=== PATIENT | female | born 1975 | race African-American/Black ===

== ENCOUNTER 2017-12-22 15:47 | Inpatient (IN) | payer OTHER, MEDICAID, MEDICARE ==
[2017-12-22] VITALS (20 sets, daily range): BP systolic 92–146; BP diastolic 54–74; PULSE 66–107; RESP 13–20; TEMP 97.6–97.9; O2SAT 89–100
[~2017-12-22] VITALS: Ht 170.2 cm; Wt 116.6 kg
--- NOTE | 2017-12-22 16:42 | RADRPT ---
EXAM DATE/TIME: 12/22/2017 16:22 [facility] COMPARISON: No previous studies available for comparison. INDICATIONS : Short of breath. MEDICAL HISTORY : None. SURGICAL HISTORY : None. ENCOUNTER: Initial ACUITY: 1 day PAIN SCORE: Non-responsive. LOCATION: Bilateral chest FINDINGS: Portable AP view of the chest demonstrates enlargement of the cardiac silhouette. Patient is rotated. Left chest wall Jhicjn-h-Azha distal tip is in the SVC. Lungs are underinflated there is mild bibasi lar airspace opacity. No pneumothorax or definite pleural effusion is seen. Bones and soft tissues de monstrate no acute finding. CONCLUSION: 1. Examination quality less than optimal secondary to patient's body habitus and rotation and underin flation. There is mild bibasilar airspace opacity which could represent atelectasis or airspace conso lidation. 2. There is mild enlargement of the cardiac silhouette. Jacinto Nieves MD on December 22, 2017 at 16:38 Board Certified Radiologist. This report was verified electronically.
[2017-12-22 17:02] LABS: AUTOMATED NEUTROPHIL # 8.5 TH/MM3 (1.8-7.7); BASOPHIL # 0.1 TH/MM3 (0-0.2); BASOPHIL % 0.8 % (0.0-2.0); EOSINOPHIL # 0.2 TH/MM3 (0-0.4); EOSINOPHIL % 1.5 % (0.0-4.0); LYMPHOCYTE # 1.6 TH/MM3 (1.0-4.8); MEAN CELL VOLUME 94.1 FL (80.0-100.0); MEAN CORPUSCULAR HEMOGLOBIN 32.2 PG (27.0-34.0); MEAN CORPUSCULAR HGB CONC 34.2 % (32.0-36.0); MEAN PLATELET VOLUME 9.1 FL (7.0-11.0); MONO % 10.7 % (0.0-8.0); MONOCYTE # 1.3 TH/MM3 (0-0.9); PLATELET COUNT 263 TH/MM3 (150-450); RED BLOOD COUNT 1.72 MIL/MM3 (4.00-5.30); RED CELL DISTRIBUTION WIDTH 24.4 % (11.6-17.2); WHITE BLOOD COUNT 11.7 TH/MM3 (4.0-11.0)
[2017-12-22 17:06] LABS: RETIC # 328.8 MIL/L (20.0-150.0); RETIC % 18.8 % (0.4-3.0)
[2017-12-22 17:14] LABS: INTERNATIONAL NORMALIZED RATIO 1.9 RATIO; PROTHROMBIN TIME - PATIENT 18.9 SEC (9.8-11.6)
[2017-12-22 17:19] LABS: HEMATOCRIT 16.2 % (35.0-46.0); HEMOGLOBIN 5.6 GM/DL (11.6-15.3)
[2017-12-22 17:24] LABS: ALT (GPT) 14 U/L (10-53)
[2017-12-22 17:26] LABS: ALKALINE PHOSPHATASE 143 U/L (45-117); TOTAL BILIRUBIN ADULT 4.1 MG/DL (0.2-1.0); TOTAL PROTEIN 9.6 GM/DL (6.4-8.2)
[2017-12-22 17:27] LABS: ALBUMIN 3.8 GM/DL (3.4-5.0); AST (GOT) 43 U/L (15-37); BICARBONATE 28.2 MEQ/L (21.0-32.0); BLOOD UREA NITROGEN 54 MG/DL (7-18); CALCIUM 8.5 MG/DL (8.5-10.1); CHLORIDE 99 MEQ/L (98-107); CREATININE 2.19 MG/DL (0.50-1.00); GLOMERULAR FILTRATION RATE 19 ML/MIN (>89); GLUCOSE,RANDOM 120 MG/DL (74-106); SODIUM (NA) 132 MEQ/L (136-145)
--- NOTE | 2017-12-22 17:27 | PD ---
HPI Chief Complaint: Edema Time Seen by Provider: 16:22 Travel History International Travel<30 days: No Contact w/Intl Traveler<30days: No Traveled to known affect area: No History of Present Illness HPI 42 YO F presents to the ED via EMS for evaluation of shortness of breath. Patient is a poor historian, unable to provide much meaningful history. Per EMS the patient had O2 sats of 81 on their arrival, required 15 L on nonrebreather to bring saturations into the 90s. Patient is alert, intermittently follows commands. She is very hard of hearing and unable to communicate well. Patient was able to provide her name. I reviewed her record. She has a history of sickle cell anemia, CHF, recent history of right DVT. [facility] Social History Tobacco Use: No Allergies-Medications (Allergen,Severity, Reaction): Coded Allergies: No Known Allergies (Unverified , 12/22/17) Review of Systems Except as stated in HPI: all other systems reviewed are Neg Physical Exam Narrative GENERAL: Well-nourished, well-developed obese -[place]ish female, in moderate distress. SKIN: Focused skin assessment warm/dry. Facial edema noted. HEAD: Normocephalic. EYES: Positive scleral icterus. No injection or drainage. NECK: Supple, trachea midline. No JVD or lymphadenopathy. CARDIOVASCULAR: Regular rate and rhythm without murmurs, gallops, or rubs. RESPIRATORY: Breath sounds equal bilaterally. Positive accessory muscle use. GASTROINTESTINAL: Abdomen edematous, firm to the touch. I am unable to elicit response to deep palpation. Hypoactive bowel sounds. MUSCULOSKELETAL: No cyanosis, 2+ pitting edema right much greater than left. BACK: Nontender without obvious deformity. No CVA tenderness. Data Data Last Documented VS Vital Signs Date Time Temp Pulse Resp B/P (MAP) Pulse Ox O2 Delivery O2 Flow Rate FiO2 12/22/17 18:30 94 14 110/54 (72) 100 Ventilator 60 12/22/17 18:00 15.00 12/22/17 16:16 97.8 Orders Orders Complete Blood Count With Diff (12/22/17 16:19) Comprehensive Metabolic Panel (12/22/17 16:19) B-Type Natriuretic Peptide (12/22/17 16:19) Act Partial Throm Time (Ptt) (12/22/17 16:19) Prothrombin Time / Inr (Pt) (12/22/17 16:19) Urinalysis - C+S If Indicated (12/22/17 16:19) Iv Access Insert/Monitor (12/22/17 16:19) Electrocardiogram (12/22/17 16:19) Ecg Monitoring (12/22/17 16:19) Oximetry (12/22/17 16:19) Oxygen Administration (12/22/17 16:19) Chest, Single Ap (12/22/17 16:19) Retic Count (12/22/17 16:21) Type And Screen (12/22/17 16:29) Red Blood Cells (Rbc) (12/22/17 17:19) Blood Product Administration (12/22/17 17:19) Sodium Chlor 0.9% 250 Ml Inj (Ns 250 Ml (12/22/17 17:30) Ed Poc Ultrasound (12/22/17 ) Arterial Blood Gas (Abg) (12/22/17 ) Etomidate Inj (Amidate Inj) (12/22/17 18:00) Succinylcholine Inj (Quelicin Inj) (12/22/17 18:00) Propofol 200 Mg/20 Ml Inj (Diprivan 200 (12/22/17 18:00) Furosemide Inj (Lasix Inj) (12/22/17 18:00) Etomidate Inj (Amidate Inj) (12/22/17 17:52) Succinylcholine Inj (Quelicin Inj) (12/22/17 17:52) Succinylcholine Inj (Quelicin Inj) (12/22/17 17:54) Propofol 1000 Mg/100 Ml Inj (Diprivan 10 (12/22/17 18:15) Midazolam Inj (Versed Inj) (12/22/17 18:15) Chest, Single Ap (12/22/17 ) Midazolam Inj (Versed Inj) (12/22/17 18:19) Ventilation & Perfusion Scan (12/22/17 ) Ct Thorax/ Chest Wo Iv Contras (12/22/17 ) Admit To Inpatient (12/22/17 ) Code Status (12/22/17 18:39) Vital Signs (Adult) CORTES.Q1H (12/22/17 18:39) Activity Bed Rest (12/22/17 18:39) Elevate Head Of Bed (12/22/17 18:39) Neuro Checks . ORDERED (12/22/17 18:39) Intake + Output Q1H (12/22/17 18:39) Diet Tube Feed Only (12/22/17 Dinner) Sodium Chlor 0.9% 1000 Ml Inj (Ns 1000 M (12/22/17 18:39) Sodium Chloride 0.9% Flush (Ns Flush) (12/22/17 18:45) Sodium Chloride 0.9% Flush (Ns Flush) (12/22/17 21:00) Acetaminophen (Tylenol) (12/22/17 18:45) Morphine Inj (Morphine Inj) (12/22/17 18:45) Famotidine Inj (Pepcid Inj) (12/22/17 21:00) Midazolam Inj (Versed Inj) (12/22/17 18:45) Ondansetron Inj (Zofran Inj) (12/22/17 18:45) Albuterol-Ipratropium Neb (Duoneb Neb) (12/22/17 20:00) Albuterol-Ipratropium Neb (Duoneb Neb) (12/22/17 18:45) Complete Blood Count With Diff (12/23/17 04:00) Comprehensive Metabolic Panel (12/23/17 04:00) Troponin I (12/22/17 18:39) Troponin I (12/23/17 00:39) Act Partial Throm Time (Ptt) (12/23/17 04:00) Prothrombin Time / Inr (Pt) (12/23/17 04:00) Magnesium (Mg) (12/23/17 04:00) Phosphorus (Po4) (12/23/17 04:00) Lactic Acid (12/23/17 04:00) Chest, Single Ap (12/23/17 ) Electrocardiogram (12/22/17 18:39) Electrocardiogram (12/23/17 00:39) Echo 2d Comp With Doppler (12/22/17 18:39) Pt Request For Service (12/22/17 18:39) Transformer Tester / Telemetry CORTES.Q8H (12/22/17 18:39) Scd Bilateral/Knee High CORTES.BID (12/22/17 18:39) Doc Bilateral/Knee High CORTES.QSHIFT (12/22/17 18:39) ^ Initiate Protocol (12/22/17 18:39) Instruction (12/22/17 18:39) Misc Nursing Information (12/22/17 18:45) Chlorhexidine 2% Cloth (Chlorhexidine 2% (12/23/17 04:00) Chlorhexidine 2% Cloth (Chlorhexidine 2% (12/22/17 18:45) Mrsa Pcr Surveillance (12/22/17 18:39) Docusate Sodium-Senna (Amber-Colace) (12/22/17 21:00) Magnesium Hydroxide Liq (Milk Of Magnesi (12/22/17 18:45) Sennosides (Senokot) (12/22/17 18:45) Bisacodyl Supp (Dulcolax Supp) (12/22/17 18:45) Lactulose Liq (Lactulose Liq) (12/22/17 18:45) Elevate Head Of Bed (12/22/17 18:39) Chlorhexidine 0.12% Liq (Peridex 0.12% L (12/22/17 20:00) Oral Hygiene Kit (12/22/17 18:45) Restraints Non-Violent CORTES.Q3H (12/22/17 18:39) Ventilator Weaning Readiness CORTES.DAILY@0800 (12/22/17 18:39) Propofol 1000 Mg/100 Ml Inj (Diprivan 10 (12/22/17 18:45) Inpatient Certification (12/22/17 ) Tube Feeding 08,20 (12/22/17 18:39) Labs Laboratory Tests Test 12/22/17 09:10 12/22/17 16:40 12/22/17 16:50 12/22/17 17:45 Blood Gas Puncture Site RT RADIAL LT RADIAL Blood Gas Patient Temperature 98.6 98.6 Blood Gas HCO3 25 mmol/L 26 mmol/L Blood Gas Base Excess -2.2 mmol/L -2.1 mmol/L Blood Gas Oxygen Saturation 91 % 93 % Arterial Blood pH 7.17 7.14 Arterial Blood Partial Pressure CO2 72 mmHg 79 mmHg Arterial Blood Partial Pressure O2 99 mmHG 170 mmHG Arterial Blood Oxygen Content 7.7 Vol % 7.6 Vol % Arterial Blood Carboxyhemoglobin 3.7 % 3.7 % Arterial Blood Methemoglobin 2.6 % 2.8 % Blood Gas Hemoglobin 5.9 G/DL 5.5 G/DL Oxygen Delivery Device VENTILATOR NRB Blood Gas Ventilator Setting PRVC/AC Blood Gas Inspired Oxygen 60 % 100 % White Blood Count 11.7 TH/MM3 Red Blood Count 1.72 MIL/MM3 Hemoglobin 5.6 GM/DL Hematocrit 16.2 % Mean Corpuscular Volume 94.1 FL Mean Corpuscular Hemoglobin 32.2 PG Mean Corpuscular Hemoglobin Concent 34.2 % Red Cell Distribution Width 24.4 % Platelet Count 263 TH/MM3 Mean Platelet Volume 9.1 FL Neutrophils (%) (Auto) 73.0 % Lymphocytes (%) (Auto) 14.0 % Monocytes (%) (Auto) 10.7 % Eosinophils (%) (Auto) 1.5 % Basophils (%) (Auto) 0.8 % Neutrophils # (Auto) 8.5 TH/MM3 Lymphocytes # (Auto) 1.6 TH/MM3 Monocytes # (Auto) 1.3 TH/MM3 Eosinophils # (Auto) 0.2 TH/MM3 Basophils # (Auto) 0.1 TH/MM3 CBC Comment AUTO DIFF Differential Total Cells Counted 100 Neutrophils % (Manual) 65 % Lymphocytes % 16 % Monocytes % 14 % Eosinophils % 2 % Basophils % 3 % Neutrophils # (Manual) 7.6 TH/MM3 Nucleated Red Blood Cells 11 /100 WBC Differential Comment FINAL DIFF MANUAL Platelet Estimate NORMAL Platelet Morphology Comment ENLARGED Basophilic Stippling FAINT Sickle Cells 1+ Target Cells 1+ Tear Drop Cells 1+ Ovalocytes 1+ Keratocytes 1+ Prothrombin Time 18.9 SEC Prothromb Time International Ratio 1.9 RATIO Activated Partial Thromboplast Time 47.0 SEC Blood Urea Nitrogen 54 MG/DL Creatinine 2.19 MG/DL Random Glucose 120 MG/DL Total Protein 9.6 GM/DL Albumin 3.8 GM/DL Calcium Level 8.5 MG/DL Alkaline Phosphatase 143 U/L Aspartate Amino Transf (AST/SGOT) 43 U/L Alanine Aminotransferase (ALT/SGPT) 14 U/L Total Bilirubin 4.1 MG/DL Sodium Level 132 MEQ/L Potassium Level 4.4 MEQ/L Chloride Level 99 MEQ/L Carbon Dioxide Level 28.2 MEQ/L Anion Gap 5 MEQ/L Estimat Glomerular Filtration Rate 19 ML/MIN B-Type Natriuretic Peptide 644 PG/ML Reticulocyte Count 18.8 % Absolute Reticulocyte Count 328.8 MIL/L Test 12/22/17 18:16 Urine Color DARK-BROWN Urine Turbidity CLOUDY Urine pH 5.5 Urine Specific [place] 1.019 Urine Protein 30 mg/dL Urine Glucose (UA) NEG mg/dL Urine Ketones NEG mg/dL Urine Occult Blood MOD Urine Nitrite NEG Urine Bilirubin NEG Urine Urobilinogen 2.0 MG/DL Urine Leukocyte Esterase LARGE Urine RBC 37 /hpf Urine WBC /hpf Urine Squamous Epithelial Cells 2 /hpf Urine Amorphous Sediment RARE Urine Bacteria MANY /hpf Urine Hyaline Casts 15 /lpf Urine Mucus FEW /lpf Microscopic Urinalysis Comment CULTURE INDICATED MDM Medical Decision Making Medical Screen Exam Complete: Yes Emergency Medical Condition: Yes Differential Diagnosis CHF exacerbation versus SCC versus DVT versus metabolic derangement versus Narrative Course 42 YO F presents to the ED via EMS for evaluation of shortness of breath. Patient is a poor historian, unable to provide much meaningful history. Per EMS the patient had O2 sats of 81 on their arrival, required 15 L on nonrebreather to bring saturations into the 90s. Patient is alert, intermittently follows commands. She is very hard of hearing and unable to communicate well. Patient was able to provide her name. I reviewed her record. She has a history of sickle cell anemia, CHF, recent history of right DVT. Per record review the patient's on Eliquis, has an IVC filter. Patient is afebrile, O2 sats 99% with a respiratory rate of 16 on 15 L by nonrebreather on presentation. On exam the patient is somewhat lethargic, but alert. She has significant edema of the face, abdomen and right lower extremity, much greater than the left. Breath sounds are clear but there is significant extra work of breathing. Nasal cannula was applied and patient was able to be weaned to 4 L. EKG rate 94, sinus rhythm. ID interval 176, QRS 94, QTc 443 ms. Low voltage throughout, normal axis. No acute ST changes. Reviewed by Dr. Paul. CXR: Limited due to the patient's body habitus. No acute findings. Hemoglobin 5.6, hematocrit 16.2. 2 units type and screen to be administered pending type and screen. BNP 644 . Will follow transfusion with 40 of Lasix IV. Bedside ultrasound reveals no evidence of cardiac tamponade. Significant dilation of the heart. See Dr. Paul's note for details. On recheck patient is minimally responsive, even to noxious stimuli. She is barely protecting her airway. O2 sats remain in the 90s as weaned off of the nonrebreather, now on 4 L by nasal cannula. ABG reveals pH 7.141 with a CO2 of 79.4. Patient was intubated utilizing CMAC. See Dr. Paul's note for details. Dr. Paul spoke with Dr. Vazquez who agrees to accept the patient to the intensive care unit. Please see his notes for disposition. Maria Fernanda Huff Dec 22, 2017 17:27
[2017-12-22] MEDS ORDERED: SODIUM CHLOR 0.9% 250 ML INJ 250 ML IV ONE (17:30)
[2017-12-22 17:42] LABS: BASOPHILS 3 % (0-2); CORRECTED NUCLEATED RBC 11 /100 WBC (0-0); LYMPHOCYTES 16 % (9-44); MONOCYTES 14 % (0-8); NEUTROPHIL # MANUAL DIFF 7.6 TH/MM3 (1.8-7.7); NUCLEATED RED BLOOD CELL 11 (0-0); POLYS (SEG NEUTROPHILS) 65 % (16-70)
[2017-12-22 17:44] LABS: KERATOCYTES 1+ (NORMAL); OVALOCYTES 1+ (NORMAL); SICKLE CELLS 1+ (NORMAL); TARGET CELLS 1+ (NORMAL)
[2017-12-22 17:45] LABS: TEARDROP RBCS 1+ (NORMAL)
[2017-12-22] MEDS ORDERED: ETOMIDATE 40 MG/20 ML VIAL ONE (17:52)
[2017-12-22] MEDS ORDERED: SUCCINYLCHOLINE CHLORIDE 200 MG/10 ML VIAL ONE ×2 (17:52→17:54)
[2017-12-22] MEDS ORDERED: SUCCINYLCHOLINE CHLORIDE 100 MG/5 ML SYRINGE IV PUSH ONE (18:00)
[2017-12-22] MEDS ORDERED: PROPOFOL 200 MG/20 ML AMP IV ONE (18:00)
[2017-12-22] MEDS ORDERED: ETOMIDATE 20 MG/10 ML VIAL IV PUSH ONE (18:00)
[2017-12-22] MEDS ORDERED: FUROSEMIDE 40 MG/4 ML VIAL IV PUSH ONE (18:00)
[2017-12-22] MEDS ORDERED: MIDAZOLAM HCL 5 MG/5 ML VIAL IV PUSH ONE (18:15)
[2017-12-22] MEDS ORDERED: MIDAZOLAM HCL 5 MG/ML VIAL (1 ML) ONE (18:19)
--- NOTE | 2017-12-22 18:31 | PD ---
Physical Exam Date Seen by Provider: Dec 22, 2017 Time Seen by Provider: 18:20 Narrative The patient is a 42-year-old female who presents to the emergency department via EMS for shortness of breath. The patient was initially evaluated by the mid-level provider. Please refer to the initial history, physical, diagnostic evaluation, treatment modality plan. Data Data Last Documented VS Vital Signs Date Time Temp Pulse Resp B/P (MAP) Pulse Ox O2 Delivery O2 Flow Rate FiO2 12/22/17 18:00 60 12/22/17 18:00 107 20 120/57 (78) 100 Blow-by 15.00 12/22/17 16:16 97.8 Orders Orders Complete Blood Count With Diff (12/22/17 16:19) Comprehensive Metabolic Panel (12/22/17 16:19) B-Type Natriuretic Peptide (12/22/17 16:19) Act Partial Throm Time (Ptt) (12/22/17 16:19) Prothrombin Time / Inr (Pt) (12/22/17 16:19) Urinalysis - C+S If Indicated (12/22/17 16:19) Iv Access Insert/Monitor (12/22/17 16:19) Electrocardiogram (12/22/17 16:19) Ecg Monitoring (12/22/17 16:19) Oximetry (12/22/17 16:19) Oxygen Administration (12/22/17 16:19) Chest, Single Ap (12/22/17 16:19) Retic Count (12/22/17 16:21) Type And Screen (12/22/17 16:29) Red Blood Cells (Rbc) (12/22/17 17:19) Blood Product Administration (12/22/17 17:19) Sodium Chlor 0.9% 250 Ml Inj (Ns 250 Ml (12/22/17 17:30) Ed Poc Ultrasound (12/22/17 ) Arterial Blood Gas (Abg) (12/22/17 ) Etomidate Inj (Amidate Inj) (12/22/17 18:00) Succinylcholine Inj (Quelicin Inj) (12/22/17 18:00) Propofol 200 Mg/20 Ml Inj (Diprivan 200 (12/22/17 18:00) Furosemide Inj (Lasix Inj) (12/22/17 18:00) Etomidate Inj (Amidate Inj) (12/22/17 17:52) Succinylcholine Inj (Quelicin Inj) (12/22/17 17:52) Succinylcholine Inj (Quelicin Inj) (12/22/17 17:54) Propofol 1000 Mg/100 Ml Inj (Diprivan 10 (12/22/17 18:15) Midazolam Inj (Versed Inj) (12/22/17 18:15) Chest, Single Ap (12/22/17 ) Labs Laboratory Tests Test 12/22/17 16:40 12/22/17 16:50 12/22/17 17:45 White Blood Count 11.7 TH/MM3 Red Blood Count 1.72 MIL/MM3 Hemoglobin 5.6 GM/DL Hematocrit 16.2 % Mean Corpuscular Volume 94.1 FL Mean Corpuscular Hemoglobin 32.2 PG Mean Corpuscular Hemoglobin Concent 34.2 % Red Cell Distribution Width 24.4 % Platelet Count 263 TH/MM3 Mean Platelet Volume 9.1 FL Neutrophils (%) (Auto) 73.0 % Lymphocytes (%) (Auto) 14.0 % Monocytes (%) (Auto) 10.7 % Eosinophils (%) (Auto) 1.5 % Basophils (%) (Auto) 0.8 % Neutrophils # (Auto) 8.5 TH/MM3 Lymphocytes # (Auto) 1.6 TH/MM3 Monocytes # (Auto) 1.3 TH/MM3 Eosinophils # (Auto) 0.2 TH/MM3 Basophils # (Auto) 0.1 TH/MM3 CBC Comment AUTO DIFF Differential Total Cells Counted 100 Neutrophils % (Manual) 65 % Lymphocytes % 16 % Monocytes % 14 % Eosinophils % 2 % Basophils % 3 % Neutrophils # (Manual) 7.6 TH/MM3 Nucleated Red Blood Cells 11 /100 WBC Differential Comment FINAL DIFF MANUAL Platelet Estimate NORMAL Platelet Morphology Comment ENLARGED Basophilic Stippling FAINT Sickle Cells 1+ Target Cells 1+ Tear Drop Cells 1+ Ovalocytes 1+ Keratocytes 1+ Prothrombin Time 18.9 SEC Prothromb Time International Ratio 1.9 RATIO Activated Partial Thromboplast Time 47.0 SEC Blood Urea Nitrogen 54 MG/DL Creatinine 2.19 MG/DL Random Glucose 120 MG/DL Total Protein 9.6 GM/DL Albumin 3.8 GM/DL Calcium Level 8.5 MG/DL Alkaline Phosphatase 143 U/L Aspartate Amino Transf (AST/SGOT) 43 U/L Alanine Aminotransferase (ALT/SGPT) 14 U/L Total Bilirubin 4.1 MG/DL Sodium Level 132 MEQ/L Potassium Level 4.4 MEQ/L Chloride Level 99 MEQ/L Carbon Dioxide Level 28.2 MEQ/L Anion Gap 5 MEQ/L Estimat Glomerular Filtration Rate 19 ML/MIN B-Type Natriuretic Peptide 644 PG/ML Reticulocyte Count 18.8 % Absolute Reticulocyte Count 328.8 MIL/L Blood Gas Puncture Site LT RADIAL Blood Gas Patient Temperature 98.6 Blood Gas HCO3 26 mmol/L Blood Gas Base Excess -2.1 mmol/L Blood Gas Oxygen Saturation 93 % Arterial Blood pH 7.14 Arterial Blood Partial Pressure CO2 79 mmHg Arterial Blood Partial Pressure O2 170 mmHG Arterial Blood Oxygen Content 7.6 Vol % Arterial Blood Carboxyhemoglobin 3.7 % Arterial Blood Methemoglobin 2.8 % Blood Gas Hemoglobin 5.5 G/DL Oxygen Delivery Device NRB Blood Gas Inspired Oxygen 100 % MDM Medical Record Reviewed: Yes Supervised Visit with MARITZA: Yes Interpretation(s) Last Impressions Chest X-Ray 12/22/17 1619 Signed Impressions: Service Date/Time: December 16:22 - CONCLUSION: 1. Examination quality less than optimal secondary to patient's body habitus and rotation and underinflation. There is mild bibasilar airspace opacity which could represent atelectasis or airspace consolidation. 2. There is mild enlargement of the cardiac silhouette. Jacinto Nieves MD Laboratory Tests Test 12/22/17 16:40 12/22/17 16:50 12/22/17 17:45 White Blood Count 11.7 TH/MM3 Red Blood Count 1.72 MIL/MM3 Hemoglobin 5.6 GM/DL Hematocrit 16.2 % Mean Corpuscular Volume 94.1 FL Mean Corpuscular Hemoglobin 32.2 PG Mean Corpuscular Hemoglobin Concent 34.2 % Red Cell Distribution Width 24.4 % Platelet Count 263 TH/MM3 Mean Platelet Volume 9.1 FL Neutrophils (%) (Auto) 73.0 % Lymphocytes (%) (Auto) 14.0 % Monocytes (%) (Auto) 10.7 % Eosinophils (%) (Auto) 1.5 % Basophils (%) (Auto) 0.8 % Neutrophils # (Auto) 8.5 TH/MM3 Lymphocytes # (Auto) 1.6 TH/MM3 Monocytes # (Auto) 1.3 TH/MM3 Eosinophils # (Auto) 0.2 TH/MM3 Basophils # (Auto) 0.1 TH/MM3 CBC Comment AUTO DIFF Differential Total Cells Counted 100 Neutrophils % (Manual) 65 % Lymphocytes % 16 % Monocytes % 14 % Eosinophils % 2 % Basophils % 3 % Neutrophils # (Manual) 7.6 TH/MM3 Nucleated Red Blood Cells 11 /100 WBC Differential Comment FINAL DIFF MANUAL Platelet Estimate NORMAL Platelet Morphology Comment ENLARGED Basophilic Stippling FAINT Sickle Cells 1+ Target Cells 1+ Tear Drop Cells 1+ Ovalocytes 1+ Keratocytes 1+ Prothrombin Time 18.9 SEC Prothromb Time International Ratio 1.9 RATIO Activated Partial Thromboplast Time 47.0 SEC Blood Urea Nitrogen 54 MG/DL Creatinine 2.19 MG/DL Random Glucose 120 MG/DL Total Protein 9.6 GM/DL Albumin 3.8 GM/DL Calcium Level 8.5 MG/DL Alkaline Phosphatase 143 U/L Aspartate Amino Transf (AST/SGOT) 43 U/L Alanine Aminotransferase (ALT/SGPT) 14 U/L Total Bilirubin 4.1 MG/DL Sodium Level 132 MEQ/L Potassium Level 4.4 MEQ/L Chloride Level 99 MEQ/L Carbon Dioxide Level 28.2 MEQ/L Anion Gap 5 MEQ/L Estimat Glomerular Filtration Rate 19 ML/MIN B-Type Natriuretic Peptide 644 PG/ML Reticulocyte Count 18.8 % Absolute Reticulocyte Count 328.8 MIL/L Blood Gas Puncture Site LT RADIAL Blood Gas Patient Temperature 98.6 Blood Gas HCO3 26 mmol/L Blood Gas Base Excess -2.1 mmol/L Blood Gas Oxygen Saturation 93 % Arterial Blood pH 7.14 Arterial Blood Partial Pressure CO2 79 mmHg Arterial Blood Partial Pressure O2 170 mmHG Arterial Blood Oxygen Content 7.6 Vol % Arterial Blood Carboxyhemoglobin 3.7 % Arterial Blood Methemoglobin 2.8 % Blood Gas Hemoglobin 5.5 G/DL Oxygen Delivery Device NRB Blood Gas Inspired Oxygen 100 % Differential Diagnosis Differential diagnosis includes pericardial effusion, congestive heart failure, cardiomyopathy, pulmonary embolism, superior vena cava syndrome, pleural effusion, pneumonia, bronchitis, high output congestive heart failure, symptomatic anemia, acute chest syndrome. Narrative Course The patient was initially evaluated by the mid-level provider. Please refer to the initial history, physical, diagnostic evaluation, treatment modality plan. When I evaluated the patient she was somewhat lethargic, she was hypoxic, she was placed on oxygen at 4 L via nasal cannula. The patient was noted to be accurate, she did have jorge-orbital and facial swelling as well as swelling of the abdomen and right lower extremity significantly greater than the left lower extremity. The patient appeared to have anasarca. The patient's neurologic status was somewhat lethargic, she would respond to pain initially, however, over the course of 1 hour she stopped responding to pain significantly. The patient had a bedside ultrasound performed by myself to evaluate for pericardial effusion, there is trace pericardial effusion, however, the heart was significantly enlarged. The patient was then noted to be more lethargic, therefore, ABG was obtained. ABG does reveal acidosis with elevated PCO2. The patient's mental status would not allow for BiPAP, therefore, the patient was intubated using rapid sequence intubation with etomidate and succinylcholine anesthesia MAC. Postintubation chest x-ray was obtained. I discussed the patient with the statistical financial analyst, Dr. Vazquez, who agrees with admission. Critical Care Narrative Aggregate critical care time was 40 minutes. Time to perform other separately billable procedures was not included in the critical care time. My time did not include minutes spent treating any other patients simultaneously or on activities that did not directly contribute to the patient's treatment. The services I provided to this patient were to treat and/or prevent clinically significant deterioration that could result in: Anoxia, hypoxia, aspiration, hypercapnia, . I provided critical care services requiring my management, as noted below: Chart data review, documentation time, medication orders and management, vital sign assessments/reviewing monitor data, ordering and reviewing lab tests, ordering and interpreting/reviewing x-rays and diagnostic studies, care of the patient and discussion of the patient with the admitting physicians. Procedures Procedure Narrative The patient was put in optimal position for the procedure. Rapid sequence intubation was initiated by me using 20 milligrams of etomidate IV and 100 milligrams of succinylcholine IV. The patient was intubated with a 8-0 cuffed endotracheal tube. Tube placement was confirmed by visualization of the tube and balloon passing through the cords, capnometry and subsequent chest x-ray. Breath sounds were equal and well aerated bilaterally postintubation. No breath sounds over stomach. Patient tolerated procedure well. A bedside ultrasound was performed using a cardiac probe. The heart was enlarged, there is a trace pericardial effusion, but I cannot visualize any significant effusion or cardiac tamponade. The patient tolerated the procedure without difficulty. There was no obvious complications. Physician Communication Physician Communication I discussed the patient with Dr. Vazquez who agrees with admission. Diagnosis Primary Impression: Dyspnea Qualified Codes: R06.00 - Dyspnea, unspecified Additional Impressions: Hypercapnia Symptomatic anemia Admitting Information Admitting Physician Requests: Admit Condition: Critical Jason Paul MD Dec 22, 2017 18:31
--- NOTE | 2017-12-22 18:31 | RADRPT ---
EXAM DATE/TIME: 12/22/2017 18:15 [facility] COMPARISON: CHEST SINGLE AP, December 22, 2017, 16:22. INDICATIONS : Shortness of breath status post intubation. MEDICAL HISTORY : Unobtainable. SURGICAL HISTORY : Unobtainable. ENCOUNTER: Subsequent ACUITY: 1 day PAIN SCORE: Non-responsive. LOCATION: Bilateral chest FINDINGS: A single AP supine portable view of the chest was obtained and demonstrates interval intubation with endotracheal tube tip approximately 2 cm above the corinna. A nasogastric tube has been placed and is seen coursing through the esophagus into the stomach. The left internal jugular central venous line r emains in place. Marked cardiomegaly is again noted with hazy alveolar opacities in both lungs. There is no distinct effusion. The bony thorax is intact. CONCLUSION: 1. Interval intubation and placement of nasogastric tube. 2. Marked cardiomegaly and apparent pulmonary edema. Zay Barakat MD on December 22, 2017 at 18:26 Board Certified Radiologist. This report was verified electronically.
[2017-12-22] MEDS: PROPOFOL 1000 MG/100 ML INJ 100 ML IV PRN ×2 (18:44→23:48)
[2017-12-22] MEDS ORDERED: CHLORHEXIDINE GLUCONATE 2 % 1 PACK (2 CLOTHS) TOP PRN (18:45)
[2017-12-22] MEDS ORDERED: ONDANSETRON HCL 4 MG/2 ML VIAL IV PUSH PRN (18:45)
[2017-12-22] MEDS ORDERED: MIDAZOLAM HCL 2 MG/2 ML VIAL IV PUSH PRN (18:45)
[2017-12-22] MEDS ORDERED: RESP: ALBUTEROL 2.5 MG/IPRATROPIUM 0.5 MG NEB (PRN) INH (18:45)
[2017-12-22] MEDS ORDERED: NURSING INFORMATION XX SCH (18:45)
[2017-12-22] MEDS ORDERED: MAGNESIUM HYDROXIDE SUSP 30 ML CUP PO PRN (18:45)
[2017-12-22] MEDS ORDERED: BISACODYL 10 MG SUPP RECTAL PRN (18:45)
[2017-12-22] MEDS ORDERED: SENNOSIDES 8.6 MG TAB PO PRN (18:45)
[2017-12-22] MEDS ORDERED: LACTULOSE SYRUP 20 GM/30 ML CUP PO PRN (18:45)
[2017-12-22] MEDS ORDERED: ACETAMINOPHEN 325 MG TAB PO PRN (18:45)
[2017-12-22] MEDS ORDERED: HEPARIN - 10,000 UNITS/ML IV ADDITIVE IV PUSH STA (18:47)
[2017-12-22] MEDS ORDERED: fentaNYL DRIP 250 ML IV PRN (19:00)
[2017-12-22 19:03] LABS: AMORPHOUS SEDIMENT, URINE RARE; BACTERIA, URINE MANY /hpf; BILIRUBIN, URINE NEG (NEG); BLOOD, URINE MOD (NEG); GLUCOSE,URINE NEG (NEG); HYALINE CAST, URINE 15 /lpf (RARE); KETONE, URINE NEG (NEG); MUCUS URINE FEW /lpf (OCC); NITRITE,URINE NEG (NEG); PH, URINE 5.5 (5.0-8.5); SQUAMOUS EPITHELIAL CELL URINE 2 /hpf (0-5); URINE COLOR DARK-BROWN (YELLW/STRAW); URINE LEUKOCYTE ESTERASE LARGE (NEG)
[2017-12-22] MEDS: RESP: ALBUTEROL 2.5 MG/IPRATROPIUM 0.5 MG NEB (SCH) INH ×2 (19:21→23:29)
--- NOTE | 2017-12-22 20:17 | RADRPT ---
EXAM DATE/TIME: 12/22/2017 19:57 [facility] COMPARISON: CHEST SINGLE AP, December 22, 2017, 18:15. INDICATIONS : Shortness of breath. RADIATION DOSE: 17.34 CTDIvol (mGy) MEDICAL HISTORY : Non-responsive. SURGICAL HISTORY : Non-responsive. ENCOUNTER: Initial ACUITY: 1 day PAIN SCALE: Non-responsive LOCATION: chest TECHNIQUE: Volumetric scanning of the chest was performed. Using automated exposure control and adjustment of t he mA and/or kV according to patient size, radiation dose was kept as low as reasonably achievable to obtain optimal diagnostic quality images. DICOM format image data is available electronically for r eview and comparison. Follow-up recommendations for detected pulmonary nodules are based at a minimum on nodule size and pa tient risk factors according to Fleischner Society Guidelines. FINDINGS: LUNGS: Airspace disease is noted in both lower lobes left greater than right with air bronchograms. There is more hazy opacity in the right upper lobe and right perihilar region. PLEURAE: There are small pleural effusions. MEDIASTINUM: The heart size is moderately enlarged with moderate amount of pericardial fluid noted. AXILLAE: Within normal limits. No lymphadenopathy. MUSCULOSKELETAL: There is diffuse anasarca throughout the subcutaneous fat. MISCELLANEOUS: There is a small amount of ascitic fluid in the upper abdomen. There is evidence of hepatomegaly. The re is no normal spleen. There is a small high density structure in the expected location of the splee n measuring approximately 2.8 x 1.4 cm. CONCLUSION: 1. Moderate cardiomegaly with moderate pericardial effusion. 2. Consolidation and airspace disease in the lower lobes left greater than right as well as more patc hy airspace disease in the right lung. 3. Small pleural effusions. 4. Diffuse anasarca with ascites in the upper abdomen. 5. Hepatomegaly and abnormal apparent small high density spleen. Zay Barakat MD on December 22, 2017 at 20:10 Board Certified Radiologist. This report was verified electronically.
[2017-12-22] MEDS: DOCUSATE SODIUM 50 MG/SENNA 8.6 MG TAB PO SCH (21:00)
[2017-12-22] MEDS: FAMOTIDINE 20 MG/2 ML VIAL IV PUSH SCH (21:14)
[2017-12-22] MEDS: HEPARIN-D5W 25,000 U/250 ML 250 ML IV PRN (21:15)
[2017-12-22] MEDS: SODIUM CHLORIDE 0.9% FLUSH 10 ML FLUSH IV FLUSH SCH (21:20)
[2017-12-22] MEDS: CHLORHEXIDINE 0.12% (ORAL KIT) 15 ML CUP MT SCH (21:43)
--- NOTE | 2017-12-22 22:07 | HHI.HP ---
HPI Service Critical Care Medicine Primary Care Physician Unknown Admission Diagnosis Diagnosis: Travel History International Travel<30 Days: No Contact w/Intl Traveler <30 Da: No Traveled to Known Affected Are: No History of Present Illness 42-year-old unfortunate -Surinamese female presents for evaluation of shortness of breath. Per EMS report the patient had O2 sats of 81 on their arrival, required 15 L on nonrebreather to bring saturations into the 90s. Patient was initially alert, intermittently following commands. Patient was able to provide her name. Per review of medical record and ER documentation she has a history of sickle cell anemia, CHF, and recent history of right DVT on Xarelto. Review of Systems ROS Unable to obtain patient sedated and intubated Past Family Social History Allergies: Coded Allergies: No Known Allergies (Unverified , 12/22/17) Past Medical History Sickle cell disease DVT in lower extremities Past Surgical History IVC filter placement Reported Medications Unable to obtain Active Ordered Medications Current Medications Medications (Trade) Dose Ordered Sig/Earnest Route PRN Reason Start Time Stop Time Status Last Admin Dose Admin Sodium Chloride 250 ml @ 15 mls/hr ONCE ONCE IV 12/22/17 17:30 12/23/17 10:09 Propofol 100 ml @ 0 mls/hr TITRATE PRN IV SEDATION 12/22/17 18:15 12/22/17 18:44 Sodium Chloride 1,000 ml @ 84 mls/hr [id number] IV 12/22/17 18:39 Sodium Chloride (NS Flush) 2 ml UNSCH PRN IV FLUSH FLUSH AFTER USING IV ACCESS 12/22/17 18:45 Sodium Chloride (NS Flush) 2 ml BID IV FLUSH 12/22/17 21:00 12/22/17 21:20 Acetaminophen (Tylenol) 650 mg Q6H PRN PO PAIN 1-5 AND/OR FEVER >101F 12/22/17 18:45 Morphine Sulfate (Morphine Inj) 2 mg Q2H PRN IV PUSH PAIN SCALE 6 TO 10 12/22/17 18:45 Famotidine (Pepcid Inj) 20 mg Q12HR IV PUSH 12/22/17 21:00 12/22/17 21:14 Midazolam HCl (Versed Inj) 2 mg Q1H PRN IV PUSH SEDATION 12/22/17 18:45 Ondansetron HCl (Zofran Inj) 4 mg Q6H PRN IV PUSH NAUSEA OR VOMITING 12/22/17 18:45 Albuterol/ Ipratropium (Duoneb Neb) 1 ampule Q4HR NEB INH 12/22/17 20:00 12/22/17 23:29 Albuterol/ Ipratropium (Duoneb Neb) 1 ampule Q2HR NEB PRN INH WHEEZING 12/22/17 18:45 Miscellaneous Information 1 [id number] XX 12/22/17 18:45 Chlorhexidine Gluconate (Chlorhexidine 2% Cloth) 3 pack Taper DAILY@04 TOP 12/23/17 04:00 12/19/18 03:59 Chlorhexidine Gluconate (Chlorhexidine 2% Cloth) 3 pack UNSCH PRN TOP HYGIENIC CARE 12/22/17 18:45 Senna/Docusate Sodium (Amber-Colace) 1 tab BID PO 12/22/17 21:00 Magnesium Hydroxide (Milk Of Magnesia Liq) 30 ml Q12H PRN PO Mild constipation 12/22/17 18:45 Sennosides (Senokot) 17.2 mg Q12H PRN PO Moderate constipation 12/22/17 18:45 Bisacodyl (Dulcolax Supp) 10 mg DAILY PRN RECTAL SEVERE CONSITIPATION 12/22/17 18:45 Lactulose (Lactulose Liq) 30 ml DAILY PRN PO SEVERE CONSITIPATION 12/22/17 18:45 Chlorhexidine Gluconate (Peridex 0.12% Liq) 15 ml BID@08,20 MT 12/22/17 20:00 12/22/17 21:43 Propofol 100 ml @ 3.45 mls/hr TITRATE PRN IV SEDATION 12/22/17 18:45 Fentanyl Citrate 250 ml @ 5 mls/hr TITRATE PRN IV SEDATION 12/22/17 19:00 Heparin Sodium (Porcine) (Heparin Inj) 5,000 units UNSCH PRN IV PUSH APTT LESS THAN 25 12/23/17 01:00 Heparin Sodium (Porcine) (Heparin Inj) 2,500 units UNSCH PRN IV PUSH APTT 25 TO 39 12/23/17 01:00 Heparin Sodium/ Dextrose 250 ml @ 18 mls/hr TITRATE PRN IV Coagulation Management 12/22/17 19:00 12/22/17 21:15 Family History Unable to obtain Social History Unable to obtain Physical Exam Vital Signs Vital Signs Date Time Temp Pulse Resp B/P (MAP) Pulse Ox O2 Delivery O2 Flow Rate FiO2 12/22/17 21:49 97.9 71 18 92/57 94 12/22/17 21:37 97.7 74 18 117/74 95 12/22/17 20:50 95 60 12/22/17 19:27 96 60 12/22/17 18:30 94 14 110/54 (72) 100 Ventilator 60 12/22/17 18:05 95 60 12/22/17 18:00 60 12/22/17 18:00 107 20 120/57 (78) 100 Blow-by 15.00 12/22/17 17:30 90 20 146/60 (88) 99 Non-Rebreather 8.00 12/22/17 17:15 99 Nasal Cannula 8.00 12/22/17 17:00 90 20 136/65 (88) 99 Non-Rebreather 11.00 12/22/17 16:45 98 Non-Rebreather 11.00 12/22/17 16:22 13 99 Non-Rebreather 15.00 12/22/17 16:16 97.8 91 16 132/68 (89) 99 12/22/17 16:16 100 Non-Rebreather 15.00 Physical Exam PFSH Social History Tobacco Use: No Allergies-Medications (Allergen,Severity, Reaction): Coded Allergies: No Known Allergies (Unverified , 12/22/17) GENERAL: Morbidly obese -Surinamese female, sedated and intubated SKIN: Focused skin assessment warm/dry. Facial edema noted. HEAD: Normocephalic. EYES: Positive scleral icterus. No injection or drainage. NECK: Supple, trachea midline. No JVD or lymphadenopathy. CARDIOVASCULAR: Regular rate and rhythm without murmurs, gallops, or rubs. RESPIRATORY: Breath sounds equal bilaterally. Positive accessory muscle use. GASTROINTESTINAL: Abdomen edematous, firm to the touch. I am unable to elicit response to deep palpation. Hypoactive bowel sounds. MUSCULOSKELETAL: No cyanosis, 2+ pitting edema right much greater than left. BACK: Nontender without obvious deformity. No CVA tenderness. Neuro: Sedated and intubated, pupils 3 mm reactive bilaterally briskly Laboratory Laboratory Tests Test 4/12/18 09:10 12/22/17 16:40 12/22/17 16:50 12/22/17 17:45 Blood Gas Puncture Site RT RADIAL LT RADIAL Blood Gas Patient Temperature 98.6 98.6 Blood Gas HCO3 25 26 Blood Gas Base Excess -2.2 -2.1 Blood Gas Oxygen Saturation 91 93 Arterial Blood pH 7.17 7.14 Arterial Blood Partial Pressure CO2 72 79 Arterial Blood Partial Pressure O2 99 170 Arterial Blood Oxygen Content 7.7 7.6 Arterial Blood Carboxyhemoglobin 3.7 3.7 Arterial Blood Methemoglobin 2.6 2.8 Blood Gas Hemoglobin 5.9 5.5 Oxygen Delivery Device VENTILATOR NRB Blood Gas Ventilator Setting PRVC/AC Blood Gas Inspired Oxygen 60 100 White Blood Count 11.7 Red Blood Count 1.72 Hemoglobin 5.6 Hematocrit 16.2 Mean Corpuscular Volume 94.1 Mean Corpuscular Hemoglobin 32.2 Mean Corpuscular Hemoglobin Concent 34.2 Red Cell Distribution Width 24.4 Platelet Count 263 Mean Platelet Volume 9.1 Neutrophils (%) (Auto) 73.0 Lymphocytes (%) (Auto) 14.0 Monocytes (%) (Auto) 10.7 Eosinophils (%) (Auto) 1.5 Basophils (%) (Auto) 0.8 Neutrophils # (Auto) 8.5 Lymphocytes # (Auto) 1.6 Monocytes # (Auto) 1.3 Eosinophils # (Auto) 0.2 Basophils # (Auto) 0.1 CBC Comment AUTO DIFF Differential Total Cells Counted 100 Neutrophils % (Manual) 65 Lymphocytes % 16 Monocytes % 14 Eosinophils % 2 Basophils % 3 Neutrophils # (Manual) 7.6 Nucleated Red Blood Cells 11 Differential Comment FINAL DIFF MANUAL Platelet Estimate NORMAL Platelet Morphology Comment ENLARGED Basophilic Stippling FAINT Sickle Cells 1+ Target Cells 1+ Tear Drop Cells 1+ Ovalocytes 1+ Keratocytes 1+ Prothrombin Time 18.9 Prothromb Time International Ratio 1.9 Activated Partial Thromboplast Time 47.0 Blood Urea Nitrogen 54 Creatinine 2.19 Random Glucose 120 Total Protein 9.6 Albumin 3.8 Calcium Level 8.5 Alkaline Phosphatase 143 Aspartate Amino Transf (AST/SGOT) 43 Alanine Aminotransferase (ALT/SGPT) 14 Total Bilirubin 4.1 Sodium Level 132 Potassium Level 4.4 Chloride Level 99 Carbon Dioxide Level 28.2 Anion Gap 5 Estimat Glomerular Filtration Rate 19 Troponin I LESS THAN 0.02 B-Type Natriuretic Peptide 644 Reticulocyte Count 18.8 Absolute Reticulocyte Count 328.8 Test 12/22/17 18:16 12/22/17 21:10 Urine Color DARK-BROWN Urine Turbidity CLOUDY Urine pH 5.5 Urine Specific Marcy 1.019 Urine Protein 30 Urine Glucose (UA) NEG Urine Ketones NEG Urine Occult Blood MOD Urine Nitrite NEG Urine Bilirubin NEG Urine Urobilinogen 2.0 Urine Leukocyte Esterase LARGE Urine RBC 37 Urine WBC Urine Squamous Epithelial Cells 2 Urine Amorphous Sediment RARE Urine Bacteria MANY Urine Hyaline Casts 15 Urine Mucus FEW Microscopic Urinalysis Comment CULTURE INDICATED Date/Time Source Procedure Growth Status 12/22/17 18:16 Urine Random Urine Urine Culture Pending Received Result Diagram: 12/22/17 1640 12/22/17 1640 Imaging Last 24 hours Impressions Chest X-Ray 12/22/17 1619 Signed Impressions: Service Date/Time: December 16:22 - CONCLUSION: 1. Examination quality less than optimal secondary to patient's body habitus and rotation and underinflation. There is mild bibasilar airspace opacity which could represent atelectasis or airspace consolidation. 2. There is mild enlargement of the cardiac silhouette. Jacinto Nieves MD Chest X-Ray 12/22/17 0000 Signed Impressions: Service Date/Time: December 18:15 - CONCLUSION: 1. Interval intubation and placement of nasogastric tube. 2. Marked cardiomegaly and apparent pulmonary edema. Zay Barakat MD Chest CT 12/22/17 0000 Signed Impressions: Service Date/Time: December 19:57 - CONCLUSION: 1. Moderate cardiomegaly with moderate pericardial effusion. 2. Consolidation and airspace disease in the lower lobes left greater than right as well as more patchy airspace disease in the right lung. 3. Small pleural effusions. 4. Diffuse anasarca with ascites in the upper abdomen. 5. Hepatomegaly and abnormal apparent small high density spleen. Zay Barakat MD Septic Shock Reassessment Septic shock perfusion: reassessment completed Caprini VTE Risk Assessment Caprini VTE Risk Assessment: Mod/High Risk (score >= 2) Caprini Risk Assessment Model Point Value = 1 Point Value = 2 Point Value = 3 Point Value = 5 Age 41-60 Minor surgery BMI > 25 kg/m2 Swollen legs Varicose veins or History of unexplained or recurrent spontaneous Oral contraceptives or hormone replacement Sepsis (< 1 month) Serious lung disease, including pneumonia (< 1 month) Abnormal pulmonary function Acute myocardial infarction Congestive heart failure (< 1 month) History of inflammatory bowel disease Medical patient at bed rest Age 61-74 Arthroscopic surgery Major open surgery (> 45 min) Laparoscopic surgery (> 45 min) Malignancy Confined to bed (> 72 hours) Immobilizing plaster cast Central venous access Age >= 75 History of VTE Family history of VTE Factor V Leiden Prothrombin [id number] Lupus anticoagulant Anticardiolipin antibodies Elevated serum homocysteine Heparin-induced thrombocytopenia Other congenital or acquired thrombophilia Stroke (< 1 month) Elective arthroplasty Hip, pelvis, or leg fracture Acute spinal cord injury (< 1 month) Prophylaxis Regimen Total Risk Factor Score Risk Level Prophylaxis Regimen 0-1 Low Early ambulation 2 Moderate Order ONE of the following: *Sequential Compression Device (SCD) *Heparin 5000 units SQ BID 3-4 Higher Order ONE of the following medications: *Heparin 5000 units SQ TID *Enoxaparin/Lovenox 40 mg SQ daily (WT < 150 kg, CrCl > 30 mL/min) *Enoxaparin/Lovenox 30 mg SQ daily (WT < 150 kg, CrCl > 10-29 mL/min) *Enoxaparin/Lovenox 30 mg SQ BID (WT < 150 kg, CrCl > 30 mL/min) AND/OR *Sequential Compression Device (SCD) 5 or more Highest Order ONE of the following medications: *Heparin 5000 units SQ TID (Preferred with Epidurals) *Enoxaparin/Lovenox 40 mg SQ daily (WT < 150 kg, CrCl > 30 mL/min) *Enoxaparin/Lovenox 30 mg SQ daily (WT < 150 kg, CrCl > 10-29 mL/min) *Enoxaparin/Lovenox 30 mg SQ BID (WT < 150 kg, CrCl > 30 mL/min) AND *Sequential Compression Device (SCD) Assessment and Plan Assessment and Plan Respiratory failure -Recent history of DVT -VQ scan -D-dimer -Unable to obtain a CT angiogram due to renal failure -Continue mechanical ventilation -Vent bundle -DuoNeb's scheduled and as needed Acute kidney injury -Unknown baseline -Gentle IV hydration -Strict I's and O's -Monitor creatinine level DVT -Unknown compliance with Xarelto -Also respiratory failure without radiological evidence of infiltrate or CHF -Heparin drip for DVT as well as possible PE Sickle cell disease -Initial hemoglobin 5 -Transfuse 2 units of PRBCs DVT GI prophylaxis -Doc's and SCDs -Heparin drip -Pepcid Critical Care: The total critical care time was 35 minutes. Time to perform other separately billable procedures was not included in the critical care time. John Vazquez MD Dec 22, 2017 10:07 pm
[2017-12-23] VITALS (19 sets, daily range): BP systolic 90–116; BP diastolic 52–74; PULSE 61–78; RESP 0–22; TEMP 97.6–97.8; O2SAT 95–100
[2017-12-23] MEDS ORDERED: HEPARIN SODIUM - IV 10,000 UNITS/10 ML VIAL IV PUSH PRN (01:00)
[2017-12-23] MEDS ORDERED: HEPARIN - 10,000 UNITS/ML IV ADDITIVE IV PUSH PRN (01:00)
[2017-12-23] MEDS: SODIUM CHLOR 0.9% 1000 ML INJ 1,000 ML IV SCH ×3 (02:13→22:10)
[2017-12-23] MEDS: RESP: ALBUTEROL 2.5 MG/IPRATROPIUM 0.5 MG NEB (SCH) INH ×5 (03:18→21:07)
[2017-12-23 03:27] LABS: AUTOMATED NEUTROPHIL # 6.9 TH/MM3 (1.8-7.7); BASOPHIL # 0.1 TH/MM3 (0-0.2); BASOPHIL % 1.1 % (0.0-2.0); EOSINOPHIL # 0.2 TH/MM3 (0-0.4); EOSINOPHIL % 2.4 % (0.0-4.0); HEMOGLOBIN 7.1 GM/DL (11.6-15.3); LYMPH % 13.4 % (9.0-44.0); LYMPHOCYTE # 1.3 TH/MM3 (1.0-4.8); MEAN CELL VOLUME 90.9 FL (80.0-100.0); MEAN CORPUSCULAR HEMOGLOBIN 33.5 PG (27.0-34.0); MEAN PLATELET VOLUME 9.2 FL (7.0-11.0); MONO % 10.5 % (0.0-8.0); NEUT % 72.6 % (16.0-70.0); PLATELET COUNT 236 TH/MM3 (150-450); RED BLOOD COUNT 2.11 MIL/MM3 (4.00-5.30); WHITE BLOOD COUNT 9.5 TH/MM3 (4.0-11.0)
[2017-12-23 03:34] LABS: MEAN CORPUSCULAR HGB CONC 36.8 % (32.0-36.0)
[2017-12-23 03:36] LABS: HEMATOCRIT 19.2 % (35.0-46.0)
[2017-12-23 03:37] LABS: INTERNATIONAL NORMALIZED RATIO 1.8 RATIO; PROTHROMBIN TIME - PATIENT 17.8 SEC (9.8-11.6)
[2017-12-23 03:41] LABS: ALKALINE PHOSPHATASE 109 U/L (45-117); TOTAL BILIRUBIN ADULT 4.3 MG/DL (0.2-1.0); TOTAL PROTEIN 8.8 GM/DL (6.4-8.2)
[2017-12-23 03:42] LABS: D-DIMER 0.82 MG/L FEU (0.00-0.50)
[2017-12-23] MEDS: CHLORHEXIDINE GLUCONATE 2 % 1 PACK (2 CLOTHS) TOP SCH (03:50)
[2017-12-23 04:04] LABS: ALBUMIN 3.5 GM/DL (3.4-5.0); ALT (GPT) 16 U/L (10-53); AST (GOT) 39 U/L (15-37); BLOOD UREA NITROGEN 55 MG/DL (7-18); CALCIUM 8.8 MG/DL (8.5-10.1); CHLORIDE 101 MEQ/L (98-107); CREATININE 1.94 MG/DL (0.50-1.00); GLOMERULAR FILTRATION RATE 34 ML/MIN (>89); GLUCOSE,RANDOM 92 MG/DL (74-106); MAGNESIUM 2.1 MG/DL (1.5-2.5); PHOSPHORUS 4.1 MG/DL (2.5-4.9); SODIUM (NA) 136 MEQ/L (136-145)
[2017-12-23 04:08] LABS: HOWELL-JOLLY BODIES PRESENT (NONE SEEN)
[2017-12-23 04:09] LABS: ACANTHOCYTES OCC (NORMAL)
[2017-12-23 04:10] LABS: TARGET CELLS 1+ (NORMAL)
[2017-12-23] MEDS: PROPOFOL 1000 MG/100 ML INJ 100 ML IV PRN ×5 (04:38→22:09)
--- NOTE | 2017-12-23 06:33 | RADRPT ---
EXAM DATE/TIME: 12/23/2017 05:03 [facility] COMPARISON: CHEST SINGLE AP, December 22, 2017, 18:15. INDICATIONS : Short of breath. MEDICAL HISTORY : Unobtainable. SURGICAL HISTORY : Unobtainable. ENCOUNTER: Initial ACUITY: 1 day PAIN SCORE: Non-responsive. LOCATION: Bilateral chest FINDINGS: Endotracheal tube, nasogastric tube and port catheter are stable. There is persistent prominent cardi omegaly diffuse bilateral parenchymal lung opacity. CONCLUSION: No significant change Jacinto Mixon MD on December 23, 2017 at 6:29 Board Certified Radiologist. This report was verified electronically.
[2017-12-23] MEDS ORDERED: Vancomycin Consult Pharmacy 1 EA OTHER SCH (07:00)
[2017-12-23] MEDS: CHLORHEXIDINE 0.12% (ORAL KIT) 15 ML CUP MT SCH ×2 (08:00→19:56)
[2017-12-23 08:31] LABS: FERRITIN 2893 NG/ML (8-252); IRON (FE) 1189 MCG/DL (50-170); TOTAL IRON BINDING CAPACITY 192 MCG/DL (250-450)
[2017-12-23] MEDS: SODIUM CHLORIDE 0.9% FLUSH 10 ML FLUSH IV FLUSH SCH ×2 (09:00→19:54)
--- NOTE | 2017-12-23 09:04 | ECHRPT ---
Indication: HEART FAILURE CONCLUSIONS Normal left ventricular size. Wall thickness is normal. The left ventricular systolic function is normal with an estimated ejection fraction in the range of 55-60%. Flattened septum throughout the cardiac cycle consistent with right ventricular pressure overload. No other wall motion abnormalities are seen. The right ventricle is moderately dilated. The right ventricular systoilc function is moderately decreased. The right atrial size is severely dilated. Trace mitral valve regurgitation. There is severe tricuspid regurgitation. The inferior vena cava is dilated. Dilated inferior vena cava with poor inspiration collapse consistent with elevated right atrial pres sure. There is possibly a small posterior pericardial effusion present. BP: 93 / 54 HR: 64 Rhythm: Sinus MEASUREMENTS (Male / Female) Normal Values Technical Quality:Fair 2D ECHO LV Diastolic Diameter PLAX 5.1 cm 4.2 - 5.9 / 3.9 - 5.3 cm LV Systolic Diameter PLAX 3.6 cm IVS Diastolic Thickness 0.8 cm 0.6 - 1.0 / 0.6 - 0.9 cm LVPW Diastolic Thickness 0.8 cm 0.6 - 1.0 / 0.6 - 0.9 cm LV Relative Wall Thickness 0.3 RV Internal Dim ED PLAX 5.0 cm LVOT Diameter 2.2 cm Aortic Root Diameter 2.9 cm LA Systolic Diameter LX 4.3 cm 3.0 - 4.0 / 2.7 - 3.8 cm M-MODE AV Cusp Separation MM 1.6 cm DOPPLER AV Peak Velocity 165.0 cm/s AV Peak Gradient 10.9 mmHg AV Mean Gradient 6.0 mmHg AV Velocity Time Integral 34.3 cm LVOT Peak Velocity 135.0 cm/s LVOT Peak Gradient 7.3 mmHg LVOT Velocity Time Integral 32.6 cm AV Area Cont Eq vti 3.6 cm AV Area Cont Eq pk 3.1 cm Mitral E Point Velocity 82.9 cm/s Mitral A Point Velocity 89.8 cm/s Mitral E to A Ratio 0.9 LV E' Lateral Velocity 16.1 cm/s Mitral E to LV E' Lateral Ratio 5.1 LV E' Septal Velocity 9.8 cm/s Mitral E to LV E' Septal Ratio 8.5 TR Peak Velocity 273.0 cm/s TR Peak Gradient 29.8 mmHg Right Atrial Pressure 10.0 mmHg Pulmonary Artery Systolic Pressu 39.8 mmHg Right Ventricular Systolic Press 39.8 mmHg PV Peak Velocity 85.0 cm/s PV Peak Gradient 2.9 mmHg FINDINGS LEFT VENTRICLE Normal left ventricular size. Wall thickness is normal. The left ventricular systolic function is normal with an estimated ejection fraction in the range of 55-60%. Flattened septum throughout the cardiac cycle consistent with right ventricular pressure overload. No other wall motion abnormalities are seen. RIGHT VENTRICLE The right ventricle is moderately dilated. The right ventricular systoilc function is moderately decreased. LEFT ATRIUM The left atrial size is normal. RIGHT ATRIUM The right atrial size is severely dilated. ATRIAL SEPTUM The interatrial septum not well visualized. AORTA The aortic root and proximal ascending aorta are not well visualized. MITRAL VALVE Trace mitral valve regurgitation. AORTIC VALVE Trileaflet aortic valve. No aortic valve stenosis or regurgitation. TRICUSPID VALVE There is severe tricuspid regurgitation. PULMONARY VALVE Mild pulmonary valve regurgitation. VESSELS The inferior vena cava is dilated. Dilated inferior vena cava with poor inspiration collapse consistent with elevated right atrial pres sure. PERICARDIUM There is possibly a small posterior pericardial effusion present. Luke Monroy MD (Electronically Signed) Final Date:23 December 2017 09:03
[2017-12-23] MEDS: FAMOTIDINE 20 MG/2 ML VIAL IV PUSH SCH (09:54)
[2017-12-23] MEDS: HEPARIN-D5W 25,000 U/250 ML 250 ML IV PRN (10:00)
[2017-12-23] MEDS: cefTRIAXone INJ 2,000 MG in SODIUM CHLORIDE 0.9% INJ 100 ML IV SCH (10:01)
[2017-12-23] MEDS: DOCUSATE SODIUM 50 MG/SENNA 8.6 MG TAB PO SCH ×2 (10:01→19:55)
[2017-12-23] MEDS: FOLIC ACID 1 MG TAB PO SCH (10:01)
--- NOTE | 2017-12-23 11:17 | RADRPT ---
EXAM DATE/TIME: 12/23/2017 08:44 [facility] COMPARISON: No previous studies available for comparison. INDICATIONS : Sickle cell crisis. Elevated creatinine. MEDICAL HISTORY : Sickle Cell disease. Deep venous thrombosis. SURGICAL HISTORY : IVC filter placement. ENCOUNTER: Initial ACUITY: 1 day PAIN SCORE: Nonresponsive. LOCATION: Abdomen. MEASUREMENTS: LIVER: 19.1 cm length COMMON DUCT: 7 mm RIGHT KIDNEY: 12.0 x 5.9 x 4.5 cm LEFT KIDNEY: Not Visualized. cm SPLEEN: Not Visualized. cm length AORTA: 2.3cm maximal FINDINGS: LIVER: Normal echotexture without focal lesion or ductal dilatation. Small amount of perihepatic fluid. COMMON DUCT: No intraluminal mass or stone visualized. GALLBLADDER: Echogenic foci characteristic of stone disease with possible associated sludge PANCREAS: Obscured by overlying bowel gas. RIGHT KIDNEY: No hydronephrosis, stone or mass. LEFT KIDNEY: Not well seen SPLEEN: No focal lesion. AORTA: Poorly visualized. Nonaneurysmal. IVC: Poorly visualized. CONCLUSION: 1. Liver appears somewhat prominent but otherwise sonographically intact. There is some free fluid al carlos the hepatic convexity. 2. Cholelithiasis with probable associated gallbladder sludge. 3. Due to the patient's current clinical condition and the fact they were restrained, limited examina tion of the additional abdominal viscera. Pancreas is obscured by overlying bowel gas. Left kidney, a tri and IVC are poorly visualized. Pj Laboy MD on December 23, 2017 at 11:11 Board Certified Radiologist. This report was verified electronically.
[2017-12-23] MEDS ORDERED: VANCOMYCIN INJ 2,000 MG in SODIUM CHLORID 0.9% 500 ML INJ 500 ML IV ONE (12:00)
--- NOTE | 2017-12-23 14:04 | RADRPT ---
EXAM DATE/TIME: 12/23/2017 13:14 [facility] COMPARISON: CHEST SINGLE AP, December 23, 2017, 5:03. INDICATIONS : Respiratory failure. DOSE: 8.5 mCi Tc99m MAA IV 0.5 mCi Tc99m DTPA aerosol MEDICAL HISTORY : Sickle cell, congestive heart failure and DVT. SURGICAL HISTORY : None. ENCOUNTER: Initial ACUITY: 1 day PAIN SCALE: Non-responsive LOCATION: Chest. TECHNIQUE: Following five minutes of tidal breathing of DTPA aerosol, planar images of the lungs were performed in eight projections. The patient was then injected with MAA, and eight-view perfusion scan was perf ormed. FINDINGS: Asymmetric diminished ventilatory activity in the left base posteriorly. Otherwise, some central air trapping The perfusion lung scan demonstrates linear area of diminished attenuation posteriorly in the left ba se which probably represents some fluid in the fissure. Scintigraphic activity is actually better on the perfusion images than the ventilatory sequence. CONCLUSION: 1. A reverse mismatch posteriorly in the left base with increased activity on the perfusion images an d no identifiable activity in the left base on the corresponding ventilatory sequence. Findings are p robably due to a posterior layering effusion. There may be some fluid in the fissure on the left as w ell based on the linear perfusion defect posteriorly in the left base. 2. Central trapping possibly representing some degree of COPD. 3. No scintigraphic findings of pulmonary embolus. Pj Laboy MD on December 23, 2017 at 13:57 Board Certified Radiologist. This report was verified electronically.
--- NOTE | 2017-12-23 15:14 | HHI.CCPN ---
Subjective Remarks/Hospital Course 42-year-old unfortunate -[place] female presents for evaluation of shortness of breath. Per EMS report the patient had O2 sats of 81 on their arrival, required 15 L on nonrebreather to bring saturations into the 90s. Patient was initially alert, intermittently following commands. Patient was able to provide her name. Per review of medical record and ER documentation she has a history of sickle cell anemia, CHF, and recent history of right DVT on Xarelto. Subjective 12/23: Afebrile. Currently not on vasopressors. Sedated on propofol drip. No new issues overnight. Currently 7.1 Objective Vital Signs Date Time Temp Pulse Resp B/P (MAP) Pulse Ox O2 Delivery O2 Flow Rate FiO2 12/23/17 14:06 99 100 12/23/17 12:00 68 12/23/17 08:00 97.8 0 90/52 (65) 12/22/17 18:30 Ventilator 12/22/17 18:00 15.00 Intake and Output 12/23/17 12/23/17 12/24/17 08:00 16:00 00:00 Intake Total 1499.9 ml Output Total 2050 ml Balance -550.1 ml Result Diagram: 12/23/17 0307 12/23/17 0307 Other Results Microbiology Date/Time Source Procedure Growth Status 12/22/17 21:30 Sputum Endotracheal Gram Stain - Final Resulted 12/22/17 21:30 Sputum Endotracheal Sputum Culture Pending Resulted 12/22/17 18:16 Urine Random Urine Urine Culture - Preliminary Gram Negative Derrek Resulted Imaging Last Impressions Lung Scan-VQ Nuclear Medicine 12/23/17 0000 Signed Impressions: Service Date/Time: Saturday, December 23, 2017 13:14 - CONCLUSION: 1. A reverse mismatch posteriorly in the left base with increased activity on the perfusion images and no identifiable activity in the left base on the corresponding ventilatory sequence. Findings are probably due to a posterior layering effusion. There may be some fluid in the fissure on the left as well based on the linear perfusion defect posteriorly in the left base. 2. Central trapping possibly representing some degree of COPD. 3. No scintigraphic findings of pulmonary embolus. Pj Laboy MD Chest X-Ray 12/23/17 0000 Signed Impressions: Service Date/Time: Saturday, December 23, 2017 05:03 - CONCLUSION: No significant change Jacinto Mixon MD Abdomen Ultrasound 12/23/17 0000 Signed Impressions: Service Date/Time: Saturday, December 23, 2017 08:44 - CONCLUSION: 1. Liver appears somewhat prominent but otherwise sonographically intact. There is some free fluid along the hepatic convexity. 2. Cholelithiasis with probable associated gallbladder sludge. 3. Due to the patient's current clinical condition and the fact they were restrained, limited examination of the additional abdominal viscera. Pancreas is obscured by overlying bowel gas. Left kidney, aorta and IVC are poorly visualized. Pj Laboy MD Chest CT 12/22/17 0000 Signed Impressions: Service Date/Time: December 19:57 - CONCLUSION: 1. Moderate cardiomegaly with moderate pericardial effusion. 2. Consolidation and airspace disease in the lower lobes left greater than right as well as more patchy airspace disease in the right lung. 3. Small pleural effusions. 4. Diffuse anasarca with ascites in the upper abdomen. 5. Hepatomegaly and abnormal apparent small high density spleen. Zay Barakat MD Objective Remarks GENERAL: 42-year-old obese -[place] female, sedated and intubated SKIN: Focused skin assessment warm/dry. Facial edema noted. HEAD: Normocephalic. EYES: Positive scleral icterus. No injection or drainage. NECK: Supple, trachea midline. No JVD or lymphadenopathy. CARDIOVASCULAR: Regular rate and rhythm without murmurs, gallops, or rubs. RESPIRATORY: Breath sounds equal bilaterally. Diminished in the bases. GASTROINTESTINAL: Abdomen edematous, firm to the touch. Hypoactive bowel sounds. MUSCULOSKELETAL: No cyanosis, 2+ pitting edema right much greater than left. Neuro: Sedated and intubated, pupils 3 mm reactive bilaterally briskly currently not withdrawing to pain. Urinary Catheter: Yes Assessment to: Continue Teague insert reason: Prolonged Immobilization Vascular Central Line Catheter: No Assessment to: Continue A/P Assessment and Plan Neuro/Psych: Schizophrenia Depression Chronic oxycodone use 10 mg every 12 hours Currently on propofol at 50 mcg/kg/min for sedation while intubated Goal of RASS -2 Daily sedation vacation Currently on propofol/fentanyl drips for sedation/analgesia while intubated Home medication citalopram 20 mg daily currently on hold for depression Home medication paliperidone 3 mg daily currently on hold for schizophrenia On chronic oxycodone 10 mg by mouth twice daily at home Acetaminophen 650 mg by tube every 6 hours as needed fever CV: Chronic diastolic heart failure Small pericardial effusion without e/o tamponade Chronic pericardial effusion 2D echocardiogram normal left ventricular size. Wall thickness is normal. The left ventricular systolic function is normal with an estimated ejection fraction in the range of 55-60%. Flattened septum throughout the cardiac cycle consistent with right ventricular pressure overload. No other wall motion abnormalities are seen. The right ventricle is moderately dilated. The right ventricular systolic function is moderately decreased. The right atrial size is severely dilated. Trace mitral valve regurgitation. There is severe tricuspid regurgitation. The inferior vena cava is dilated. Dilated inferior vena cava with poor inspiration collapse consistent with elevated right atrial pressure. There is possibly a small posterior pericardial effusion present. At home furosemide 20 mg p.o. twice daily at home Gently diurese.. Resp: Acute hypoxic hypercapnic respiratory failure [facility] 15/600/09/16/40 Ventilator bundle Albuterol/ipratropium aerosols every 4 hours with albuterol aerosols every [address] thorax revealed bilateral pleural effusion/infiltrates. See ID for infectious workup Spontaneous breathing trials when clinically indicated GI: Elevated total bilirubin NG tube to low intermittent wall suction Start Perative goal 60 cc an hour per GIs recommendation Pantoprazole for GI prophylaxis Docusate sodium/senna 1 tablet twice daily for bowel regimen Ultrasound limited. : Teague catheter for accurate I's and O's in a critically ill patient Endo: Sliding scale insulin Accu-Cheks to maintain euglycemia/every 6 hours low regimen Renal: Acute kidney injury Monitor urine output Accurate I's and O's Currently normal saline 84 cc an hour Heme: Sickle cell disease -vaso-occlusive crisis plus/minus acute chest syndrome History of iron overload due to multiple transfusions History of right lower extremity DVT -negative ultrasound 11/10/17 History of IVC filter -unknown date in place. Hematology consult for sick cell crisis. Previously on folic acid 0.4 mg daily and hydroxyurea 1000 mg daily Folic acid has been resumed at 1 mg daily. Differin hydroxyurea to hematology Holding deferasirox 1080 milligrams daily Reticulocyte count at 18 elevated. Recheck in a.m. On rivaroxaban 20 mg daily. Currently on heparin drip and will discontinue and transition 2 hours post ID: Gram-negative derrek UTI Ceftriaxone/vancomycin day #1 Blood cultures 2 ordered. 12/23 sputum pending 12/22 12/22 -UA -gram-negative derrek FEN: Replace electrolytes as clinically indicated MSK: PT evaluate and treat for range of motion Right lower extremity chronically greater than left lower extremity due to history of DVT Negative lower extremity ultrasound 11/27 Access -Left [id number] accessed with Alarcon needle Prophylaxis -GI -lansoprazole -DVT -SCD/rivaroxaban will provide DVT prophylaxis Critical Care: The total critical care time was 35 minutes. Time to perform other separately billable procedures was not included in the critical care time. Kenyon Acharya MD Dec 23, 2017 15:14
[2017-12-23] MEDS ORDERED: DEXTROSE 50% IN WATER 50 ML VIAL(D50) IV PUSH PRN (15:45)
[2017-12-23] MEDS ORDERED: ACETAMINOPHEN 650 MG/20.3 ML UDC PO PRN (15:45)
[2017-12-23] MEDS ORDERED: GLUCAGON 1 MG/ML VIAL OTHER PRN (15:45)
[2017-12-23] MEDS: INSULIN ASPART SUPPLEMENTAL SCALE SQ SCH (18:00)
--- NOTE | 2017-12-23 19:34 | EKG ---
Date Performed: 12/22/2017 Time Performed: 17:29:30 PTAGE: 89 years EKG: Sinus rhythm LOW QRS VOLTAGE POSSIBLE ANTERIOR MYOCARDIAL INFARCTION ABNORMAL ECG NO PREVIOUS TRACING DOCTOR: Manuel Shanks Interpretating Date/Time 12/23/2017 19:30:51
--- NOTE | 2017-12-23 19:58 | EKG ---
Date Performed: 12/23/2017 Time Performed: 01:09:30 PTAGE: 42 years EKG: Sinus rhythm . Indeterminate axis Possible anterior infarct - age undetermined Generalized low QRS voltages Since the PREVIOUS TRACING , no significant change noted Abnormal ECG PREVIOUS TRACIN12/22/2017 @[id number] DOCTOR: Manuel Shanks Interpretating Date/Time 12/23/2017 19:57:17
[2017-12-23] MEDS: ARTIFICIAL TEARS OPTH SOLN 15 ML BTL EACH EYE SCH (22:09)
--- NOTE | 2017-12-23 23:07 | MB ---
cc: Abiodun Ricks MD DATE: 12/23/2017 REASON FOR CONSULT: Patient with a history of sickle cell disease, who presents with dyspnea. HISTORY OF PRESENT ILLNESS: This is a 42-year-old female who has a history of sickle cell disease, who was brought to the emergency department with shortness of breath and she was found to be hypoxic. She was placed on 15 liters on nonrebreather with some improvement in her saturation, however, the patient decompensated and is currently intubated and is on mechanical ventilation. No family members are present at this time. Chart was reviewed and it appears that she has a history of CHF and a right lower extremity DVT and has been on Xarelto. It is unclear if she follows up with a corrections caseworker. In the emergency department, she had a chest x-ray which showed significant cardiomegaly and a moderate pericardial effusion. She was found to have hepatosplenomegaly. She had a lung V/Q scan, which had a low probability for pulmonary embolism. On admission, the patient was found to have a hemoglobin of 5.6, white blood cell count is 11.7, and platelet count was 263. The patient was transfused 2 units of packed red blood cells. A repeat CBC shows a white blood cell count of 7.1. Her reticulocyte count is elevated at 18.8. Haptoglobin was low at 10 consistent with hemolysis secondary to sickle cell crisis. She was found to be in acute renal failure with a creatinine of 1.94. On admission, she had an elevated INR of 1.9. PT was 18.9 and PTT was 47. D-dimer was elevated 2.82. REVIEW OF SYSTEMS: Unable to be obtained due to the patient's mental status and she is currently sedated and intubated. FAMILY HISTORY: Could not be obtained. SOCIAL HISTORY: Unknown. PAST MEDICAL HISTORY: Sickle cell disease, DVT of lower extremities. PAST SURGICAL HISTORY: She has an IVC filter in place. HOME MEDICATIONS: Unknown. CURRENT MEDICATIONS: 1. Prevacid 30 mg daily. 2. Xarelto 15 mg daily. 3. Sliding scale insulin. 4. Folic acid. 5. Ceftriaxone. 6. Senna p.r.n. 7. DuoNeb p.r.n. ALLERGIES: NO KNOWN DRUG ALLERGIES. PHYSICAL EXAMINATION: VITAL SIGNS: Blood pressure is 101/62, pulse is in the 60s, temperature is 97.6, O2 saturations are 95% on FiO2 of 40. GENERAL: Acutely ill patient currently intubated and sedated. HEENT: Pupils are equal, round, reactive to light. EOMI. Endotracheal tube in place. NECK: Supple. No JVD. No bruits. CHEST: Bilateral coarse sounds. CARDIAC: S1, S2. Regular rate and rhythm. ABDOMEN: Slightly distended. Bowel sounds are decreased. EXTREMITIES: No edema, erythema or cyanosis. SKIN: Without any petechiae, lesions, or bruises. NEUROLOGIC: The patient is sedated. LABORATORY DATA: WBC 9.5, hemoglobin 7.1, platelet count 236. Sodium is 135, potassium ____, chloride 101, BUN is 55, creatinine is 1.94. Lactic acid is 0.7, AST 39, ALT 16, alkaline phosphatase is 109, LDH is 516. ASSESSMENT AND PLAN: This is a 42-year-old female with a history of sickle cell disease, who presents with hypoxia. 1. Sickle cell crisis with hemolysis. 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 I would recommend transfusing to keep hemoglobin around 7. We would avoid over transfusion. Will repeat chest x-ray in a.m. We may consider exchange transfusion depending on the chest x-ray. We will obtain a hemoglobin electrophoresis. Monitor daily retic count and LDH, as well as total bilirubin. Monitor CBC. 2. Respiratory failure in the setting of sickle cell crisis. She does have cardiomegaly. She will need a 2D echocardiogram. Check BNP. I agree with antibiotics. 3. Acute renal failure in the setting of sickle cell crisis. 4. ? history of lower extremity deep venous thrombosis. I would recommend heparin GTT. Thank you for allowing me to participate in the care of this patient. I will continue to follow this patient along. MD LEIA Preciado/rt , 10:37 PM , 11:06 PM
[2017-12-24] VITALS (23 sets, daily range): BP systolic 92–103; BP diastolic 56–65; PULSE 66–80; RESP 0–17; TEMP 97.1–98.3; O2SAT 97–100
[2017-12-24] MEDS: RESP: ALBUTEROL 2.5 MG/IPRATROPIUM 0.5 MG NEB (SCH) INH ×7 (00:05→23:53)
[2017-12-24] MEDS: PROPOFOL 1000 MG/100 ML INJ 100 ML IV PRN ×5 (01:04→21:31)
[2017-12-24] MEDS: CHLORHEXIDINE GLUCONATE 2 % 1 PACK (2 CLOTHS) TOP SCH (04:00)
[2017-12-24 04:20] LABS: AUTOMATED NEUTROPHIL # 7.7 TH/MM3 (1.8-7.7); EOSINOPHIL # 0.3 TH/MM3 (0-0.4); EOSINOPHIL % 2.6 % (0.0-4.0); HEMATOCRIT 22.3 % (35.0-46.0); HEMOGLOBIN 7.7 GM/DL (11.6-15.3); MEAN CORPUSCULAR HEMOGLOBIN 32.1 PG (27.0-34.0); MEAN CORPUSCULAR HGB CONC 34.5 % (32.0-36.0); MEAN PLATELET VOLUME 9.4 FL (7.0-11.0); MONO % 9.6 % (0.0-8.0); NEUT % 77.8 % (16.0-70.0); PLATELET COUNT 252 TH/MM3 (150-450); WHITE BLOOD COUNT 9.9 TH/MM3 (4.0-11.0)
[2017-12-24 04:53] LABS: ALKALINE PHOSPHATASE 84 U/L (45-117); ALT (GPT) 11 U/L (10-53); AST (GOT) 35 U/L (15-37); BICARBONATE 24.9 MEQ/L (21.0-32.0); CALCIUM 8.4 MG/DL (8.5-10.1); CHLORIDE 103 MEQ/L (98-107); CREATININE 1.41 MG/DL (0.50-1.00); DIRECT BILIRUBIN ADULT 1.8 MG/DL (0.0-0.2); GLOMERULAR FILTRATION RATE 49 ML/MIN (>89); GLUCOSE,RANDOM 89 MG/DL (74-106); INDIRECT BILIRUBIN 1.5 MG/DL (0.0-0.8); PHOSPHORUS 4.7 MG/DL (2.5-4.9); RANDOM VANCOMYCIN 19.2 COMMENT; SODIUM (NA) 137 MEQ/L (136-145); TOTAL BILIRUBIN ADULT 3.3 MG/DL (0.2-1.0)
[2017-12-24 05:00] LABS: BLOOD UREA NITROGEN 51 MG/DL (7-18)
[2017-12-24] MEDS: ARTIFICIAL TEARS OPTH SOLN 15 ML BTL EACH EYE SCH ×3 (05:00→21:35)
[2017-12-24 05:04] LABS: RETIC # 212.5 MIL/L (20.0-150.0)
[2017-12-24] MEDS: INSULIN ASPART SUPPLEMENTAL SCALE SQ SCH ×5 (05:35→23:30)
[2017-12-24] MEDS: HEPARIN-D5W 25,000 U/250 ML 250 ML IV PRN ×2 (06:38→07:01)
[2017-12-24 08:37] LABS: CORRECTED NUCLEATED RBC 33 /100 WBC (0-0); LYMPHOCYTES 12 % (9-44); MONOCYTES 6 % (0-8); NEUTROPHIL # MANUAL DIFF 7.7 TH/MM3 (1.8-7.7); NUCLEATED RED BLOOD CELL 33 (0-0); POLYS (SEG NEUTROPHILS) 78 % (16-70)
[2017-12-24 08:38] LABS: HOWELL-JOLLY BODIES PRESENT (NONE SEEN); SICKLE CELLS 1+ (NORMAL); TARGET CELLS 1+ (NORMAL)
[2017-12-24] MEDS ORDERED: POTASSIUM CHLORIDE 20 MEQ PWD PACKET PO ONE (08:45)
[2017-12-24] MEDS ORDERED: RIVAROXABAN 15 MG TAB PO SCH (09:00)
--- NOTE | 2017-12-24 09:22 | RADRPT ---
EXAM DATE/TIME: 12/24/2017 08:52 [facility] COMPARISON: CHEST SINGLE AP, December 23, 2017, 5:03. INDICATIONS : Short of breath. MEDICAL HISTORY : Unobtainable. SURGICAL HISTORY : Unobtainable. ENCOUNTER: Subsequent ACUITY: 2 days PAIN SCORE: Non-responsive. LOCATION: Bilateral chest FINDINGS: ET tube, nasogastric tube and central line appear in good position. The heart is enlarged with incr easing interstitial edema and compared to the previous study. There does not appear to be significan t pleural effusion. CONCLUSION: Support apparatus in good position. Increasing interstitial edema. Tre King MD FACR on December 24, 2017 at 9:20 Board Certified Radiologist. This report was verified electronically.
--- NOTE | 2017-12-24 09:35 | RADRPT ---
EXAM DATE/TIME: 12/24/2017 08:58 [facility] COMPARISON: No previous studies available for comparison. INDICATIONS : Right leg edema. MEDICAL HISTORY : Deep venous thrombosis. Sickle Cell disease. Anticoagulant therapy, Xarelto. SURGICAL HISTORY : IVC filter placement. ENCOUNTER: Initial ACUITY: 1 day PAIN SCORE: Non-responsive LOCATION: Right leg. TECHNIQUE: Venous ultrasound of the leg was performed from the inguinal ligament to the proximal. Real-time, co nilsa Doppler and spectral tracing, compression and augmentation techniques were used. FINDINGS: Deep venous thrombosis of both occlusive and nonocclusive thrombus is identified This extends from calf veins into the superficial femoral vein above the knee. CONCLUSION: Deep venous thrombosis extending above the knee as described above. Tre King MD FACR on December 24, 2017 at 9:32 Board Certified Radiologist. This report was verified electronically.
[2017-12-24] MEDS: FOLIC ACID 1 MG TAB PO SCH (09:49)
[2017-12-24] MEDS: CHLORHEXIDINE 0.12% (ORAL KIT) 15 ML CUP MT SCH ×2 (09:49→19:23)
[2017-12-24] MEDS: LANSOPRAZOLE SOLUTAB 30 MG TAB NG SCH (09:49)
[2017-12-24] MEDS: cefTRIAXone INJ 2,000 MG in SODIUM CHLORIDE 0.9% INJ 100 ML IV SCH (09:49)
[2017-12-24] MEDS: SODIUM CHLORIDE 0.9% FLUSH 10 ML FLUSH IV FLUSH SCH ×2 (09:49→19:23)
[2017-12-24] MEDS: POLYETHYLENE GLYCOL 17 GM PKG PO SCH ×2 (09:53→19:23)
[2017-12-24] MEDS: DOCUSATE SODIUM 50 MG/SENNA 8.6 MG TAB PO SCH ×2 (09:55→19:22)
--- NOTE | 2017-12-24 09:57 | HHI.CCPN ---
Subjective Remarks/Hospital Course 42-year-old unfortunate -[place] female presents for evaluation of shortness of breath. Per EMS report the patient had O2 sats of 81 on their arrival, required 15 L on nonrebreather to bring saturations into the 90s. Patient was initially alert, intermittently following commands. Patient was able to provide her name. Per review of medical record and ER documentation she has a history of sickle cell anemia, CHF, and recent history of right DVT on Xarelto. 12/23: Afebrile. Currently not on vasopressors. Sedated on propofol drip. No new issues overnight. Currently 7.1 Subjective 12/24: Febrile. Not on vasopressors. Sedated on propofol drip at 50 mcg/kg/ min. Hemoglobin currently 7.7. Tolerating tube feeding. No bowel movement. Abdomen remains grossly anasarca. On bedside ultrasound 4 cm thickness. Small ascites visualized with peristalsis from small large bowel noted Objective Vital Signs Date Time Temp Pulse Resp B/P (MAP) Pulse Ox O2 Delivery O2 Flow Rate FiO2 12/24/17 07:43 100 40 12/24/17 06:00 71 12/24/17 04:00 97.7 17 96/63 (74) 12/22/17 18:30 Ventilator 12/22/17 18:00 15.00 Intake and Output 12/24/17 12/24/17 12/25/17 08:00 16:00 00:00 Intake Total 999 ml Output Total 700 ml Balance 299 ml Result Diagram: 12/24/17 0347 12/24/17 0347 Other Results Microbiology Date/Time Source Procedure Growth Status 12/23/17 18:07 Blood Peripheral Aerobic Blood Culture Pending Received 12/23/17 18:07 Blood Peripheral Anaerobic Blood Culture Pending Received 12/22/17 21:30 Sputum Endotracheal Gram Stain - Final Resulted 12/22/17 21:30 Sputum Endotracheal Sputum Culture Pending Resulted 12/22/17 18:16 Urine Random Urine Urine Culture - Preliminary Gram Negative Derrek Resulted Imaging Last Impressions Lower Extremity Ultrasound 12/24/17 0000 Signed Impressions: Service Date/Time: Sunday, December 24, 2017 08:58 - CONCLUSION: Deep venous thrombosis extending above the knee as described above. Tre King MD FACR Chest X-Ray 12/24/17 0000 Signed Impressions: Service Date/Time: Sunday, December 24, 2017 08:52 - CONCLUSION: Support apparatus in good position. Increasing interstitial edema. Tre King MD FACR Lung Scan-VQ Nuclear Medicine 12/23/17 0000 Signed Impressions: Service Date/Time: Saturday, December 23, 2017 13:14 - CONCLUSION: 1. A reverse mismatch posteriorly in the left base with increased activity on the perfusion images and no identifiable activity in the left base on the corresponding ventilatory sequence. Findings are probably due to a posterior layering effusion. There may be some fluid in the fissure on the left as well based on the linear perfusion defect posteriorly in the left base. 2. Central trapping possibly representing some degree of COPD. 3. No scintigraphic findings of pulmonary embolus. Pj Laboy MD Abdomen Ultrasound 12/23/17 0000 Signed Impressions: Service Date/Time: Saturday, December 23, 2017 08:44 - CONCLUSION: 1. Liver appears somewhat prominent but otherwise sonographically intact. There is some free fluid along the hepatic convexity. 2. Cholelithiasis with probable associated gallbladder sludge. 3. Due to the patient's current clinical condition and the fact they were restrained, limited examination of the additional abdominal viscera. Pancreas is obscured by overlying bowel gas. Left kidney, aorta and IVC are poorly visualized. Pj Laboy MD Chest CT 12/22/17 0000 Signed Impressions: Service Date/Time: December 19:57 - CONCLUSION: 1. Moderate cardiomegaly with moderate pericardial effusion. 2. Consolidation and airspace disease in the lower lobes left greater than right as well as more patchy airspace disease in the right lung. 3. Small pleural effusions. 4. Diffuse anasarca with ascites in the upper abdomen. 5. Hepatomegaly and abnormal apparent small high density spleen. Zay Barakat MD Objective Remarks GENERAL: 42-year-old obese -[place] female, sedated and intubated SKIN: Focused skin assessment warm/dry. Facial edema noted. HEAD: Normocephalic. EYES: Positive scleral icterus. No injection or drainage. NECK: Supple, trachea midline. No JVD or lymphadenopathy. CARDIOVASCULAR: Regular rate and rhythm without murmurs, gallops, or rubs. RESPIRATORY: Breath sounds equal bilaterally. Diminished in the bases. GASTROINTESTINAL: Abdomen edematous, firm to the touch. Gross anasarca. Hypoactive bowel sounds. MUSCULOSKELETAL: No cyanosis, 2+ pitting edema right much greater than left. Neuro: Sedated and intubated, pupils 3 mm reactive bilaterally briskly currently not withdrawing to pain. Urinary Catheter: Yes Assessment to: Continue Teague insert reason: Prolonged Immobilization Vascular Central Line Catheter: No Assessment to: Continue A/P Assessment and Plan Neuro/Psych: Schizophrenia Depression Chronic oxycodone use 10 mg every 12 hours Currently on propofol at 50 mcg/kg/min for sedation while intubated Goal of RASS -2 Daily sedation vacation Currently on propofol/fentanyl drips for sedation/analgesia while intubated Home medication citalopram 20 mg daily currently on hold for depression Home medication paliperidone 3 mg daily currently on hold for schizophrenia On chronic oxycodone 10 mg by mouth twice daily at home Acetaminophen 650 mg by tube every 6 hours as needed fever CV: Chronic diastolic heart failure Small pericardial effusion without e/o tamponade Chronic pericardial effusion 2D echocardiogram normal left ventricular size. Wall thickness is normal. The left ventricular systolic function is normal with an estimated ejection fraction in the range of 55-60%. Flattened septum throughout the cardiac cycle consistent with right ventricular pressure overload. No other wall motion abnormalities are seen. The right ventricle is moderately dilated. The right ventricular systolic function is moderately decreased. The right atrial size is severely dilated. Trace mitral valve regurgitation. There is severe tricuspid regurgitation. The inferior vena cava is dilated. Dilated inferior vena cava with poor inspiration collapse consistent with elevated right atrial pressure. There is possibly a small posterior pericardial effusion present. At home furosemide 20 mg p.o. twice daily at home Gently diurese today with 40 mg furosemide 1. Stop IV fluids Resp: Acute hypoxic hypercapnic respiratory failure [facility] 15/600/09/16/39 Ventilator bundle Albuterol/ipratropium aerosols every 4 hours with albuterol aerosols every [address] thorax revealed bilateral pleural effusion/infiltrates. See ID for infectious workup Spontaneous breathing trials when clinically indicated Chest x-ray worsening edemainfiltrate or process GI: Elevated total bilirubin NG tube to low intermittent wall suction Start Perative goal 60 cc an hour per GIs recommendation Pantoprazole for GI prophylaxis Docusate sodium/senna 1 tablet twice daily for bowel regimen Ultrasound abdomen limited. CAT scan chest revealed hepatomegaly/sludge in gallbladder with stone. Ascites noted : Teague catheter for accurate I's and O's in a critically ill patient Endo: Sliding scale insulin Accu-Cheks to maintain euglycemia/every 6 hours low regimen Renal: Acute kidney injury Monitor urine output Accurate I's and O's Creatinine currently 1.4 Heme: Sickle cell disease -vaso-occlusive crisis plus acute chest syndrome History of iron overload due to multiple transfusions History of right lower extremity DVT -negative ultrasound 11/10/17 History of IVC filter -unknown date in place. Hematology consult for sick cell crisis. Previously on folic acid 0.4 mg daily and hydroxyurea 1000 mg daily Folic acid has been resumed at 1 mg daily. Differin hydroxyurea to hematology Holding deferasirox 1080 milligrams daily Reticulocyte count at 18 elevated. Recheck in a.m. Daily LDH/reticulocyte count, chest x-ray and CBC per hematology Placed dialysis cath day for red cell exchange. ID: Gram-negative derrek UTI Ceftriaxone/vancomycin day #2 Blood cultures 2 ordered. 12/23 sputum pending 12/22 12/22 -UA -gram-negative derrek FEN: Replace electrolytes as clinically indicated MSK: PT evaluate and treat for range of motion Right lower extremity chronically greater than left lower extremity due to history of DVT Negative lower extremity ultrasound 11/27 Access -Left Wrbuvy-q-Riom accessed with Alarcon needle Prophylaxis -GI -lansoprazole -DVT -SCD/rivaroxaban will provide DVT prophylaxis Critical Care: The total critical care time was 35 minutes. Time to perform other separately billable procedures was not included in the critical care time. Kenyon Acharya MD Dec 24, 2017 09:57
[2017-12-24] MEDS ORDERED: FUROSEMIDE 40 MG/4 ML VIAL IV PUSH ONE (10:00)
[2017-12-24] MEDS ORDERED: VANCOMYCIN INJ 2,000 MG in SODIUM CHLORID 0.9% 500 ML INJ 500 ML IV ONE (11:00)
--- NOTE | 2017-12-24 11:17 | PD.ONC.PN ---
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, she was positive for clot in her R leg Objective Data Date Time Temp Pulse Resp B/P (MAP) Pulse Ox O2 Delivery O2 Flow Rate FiO2 12/24/17 10:00 70 12/24/17 08:00 97.1 68 16 92/63 (73) 100 12/24/17 08:00 68 12/24/17 08:00 40 12/24/17 07:43 100 40 12/24/17 06:00 71 12/24/17 04:30 100 40 12/24/17 04:00 40 12/24/17 04:00 66 12/24/17 04:00 97.7 66 17 96/63 (74) 100 12/24/17 02:00 79 12/24/17 01:43 98 40 12/24/17 00:00 40 12/24/17 00:00 80 12/24/17 00:00 98.2 80 15 102/64 (77) 98 12/23/17 22:50 98 40 12/23/17 22:00 78 12/23/17 20:00 97.6 70 15 116/74 (88) 97 12/23/17 20:00 70 12/23/17 20:00 40 12/23/17 19:35 100 40 12/23/17 18:00 68 12/23/17 16:24 100 40 12/23/17 16:00 69 10 97 12/23/17 16:00 40 12/23/17 16:00 66 12/23/17 14:06 99 100 12/23/17 12:00 97.6 66 0 101/62 (75) 95 12/23/17 12:00 68 12/23/17 12:00 40 12/23/17 11:22 100 40 12/24/17 12/24/17 12/24/17 07:00 15:00 23:00 Intake Total 999 ml Output Total 700 ml Balance 299 ml Result Diagram: 12/24/17 0347 12/24/17 0347 Laboratory Results Laboratory Tests Test 12/23/17 17:42 12/24/17 00:27 12/24/17 03:47 Activated Partial Thromboplast Time 65.9 SEC 71.6 SEC B-Type Natriuretic Peptide 257 PG/ML White Blood Count 9.9 TH/MM3 Red Blood Count 2.40 MIL/MM3 Hemoglobin 7.7 GM/DL Hematocrit 22.3 % Mean Corpuscular Volume 93.0 FL Mean Corpuscular Hemoglobin 32.1 PG Mean Corpuscular Hemoglobin Concent 34.5 % Red Cell Distribution Width 19.0 % Platelet Count 252 TH/MM3 Mean Platelet Volume 9.4 FL Neutrophils (%) (Auto) 77.8 % Lymphocytes (%) (Auto) 10.0 % Monocytes (%) (Auto) 9.6 % Eosinophils (%) (Auto) 2.6 % Basophils (%) (Auto) 0.0 % Neutrophils # (Auto) 7.7 TH/MM3 Lymphocytes # (Auto) 1.0 TH/MM3 Monocytes # (Auto) 1.0 TH/MM3 Eosinophils # (Auto) 0.3 TH/MM3 Basophils # (Auto) 0.0 TH/MM3 CBC Comment AUTO DIFF Differential Total Cells Counted 100 Neutrophils % (Manual) 78 % Lymphocytes % 12 % Monocytes % 6 % Eosinophils % 4 % Neutrophils # (Manual) 7.7 TH/MM3 Nucleated Red Blood Cells 33 /100 WBC Differential Comment FINAL DIFF MANUAL Platelet Estimate NORMAL Platelet Morphology Comment NORMAL Sickle Cells 1+ Target Cells 1+ [place] Bodies PRESENT Red Cell Morphology Comment Reticulocyte Count 18.0 % Absolute Reticulocyte Count 212.5 MIL/L Blood Urea Nitrogen 51 MG/DL Creatinine 1.41 MG/DL Random Glucose 89 MG/DL Total Protein 8.0 GM/DL Albumin 3.0 GM/DL Calcium Level 8.4 MG/DL Phosphorus Level 4.7 MG/DL Magnesium Level 2.0 MG/DL Alkaline Phosphatase 84 U/L Aspartate Amino Transf (AST/SGOT) 35 U/L Alanine Aminotransferase (ALT/SGPT) 11 U/L Lactate Dehydrogenase 461 U/L Total Bilirubin 3.3 MG/DL Direct Bilirubin 1.8 MG/DL Sodium Level 137 MEQ/L Potassium Level 3.7 MEQ/L Chloride Level 103 MEQ/L Carbon Dioxide Level 24.9 MEQ/L Anion Gap 9 MEQ/L Estimat Glomerular Filtration Rate 49 ML/MIN Indirect Bilirubin 1.5 MG/DL Random Vancomycin Level 19.2 COMMENT Culture Results Microbiology Date/Time Source Procedure Growth Status 12/23/17 18:07 Blood Peripheral Aerobic Blood Culture Pending Received 12/23/17 18:07 Blood Peripheral Anaerobic Blood Culture Pending Received 12/23/17 17:55 Blood Peripheral Aerobic Blood Culture Pending Received 12/23/17 17:55 Blood Peripheral Anaerobic Blood Culture Pending Received 12/22/17 21:30 Sputum Endotracheal Gram Stain - Final Resulted 12/22/17 21:30 Sputum Endotracheal Sputum Culture Pending Resulted 12/22/17 18:16 Urine Random Urine Urine Culture - Final Escherichia Coli Esbl Positive Multi-Drug Resistant Complete Imaging Studies Last 24 hours Impressions Lower Extremity Ultrasound 12/24/17 0000 Signed Impressions: Service Date/Time: Sunday, December 24, 2017 08:58 - CONCLUSION: Deep venous thrombosis extending above the knee as described above. Tre King MD FACR Chest X-Ray 12/24/17 0000 Signed Impressions: Service Date/Time: Sunday, December 24, 2017 08:52 - CONCLUSION: Support apparatus in good position. Increasing interstitial edema. Tre King MD FACR Administered Medications Medications (Trade) Dose Ordered Sig/Earnest Route PRN Reason Start Time Stop Time Status Last Admin Dose Admin Sodium Chloride (NS Flush) 2 ml BID IV FLUSH 12/22/17 21:00 12/24/17 09:49 Albuterol/ Ipratropium (Duoneb Neb) 1 ampule Q4HR NEB INH 12/22/17 20:00 12/24/17 07:42 Chlorhexidine Gluconate (Chlorhexidine 2% Cloth) 3 pack Taper DAILY@04 TOP 12/23/17 04:00 12/19/18 03:59 12/24/17 04:00 Senna/Docusate Sodium (Amber-Colace) 1 tab BID PO 12/22/17 21:00 12/24/17 09:55 Chlorhexidine Gluconate (Peridex 0.12% Liq) 15 ml BID@08,20 MT 12/22/17 20:00 12/24/17 09:49 Propofol 100 ml @ 3.45 mls/hr TITRATE PRN IV SEDATION 12/22/17 18:45 12/24/17 04:22 Folic Acid (Folate) 1 mg DAILY PO 12/23/17 09:00 12/24/17 09:49 Ceftriaxone Sodium 2000 mg/ Sodium Chloride 100 ml @ 200 mls/hr Q24H IV 12/23/17 08:00 12/24/17 09:49 Artificial Tears (Tears Naturale Opth Soln) 1 drop Q8HR EACH EYE 12/23/17 22:00 12/24/17 05:00 Lansoprazole (Prevacid Odt) 30 mg DAILY NG 12/24/17 09:00 12/24/17 09:49 Polyethylene Glycol (Miralax) 17 gm BID PO 12/24/17 09:00 12/24/17 09:53 Objective Remarks GENERAL: Younger female resting in bed intubated and sedated SKIN: Warm and dry. HEAD: Normocephalic. EYES: No injection or drainage. NECK: Supple, trachea midline. Triple-lumen catheter to left neck CARDIOVASCULAR: Regular rate and rhythm without murmurs. RESPIRATORY: Mechanically ventilated. Diminished lung sounds GASTROINTESTINAL: Abdomen distended, firm EXTREMITIES: Right lower extremity edema. 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 She has been on Xarelto for a right lower extremity DVT as well as history of CHF. She had a lung VQ scan that showed a low probability for pulmonary embolism. 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 Contacted [facility] to initiate red blood cell exchange today; however they no longer have contract here. Will do simple exchange today with plan for traditional exchange tomorrow. 2. Discussed with Dr. Acharya who will place a Vas-Cath 3. Plan for daily red blood cell exchange 3 with goal of hemoglobin of 9 4. Resume heparin after Vas-Cath placed later today Attending Statement The exam, history, and the medical decision-making described in the above note were completed with the assistance of the mid-level provider. I reviewed and agree with the findings presented. I attest that I had a [id number] encounter with the patient on the same day, and personally performed and documented my assessment and findings in the medical record. will do simple exchange transfusion still intubated -- worsening chest x-ray with infiltrates Hb stable daily folic acid supportive care Problem Qualifiers (1) Sickle cell disease: Qualified Codes: D57.01 - Hb-SS disease with acute chest syndrome (2) Dyspnea: Qualified Codes: R06.00 - Dyspnea, unspecified Chen Laguerre Dec 24, 2017 11:17 Abiodun Ricks MD Dec 24, 2017 13:36
[2017-12-24 11:39] LABS: HEMATOCRIT 22.8 % (35.0-46.0); HEMOGLOBIN 7.7 GM/DL (11.6-15.3); INTERNATIONAL NORMALIZED RATIO 1.4 RATIO; MEAN CELL VOLUME 93.2 FL (80.0-100.0); MEAN CORPUSCULAR HEMOGLOBIN 31.5 PG (27.0-34.0); MEAN CORPUSCULAR HGB CONC 33.8 % (32.0-36.0); MEAN PLATELET VOLUME 9.7 FL (7.0-11.0); PLATELET COUNT 263 TH/MM3 (150-450); PROTHROMBIN TIME - PATIENT 14.3 SEC (9.8-11.6); RED BLOOD COUNT 2.44 MIL/MM3 (4.00-5.30); RED CELL DISTRIBUTION WIDTH 21.1 % (11.6-17.2); WHITE BLOOD COUNT 9.5 TH/MM3 (4.0-11.0)
[2017-12-24] MEDS ORDERED: HEPARIN SODIUM - IV 10,000 UNITS/10 ML VIAL ONE (11:53)
[2017-12-24] MEDS: LACTULOSE SYRUP 20 GM/30 ML CUP PO SCH ×3 (11:54→19:23)
[2017-12-24] MEDS ORDERED: GELATIN 12 MM/7 MM FOAM ONE (12:29)
[2017-12-24] MEDS ORDERED: SODIUM CHLOR 0.9% 250 ML INJ 250 ML IV ONE ×2 (12:30)
--- NOTE | 2017-12-24 12:43 | PD.PROCEDR ---
Procedure Note Procedure DATE: 12/24/2017 Hemodialysis catheter placement: Right internal jugular vein INDICATION: Red cell exchange for sickle cell disease CONSENT Informed consent for procedure was obtained from . DESCRIPTION OF THE PROCEDURE The patient was placed in supine position. The skin was cleansed with Chloraprep. Additional barrier precautions included large sterile drape, sterile gloves, sterile gown, face mask, and hat. 1 % lidocaine was used for local anesthesia. Under direct ultrasound guidance and on initial attempt, the vein was accessed with an introducer needle. The guide wire was advanced and the tract was dilated 4. Using Seldinger technique a 14 [place] 20 cm Schlon hemodialysis catheter was advanced to a depth of 17 centimeters. The guide wire was removed. All ports had good return of dark venous blood and flushed easily with saline. The central line was secured with 2.0 silk. A sterile dressing with antibiotic disc was applied. ESTIMATED BLOOD LOSS: 10 cc COMPLICATIONS: No apparent complications. STAT chest x-ray pending at time of dictation Kenyon Acharya MD Dec 24, 2017 12:43
[2017-12-24] MEDS ORDERED: HEPARIN SODIUM - IV 2,000 UNITS/2 ML VIAL IV FLUSH PRN (12:45)
[2017-12-24] MEDS ORDERED: SODIUM CHLORIDE 0.9% FLUSH 10 ML FLUSH IV FLUSH PRN (12:45)
--- NOTE | 2017-12-24 13:30 | RADRPT ---
EXAM DATE/TIME: 12/24/2017 13:06 [facility] COMPARISON: CHEST SINGLE AP, December 24, 2017, 8:52. INDICATIONS : Post central line placement. MEDICAL HISTORY : Deep venous thrombosis. Sickle Cell disease. SURGICAL HISTORY : IVC filter placement. ENCOUNTER: Subsequent ACUITY: 1 day PAIN SCORE: Non-responsive. LOCATION: Bilateral chest FINDINGS: Endotracheal tube and nasogastric tube and right-sided port are stable. There has been interval inser tion of a right neck dialysis catheter with which extends into the SVC. There is no evidence of pneum othorax an outpatient placement. There is persistent hazy bilateral pleuroparenchymal facili and mode rate cardiomegaly. CONCLUSION: Satisfactory central line position. Otherwise stable chest. No pneumothorax. Jacinto Mixon MD on December 24, 2017 at 13:27 Board Certified Radiologist. This report was verified electronically.
[2017-12-25] VITALS (16 sets, daily range): BP systolic 88–111; BP diastolic 53–64; PULSE 70–91; RESP 13–25; TEMP 97–99; O2SAT 96–100
[2017-12-25] MEDS: PROPOFOL 1000 MG/100 ML INJ 100 ML IV PRN ×5 (02:41→23:37)
[2017-12-25] MEDS: RESP: ALBUTEROL 2.5 MG/IPRATROPIUM 0.5 MG NEB (SCH) INH ×5 (03:50→20:19)
[2017-12-25] MEDS: CHLORHEXIDINE GLUCONATE 2 % 1 PACK (2 CLOTHS) TOP SCH (03:58)
[2017-12-25 04:32] LABS: HEMATOCRIT 22.8 % (35.0-46.0); HEMOGLOBIN 7.9 GM/DL (11.6-15.3); MEAN CORPUSCULAR HEMOGLOBIN 32.3 PG (27.0-34.0); MEAN CORPUSCULAR HGB CONC 34.7 % (32.0-36.0); MEAN PLATELET VOLUME 9.8 FL (7.0-11.0); PLATELET COUNT 243 TH/MM3 (150-450); RED BLOOD COUNT 2.45 MIL/MM3 (4.00-5.30); WHITE BLOOD COUNT 9.2 TH/MM3 (4.0-11.0)
[2017-12-25 04:42] LABS: ALBUMIN 2.9 GM/DL (3.4-5.0); ALKALINE PHOSPHATASE 91 U/L (45-117); ALT (GPT) 12 U/L (10-53); AST (GOT) 30 U/L (15-37); BICARBONATE 24.5 MEQ/L (21.0-32.0); BLOOD UREA NITROGEN 43 MG/DL (7-18); CALCIUM 8.3 MG/DL (8.5-10.1); CHLORIDE 106 MEQ/L (98-107); CREATININE 1.11 MG/DL (0.50-1.00); GLOMERULAR FILTRATION RATE 65 ML/MIN (>89); GLUCOSE,RANDOM 101 MG/DL (74-106); INDIRECT BILIRUBIN 2.1 MG/DL (0.0-0.8); PHOSPHORUS 4.5 MG/DL (2.5-4.9); RANDOM VANCOMYCIN 30.5 COMMENT; SODIUM (NA) 140 MEQ/L (136-145); TOTAL BILIRUBIN ADULT 4.1 MG/DL (0.2-1.0)
--- NOTE | 2017-12-25 05:11 | RADRPT ---
EXAM DATE/TIME: 12/25/2017 03:43 [facility] COMPARISON: CHEST SINGLE AP, December 24, 2017, 13:06. INDICATIONS : Shortness of breath, possible pulmonary disease. MEDICAL HISTORY : Deep venous thrombosis. Sickle Cell disease. SURGICAL HISTORY : IVC filter placement. ENCOUNTER: Subsequent ACUITY: 2 days PAIN SCORE: Non-responsive. LOCATION: Bilateral chest FINDINGS: The cardiac silhouette is enlarged in transverse diameter. There are findings of congestive heart jacqueline lure with interstitial and alveolar opacity bilaterally. Support lines and tubes are in satisfactory position. CONCLUSION: 1. Cardiomegaly and findings of congestive heart failure. There has been no significant change when c ompared to the prior exam. Andrew Smith MD on December 25, 2017 at 5:10 Board Certified Radiologist. This report was verified electronically.
[2017-12-25] MEDS: ARTIFICIAL TEARS OPTH SOLN 15 ML BTL EACH EYE SCH ×3 (05:45→22:00)
[2017-12-25] MEDS: INSULIN ASPART SUPPLEMENTAL SCALE SQ SCH ×4 (05:47→23:09)
[2017-12-25 06:42] LABS: RETIC # 509.5 MIL/L (20.0-150.0); RETIC % 20.9 % (0.4-3.0)
[2017-12-25] MEDS: cefTRIAXone INJ 2,000 MG in SODIUM CHLORIDE 0.9% INJ 100 ML IV SCH (07:57)
[2017-12-25] MEDS: POLYETHYLENE GLYCOL 17 GM PKG PO SCH ×2 (07:58→21:00)
[2017-12-25] MEDS: LACTULOSE SYRUP 20 GM/30 ML CUP PO SCH ×4 (07:58→21:00)
[2017-12-25] MEDS: FOLIC ACID 1 MG TAB PO SCH (07:58)
[2017-12-25] MEDS: LANSOPRAZOLE SOLUTAB 30 MG TAB NG SCH (07:58)
[2017-12-25] MEDS: DOCUSATE SODIUM 50 MG/SENNA 8.6 MG TAB PO SCH ×2 (07:58→21:00)
[2017-12-25] MEDS: CHLORHEXIDINE 0.12% (ORAL KIT) 15 ML CUP MT SCH ×2 (07:59→20:00)
[2017-12-25] MEDS: SODIUM CHLORIDE 0.9% FLUSH 10 ML FLUSH IV FLUSH SCH ×2 (08:00→21:00)
[2017-12-25] MEDS: HEPARIN-D5W 25,000 U/250 ML 250 ML IV PRN (09:07)
[2017-12-25 09:22] LABS: CORRECTED NUCLEATED RBC 25 /100 WBC (0-0); LYMPHOCYTES 5 % (9-44); MONOCYTES 6 % (0-8); NEUTROPHIL # MANUAL DIFF 8.2 TH/MM3 (1.8-7.7); NUCLEATED RED BLOOD CELL 25 (0-0); POLYS (SEG NEUTROPHILS) 89 % (16-70)
[2017-12-25 09:23] LABS: ACANTHOCYTES OCC (NORMAL); SICKLE CELLS 1+ (NORMAL); TARGET CELLS 1+ (NORMAL)
[2017-12-25 09:24] LABS: HOWELL-JOLLY BODIES PRESENT (NONE SEEN)
--- NOTE | 2017-12-25 09:30 | PD.ONC.PN ---
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, she is following commands Objective Data Date Time Temp Pulse Resp B/P (MAP) Pulse Ox O2 Delivery O2 Flow Rate FiO2 12/25/17 08:00 97.0 78 20 99/59 (72) 100 12/25/17 08:00 40 12/25/17 08:00 78 12/25/17 06:00 74 12/25/17 04:00 40 12/25/17 04:00 97.9 70 16 88/53 (65) 98 12/25/17 04:00 70 12/25/17 03:50 96 40 12/25/17 02:00 72 12/25/17 00:00 98.0 70 18 94/61 (72) 99 12/25/17 00:00 40 12/25/17 00:00 70 12/24/17 23:53 99 40 12/24/17 22:00 77 12/24/17 21:54 97 40 12/24/17 20:00 98.3 72 16 101/62 (75) 100 12/24/17 20:00 40 12/24/17 20:00 72 12/24/17 18:00 74 12/24/17 16:00 97.9 75 15 96/59 (71) 99 12/24/17 16:00 40 12/24/17 16:00 75 12/24/17 15:45 100 40 12/24/17 15:36 97.9 75 17 100/56 99 12/24/17 15:35 97.9 71 16 100/56 100 12/24/17 14:33 98.2 77 17 94/58 99 12/24/17 14:14 97.8 75 16 94/60 100 12/24/17 14:00 75 12/24/17 12:03 99 40 12/24/17 12:00 77 12/24/17 12:00 97.5 77 17 103/65 (78) 99 12/24/17 12:00 40 12/24/17 10:00 70 12/25/17 12/25/17 12/25/17 07:00 15:00 23:00 Intake Total 885.9 ml 123.6 ml Output Total 1200 ml Balance -314.1 ml 123.6 ml Result Diagram: 12/25/17 0342 12/25/17 0342 Laboratory Results Laboratory Tests Test 12/24/17 09:47 12/24/17 15:41 12/24/17 23:25 12/25/17 03:42 White Blood Count 9.5 TH/MM3 9.2 TH/MM3 Red Blood Count 2.44 MIL/MM3 2.45 MIL/MM3 Hemoglobin 7.7 GM/DL 7.9 GM/DL Hematocrit 22.8 % 22.8 % Mean Corpuscular Volume 93.2 FL 93.0 FL Mean Corpuscular Hemoglobin 31.5 PG 32.3 PG Mean Corpuscular Hemoglobin Concent 33.8 % 34.7 % Red Cell Distribution Width 21.1 % 20.0 % Platelet Count 263 TH/MM3 243 TH/MM3 Mean Platelet Volume 9.7 FL 9.8 FL Prothrombin Time 14.3 SEC Prothromb Time International Ratio 1.4 RATIO Activated Partial Thromboplast Time 62.0 SEC 34.0 SEC 54.1 SEC CBC Comment AUTO DIFF Differential Total Cells Counted 100 Neutrophils % (Manual) 89 % Lymphocytes % 5 % Monocytes % 6 % Neutrophils # (Manual) 8.2 TH/MM3 Nucleated Red Blood Cells 25 /100 WBC Differential Comment FINAL DIFF MANUAL Platelet Estimate NORMAL Platelet Morphology Comment NORMAL Sickle Cells 1+ Target Cells 1+ Albert-[place] Bodies PRESENT Acanthocytes OCC Red Cell Morphology Comment Reticulocyte Count 20.9 % Absolute Reticulocyte Count 509.5 MIL/L Blood Urea Nitrogen 43 MG/DL Creatinine 1.11 MG/DL Random Glucose 101 MG/DL Total Protein 8.0 GM/DL Albumin 2.9 GM/DL Calcium Level 8.3 MG/DL Phosphorus Level 4.5 MG/DL Magnesium Level 2.0 MG/DL Alkaline Phosphatase 91 U/L Aspartate Amino Transf (AST/SGOT) 30 U/L Alanine Aminotransferase (ALT/SGPT) 12 U/L Lactate Dehydrogenase 441 U/L Total Bilirubin 4.1 MG/DL Direct Bilirubin 2.0 MG/DL Sodium Level 140 MEQ/L Potassium Level 3.6 MEQ/L Chloride Level 106 MEQ/L Carbon Dioxide Level 24.5 MEQ/L Anion Gap 10 MEQ/L Estimat Glomerular Filtration Rate 65 ML/MIN Indirect Bilirubin 2.1 MG/DL Random Vancomycin Level 30.5 COMMENT Test 12/25/17 05:40 Activated Partial Thromboplast Time 57.2 SEC Culture Results Microbiology Date/Time Source Procedure Growth Status 12/23/17 18:07 Blood Peripheral Aerobic Blood Culture - Preliminary NO GROWTH IN 1 DAY Resulted 12/23/17 18:07 Blood Peripheral Anaerobic Blood Culture - Preliminary NO GROWTH IN 1 DAY Resulted 12/23/17 17:55 Blood Peripheral Aerobic Blood Culture - Preliminary NO GROWTH IN 1 DAY Resulted 12/23/17 17:55 Blood Peripheral Anaerobic Blood Culture - Preliminary NO GROWTH IN 1 DAY Resulted 12/25/17 01:43 Stool Stool Stool Occult Blood (SANDRA) - Final HEMOCCULT NEGATIVE Complete 12/22/17 21:30 Sputum Endotracheal Gram Stain - Final Resulted 12/22/17 21:30 Sputum Endotracheal Sputum Culture - Preliminary MODERATE GROWTH NORMAL RESPIRATORY FL... Resulted 12/22/17 18:16 Urine Random Urine Urine Culture - Final Escherichia Coli Esbl Positive Multi-Drug Resistant Complete Imaging Studies Last 24 hours Impressions Chest X-Ray 12/25/17 0600 Signed Impressions: Service Date/Time: Monday, December 25, 2017 03:43 - CONCLUSION: 1. Cardiomegaly and findings of congestive heart failure. There has been no significant change when compared to the prior exam. Andrew Smith MD Chest X-Ray 12/24/17 1240 Signed Impressions: Service Date/Time: Sunday, December 24, 2017 13:06 - CONCLUSION: Satisfactory central line position. Otherwise stable chest. No pneumothorax. Jacinto Mixon MD Administered Medications Medications (Trade) Dose Ordered Sig/Earnest Route PRN Reason Start Time Stop Time Status Last Admin Dose Admin Sodium Chloride (NS Flush) 2 ml BID IV FLUSH 12/22/17 21:00 12/25/17 08:00 Albuterol/ Ipratropium (Duoneb Neb) 1 ampule Q4HR NEB INH 12/22/17 20:00 12/25/17 07:48 Chlorhexidine Gluconate (Chlorhexidine 2% Cloth) 3 pack Taper DAILY@04 TOP 12/23/17 04:00 12/19/18 03:59 12/25/17 03:58 Senna/Docusate Sodium (Amber-Colace) 1 tab BID PO 12/22/17 21:00 12/25/17 07:58 Chlorhexidine Gluconate (Peridex 0.12% Liq) 15 ml BID@08,20 MT 12/22/17 20:00 12/25/17 07:59 Propofol 100 ml @ 3.45 mls/hr TITRATE PRN IV SEDATION 12/22/17 18:45 12/25/17 09:03 Folic Acid (Folate) 1 mg DAILY PO 12/23/17 09:00 12/25/17 07:58 Ceftriaxone Sodium 2000 mg/ Sodium Chloride 100 ml @ 200 mls/hr Q24H IV 12/23/17 08:00 12/25/17 07:57 Artificial Tears (Tears Naturale Opth Soln) 1 drop Q8HR EACH EYE 12/23/17 22:00 12/25/17 05:45 Lansoprazole (Prevacid Odt) 30 mg DAILY NG 12/24/17 09:00 12/25/17 07:58 Heparin Sodium/ Dextrose 250 ml @ 18 mls/hr TITRATE PRN IV Coagulation Management 12/24/17 08:45 12/25/17 09:07 Polyethylene Glycol (Miralax) 17 gm BID PO 12/24/17 09:00 12/25/17 07:58 Lactulose (Lactulose Liq) 30 ml QID PO 12/24/17 13:00 12/25/17 07:58 Objective Remarks GENERAL: Younger female resting in bed intubated and sedated SKIN: Warm and dry. HEAD: Normocephalic. EYES: No injection or drainage. NECK: Supple, trachea midline. Triple-lumen catheter to left neck CARDIOVASCULAR: Regular rate and rhythm without murmurs. RESPIRATORY: Mechanically ventilated. Diminished lung sounds on the L GASTROINTESTINAL: Abdomen distended, remains firm but somewhat softer than yesterday EXTREMITIES: Right lower extremity edema. 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 She has been on Xarelto for a right lower extremity DVT as well as history of CHF. She had a lung VQ scan that showed a low probability for pulmonary embolism. Assessment 42-year-old female with hemoglobin SS disease admitted with shortness of breath Plan 1. RBC exchange to start today to decrease amount of circulating Hgb S. Plan for daily x 3 days for a H/H goal of 06/08. 2. APTT therapeutic on heparin gtt 3. Monitor CBC, coags. Attending Statement The exam, history, and the medical decision-making described in the above note were completed with the assistance of the mid-level provider. I reviewed and agree with the findings presented. I attest that I had a [id number] encounter with the patient on the same day, and personally performed and documented my assessment and findings in the medical record. Red cell exchange today red cell exchange services were not available in the hospital yesterday Nursing did not phlebotomize yesterday patient was given 1 unit of pRBC still intubated monitor I&O waking up while on ventilator repeat chest X-ray in AM BNP tomorrow am Has iron overload will need iron chelation therapy once clinically stable --can be given -patient d/w rn o/n events reviewed Problem Qualifiers (1) Sickle cell disease: Qualified Codes: D57.01 - Hb-SS disease with acute chest syndrome Chen Laguerre Dec 25, 2017 09:30 Abiodun Ricks MD Dec 25, 2017 11:27
[2017-12-25] MEDS ORDERED: HEPARIN SODIUM - IV 10,000 UNITS/10 ML VIAL IV PRN (09:45)
[2017-12-25] MEDS ORDERED: diphenhydrAMINE HCL 50 MG/ML VIAL IV PUSH PRN (10:00)
[2017-12-25] MEDS ORDERED: ANTICOAGULANT CITRATE DEXTROSE SOLN-A 1L OTHER ONE (10:00)
[2017-12-25] MEDS ORDERED: HEPARIN SODIUM - 10,000 UNITS/ML 1ML VIAL IV FLUSH PRN (10:00)
[2017-12-25] MEDS ORDERED: SODIUM CHLOR 0.9% 1000 ML IV ONE (10:00)
[2017-12-25] MEDS ORDERED: HEPARIN SODIUM - 1000 UNITS/ML 10 ML VIAL IV FLUSH PRN (10:00)
[2017-12-25] MEDS ORDERED: CALCIUM GLUCONATE INJ 3 GM in SODIUM CHLOR 0.9% 250 ML INJ 150 ML IV ONE ×2 (10:00→10:15)
[2017-12-25] MEDS ORDERED: GENTAMICIN SULFATE 20 MG/2 ML VIAL OTHER ONE (10:15)
--- NOTE | 2017-12-25 14:00 | HHI.CCPN ---
Subjective Remarks/Hospital Course 42-year-old unfortunate -[place] female presents for evaluation of shortness of breath. Per EMS report the patient had O2 sats of 81 on their arrival, required 15 L on nonrebreather to bring saturations into the 90s. Patient was initially alert, intermittently following commands. Patient was able to provide her name. Per review of medical record and ER documentation she has a history of sickle cell anemia, CHF, and recent history of right DVT on Xarelto. 12/23: Afebrile. Currently not on vasopressors. Sedated on propofol drip. No new issues overnight. Currently 7.1 Subjective 12/24: Febrile. Not on vasopressors. Sedated on propofol drip at 50 mcg/kg/ min. Hemoglobin currently 7.7. Tolerating tube feeding. No bowel movement. Abdomen remains grossly anasarca. On bedside ultrasound 4 cm thickness. Small ascites visualized with peristalsis from small large bowel noted 12/25: Late entry note patient seen at 1045am. afebrile. Patient currently on light sedation propofol at 20 mics. Patient currently undergoing plasmapheresis. Patient tolerating tube feeds currently at 40 cc/now with a goal of 60 cc/hour. Objective Vital Signs Date Time Temp Pulse Resp B/P (MAP) Pulse Ox O2 Delivery O2 Flow Rate FiO2 12/25/17 12:44 100 40 12/25/17 10:00 83 12/25/17 08:00 97.0 20 99/59 (72) 12/22/17 18:30 Ventilator 12/22/17 18:00 15.00 Intake and Output 12/25/17 12/25/17 12/25/17 07:59 15:59 23:59 Intake Total 885.9 ml 123.6 ml Output Total 1200 ml Balance -314.1 ml 123.6 ml Result Diagram: 12/25/17 0342 12/25/17 0342 Other Results Microbiology Date/Time Source Procedure Growth Status 12/25/17 01:43 Stool Stool Stool Occult Blood (SANDRA) - Final HEMOCCULT NEGATIVE Complete 12/22/17 21:30 Sputum Endotracheal Gram Stain - Final Complete 12/22/17 21:30 Sputum Culture - Final Beta Strep Not Group A Complete 12/22/17 18:16 Urine Random Urine Urine Culture - Final Escherichia Coli Esbl Positive Multi-Drug Resistant Complete Imaging Last Impressions Chest X-Ray 12/25/17 0600 Signed Impressions: Service Date/Time: Monday, December 25, 2017 03:43 - CONCLUSION: 1. Cardiomegaly and findings of congestive heart failure. There has been no significant change when compared to the prior exam. Andrew Smith MD Lower Extremity Ultrasound 12/24/17 0000 Signed Impressions: Service Date/Time: Sunday, December 24, 2017 08:58 - CONCLUSION: Deep venous thrombosis extending above the knee as described above. Tre King MD FACR Lung Scan-VQ Nuclear Medicine 12/23/17 0000 Signed Impressions: Service Date/Time: Saturday, December 23, 2017 13:14 - CONCLUSION: 1. A reverse mismatch posteriorly in the left base with increased activity on the perfusion images and no identifiable activity in the left base on the corresponding ventilatory sequence. Findings are probably due to a posterior layering effusion. There may be some fluid in the fissure on the left as well based on the linear perfusion defect posteriorly in the left base. 2. Central trapping possibly representing some degree of COPD. 3. No scintigraphic findings of pulmonary embolus. Pj Laboy MD Abdomen Ultrasound 12/23/17 0000 Signed Impressions: Service Date/Time: Saturday, December 23, 2017 08:44 - CONCLUSION: 1. Liver appears somewhat prominent but otherwise sonographically intact. There is some free fluid along the hepatic convexity. 2. Cholelithiasis with probable associated gallbladder sludge. 3. Due to the patient's current clinical condition and the fact they were restrained, limited examination of the additional abdominal viscera. Pancreas is obscured by overlying bowel gas. Left kidney, aorta and IVC are poorly visualized. Pj Laboy MD Chest CT 12/22/17 0000 Signed Impressions: Service Date/Time: December 19:57 - CONCLUSION: 1. Moderate cardiomegaly with moderate pericardial effusion. 2. Consolidation and airspace disease in the lower lobes left greater than right as well as more patchy airspace disease in the right lung. 3. Small pleural effusions. 4. Diffuse anasarca with ascites in the upper abdomen. 5. Hepatomegaly and abnormal apparent small high density spleen. Zay Barakat MD Last Impressions Lower Extremity Ultrasound 12/24/17 0000 Signed Impressions: Service Date/Time: Sunday, December 24, 2017 08:58 - CONCLUSION: Deep venous thrombosis extending above the knee as described above. Tre King MD FACR Chest X-Ray 12/24/17 0000 Signed Impressions: Service Date/Time: Sunday, December 24, 2017 08:52 - CONCLUSION: Support apparatus in good position. Increasing interstitial edema. Tre King MD FACR Lung Scan-VQ Nuclear Medicine 12/23/17 0000 Signed Impressions: Service Date/Time: Saturday, December 23, 2017 13:14 - CONCLUSION: 1. A reverse mismatch posteriorly in the left base with increased activity on the perfusion images and no identifiable activity in the left base on the corresponding ventilatory sequence. Findings are probably due to a posterior layering effusion. There may be some fluid in the fissure on the left as well based on the linear perfusion defect posteriorly in the left base. 2. Central trapping possibly representing some degree of COPD. 3. No scintigraphic findings of pulmonary embolus. Pj Laboy MD Abdomen Ultrasound 12/23/17 0000 Signed Impressions: Service Date/Time: Saturday, December 23, 2017 08:44 - CONCLUSION: 1. Liver appears somewhat prominent but otherwise sonographically intact. There is some free fluid along the hepatic convexity. 2. Cholelithiasis with probable associated gallbladder sludge. 3. Due to the patient's current clinical condition and the fact they were restrained, limited examination of the additional abdominal viscera. Pancreas is obscured by overlying bowel gas. Left kidney, aorta and IVC are poorly visualized. Pj Laboy MD Chest CT 12/22/17 0000 Signed Impressions: Service Date/Time: December 19:57 - CONCLUSION: 1. Moderate cardiomegaly with moderate pericardial effusion. 2. Consolidation and airspace disease in the lower lobes left greater than right as well as more patchy airspace disease in the right lung. 3. Small pleural effusions. 4. Diffuse anasarca with ascites in the upper abdomen. 5. Hepatomegaly and abnormal apparent small high density spleen. Zay Barakat MD Objective Remarks GENERAL: 42-year-old obese -[place] female, sedated and intubated SKIN: Focused skin assessment warm/dry. Facial edema noted. HEAD: Normocephalic. EYES: Positive scleral icterus. No injection or drainage. NECK: Supple, trachea midline. No JVD or lymphadenopathy. CARDIOVASCULAR: Regular rate and rhythm without murmurs, gallops, or rubs. RESPIRATORY: Breath sounds equal bilaterally. Diminished in the bases. GASTROINTESTINAL: Abdomen edematous, firm to the touch. Gross anasarca. Hypoactive bowel sounds. MUSCULOSKELETAL: No cyanosis, 2+ pitting edema right much greater than left. Neuro: GCS 11 T .sedated and intubated, pupils 3 mm reactive bilaterally briskly. Nodding head, follows commands A/P Assessment and Plan Neuro/Psych: Schizophrenia Depression Chronic oxycodone use 10 mg every 12 hours Currently on propofol at 50 mcg/kg/min for sedation while intubated Goal of RASS -2 Daily sedation vacation Currently on propofol/fentanyl infusion for sedation/analgesia while intubated Home medication citalopram 20 mg daily currently on hold for depression Home medication paliperidone 3 mg daily currently on hold for schizophrenia On chronic oxycodone 10 mg by mouth twice daily at home Acetaminophen 650 mg by tube every 6 hours as needed fever CV: Chronic diastolic heart failure Small pericardial effusion without e/o tamponade Chronic pericardial effusion 2D echocardiogram normal left ventricular size. Wall thickness is normal. The left ventricular systolic function is normal with an estimated ejection fraction in the range of 55-60%. Flattened septum throughout the cardiac cycle consistent with right ventricular pressure overload. No other wall motion abnormalities are seen. The right ventricle is moderately dilated. The right ventricular systolic function is moderately decreased. The right atrial size is severely dilated. Trace mitral valve regurgitation. There is severe tricuspid regurgitation. The inferior vena cava is dilated. Dilated inferior vena cava with poor inspiration collapse consistent with elevated right atrial pressure. There is possibly a small posterior pericardial effusion present. At home furosemide 20 mg p.o. twice daily at home Gently diurese today with 40 mg furosemide 1. Stop IV fluids Resp: Acute hypoxic hypercapnic respiratory failure [facility] 15/600/09/16/39 Ventilator bundle Albuterol/ipratropium aerosols every 4 hours with albuterol aerosols every [address] thorax revealed bilateral pleural effusion/infiltrates. See ID for infectious workup Spontaneous breathing trials when clinically indicated Chest x-ray worsening edema infiltrate or process GI: Elevated total bilirubin NG tube to low intermittent wall suction Start Perative goal 60 cc an hour per GIs recommendation Pantoprazole for GI prophylaxis Docusate sodium/senna 1 tablet twice daily for bowel regimen Ultrasound abdomen limited. CAT scan chest revealed hepatomegaly/sludge in gallbladder with stone. Ascites noted : Teague catheter for accurate I's and O's in a critically ill patient Endo: Sliding scale insulin Accu-Cheks to maintain euglycemia/every 6 hours low regimen Renal: Acute kidney injury Monitor urine output Accurate I's and O's Creatinine currently 1.4 Heme: Sickle cell disease -vaso-occlusive crisis plus acute chest syndrome History of iron overload due to multiple transfusions History of right lower extremity DVT -negative ultrasound 11/10/17 History of IVC filter -unknown date in place. Hematology consult for sick cell crisis. Previously on folic acid 0.4 mg daily and hydroxyurea 1000 mg daily Folic acid has been resumed at 1 mg daily. Differin hydroxyurea to hematology Holding deferasirox 1080 milligrams daily Reticulocyte count at 18 elevated. Recheck in a.m. Daily LDH/reticulocyte count, chest x-ray and CBC per hematology Placed dialysis cath day for red cell exchange for 3 days to begin 12/25 ID: Gram-negative celia UTI Ceftriaxone/vancomycin day #3 Blood cultures 2 ordered. 12/23 sputum pending 12/22 12/22 -UA -gram-negative celia FEN: Replace electrolytes as clinically indicated MSK: PT evaluate and treat for range of motion Right lower extremity chronically greater than left lower extremity due to history of DVT Negative lower extremity ultrasound 11/27 12/24 US-Deep venous thrombosis of both occlusive and nonocclusive thrombus is identified This extends from calf veins into the superficial femoral vein above the knee. 12/24 Heparin infusion initiated Access -Left [id number]-s-Yxpm accessed with Alarcon needle Prophylaxis -GI -lansoprazole -DVT -SCD/rivaroxaban will provide DVT prophylaxis Critical Care: my billing statement This patient remains critically ill with one or more organ systems which are or may become a threat to life. I have spent in excess of 30 minutes discontinuously in the care and management of this patient. This time is exclusive of procedures, and includes, but is not limited to, evaluation of the patient, review of the medical record, discussions with family, consultants, nursing staff, or respiratory therapy, and documentation in the medical record. Physician Nahomi Edmondson MD Dec 25, 2017 14:00
[2017-12-25] MEDS ORDERED: CITA20TA4 PO (16:20)
[2017-12-25] MEDS ORDERED: BENZ0.5T PO (16:20)
[2017-12-25] MEDS ORDERED: FOLI400T PO (16:22)
[2017-12-25] MEDS ORDERED: FENT50DI T-DERMAL (16:22)
[2017-12-25] MEDS ORDERED: DEFE1TAB3 PO (16:22)
[2017-12-25] MEDS ORDERED: FURO20TA PO (16:29)
[2017-12-25] MEDS ORDERED: HYDR500C PO (16:29)
[2017-12-25] MEDS ORDERED: XARE20TA PO (16:29)
[2017-12-25] MEDS ORDERED: HYDR-3583 PO (16:29)
[2017-12-25] MEDS ORDERED: PALI1TAB2 PO (16:29)
[2017-12-26] VITALS (19 sets, daily range): BP systolic 90–96; BP diastolic 52–62; PULSE 77–95; RESP 8–23; TEMP 98.4–100.9; O2SAT 93–100
[2017-12-26] MEDS: RESP: ALBUTEROL 2.5 MG/IPRATROPIUM 0.5 MG NEB (SCH) INH ×5 (00:21→16:58)
[2017-12-26] MEDS: HEPARIN-D5W 25,000 U/250 ML 250 ML IV PRN (00:43)
[2017-12-26] MEDS: CHLORHEXIDINE GLUCONATE 2 % 1 PACK (2 CLOTHS) TOP SCH (03:34)
[2017-12-26] MEDS: PROPOFOL 1000 MG/100 ML INJ 100 ML IV PRN ×4 (04:33→22:17)
--- NOTE | 2017-12-26 04:59 | RADRPT ---
EXAM DATE/TIME: 12/26/2017 03:40 [facility] COMPARISON: CHEST SINGLE AP, December 25, 2017, 3:43. INDICATIONS : Shortness of breath, possible pulmonary disease. MEDICAL HISTORY : Deep venous thrombosis. Sickle Cell disease. SURGICAL HISTORY : IVC filter placement. ENCOUNTER: Subsequent ACUITY: 3 days PAIN SCORE: Non-responsive. LOCATION: Bilateral chest FINDINGS: Mild bibasilar consolidation again noted, not significantly changed. Probably small left pleural effu jackie. No pneumothorax seen. Mild cardiomegaly is stable. Endotracheal tube tip is approximately 2 cm above the corinna. There is a nasogastric tube coursing in to the stomach. Bilateral internal jugular central venous catheters with tips at the atriocaval junct ion. CONCLUSION: No significant change. Jacinto Crouch MD on December 26, 2017 at 4:56 Board Certified Radiologist. This report was verified electronically.
[2017-12-26] MEDS: ARTIFICIAL TEARS OPTH SOLN 15 ML BTL EACH EYE SCH ×3 (06:00→21:01)
[2017-12-26] MEDS: INSULIN ASPART SUPPLEMENTAL SCALE SQ SCH ×3 (06:00→18:00)
[2017-12-26] MEDS: CHLORHEXIDINE 0.12% (ORAL KIT) 15 ML CUP MT SCH ×2 (08:00→21:00)
[2017-12-26 08:07] LABS: AUTOMATED NEUTROPHIL # 10.2 TH/MM3 (1.8-7.7); BASOPHIL # 0.1 TH/MM3 (0-0.2); BASOPHIL % 0.5 % (0.0-2.0); EOSINOPHIL # 0.2 TH/MM3 (0-0.4); EOSINOPHIL % 1.8 % (0.0-4.0); HEMATOCRIT 26.1 % (35.0-46.0); HEMOGLOBIN 9.2 GM/DL (11.6-15.3); LYMPH % 6.2 % (9.0-44.0); LYMPHOCYTE # 0.8 TH/MM3 (1.0-4.8); MEAN CELL VOLUME 87.4 FL (80.0-100.0); MEAN CORPUSCULAR HEMOGLOBIN 30.9 PG (27.0-34.0); MEAN CORPUSCULAR HGB CONC 35.3 % (32.0-36.0); MEAN PLATELET VOLUME 9.9 FL (7.0-11.0); MONO % 7.8 % (0.0-8.0); MONOCYTE # 0.9 TH/MM3 (0-0.9); NEUT % 83.7 % (16.0-70.0); PLATELET COUNT 124 TH/MM3 (150-450); RED BLOOD COUNT 2.98 MIL/MM3 (4.00-5.30); RED CELL DISTRIBUTION WIDTH 17.1 % (11.6-17.2); WHITE BLOOD COUNT 12.2 TH/MM3 (4.0-11.0)
[2017-12-26] MEDS: LANSOPRAZOLE SOLUTAB 30 MG TAB NG SCH (08:07)
[2017-12-26] MEDS: SODIUM CHLORIDE 0.9% FLUSH 10 ML FLUSH IV FLUSH SCH ×2 (08:07→21:00)
[2017-12-26] MEDS: cefTRIAXone INJ 2,000 MG in SODIUM CHLORIDE 0.9% INJ 100 ML IV SCH (08:07)
[2017-12-26] MEDS: LACTULOSE SYRUP 20 GM/30 ML CUP PO SCH ×4 (08:08→21:00)
[2017-12-26] MEDS: DOCUSATE SODIUM 50 MG/SENNA 8.6 MG TAB PO SCH ×2 (08:08→21:00)
[2017-12-26] MEDS: POLYETHYLENE GLYCOL 17 GM PKG PO SCH ×2 (08:08→21:00)
[2017-12-26] MEDS: FOLIC ACID 1 MG TAB PO SCH (08:08)
[2017-12-26 08:13] LABS: RETIC # 273.6 MIL/L (20.0-150.0); RETIC % 9.1 % (0.4-3.0)
[2017-12-26 08:32] LABS: RANDOM VANCOMYCIN 11.9 COMMENT
[2017-12-26 08:52] LABS: BANDS 1 % (0-6); BASOPHILS 1 % (0-2); CORRECTED NUCLEATED RBC 18 /100 WBC (0-0); HOWELL-JOLLY BODIES PRESENT (NONE SEEN); LYMPHOCYTES 6 % (9-44); MONOCYTES 3 % (0-8); NUCLEATED RED BLOOD CELL 18 (0-0); POLYS (SEG NEUTROPHILS) 89 % (16-70); SICKLE CELLS 1+ (NORMAL); TARGET CELLS 1+ (NORMAL)
--- NOTE | 2017-12-26 09:48 | PD.ONC.PN ---
Subjective Subjective Remarks Afebrile overnight. underwent RBC exchange yesterday. remains intubated. on mechanical ventilation. Objective Data Date Time Temp Pulse Resp B/P (MAP) Pulse Ox O2 Delivery O2 Flow Rate FiO2 12/26/17 09:12 96 30 12/26/17 06:00 83 12/26/17 04:20 99 40 12/26/17 04:00 40 12/26/17 04:00 77 12/26/17 04:00 98.6 77 19 95/54 (68) 97 12/26/17 02:00 82 12/26/17 00:20 96 40 12/26/17 00:00 91 12/26/17 00:00 40 12/26/17 00:00 98.9 91 23 93/56 (68) 93 12/25/17 22:00 90 12/25/17 20:18 99 40 12/25/17 20:00 91 12/25/17 20:00 99.0 91 25 100/62 (75) 99 12/25/17 20:00 40 12/25/17 18:00 91 12/25/17 16:00 85 12/25/17 16:00 98.6 85 13 95/54 (68) 100 12/25/17 16:00 40 12/25/17 14:59 99 40 12/25/17 14:00 88 12/25/17 12:44 100 40 12/25/17 12:00 77 12/25/17 12:00 98.3 77 21 111/64 (80) 100 12/25/17 12:00 40 12/25/17 10:00 83 12/26/17 12/26/17 12/26/17 07:00 15:00 23:00 Intake Total 2093 ml Output Total 3600 ml Balance -1507 ml Result Diagram: 12/26/17 0650 12/25/17 0342 Laboratory Results Laboratory Tests Test 12/26/17 06:50 White Blood Count 12.2 TH/MM3 Red Blood Count 2.98 MIL/MM3 Hemoglobin 9.2 GM/DL Hematocrit 26.1 % Mean Corpuscular Volume 87.4 FL Mean Corpuscular Hemoglobin 30.9 PG Mean Corpuscular Hemoglobin Concent 35.3 % Red Cell Distribution Width 17.1 % Platelet Count 124 TH/MM3 Mean Platelet Volume 9.9 FL Neutrophils (%) (Auto) 83.7 % Lymphocytes (%) (Auto) 6.2 % Monocytes (%) (Auto) 7.8 % Eosinophils (%) (Auto) 1.8 % Basophils (%) (Auto) 0.5 % Neutrophils # (Auto) 10.2 TH/MM3 Lymphocytes # (Auto) 0.8 TH/MM3 Monocytes # (Auto) 0.9 TH/MM3 Eosinophils # (Auto) 0.2 TH/MM3 Basophils # (Auto) 0.1 TH/MM3 CBC Comment AUTO DIFF Differential Total Cells Counted 100 Neutrophils % (Manual) 89 % Band Neutrophils % 1 % Lymphocytes % 6 % Monocytes % 3 % Basophils % 1 % Neutrophils # (Manual) 11.0 TH/MM3 Nucleated Red Blood Cells 18 /100 WBC Differential Comment FINAL DIFF MANUAL Platelet Estimate LOW Platelet Morphology Comment NORMAL Sickle Cells 1+ Target Cells 1+ Albert-Eddystone Bodies PRESENT Red Cell Morphology Comment Reticulocyte Count 9.1 % Absolute Reticulocyte Count 273.6 MIL/L Activated Partial Thromboplast Time 63.2 SEC Lactate Dehydrogenase 348 U/L B-Type Natriuretic Peptide 327 PG/ML Random Vancomycin Level 11.9 COMMENT Culture Results Microbiology Date/Time Source Procedure Growth Status 12/23/17 18:07 Blood Peripheral Aerobic Blood Culture - Preliminary NO GROWTH IN 2 DAYS Resulted 12/23/17 18:07 Blood Peripheral Anaerobic Blood Culture - Preliminary NO GROWTH IN 2 DAYS Resulted 12/23/17 17:55 Blood Peripheral Aerobic Blood Culture - Preliminary NO GROWTH IN 2 DAYS Resulted 12/23/17 17:55 Blood Peripheral Anaerobic Blood Culture - Preliminary NO GROWTH IN 2 DAYS Resulted 12/25/17 01:43 Stool Stool Stool Occult Blood (SANDRA) - Final HEMOCCULT NEGATIVE Complete Imaging Studies Last 24 hours Impressions Chest X-Ray 12/26/17 0600 Signed Impressions: Service Date/Time: Tuesday, December 26, 2017 03:40 - CONCLUSION: No significant change. Jacinto Crouch MD Administered Medications Medications (Trade) Dose Ordered Sig/Earnest Route PRN Reason Start Time Stop Time Status Last Admin Dose Admin Sodium Chloride (NS Flush) 2 ml BID IV FLUSH 12/22/17 21:00 12/26/17 08:07 Albuterol/ Ipratropium (Duoneb Neb) 1 ampule Q4HR NEB INH 12/22/17 20:00 12/26/17 09:12 Chlorhexidine Gluconate (Chlorhexidine 2% Cloth) 3 pack Taper DAILY@04 TOP 12/23/17 04:00 12/19/18 03:59 12/26/17 03:34 Senna/Docusate Sodium (Amber-Colace) 1 tab BID PO 12/22/17 21:00 12/25/17 07:58 Chlorhexidine Gluconate (Peridex 0.12% Liq) 15 ml BID@08,20 MT 12/22/17 20:00 12/26/17 08:00 Propofol 100 ml @ 3.45 mls/hr TITRATE PRN IV SEDATION 12/22/17 18:45 12/26/17 04:33 Folic Acid (Folate) 1 mg DAILY PO 12/23/17 09:00 12/26/17 08:08 Ceftriaxone Sodium 2000 mg/ Sodium Chloride 100 ml @ 200 mls/hr Q24H IV 12/23/17 08:00 12/26/17 08:07 Artificial Tears (Tears Naturale Opth Soln) 1 drop Q8HR EACH EYE 12/23/17 22:00 12/26/17 06:00 Lansoprazole (Prevacid Odt) 30 mg DAILY NG 12/24/17 09:00 12/26/17 08:07 Heparin Sodium/ Dextrose 250 ml @ 18 mls/hr TITRATE PRN IV Coagulation Management 12/24/17 08:45 12/26/17 00:43 Polyethylene Glycol (Miralax) 17 gm BID PO 12/24/17 09:00 12/25/17 07:58 Lactulose (Lactulose Liq) 30 ml QID PO 12/24/17 13:00 12/25/17 12:47 Objective Remarks GENERAL: Middle aged female, lying supine in bed, intubated, awake. SKIN: Warm and dry. HEAD: Normocephalic. EYES: No injection or drainage. NECK: Supple, trachea midline. CARDIOVASCULAR: Regular rate and rhythm RESPIRATORY: anterior martins with scattered rhonchi. on mechanical ventilation. GASTROINTESTINAL: Abdomen soft, non-tender, nondistended. EXTREMITIES: No cyanosis NEUROLOGICAL: awake, intubated Assessment/Plan Problem List: (1) Sickle cell disease ICD Codes: D57.1 - Sickle-cell disease without crisis Status: Acute Plan: --12/26: CXR today showing no significant change. plan for RBC exchange again today. Hx/Workup: Patient with history of hemoglobin SS sickle cell disease brought into the emergency room with acute shortness of breath. She has been on Xarelto for a right lower extremity DVT as well as history of CHF. She had a lung VQ scan that showed a low probability for pulmonary embolism. 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 proceed with RBC exchange #2 today 2. monitor H/H 3. check coags/fibrinogen. Attending Statement The exam, history, and the medical decision-making described in the above note were completed with the assistance of the mid-level provider. I reviewed and agree with the findings presented. I attest that I had a [id number] encounter with the patient on the same day, and personally performed and documented my assessment and findings in the medical record. Likely no additional exchange transfusion tomorrow chest x-ray tomorrow Retic count and LDH down daily cbc, t.bili, ldh and retic count Problem Qualifiers (1) Sickle cell disease: Qualified Codes: D57.01 - Hb-SS disease with acute chest syndrome (2) Dyspnea: Qualified Codes: R06.00 - Dyspnea, unspecified Kimberley Moreno Dec 26, 2017 09:48 Abiodun Ricks MD Dec 26, 2017 22:15
[2017-12-26] MEDS ORDERED: ANTICOAGULANT CITRATE DEXTROSE SOLN-A 1L OTHER ONE (10:15)
[2017-12-26] MEDS ORDERED: HEPARIN SODIUM - 1000 UNITS/ML 10 ML VIAL IV FLUSH PRN (10:15)
[2017-12-26] MEDS ORDERED: CALCIUM GLUCONATE INJ 3 GM in SODIUM CHLOR 0.9% 250 ML INJ 150 ML IV ONE (10:15)
[2017-12-26] MEDS ORDERED: SODIUM CHLOR 0.9% 1000 ML IV ONE (10:15)
[2017-12-26] MEDS ORDERED: diphenhydrAMINE HCL 50 MG/ML VIAL IV PUSH PRN (10:15)
[2017-12-26] MEDS ORDERED: HEPARIN SODIUM - 10,000 UNITS/ML 1ML VIAL IV FLUSH PRN (10:15)
[2017-12-26] MEDS ORDERED: GENTAMICIN SULFATE 20 MG/2 ML VIAL IV FLUSH PRN (12:30)
[2017-12-26] MEDS: VANCOMYCIN 1,500 MG/NS 500 ML IV SCH ×4 (13:48→23:01)
[2017-12-26 17:03] LABS: INTERNATIONAL NORMALIZED RATIO 1.5 RATIO; PROTHROMBIN TIME - PATIENT 15.1 SEC (9.8-11.6)
--- NOTE | 2017-12-26 17:51 | HHI.CCPN ---
Subjective Remarks/Hospital Course 42-year-old unfortunate -[place] female presents for evaluation of shortness of breath. Per EMS report the patient had O2 sats of 81 on their arrival, required 15 L on nonrebreather to bring saturations into the 90s. Patient was initially alert, intermittently following commands. Patient was able to provide her name. Per review of medical record and ER documentation she has a history of sickle cell anemia, CHF, and recent history of right DVT on Xarelto. 12/23: Afebrile. Currently not on vasopressors. Sedated on propofol drip. No new issues overnight. Currently 7.1 Subjective 12/24: Febrile. Not on vasopressors. Sedated on propofol drip at 50 mcg/kg/ min. Hemoglobin currently 7.7. Tolerating tube feeding. No bowel movement. Abdomen remains grossly anasarca. On bedside ultrasound 4 cm thickness. Small ascites visualized with peristalsis from small large bowel noted 12/25: Late entry note patient seen at 1045am. afebrile. Patient currently on light sedation propofol at 20 mics. Patient currently undergoing plasmapheresis. Patient tolerating tube feeds currently at 40 cc/now with a goal of 60 cc/hour. 12/26: Afebrile. Patient completed plasmapheresis 2 out of 2 processes. The patient remains on light sedation tolerating CPAP trials for approximately 45 minutes today. Plan for transition to Precedex infusion in a.m. to facilitate ventilator weaning. Patient continues on heparin infusion. Objective Vital Signs Date Time Temp Pulse Resp B/P (MAP) Pulse Ox O2 Delivery O2 Flow Rate FiO2 12/26/17 16:58 97 30 12/26/17 12:00 98.4 93 8 96/62 (73) 12/22/17 18:30 Ventilator 12/22/17 18:00 15.00 Intake and Output 12/26/17 12/26/17 12/27/17 08:00 16:00 00:00 Intake Total 1993 ml Output Total 3600 ml Balance -1607 ml Result Diagram: 12/26/17 0650 12/25/17 0342 Other Results Microbiology Date/Time Source Procedure Growth Status 12/25/17 01:43 Stool Stool Stool Occult Blood (SANDRA) - Final HEMOCCULT NEGATIVE Complete Imaging Last Impressions Chest X-Ray 12/26/17 0600 Signed Impressions: Service Date/Time: Tuesday, December 26, 2017 03:40 - CONCLUSION: No significant change. Jacinto Crouch MD Lower Extremity Ultrasound 12/24/17 0000 Signed Impressions: Service Date/Time: Sunday, December 24, 2017 08:58 - CONCLUSION: Deep venous thrombosis extending above the knee as described above. Tre King MD FACR Lung Scan-VQ Nuclear Medicine 12/23/17 0000 Signed Impressions: Service Date/Time: Saturday, December 23, 2017 13:14 - CONCLUSION: 1. A reverse mismatch posteriorly in the left base with increased activity on the perfusion images and no identifiable activity in the left base on the corresponding ventilatory sequence. Findings are probably due to a posterior layering effusion. There may be some fluid in the fissure on the left as well based on the linear perfusion defect posteriorly in the left base. 2. Central trapping possibly representing some degree of COPD. 3. No scintigraphic findings of pulmonary embolus. Pj Laboy MD Abdomen Ultrasound 12/23/17 0000 Signed Impressions: Service Date/Time: Saturday, December 23, 2017 08:44 - CONCLUSION: 1. Liver appears somewhat prominent but otherwise sonographically intact. There is some free fluid along the hepatic convexity. 2. Cholelithiasis with probable associated gallbladder sludge. 3. Due to the patient's current clinical condition and the fact they were restrained, limited examination of the additional abdominal viscera. Pancreas is obscured by overlying bowel gas. Left kidney, aorta and IVC are poorly visualized. Pj Laboy MD Chest CT 12/22/17 0000 Signed Impressions: Service Date/Time: December 19:57 - CONCLUSION: 1. Moderate cardiomegaly with moderate pericardial effusion. 2. Consolidation and airspace disease in the lower lobes left greater than right as well as more patchy airspace disease in the right lung. 3. Small pleural effusions. 4. Diffuse anasarca with ascites in the upper abdomen. 5. Hepatomegaly and abnormal apparent small high density spleen. Zay Barakat MD Last Impressions Chest X-Ray 12/25/17 0600 Signed Impressions: Service Date/Time: Monday, December 25, 2017 03:43 - CONCLUSION: 1. Cardiomegaly and findings of congestive heart failure. There has been no significant change when compared to the prior exam. Andrew Smith MD Lower Extremity Ultrasound 12/24/17 0000 Signed Impressions: Service Date/Time: Sunday, December 24, 2017 08:58 - CONCLUSION: Deep venous thrombosis extending above the knee as described above. Tre King MD FACR Lung Scan-VQ Nuclear Medicine 12/23/17 0000 Signed Impressions: Service Date/Time: Saturday, December 23, 2017 13:14 - CONCLUSION: 1. A reverse mismatch posteriorly in the left base with increased activity on the perfusion images and no identifiable activity in the left base on the corresponding ventilatory sequence. Findings are probably due to a posterior layering effusion. There may be some fluid in the fissure on the left as well based on the linear perfusion defect posteriorly in the left base. 2. Central trapping possibly representing some degree of COPD. 3. No scintigraphic findings of pulmonary embolus. Pj Laboy MD Abdomen Ultrasound 12/23/17 0000 Signed Impressions: Service Date/Time: Saturday, December 23, 2017 08:44 - CONCLUSION: 1. Liver appears somewhat prominent but otherwise sonographically intact. There is some free fluid along the hepatic convexity. 2. Cholelithiasis with probable associated gallbladder sludge. 3. Due to the patient's current clinical condition and the fact they were restrained, limited examination of the additional abdominal viscera. Pancreas is obscured by overlying bowel gas. Left kidney, aorta and IVC are poorly visualized. Pj Laboy MD Chest CT 12/22/17 0000 Signed Impressions: Service Date/Time: December 19:57 - CONCLUSION: 1. Moderate cardiomegaly with moderate pericardial effusion. 2. Consolidation and airspace disease in the lower lobes left greater than right as well as more patchy airspace disease in the right lung. 3. Small pleural effusions. 4. Diffuse anasarca with ascites in the upper abdomen. 5. Hepatomegaly and abnormal apparent small high density spleen. Zay Barakat MD Last Impressions Lower Extremity Ultrasound 12/24/17 0000 Signed Impressions: Service Date/Time: Sunday, December 24, 2017 08:58 - CONCLUSION: Deep venous thrombosis extending above the knee as described above. Tre King MD FACR Chest X-Ray 12/24/17 0000 Signed Impressions: Service Date/Time: Sunday, December 24, 2017 08:52 - CONCLUSION: Support apparatus in good position. Increasing interstitial edema. Tre King MD FACR Lung Scan-V Nuclear Medicine 12/23/17 0000 Signed Impressions: Service Date/Time: Saturday, December 23, 2017 13:14 - CONCLUSION: 1. A reverse mismatch posteriorly in the left base with increased activity on the perfusion images and no identifiable activity in the left base on the corresponding ventilatory sequence. Findings are probably due to a posterior layering effusion. There may be some fluid in the fissure on the left as well based on the linear perfusion defect posteriorly in the left base. 2. Central trapping possibly representing some degree of COPD. 3. No scintigraphic findings of pulmonary embolus. Pj Laboy MD Abdomen Ultrasound 12/23/17 0000 Signed Impressions: Service Date/Time: Saturday, December 23, 2017 08:44 - CONCLUSION: 1. Liver appears somewhat prominent but otherwise sonographically intact. There is some free fluid along the hepatic convexity. 2. Cholelithiasis with probable associated gallbladder sludge. 3. Due to the patient's current clinical condition and the fact they were restrained, limited examination of the additional abdominal viscera. Pancreas is obscured by overlying bowel gas. Left kidney, aorta and IVC are poorly visualized. Pj Laboy MD Chest CT 12/22/17 0000 Signed Impressions: Service Date/Time: December 19:57 - CONCLUSION: 1. Moderate cardiomegaly with moderate pericardial effusion. 2. Consolidation and airspace disease in the lower lobes left greater than right as well as more patchy airspace disease in the right lung. 3. Small pleural effusions. 4. Diffuse anasarca with ascites in the upper abdomen. 5. Hepatomegaly and abnormal apparent small high density spleen. Zay Barakat MD Procedures 12/25-plasmapheresis 12/26-plasmapheresis Objective Remarks GENERAL: 42-year-old obese -[place] female, sedated and intubated SKIN: Focused skin assessment warm/dry. Facial edema noted. HEAD: Normocephalic. EYES: Positive scleral icterus. No injection or drainage. NECK: Supple, trachea midline. No JVD or lymphadenopathy. CARDIOVASCULAR: Regular rate and rhythm without murmurs, gallops, or rubs. RESPIRATORY: Breath sounds equal bilaterally. Diminished in the bases. GASTROINTESTINAL: Abdomen edematous, firm to the touch. Gross anasarca. Hypoactive bowel sounds. MUSCULOSKELETAL: No cyanosis, 2+ pitting edema right much greater than left. Neuro: GCS 11 T .sedated and intubated, pupils 3 mm reactive bilaterally briskly. Nodding head, follows commands x 4 extremities A/P Assessment and Plan Neuro/Psych: Schizophrenia Depression Chronic oxycodone use 10 mg every 12 hours Currently on propofol at 50 mcg/kg/min for sedation while intubated. Plan to transition to Precedex infusion to facilitate ventilator weaning Goal of RASS -2 Daily sedation vacation Currently on propofol/fentanyl infusion for sedation/analgesia while intubated Home medication citalopram 20 mg daily currently on hold for depression Home medication paliperidone 3 mg daily currently on hold for schizophrenia On chronic oxycodone 10 mg by mouth twice daily at home Acetaminophen 650 mg by tube every 6 hours as needed fever CV: Chronic diastolic heart failure Small pericardial effusion without e/o tamponade Chronic pericardial effusion 2D echocardiogram normal left ventricular size. Wall thickness is normal. The left ventricular systolic function is normal with an estimated ejection fraction in the range of 55-60%. Flattened septum throughout the cardiac cycle consistent with right ventricular pressure overload. No other wall motion abnormalities are seen. The right ventricle is moderately dilated. The right ventricular systolic function is moderately decreased. The right atrial size is severely dilated. Trace mitral valve regurgitation. There is severe tricuspid regurgitation. The inferior vena cava is dilated. Dilated inferior vena cava with poor inspiration collapse consistent with elevated right atrial pressure. There is possibly a small posterior pericardial effusion present. At home furosemide 20 mg p.o. twice daily at home Gently diurese today with 40 mg furosemide 1. Stop IV fluids Resp: Acute hypoxic hypercapnic respiratory failure [facility]/09/16/39 Ventilator bundle Albuterol/ipratropium aerosols every 4 hours with albuterol aerosols every [address] thorax revealed bilateral pleural effusion/infiltrates. See ID for infectious workup Spontaneous breathing trials daily Chest x-ray worsening edema infiltrate or process GI: Elevated total bilirubin NG tube to low intermittent wall suction Start Perative goal 60 cc an hour per GIs recommendation Pantoprazole for GI prophylaxis Docusate sodium/senna 1 tablet twice daily for bowel regimen Ultrasound abdomen limited. CAT scan chest revealed hepatomegaly/sludge in gallbladder with stone. Ascites noted : Teague catheter for accurate I's and O's in a critically ill patient Endo: Sliding scale insulin Accu-Cheks to maintain euglycemia/every 6 hours low regimen Renal: Acute kidney injury Monitor urine output Accurate I's and O's Creatinine currently 1.4 Heme: Sickle cell disease -vaso-occlusive crisis plus acute chest syndrome History of iron overload due to multiple transfusions History of right lower extremity DVT -negative ultrasound 11/10/17 History of IVC filter -unknown date in place. Hematology consult for sick cell crisis. Previously on folic acid 0.4 mg daily and hydroxyurea 1000 mg daily Folic acid has been resumed at 1 mg daily. Differin hydroxyurea to hematology Holding deferasirox 1080 milligrams daily Reticulocyte count at 18 elevated. Recheck in a.m. Daily LDH/reticulocyte count, chest x-ray and CBC per hematology Placed dialysis cath day for red cell exchange for 3 days to begin 12/25. Completed after 2 days exchange ID: Gram-negative celia UTI Ceftriaxone/vancomycin day #3 Blood cultures 2 ordered. 12/23 sputum pending 12/22 12/22 -UA -gram-negative celia FEN: Replace electrolytes as clinically indicated MSK: PT evaluate and treat for range of motion Right lower extremity chronically greater than left lower extremity due to history of DVT-on heparin infusion, previously on Xarelto Negative lower extremity ultrasound 11/27 12/24 US-Deep venous thrombosis of both occlusive and nonocclusive thrombus is identified This extends from calf veins into the superficial femoral vein above the knee. 12/24 Heparin infusion initiated Access -Left [id number] accessed with Alarcon needle Prophylaxis -GI -lansoprazole -DVT -SCD/heparin infusion Critical Care: my billing statement This patient remains critically ill with one or more organ systems which are or may become a threat to life. I have spent in excess of 33 minutes discontinuously in the care and management of this patient. This time is exclusive of procedures, and includes, but is not limited to, evaluation of the patient, review of the medical record, discussions with family, consultants, nursing staff, or respiratory therapy, and documentation in the medical record. Physician Nahomi Edmondson MD Dec 26, 2017 17:51
[2017-12-27] VITALS (16 sets, daily range): BP systolic 86–100; BP diastolic 50–61; PULSE 82–98; RESP 12–22; TEMP 98.9–99.3; O2SAT 91–96
[2017-12-27] MEDS: HEPARIN-D5W 25,000 U/250 ML 250 ML IV PRN (01:28)
[2017-12-27] MEDS: PROPOFOL 1000 MG/100 ML INJ 100 ML IV PRN ×2 (01:31→06:05)
[2017-12-27] MEDS: CHLORHEXIDINE GLUCONATE 2 % 1 PACK (2 CLOTHS) TOP SCH (03:40)
[2017-12-27 05:36] LABS: RETIC # 153.7 MIL/L (20.0-150.0); RETIC % 5.3 % (0.4-3.0)
[2017-12-27 05:38] LABS: AUTOMATED NEUTROPHIL # 6.3 TH/MM3 (1.8-7.7); BASOPHIL # 0.1 TH/MM3 (0-0.2); BASOPHIL % 1.4 % (0.0-2.0); EOSINOPHIL # 0.2 TH/MM3 (0-0.4); EOSINOPHIL % 2.2 % (0.0-4.0); HEMATOCRIT 24.9 % (35.0-46.0); HEMOGLOBIN 8.9 GM/DL (11.6-15.3); LYMPH % 9.7 % (9.0-44.0); LYMPHOCYTE # 0.8 TH/MM3 (1.0-4.8); MEAN CELL VOLUME 86.4 FL (80.0-100.0); MEAN CORPUSCULAR HEMOGLOBIN 30.9 PG (27.0-34.0); MEAN CORPUSCULAR HGB CONC 35.7 % (32.0-36.0); MEAN PLATELET VOLUME 9.4 FL (7.0-11.0); MONO % 8.9 % (0.0-8.0); MONOCYTE # 0.7 TH/MM3 (0-0.9); NEUT % 77.8 % (16.0-70.0); PLATELET COUNT 63 TH/MM3 (150-450); RED BLOOD COUNT 2.88 MIL/MM3 (4.00-5.30); RED CELL DISTRIBUTION WIDTH 16.8 % (11.6-17.2); WHITE BLOOD COUNT 8.1 TH/MM3 (4.0-11.0)
--- NOTE | 2017-12-27 05:55 | RADRPT ---
EXAM DATE/TIME: 12/27/2017 04:32 [facility] COMPARISON: CHEST SINGLE AP, December 26, 2017, 3:40. INDICATIONS : Short of breath. MEDICAL HISTORY : Deep venous thrombosis. Sickle Cell disease. SURGICAL HISTORY : IVC filter placement. ENCOUNTER: Subsequent ACUITY: 3 days PAIN SCORE: 0/10 LOCATION: Bilateral chest FINDINGS: There is worsening bibasilar consolidation. Probably a small pleural effusion on the left. No pneumot horax. Mild cardiomegaly not significantly changed. Endotracheal tube tip approximately 3 cm above the corinna. Nasogastric tube courses into the stomach. Bilateral internal jugular central venous catheters with tips at the atriocaval junction again seen. CONCLUSION: Bibasilar consolidation slightly worse. Lines and tubes unchanged. Jacinto Crouch MD on December 27, 2017 at 5:53 Board Certified Radiologist. This report was verified electronically.
[2017-12-27] MEDS: INSULIN ASPART SUPPLEMENTAL SCALE SQ SCH ×5 (06:00→23:18)
[2017-12-27] MEDS: ARTIFICIAL TEARS OPTH SOLN 15 ML BTL EACH EYE SCH ×2 (06:00→23:13)
[2017-12-27 06:22] LABS: CALCIUM 7.9 MG/DL (8.5-10.1); CREATININE 0.89 MG/DL (0.50-1.00)
[2017-12-27] MEDS ORDERED: DEXMEDETOMIDINE INJ 200 MCG in SODIUM CHLORIDE 0.9% INJ 50 ML IV PRN (07:00)
[2017-12-27] MEDS: CHLORHEXIDINE 0.12% (ORAL KIT) 15 ML CUP MT SCH ×2 (08:00→20:00)
[2017-12-27] MEDS: DOCUSATE SODIUM 50 MG/SENNA 8.6 MG TAB PO SCH ×2 (09:00→20:40)
[2017-12-27] MEDS: POLYETHYLENE GLYCOL 17 GM PKG PO SCH ×2 (09:00→20:40)
[2017-12-27 09:15] LABS: BANDS 1 % (0-6); CORRECTED NUCLEATED RBC 16 /100 WBC (0-0); LYMPHOCYTES 7 % (9-44); METAMYELOCYTES 1 % (0-1); MONOCYTES 2 % (0-8); NEUTROPHIL # MANUAL DIFF 7.3 TH/MM3 (1.8-7.7); NUCLEATED RED BLOOD CELL 16 (0-0); POLYS (SEG NEUTROPHILS) 88 % (16-70)
[2017-12-27 09:16] LABS: OVALOCYTES 1+ (NORMAL); TARGET CELLS 1+ (NORMAL)
[2017-12-27] MEDS: cefTRIAXone INJ 2,000 MG in SODIUM CHLORIDE 0.9% INJ 100 ML IV SCH (09:27)
[2017-12-27] MEDS: VANCOMYCIN 1,500 MG/NS 500 ML IV SCH ×2 (09:28)
[2017-12-27] MEDS: LANSOPRAZOLE SOLUTAB 30 MG TAB NG SCH (09:28)
[2017-12-27] MEDS: SODIUM CHLORIDE 0.9% FLUSH 10 ML FLUSH IV FLUSH SCH ×2 (09:28→20:40)
[2017-12-27] MEDS: LACTULOSE SYRUP 20 GM/30 ML CUP PO SCH ×4 (09:28→20:41)
[2017-12-27] MEDS: FOLIC ACID 1 MG TAB PO SCH (09:28)
--- NOTE | 2017-12-27 09:56 | PD.ONC.PN ---
Subjective Subjective Remarks Tmax 100.9 overnight. Patient remains intubated. she is off sedation and awake. Objective Data Date Time Temp Pulse Resp B/P (MAP) Pulse Ox O2 Delivery O2 Flow Rate FiO2 12/27/17 08:51 93 30 12/27/17 08:51 30 12/27/17 06:00 92 12/27/17 05:15 93 30 12/27/17 04:00 40 12/27/17 04:00 99.2 95 18 94/50 (65) 91 12/27/17 04:00 95 12/27/17 02:00 93 12/27/17 01:20 93 30 12/27/17 00:00 40 12/27/17 00:00 98 12/27/17 00:00 99.3 98 22 91/54 (66) 93 12/26/17 22:00 89 12/26/17 21:18 99 30 12/26/17 20:00 40 12/26/17 20:00 100.9 91 20 90/52 (65) 99 12/26/17 20:00 91 12/26/17 18:00 95 12/26/17 16:58 97 30 12/26/17 16:00 98.8 93 16 96/55 (69) 99 12/26/17 16:00 40 12/26/17 16:00 93 12/26/17 14:45 40 12/26/17 14:05 30 12/26/17 14:05 100 30 12/26/17 14:00 40 12/26/17 14:00 92 12/26/17 12:20 98 30 12/26/17 12:00 98.4 93 8 96/62 (73) 97 12/26/17 12:00 40 12/26/17 12:00 93 12/26/17 10:00 89 12/26/17 10:00 91 12/27/17 12/27/17 12/27/17 07:00 15:00 23:00 Intake Total 1673 ml Output Total 450 ml Balance 1223 ml Result Diagram: 12/27/1751912/27/17 05 Laboratory Results Laboratory Tests Test 12/26/17 16:29 12/26/17 19:11 12/27/17 02:00 12/27/17 05:20 Prothrombin Time 15.1 SEC Prothromb Time International Ratio 1.5 RATIO Activated Partial Thromboplast Time 154.3 SEC 40.8 SEC 42.6 SEC Fibrinogen 196 mg/dL White Blood Count 8.1 TH/MM3 Red Blood Count 2.88 MIL/MM3 Hemoglobin 8.9 GM/DL Hematocrit 24.9 % Mean Corpuscular Volume 86.4 FL Mean Corpuscular Hemoglobin 30.9 PG Mean Corpuscular Hemoglobin Concent 35.7 % Red Cell Distribution Width 16.8 % Platelet Count 63 TH/MM3 Mean Platelet Volume 9.4 FL Neutrophils (%) (Auto) 77.8 % Lymphocytes (%) (Auto) 9.7 % Monocytes (%) (Auto) 8.9 % Eosinophils (%) (Auto) 2.2 % Basophils (%) (Auto) 1.4 % Neutrophils # (Auto) 6.3 TH/MM3 Lymphocytes # (Auto) 0.8 TH/MM3 Monocytes # (Auto) 0.7 TH/MM3 Eosinophils # (Auto) 0.2 TH/MM3 Basophils # (Auto) 0.1 TH/MM3 CBC Comment AUTO DIFF Differential Total Cells Counted 100 Neutrophils % (Manual) 88 % Band Neutrophils % 1 % Lymphocytes % 7 % Monocytes % 2 % Eosinophils % 1 % Neutrophils # (Manual) 7.3 TH/MM3 Metamyelocytes 1 % Nucleated Red Blood Cells 16 /100 WBC Differential Comment FINAL DIFF MANUAL Platelet Estimate LOW Platelet Morphology Comment NORMAL Target Cells 1+ Ovalocytes 1+ Reticulocyte Count 5.3 % Absolute Reticulocyte Count 153.7 MIL/L Blood Urea Nitrogen 31 MG/DL Creatinine 0.89 MG/DL Random Glucose 101 MG/DL Calcium Level 7.9 MG/DL Lactate Dehydrogenase 279 U/L Sodium Level 147 MEQ/L Potassium Level 3.3 MEQ/L Chloride Level 111 MEQ/L Carbon Dioxide Level 29.0 MEQ/L Anion Gap 7 MEQ/L Estimat Glomerular Filtration Rate 84 ML/MIN Culture Results Microbiology Date/Time Source Procedure Growth Status 12/25/17 01:43 Stool Stool Stool Occult Blood (SANDRA) - Final HEMOCCULT NEGATIVE Complete Imaging Studies Last 24 hours Impressions Chest X-Ray 12/27/17 0600 Signed Impressions: Service Date/Time: Wednesday, December 27, 2017 04:32 - CONCLUSION: Bibasilar consolidation slightly worse. Lines and tubes unchanged. Jacinto Crouch MD Administered Medications Medications (Trade) Dose Ordered Sig/Earnest Route PRN Reason Start Time Stop Time Status Last Admin Dose Admin Sodium Chloride (NS Flush) 2 ml BID IV FLUSH 12/22/17 21:00 12/27/17 09:28 Chlorhexidine Gluconate (Chlorhexidine 2% Cloth) 3 pack Taper DAILY@04 TOP 12/23/17 04:00 12/19/18 03:59 12/27/17 03:40 Senna/Docusate Sodium (Amber-Colace) 1 tab BID PO 12/22/17 21:00 12/25/17 07:58 Chlorhexidine Gluconate (Peridex 0.12% Liq) 15 ml BID@08,20 MT 12/22/17 20:00 12/27/17 08:00 Propofol 100 ml @ 3.45 mls/hr TITRATE PRN IV SEDATION 12/22/17 18:45 12/27/17 06:05 Folic Acid (Folate) 1 mg DAILY PO 12/23/17 09:00 12/27/17 09:28 Ceftriaxone Sodium 2000 mg/ Sodium Chloride 100 ml @ 200 mls/hr Q24H IV 12/23/17 08:00 12/27/17 09:27 Artificial Tears (Tears Naturale Opth Soln) 1 drop Q8HR EACH EYE 12/23/17 22:00 12/27/17 06:00 Lansoprazole (Prevacid Odt) 30 mg DAILY NG 12/24/17 09:00 12/27/17 09:28 Insulin Aspart (NovoLOG SUPPLEMENTAL SCALE) 1 Q6HR SQ 12/23/17 18:00 12/26/17 12:00 Heparin Sodium/ Dextrose 250 ml @ 18 mls/hr TITRATE PRN IV Coagulation Management 12/24/17 08:45 12/27/17 01:28 Polyethylene Glycol (Miralax) 17 gm BID PO 12/24/17 09:00 12/25/17 07:58 Lactulose (Lactulose Liq) 30 ml QID PO 12/24/17 13:00 12/27/17 09:28 Vancomycin HCl 1500 mg/Sodium Chloride 515 ml @ 257.5 mls/ hr Q12H IV 12/26/17 11:00 12/27/17 09:28 Dexmedetomidine HCl 200 mcg/ Sodium Chloride 52 ml @ 6.04 mls/hr TITRATE PRN IV SEDATION 12/27/17 07:00 12/27/17 09:27 Objective Remarks GENERAL: Intubated female, lying in bed. SKIN: Warm and dry. HEAD: Normocephalic. EYES: No injection or drainage. NECK: Supple, trachea midline. CARDIOVASCULAR: +S1/S2 RESPIRATORY: coarse rhonchi, anterior martins. remains on mechanical ventilation. GASTROINTESTINAL: Abdomen soft, non-tender, nondistended. EXTREMITIES: No cyanosis NEUROLOGICAL: awake, intubated Assessment/Plan Problem List: (1) Sickle cell disease ICD Codes: D57.1 - Sickle-cell disease without crisis Status: Acute Plan: --12/27:CXR shows worsening consolidation. however, retic count, LDH improved. hgb stable. monitor. Hx/Workup: Patient with history of hemoglobin SS sickle cell disease brought into the emergency room with acute shortness of breath. She has been on Xarelto for a right lower extremity DVT as well as history of CHF. She had a lung VQ scan that showed a low probability for pulmonary embolism. 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 monitor CBC, LDH, retic count 2. continue supportive care 3. no more RBC exchanges planned at present. Attending Statement The exam, history, and the medical decision-making described in the above note were completed with the assistance of the mid-level provider. I reviewed and agree with the findings presented. I attest that I had a [id number] encounter with the patient on the same day, and personally performed and documented my assessment and findings in the medical record. remains intubated weaning trial ongoing Hb stable Hold hydrea Hold iron chelation daily folic acid supportive care Problem Qualifiers (1) Sickle cell disease: Qualified Codes: D57.01 - Hb-SS disease with acute chest syndrome (2) Dyspnea: Qualified Codes: R06.00 - Dyspnea, unspecified Kimberley Moreno Dec 27, 2017 09:56 Abiodun Ricks MD Dec 27, 2017 17:36
--- NOTE | 2017-12-27 10:29 | HHI.CCPN ---
Subjective Remarks/Hospital Course 42-year-old unfortunate -[place] female presents for evaluation of shortness of breath. Per EMS report the patient had O2 sats of 81 on their arrival, required 15 L on nonrebreather to bring saturations into the 90s. Patient was initially alert, intermittently following commands. Patient was able to provide her name. Per review of medical record and ER documentation she has a history of sickle cell anemia, CHF, and recent history of right DVT on Xarelto. 12/23: Afebrile. Currently not on vasopressors. Sedated on propofol drip. No new issues overnight. Currently 7.1 Subjective 12/24: Febrile. Not on vasopressors. Sedated on propofol drip at 50 mcg/kg/ min. Hemoglobin currently 7.7. Tolerating tube feeding. No bowel movement. Abdomen remains grossly anasarca. On bedside ultrasound 4 cm thickness. Small ascites visualized with peristalsis from small large bowel noted 12/25: Late entry note patient seen at 1045am. afebrile. Patient currently on light sedation propofol at 20 mics. Patient currently undergoing plasmapheresis. Patient tolerating tube feeds currently at 40 cc/now with a goal of 60 cc/hour. 12/26: Afebrile. Patient completed plasmapheresis 2 out of 2 processes. The patient remains on light sedation tolerating CPAP trials for approximately 45 minutes today. Plan for transition to Precedex infusion in a.m. to facilitate ventilator weaning. Patient continues on heparin infusion. 12/27: Patient successfully transitioned to Precedex at 0.2 mics/hour for ventilator weaning trials. Plasmapheresis completed per hematology recommendations. Plan for SBT trials this afternoon for possible extubation. ID has been consulted for ESBL, MDR urine. Objective Vital Signs Date Time Temp Pulse Resp B/P (MAP) Pulse Ox O2 Delivery O2 Flow Rate FiO2 12/27/17 10:00 96 12/27/17 08:51 93 30 12/27/17 08:00 99.0 18 86/53 (64) Intake and Output 12/27/17 12/27/17 12/27/17 07:59 15:59 23:59 Intake Total 1673 ml Output Total 450 ml Balance 1223 ml Result Diagram: 12/27/17 0520 12/27/17 0520 Other Results Microbiology Date/Time Source Procedure Growth Status 12/25/17 01:43 Stool Stool Stool Occult Blood (SANDRA) - Final HEMOCCULT NEGATIVE Complete Imaging Last Impressions Chest X-Ray 12/26/17599 Signed Impressions: Service Date/Time: Tuesday, December 26, 2017 03:40 - CONCLUSION: No significant change. Jacinto Crouch MD Lower Extremity Ultrasound 12/24/17 0000 Signed Impressions: Service Date/Time: Sunday, December 24, 2017 08:58 - CONCLUSION: Deep venous thrombosis extending above the knee as described above. Tre King MD FACR Lung Scan-VQ Nuclear Medicine 12/23/17 0000 Signed Impressions: Service Date/Time: Saturday, December 23, 2017 13:14 - CONCLUSION: 1. A reverse mismatch posteriorly in the left base with increased activity on the perfusion images and no identifiable activity in the left base on the corresponding ventilatory sequence. Findings are probably due to a posterior layering effusion. There may be some fluid in the fissure on the left as well based on the linear perfusion defect posteriorly in the left base. 2. Central trapping possibly representing some degree of COPD. 3. No scintigraphic findings of pulmonary embolus. Pj Laboy MD Abdomen Ultrasound 12/23/17 0000 Signed Impressions: Service Date/Time: Saturday, December 23, 2017 08:44 - CONCLUSION: 1. Liver appears somewhat prominent but otherwise sonographically intact. There is some free fluid along the hepatic convexity. 2. Cholelithiasis with probable associated gallbladder sludge. 3. Due to the patient's current clinical condition and the fact they were restrained, limited examination of the additional abdominal viscera. Pancreas is obscured by overlying bowel gas. Left kidney, aorta and IVC are poorly visualized. Pj Laboy MD Chest CT 12/22/17 0000 Signed Impressions: Service Date/Time: December 19:57 - CONCLUSION: 1. Moderate cardiomegaly with moderate pericardial effusion. 2. Consolidation and airspace disease in the lower lobes left greater than right as well as more patchy airspace disease in the right lung. 3. Small pleural effusions. 4. Diffuse anasarca with ascites in the upper abdomen. 5. Hepatomegaly and abnormal apparent small high density spleen. Zay Barakat MD Last Impressions Chest X-Ray 12/25/17 0600 Signed Impressions: Service Date/Time: Monday, December 25, 2017 03:43 - CONCLUSION: 1. Cardiomegaly and findings of congestive heart failure. There has been no significant change when compared to the prior exam. Andrew Smith MD Lower Extremity Ultrasound 12/24/17 0000 Signed Impressions: Service Date/Time: Sunday, December 24, 2017 08:58 - CONCLUSION: Deep venous thrombosis extending above the knee as described above. Tre King MD FACR Lung Scan-V Nuclear Medicine 12/23/17 0000 Signed Impressions: Service Date/Time: Saturday, December 23, 2017 13:14 - CONCLUSION: 1. A reverse mismatch posteriorly in the left base with increased activity on the perfusion images and no identifiable activity in the left base on the corresponding ventilatory sequence. Findings are probably due to a posterior layering effusion. There may be some fluid in the fissure on the left as well based on the linear perfusion defect posteriorly in the left base. 2. Central trapping possibly representing some degree of COPD. 3. No scintigraphic findings of pulmonary embolus. Pj Laboy MD Abdomen Ultrasound 12/23/17 0000 Signed Impressions: Service Date/Time: Saturday, December 23, 2017 08:44 - CONCLUSION: 1. Liver appears somewhat prominent but otherwise sonographically intact. There is some free fluid along the hepatic convexity. 2. Cholelithiasis with probable associated gallbladder sludge. 3. Due to the patient's current clinical condition and the fact they were restrained, limited examination of the additional abdominal viscera. Pancreas is obscured by overlying bowel gas. Left kidney, aorta and IVC are poorly visualized. Pj Laboy MD Chest CT 12/22/17 0000 Signed Impressions: Service Date/Time: December 19:57 - CONCLUSION: 1. Moderate cardiomegaly with moderate pericardial effusion. 2. Consolidation and airspace disease in the lower lobes left greater than right as well as more patchy airspace disease in the right lung. 3. Small pleural effusions. 4. Diffuse anasarca with ascites in the upper abdomen. 5. Hepatomegaly and abnormal apparent small high density spleen. Zay Barakat MD Last Impressions Lower Extremity Ultrasound 12/24/17 0000 Signed Impressions: Service Date/Time: Sunday, December 24, 2017 08:58 - CONCLUSION: Deep venous thrombosis extending above the knee as described above. Tre King MD FACR Chest X-Ray 12/24/17 0000 Signed Impressions: Service Date/Time: Sunday, December 24, 2017 08:52 - CONCLUSION: Support apparatus in good position. Increasing interstitial edema. Tre King MD FACR Lung Scan-VQ Nuclear Medicine 12/23/17 0000 Signed Impressions: Service Date/Time: Saturday, December 23, 2017 13:14 - CONCLUSION: 1. A reverse mismatch posteriorly in the left base with increased activity on the perfusion images and no identifiable activity in the left base on the corresponding ventilatory sequence. Findings are probably due to a posterior layering effusion. There may be some fluid in the fissure on the left as well based on the linear perfusion defect posteriorly in the left base. 2. Central trapping possibly representing some degree of COPD. 3. No scintigraphic findings of pulmonary embolus. Pj Laboy MD Abdomen Ultrasound 12/23/17 0000 Signed Impressions: Service Date/Time: Saturday, December 23, 2017 08:44 - CONCLUSION: 1. Liver appears somewhat prominent but otherwise sonographically intact. There is some free fluid along the hepatic convexity. 2. Cholelithiasis with probable associated gallbladder sludge. 3. Due to the patient's current clinical condition and the fact they were restrained, limited examination of the additional abdominal viscera. Pancreas is obscured by overlying bowel gas. Left kidney, aorta and IVC are poorly visualized. Pj Laboy MD Chest CT 12/22/17 0000 Signed Impressions: Service Date/Time: December 19:57 - CONCLUSION: 1. Moderate cardiomegaly with moderate pericardial effusion. 2. Consolidation and airspace disease in the lower lobes left greater than right as well as more patchy airspace disease in the right lung. 3. Small pleural effusions. 4. Diffuse anasarca with ascites in the upper abdomen. 5. Hepatomegaly and abnormal apparent small high density spleen. Zay Barakat MD Procedures 12/25-plasmapheresis 12/26-plasmapheresis Objective Remarks GENERAL: 42-year-old obese -[place] female, sedated and intubated SKIN: Focused skin assessment warm/dry. Facial edema noted. HEAD: Normocephalic. EYES: Positive scleral icterus. No injection or drainage. NECK: Supple, trachea midline. No JVD or lymphadenopathy. CARDIOVASCULAR: Regular rate and rhythm without murmurs, gallops, or rubs. RESPIRATORY: Breath sounds equal bilaterally. Diminished in the bases. GASTROINTESTINAL: Abdomen edematous, firm to the touch. Gross anasarca. Hypoactive bowel sounds. MUSCULOSKELETAL: No cyanosis, 2+ pitting edema right much greater than left. Neuro: GCS 11 T .sedated and intubated, pupils 3 mm reactive bilaterally briskly. Nodding head, follows commands x 4 extremities A/P Assessment and Plan Neuro/Psych: Schizophrenia Depression Chronic oxycodone use 10 mg every 12 hours Transition to Precedex infusion to facilitate ventilator weaning Goal of RASS -2 Daily sedation vacation Currently on Precedex infusion for sedation/analgesia while intubated Home medication citalopram 20 mg daily currently on hold for depression Home medication paliperidone 3 mg daily currently on hold for schizophrenia On chronic oxycodone 10 mg by mouth twice daily at home Acetaminophen 650 mg by tube every 6 hours as needed fever CV: Chronic diastolic heart failure Small pericardial effusion without e/o tamponade Chronic pericardial effusion 2D echocardiogram normal left ventricular size. Wall thickness is normal. The left ventricular systolic function is normal with an estimated ejection fraction in the range of 55-60%. Flattened septum throughout the cardiac cycle consistent with right ventricular pressure overload. No other wall motion abnormalities are seen. The right ventricle is moderately dilated. The right ventricular systolic function is moderately decreased. The right atrial size is severely dilated. Trace mitral valve regurgitation. There is severe tricuspid regurgitation. The inferior vena cava is dilated. Dilated inferior vena cava with poor inspiration collapse consistent with elevated right atrial pressure. There is possibly a small posterior pericardial effusion present. At home furosemide 20 mg p.o. twice daily at home Gently diurese today with 40 mg furosemide 1. Stop IV fluids Resp: Acute hypoxic hypercapnic respiratory failure [facility]/09[facility]16/39 Ventilator bundle Albuterol/ipratropium aerosols every 4 hours with albuterol aerosols every [address] thorax revealed bilateral pleural effusion/infiltrates. See ID for infectious workup Spontaneous breathing trials daily Chest x-ray worsening edema infiltrate or process CPAP trials today with Precedex infusion plan SBT this afternoon for possible extubation GI: Elevated total bilirubin NG tube to low intermittent wall suction Start Perative goal 60 cc an hour per GIs recommendation Pantoprazole for GI prophylaxis Docusate sodium/senna 1 tablet twice daily for bowel regimen Ultrasound abdomen limited. CAT scan chest revealed hepatomegaly/sludge in gallbladder with stone. Ascites noted : Teague catheter for accurate I's and O's in a critically ill patient Endo: Sliding scale insulin Accu-Cheks to maintain euglycemia/every 6 hours low regimen Renal: Acute kidney injury Monitor urine output Accurate I's and O's Heme: Sickle cell disease -vaso-occlusive crisis plus acute chest syndrome History of iron overload due to multiple transfusions History of right lower extremity DVT -negative ultrasound 11/10/17 History of IVC filter -unknown date in place. Hematology consult for sick cell crisis. Previously on folic acid 0.4 mg daily and hydroxyurea 1000 mg daily Folic acid has been resumed at 1 mg daily. Differin hydroxyurea to hematology Holding deferasirox 1080 milligrams daily Reticulocyte count at 18 elevated. Recheck in a.m. Daily LDH/reticulocyte count, chest x-ray and CBC per hematology Placed dialysis cath day for red cell exchange for 2 days to begin 12/25. Completed after 2 days exchange ID: Gram-negative celia UTI Ceftriaxone/vancomycin day #5 12/22 Blood cultures 2- NGTD 12/22 -UA -ESBL MDR 12/2539-hbeser-byzy strep not group A ID consult FEN: Replace electrolytes as clinically indicated MSK: PT evaluate and treat for range of motion Right lower extremity chronically greater than left lower extremity due to history of DVT-on heparin infusion, previously on Xarelto. Continue heparin infusion defer to hematology for transition Negative lower extremity ultrasound 11/27 12/24 US-Deep venous thrombosis of both occlusive and nonocclusive thrombus is identified This extends from calf veins into the superficial femoral vein above the knee. 12/24 Heparin infusion continued Access -Left [id number] accessed with Alarcon needle Prophylaxis -GI -lansoprazole -DVT -SCD/heparin infusion Critical Care: my billing statement This patient remains critically ill with one or more organ systems which are or may become a threat to life. I have spent in excess of 31 minutes discontinuously in the care and management of this patient. This time is exclusive of procedures, and includes, but is not limited to, evaluation of the patient, review of the medical record, discussions with family, consultants, nursing staff, or respiratory therapy, and documentation in the medical record. Physician Nahomi Edmondson MD Dec 27, 2017 10:29
[2017-12-27] MEDS ORDERED: POTASSIUM CHLORIDE 25 MEQ EFFERVESCENT TAB PO ONE (10:30)
[2017-12-27] MEDS ORDERED: PHARMACY INFORMATION XX PRN (11:30)
[2017-12-27] MEDS ORDERED: ASP: Documented ESBL, MDR A baumannii or P. aeruginosa PRN (11:30)
--- NOTE | 2017-12-27 13:32 | PD.ID.CON ---
History of Present Illness Service ID Consult Requested By Dr Price Reason for Consult ESBL+ E.coli UTI Primary Care Physician Unknown Diagnoses: History of Present Illness 42 yo female with sicjkle cell disaese presented with chief c/o shortness of breath. The patient had O2 sats of 81 on their arrival Pt was intubated and placed on mech vent'n On presentation afebrile, but noted to have low grade fever once [place] WBC blood clx are negative UA abnormal with pyuria, clx + for ESBL+ E.coli PLts are going down and are 64 today (down from 120s) Prominent diarrhea noted , stool > 1 L /day Review of Systems ROS Limitations: Clinical Condition, Intubated Past Family Social History Allergies: Coded Allergies: No Known Allergies (Unverified , 12/22/17) Past Medical History SCD DVT Past Surgical History IVC filter Active Ordered Medications Medications where reviewed in EMR Antibiotics Include: CFTX vancomycin Family History Non-Contributory. Social History no tobacco indicated in chart rest of social history unknown Physical Exam Vital Signs Vital Signs Date Time Temp Pulse Resp B/P (MAP) Pulse Ox O2 Delivery O2 Flow Rate FiO2 12/27/17 12:02 94 30 12/27/17 12:00 97 12/27/17 12:00 98.9 97 14 100/55 (70) 93 12/27/17 12:00 30 12/27/17 11:00 30 12/27/17 10:00 96 12/27/17 09:30 30 12/27/17 08:51 93 30 12/27/17 08:51 30 12/27/17 08:00 99.0 94 18 86/53 (64) 95 12/27/17 08:00 30 12/27/17 08:00 94 12/27/17 06:00 92 12/27/17 05:15 93 30 12/27/17 04:00 40 12/27/17 04:00 99.2 95 18 94/50 (65) 91 12/27/17 04:00 95 12/27/17 02:00 93 12/27/17 01:20 93 30 12/27/17 00:00 40 12/27/17 00:00 98 12/27/17 00:00 99.3 98 22 91/54 (66) 93 12/26/17 22:00 89 12/26/17 21:18 99 30 12/26/17 20:00 40 12/26/17 20:00 100.9 91 20 90/52 (65) 99 12/26/17 20:00 91 12/26/17 18:00 95 12/26/17 16:58 97 30 12/26/17 16:00 98.8 93 16 96/55 (69) 99 12/26/17 16:00 40 12/26/17 16:00 93 12/26/17 14:45 40 12/26/17 14:05 30 12/26/17 14:05 100 30 12/26/17 14:00 40 12/26/17 14:00 92 Physical Exam CONSTITUTIONAL/GENERAL: This is an adequately nourished patient, in no apparent distress. TUBES/LINES/DRAINS: SKIN: No jaundice, rashes, or lesions. Skin temperature appropriate. Not diaphoretic. Anasarca HEAD: Atraumatic. Normocephalic. EYES: Pupils equal and round and reactive. Extraocular motions intact. N+ prominent scleral icterus. No injection or drainage. Fundi not examined. ENT: Hearing grossly normal. Nose without bleeding or purulent drainage. Throat without visible erythema, exudates, masses, or lesions. NECK: Trachea midline. Supple, nontender. No palpable thyroid enlargement or nodularity. CARDIOVASCULAR: Regular rate and rhythm without murmurs, gallops, or rubs. No JVD. Peripheral pulses symmetric. RESPIRATORY/CHEST: Symmetric, unlabored respirations. Clear to auscultation. Breath sounds equal bilaterally. No wheezes, rales, or rhonchi. GASTROINTESTINAL: Abdomen soft, non-tender, nondistended. No hepato-splenomegaly , or palpable masses. No guarding. Bowel sounds present. very distended and tender to palpation + prominent pitting edema Incontinent of liquid brown stool GENITOURINARY: Without palpable bladder distension. Teague catheter in place with very dark almost brown urine MUSCULOSKELETAL: Extremities without clubbing, cyanosis, + severe 4+ tight pitting edema. No joint tenderness or effusion noted. No calf tenderness. No mottling or clubbing. LYMPHATICS: No palpable cervical or supraclavicular adenopathy. NEUROLOGICAL: Awake and alert. Motor and sensory grossly within normal limits. Follows commands . Moves all extremities. PSYCHIATRIC: No obvious anxiety/depression. no apparent hallucinations or other psychotic thought process. Laboratory Laboratory Tests Test 12/26/17 16:29 12/26/17 19:11 12/27/17 02:00 12/27/17 05:20 Prothrombin Time 15.1 Prothromb Time International Ratio 1.5 Activated Partial Thromboplast Time 154.3 40.8 42.6 Fibrinogen 196 White Blood Count 8.1 Red Blood Count 2.88 Hemoglobin 8.9 Hematocrit 24.9 Mean Corpuscular Volume 86.4 Mean Corpuscular Hemoglobin 30.9 Mean Corpuscular Hemoglobin Concent 35.7 Red Cell Distribution Width 16.8 Platelet Count 63 Mean Platelet Volume 9.4 Neutrophils (%) (Auto) 77.8 Lymphocytes (%) (Auto) 9.7 Monocytes (%) (Auto) 8.9 Eosinophils (%) (Auto) 2.2 Basophils (%) (Auto) 1.4 Neutrophils # (Auto) 6.3 Lymphocytes # (Auto) 0.8 Monocytes # (Auto) 0.7 Eosinophils # (Auto) 0.2 Basophils # (Auto) 0.1 CBC Comment AUTO DIFF Differential Total Cells Counted 100 Neutrophils % (Manual) 88 Band Neutrophils % 1 Lymphocytes % 7 Monocytes % 2 Eosinophils % 1 Neutrophils # (Manual) 7.3 Metamyelocytes 1 Nucleated Red Blood Cells 16 Differential Comment FINAL DIFF MANUAL Platelet Estimate LOW Platelet Morphology Comment NORMAL Target Cells 1+ Ovalocytes 1+ Reticulocyte Count 5.3 Absolute Reticulocyte Count 153.7 Blood Urea Nitrogen 31 Creatinine 0.89 Random Glucose 101 Calcium Level 7.9 Lactate Dehydrogenase 279 Sodium Level 147 Potassium Level 3.3 Chloride Level 111 Carbon Dioxide Level 29.0 Anion Gap 7 Estimat Glomerular Filtration Rate 84 B-Type Natriuretic Peptide 282 Test 12/27/17 09:55 12/27/17 11:10 Activated Partial Thromboplast Time 41.5 Ammonia 45 Date/Time Source Procedure Growth Status 12/23/17 18:07 Blood Peripheral Aerobic Blood Culture - Preliminary NO GROWTH IN 4 DAYS Resulted 12/23/17 18:07 Blood Peripheral Anaerobic Blood Culture - Preliminary NO GROWTH IN 4 DAYS Resulted 12/25/17 01:43 Stool Stool Stool Occult Blood (SANDRA) - Final HEMOCCULT NEGATIVE Complete 12/22/17 21:30 Sputum Endotracheal Gram Stain - Final Complete 12/22/17 21:30 Sputum Culture - Final Beta Strep Not Group A Complete 12/22/17 18:16 Urine Random Urine Urine Culture - Final Escherichia Coli Esbl Positive Multi-Drug Resistant Complete Result Diagram: 12/27/17 0520 12/27/17 0520 Imaging Last Impressions Chest X-Ray 12/27/17 0600 Signed Impressions: Service Date/Time: Wednesday, December 27, 2017 04:32 - CONCLUSION: Bibasilar consolidation slightly worse. Lines and tubes unchanged. Jacinto Crouch MD Lower Extremity Ultrasound 12/24/17 0000 Signed Impressions: Service Date/Time: Sunday, December 24, 2017 08:58 - CONCLUSION: Deep venous thrombosis extending above the knee as described above. Tre King MD FACR Lung Scan-V Nuclear Medicine 12/23/17 0000 Signed Impressions: Service Date/Time: Saturday, December 23, 2017 13:14 - CONCLUSION: 1. A reverse mismatch posteriorly in the left base with increased activity on the perfusion images and no identifiable activity in the left base on the corresponding ventilatory sequence. Findings are probably due to a posterior layering effusion. There may be some fluid in the fissure on the left as well based on the linear perfusion defect posteriorly in the left base. 2. Central trapping possibly representing some degree of COPD. 3. No scintigraphic findings of pulmonary embolus. Pj Laboy MD Abdomen Ultrasound 12/23/17 0000 Signed Impressions: Service Date/Time: Saturday, December 23, 2017 08:44 - CONCLUSION: 1. Liver appears somewhat prominent but otherwise sonographically intact. There is some free fluid along the hepatic convexity. 2. Cholelithiasis with probable associated gallbladder sludge. 3. Due to the patient's current clinical condition and the fact they were restrained, limited examination of the additional abdominal viscera. Pancreas is obscured by overlying bowel gas. Left kidney, aorta and IVC are poorly visualized. Pj Laboy MD Chest CT 12/22/17 0000 Signed Impressions: Service Date/Time: December 19:57 - CONCLUSION: 1. Moderate cardiomegaly with moderate pericardial effusion. 2. Consolidation and airspace disease in the lower lobes left greater than right as well as more patchy airspace disease in the right lung. 3. Small pleural effusions. 4. Diffuse anasarca with ascites in the upper abdomen. 5. Hepatomegaly and abnormal apparent small high density spleen. Zay Barakat MD Assessment and Plan Assessment and Plan SCD crisis Acute VDRF UTI, ESBL + E.coli PNA, grew out strep Abx associated diarrhea - dc CFTX - start Ertapenem dc vancomycin ro CAkuadiff Yani Vidales MD Dec 27, 2017 13:32
[2017-12-27] MEDS ORDERED: RESP: RACEPINEPHRINE 2.25% 0.5 ML NEB ONE (14:19)
[2017-12-27] MEDS: RESP: ALBUTEROL 2.5 MG/3 ML NEB (PRN) NEB (14:23)
[2017-12-27] MEDS: ACETAMINOPHEN/HYDROcodone 325 MG/7.5 MG TAB PO PRN (18:37)
[2017-12-27] MEDS: ERTAPENEM INJ 1,000 MG in SODIUM CHLORIDE 0.9% INJ 100 ML IV SCH (18:37)
[2017-12-27] MEDS ORDERED: PHARMACY ORDERED LAB ONE (22:45)
[2017-12-28] VITALS (10 sets, daily range): BP systolic 87–101; BP diastolic 50–59; PULSE 71–99; RESP 17–20; TEMP 97.2–98.1; O2SAT 92–98
[2017-12-28] MEDS: VANCOMYCIN 1,500 MG/NS 500 ML IV SCH ×4 (01:21→11:59)
[2017-12-28] MEDS ORDERED: POTASSIUM CHLOR 40 MEQ PREMIX 100 ML IV ONE (04:15)
[2017-12-28 04:53] LABS: HEMATOCRIT 25.2 % (35.0-46.0); HEMOGLOBIN 8.7 GM/DL (11.6-15.3); MEAN CELL VOLUME 89.1 FL (80.0-100.0); MEAN CORPUSCULAR HEMOGLOBIN 30.8 PG (27.0-34.0); MEAN CORPUSCULAR HGB CONC 34.6 % (32.0-36.0); MEAN PLATELET VOLUME 9.8 FL (7.0-11.0); PLATELET COUNT 84 TH/MM3 (150-450); RED BLOOD COUNT 2.83 MIL/MM3 (4.00-5.30); RED CELL DISTRIBUTION WIDTH 17.9 % (11.6-17.2); WHITE BLOOD COUNT 10.9 TH/MM3 (4.0-11.0)
[2017-12-28 05:11] LABS: BICARBONATE 28.9 MEQ/L (21.0-32.0); BLOOD UREA NITROGEN 30 MG/DL (7-18); CALCIUM 8.4 MG/DL (8.5-10.1); CHLORIDE 109 MEQ/L (98-107); CREATININE 0.83 MG/DL (0.50-1.00); GLOMERULAR FILTRATION RATE 91 ML/MIN (>89); GLUCOSE,RANDOM 81 MG/DL (74-106); MAGNESIUM 2.2 MG/DL (1.5-2.5); SODIUM (NA) 144 MEQ/L (136-145)
[2017-12-28 05:22] LABS: TROPONIN I LESS THAN 0.02 NG/ML (0.02-0.05)
[2017-12-28] MEDS: INSULIN ASPART SUPPLEMENTAL SCALE SQ SCH ×4 (05:34→23:56)
[2017-12-28] MEDS: ARTIFICIAL TEARS OPTH SOLN 15 ML BTL EACH EYE SCH ×3 (05:34→21:36)
[2017-12-28] MEDS: POTASSIUM CHLOR 20 MEQ PREMIX 100 ML IV SCH ×2 (05:34→11:57)
[2017-12-28] MEDS: HEPARIN-D5W 25,000 U/250 ML 250 ML IV PRN (05:48)
[2017-12-28] MEDS: SODIUM CHLORIDE 0.9% FLUSH 10 ML FLUSH IV FLUSH SCH ×2 (09:00→21:36)
[2017-12-28] MEDS: LACTULOSE SYRUP 20 GM/30 ML CUP PO SCH ×4 (09:00→21:29)
[2017-12-28] MEDS: POLYETHYLENE GLYCOL 17 GM PKG PO SCH ×2 (09:00→21:00)
--- NOTE | 2017-12-28 09:25 | EKG ---
Date Performed: 12/28/2017 Time Performed: 07:48:03 PTAGE: 42 years EKG: Sinus rhythm LOW QRS VOLTAGE ABNORMAL ECG PREVIOUS TRACING : 12/23/2017 01.09 Compared to previous tracing, rate faster DOCTOR: Maryam Valadez Interpretating Date/Time 12/28/2017 09:24:12
[2017-12-28] MEDS: DOCUSATE SODIUM 50 MG/SENNA 8.6 MG TAB PO SCH ×2 (11:58→21:00)
[2017-12-28] MEDS: FOLIC ACID 1 MG TAB PO SCH (11:58)
[2017-12-28] MEDS: LANSOPRAZOLE SOLUTAB 30 MG TAB NG SCH (11:58)
[2017-12-28] MEDS ORDERED: fentaNYL 50 MCG/HR PATCH T-DERMAL SCH (14:00)
[2017-12-28] MEDS: ERTAPENEM INJ 1,000 MG in SODIUM CHLORIDE 0.9% INJ 100 ML IV SCH (14:01)
--- NOTE | 2017-12-28 14:17 | PD.ONC.PN ---
Subjective Subjective Remarks Afebrile Patient on 3 L nasal cannula Discussed that she has pain "all over" Rates it at a 10 Noted that she was on a fentanyl patch at home for pain control Objective Data Date Time Temp Pulse Resp B/P (MAP) Pulse Ox O2 Delivery O2 Flow Rate FiO2 12/28/17 12:00 98.1 75 17 87/52 (64) 94 12/28/17 08:30 88 12/28/17 08:00 98.0 88 17 98/53 (68) 93 12/28/17 04:00 98.0 89 18 94/50 (65) 92 12/28/17 03:44 99 12/28/17 00:00 97.2 82 18 97/54 (68) 93 12/27/17 20:00 98.9 87 12 89/61 (70) 95 12/27/17 20:00 87 12/27/17 19:37 16 12/27/17 18:00 86 12/27/17 16:00 99.0 86 12 95/57 (70) 92 12/27/17 16:00 86 12/27/17 14:40 96 Nasal Cannula 4 12/27/17 14:40 96 Nasal Cannula 4.00 12/28/17 12/28/17 12/28/17 07:00 15:00 23:00 Intake Total 715 ml Output Total 750 ml Balance -750 ml 715 ml Result Diagram: 12/28/1743912/28/170 Laboratory Results Laboratory Tests Test 12/27/17 23:12 12/28/17 04:40 Vancomycin Level Trough 18.9 MCG/ML White Blood Count 10.9 TH/MM3 Red Blood Count 2.83 MIL/MM3 Hemoglobin 8.7 GM/DL Hematocrit 25.2 % Mean Corpuscular Volume 89.1 FL Mean Corpuscular Hemoglobin 30.8 PG Mean Corpuscular Hemoglobin Concent 34.6 % Red Cell Distribution Width 17.9 % Platelet Count 84 TH/MM3 Mean Platelet Volume 9.8 FL Activated Partial Thromboplast Time 34.2 SEC Blood Urea Nitrogen 30 MG/DL Creatinine 0.83 MG/DL Random Glucose 81 MG/DL Calcium Level 8.4 MG/DL Phosphorus Level 4.0 MG/DL Magnesium Level 2.2 MG/DL Sodium Level 144 MEQ/L Potassium Level 3.7 MEQ/L Chloride Level 109 MEQ/L Carbon Dioxide Level 28.9 MEQ/L Anion Gap 6 MEQ/L Estimat Glomerular Filtration Rate 91 ML/MIN Total Creatine Kinase 45 U/L Troponin I LESS THAN 0.02 NG/ML Thyroid Stimulating Hormone 3rd Gen 7.770 uIU/ML Administered Medications Medications (Trade) Dose Ordered Sig/Earnest Route PRN Reason Start Time Stop Time Status Last Admin Dose Admin Sodium Chloride (NS Flush) 2 ml BID IV FLUSH 12/22/17 21:00 12/27/17 20:40 Senna/Docusate Sodium (Amber-Colace) 1 tab BID PO 12/22/17 21:00 12/28/17 11:58 Folic Acid (Folate) 1 mg DAILY PO 12/23/17 09:00 12/28/17 11:58 Artificial Tears (Tears Naturale Opth Soln) 1 drop Q8HR EACH EYE 12/23/17 22:00 12/27/17 06:00 Lansoprazole (Prevacid Odt) 30 mg DAILY NG 12/24/17 09:00 12/28/17 11:58 Albuterol Sulfate (Albuterol Neb) 2.5 mg Q2HR NEB PRN NEB dyspnea 12/23/17 15:30 12/27/17 14:23 Insulin Aspart (NovoLOG SUPPLEMENTAL SCALE) 1 Q6HR SQ 12/23/17 18:00 12/26/17 12:00 Heparin Sodium/ Dextrose 250 ml @ 18 mls/hr TITRATE PRN IV Coagulation Management 12/24/17 08:45 12/28/17 05:48 Polyethylene Glycol (Miralax) 17 gm BID PO 12/24/17 09:00 12/25/17 07:58 Lactulose (Lactulose Liq) 30 ml QID PO 12/24/17 13:00 12/27/17 18:00 Vancomycin HCl 1500 mg/Sodium Chloride 515 ml @ 257.5 mls/ hr Q12H IV 12/26/17 11:00 12/28/17 11:59 Ertapenem 1000 mg/ Sodium Chloride 100 ml @ 200 mls/hr Q24H IV 12/27/17 13:00 12/28/17 14:01 Acetaminophen/ Hydrocodone Bitart ([place] 7.5-325 Mg) 1 tab Q6H PRN PO PAIN SCALE 7 TO 10 12/27/17 18:00 12/27/17 18:37 Fentanyl (Duragesic 50 Mcg Patch.72 Hr) 1 patch Q3D T-DERMAL 12/28/17 14:00 12/28/17 14:02 Objective Remarks GENERAL: Younger female resting in bed watching TV SKIN: Warm and dry. HEAD: Normocephalic. EYES: No injection or drainage. NECK: Supple, trachea midline. Triple-lumen catheter to left neck. Vas-Cath to right neck. CARDIOVASCULAR: Regular rate and rhythm without murmurs. RESPIRATORY: Clear but diminished anteriorly. GASTROINTESTINAL: Abdomen protuberant. + BS. EXTREMITIES: Right lower extremity edema. NEUROLOGICAL: Alert. Speaks in slow hoarse sentences. Assessment/Plan Problem List: (1) Sickle cell disease ICD Codes: D57.1 - Sickle-cell disease without crisis Status: Acute Plan: --12/27:CXR shows worsening consolidation. however, retic count, LDH improved. hgb stable. monitor. Hx/Workup: Patient with history of hemoglobin SS sickle cell disease brought into the emergency room with acute shortness of breath. She has been on Xarelto for a right lower extremity DVT as well as history of CHF. She had a lung VQ scan that showed a low probability for pulmonary embolism. 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 Patient extubated and alert. Consider adding back her long acting Fentanyl in a few days. 2. Chest x-ray in a.m. 3. CBC, LDH in a.m. Discussed with RN Attending Statement The exam, history, and the medical decision-making described in the above note were completed with the assistance of the mid-level provider. I reviewed and agree with the findings presented. I attest that I had a [id number] encounter with the patient on the same day, and personally performed and documented my assessment and findings in the medical record. would not recommend fentanyl patch at this time can give IV morphine prn monitor BP --will need to be careful with BP being low no transfusion today incentive spirometry daily folic acid hold hydrea hold iron chelation Problem Qualifiers (1) Sickle cell disease: Qualified Codes: D57.01 - Hb-SS disease with acute chest syndrome (2) Dyspnea: Qualified Codes: R06.00 - Dyspnea, unspecified Chen Laguerre Dec 28, 2017 14:17 Abiodun Ricks MD Dec 28, 2017 22:12
--- NOTE | 2017-12-28 15:05 | HHI.PR ---
Subjective Remarks Follow-up respiratory failure, sickle cell pain crisis, anemia. The patient does not answer any questions. She does awaken to verbal stimuli. Objective Vitals Vital Signs Date Time Temp Pulse Resp B/P (MAP) Pulse Ox O2 Delivery O2 Flow Rate FiO2 12/28/17 12:00 98.1 75 17 87/52 (64) 94 12/28/17 08:30 88 12/28/17 08:00 98.0 88 17 98/53 (68) 93 12/28/17 04:00 98.0 89 18 94/50 (65) 92 12/28/17 03:44 99 12/28/17 00:00 97.2 82 18 97/54 (68) 93 12/27/17 20:00 98.9 87 12 89/61 (70) 95 12/27/17 20:00 87 12/27/17 19:37 16 12/27/17 18:00 86 12/27/17 16:00 99.0 86 12 95/57 (70) 92 12/27/17 16:00 86 I/O 12/27/17 12/27/17 12/27/17 12/28/17 12/28/17 12/28/17 07:00 15:00 23:00 07:00 15:00 23:00 Intake Total 1673 ml 520 ml 715 ml Output Total 450 ml 1000 ml 750 ml Balance 1223 ml -480 ml -750 ml 715 ml Intake IV Total 965 ml 715 ml Tube Feeding 658 ml 420 ml Other 50 ml 100 ml Output Urine Total 350 ml 900 ml 750 ml Stool Total 100 ml 100 ml Result Diagram: 12/28/170 12/28/17 0440 Imaging Last Impressions Chest X-Ray 12/27/17 0600 Signed Impressions: Service Date/Time: Wednesday, December 27, 2017 04:32 - CONCLUSION: Bibasilar consolidation slightly worse. Lines and tubes unchanged. Jacinto Crouch MD Lower Extremity Ultrasound 12/24/17 0000 Signed Impressions: Service Date/Time: Sunday, December 24, 2017 08:58 - CONCLUSION: Deep venous thrombosis extending above the knee as described above. Tre King MD FACR Lung Scan-V Nuclear Medicine 12/23/17 0000 Signed Impressions: Service Date/Time: Saturday, December 23, 2017 13:14 - CONCLUSION: 1. A reverse mismatch posteriorly in the left base with increased activity on the perfusion images and no identifiable activity in the left base on the corresponding ventilatory sequence. Findings are probably due to a posterior layering effusion. There may be some fluid in the fissure on the left as well based on the linear perfusion defect posteriorly in the left base. 2. Central trapping possibly representing some degree of COPD. 3. No scintigraphic findings of pulmonary embolus. Pj Laboy MD Abdomen Ultrasound 12/23/17 0000 Signed Impressions: Service Date/Time: Saturday, December 23, 2017 08:44 - CONCLUSION: 1. Liver appears somewhat prominent but otherwise sonographically intact. There is some free fluid along the hepatic convexity. 2. Cholelithiasis with probable associated gallbladder sludge. 3. Due to the patient's current clinical condition and the fact they were restrained, limited examination of the additional abdominal viscera. Pancreas is obscured by overlying bowel gas. Left kidney, aorta and IVC are poorly visualized. Pj Laboy MD Chest CT 12/22/17 0000 Signed Impressions: Service Date/Time: December 19:57 - CONCLUSION: 1. Moderate cardiomegaly with moderate pericardial effusion. 2. Consolidation and airspace disease in the lower lobes left greater than right as well as more patchy airspace disease in the right lung. 3. Small pleural effusions. 4. Diffuse anasarca with ascites in the upper abdomen. 5. Hepatomegaly and abnormal apparent small high density spleen. Zay Barakat MD Objective Remarks General: No acute distress. Heart: Regular rate and rhythm. No murmur. Lungs: Diminished breath sounds bilaterally. No wheezes/rhonchi noted. Breathing is nonlabored. Abdomen: Soft, nontender, nondistended. Extremities: 2+ right lower extremity edema. Psych: Sleeping, but awakens to verbal stimuli. Neuro: Nonverbal. She tracks, but does not answer questions. Procedures 12/25-plasmapheresis 12/26-plasmapheresis Urinary Catheter: Yes Assessment to: Continue Teague insert reason: Obstruction/Retention Vascular Central Line Catheter: No A/P Assessment and Plan 1. Acute hypoxic hypercapnic respiratory failure: Extubated yesterday. Pulmonology consulted. Continue bronchodilators, supplemental oxygen. Currently on 3L. 2. Chronic diastolic heart failure, small pericardial effusion without evidence of tamponade: 2D echocardiogram showed ejection fraction 55-60%. Right ventricle is moderately dilated. Right atrial size is severely dilated. Severe tricuspid regurgitation and trace mitral valve regurgitation noted. Inferior vena cava dilated. IV fluids discontinued. 3. Chronic pain: On chronic oxycodone at home. Fentanyl patch restarted by hematology. 4. Sickle cell disease with vaso-occlusive crisis: Appreciate hematology recommendations. Continue folic acid. Status post plasmapheresis. Monitor H&H , LDH, reticulocyte count. 5. Right lower extremity DVT: IVC filter placed, unknown date. Continue heparin drip. 6. UTI: Urine culture growing ESBL E. coli. Appreciate infectious disease recommendations. Continue ertapenem. 7. Acute kidney injury: Improving. 8. Elevated total bilirubin: Imaging shows hepatomegaly, sludge in gallbladder , ascites. Consult GI. 9. GI prophylaxis: Prevacid. 10. Schizophrenia, depression: Continue home medications, citalopram and paliperidone. Negro Dyer MD Dec 28, 2017 15:05
--- NOTE | 2017-12-28 16:21 | PD.CONS ---
HPI History of Present Illness This is a 42 year old female with hx sickle cell anemia, CHF, DVT who presented with SOB. She was subsequently intubated, just extubated yesterday. SHe was found to have pericardial effusion, sickle cell vaso-occlusive crisis. GI is consulted for elevated NH and bilirubin. She denies any prior hx liver disease , denies etoh. US showed US abd showed prominent liver, cholelithiasis with prob sludge, ascites. Pt is limited historian, [place] and relatively nonverbal except to ask for pain meds. (Eve Prajapati) PFSH Past Medical History sickle cell anemia DVT CHF chronic pain [place] Past Surgical History IVC filter (Eve Prajapati) Coded Allergies: No Known Allergies (Unverified , 12/22/17) Family History sickle cell Social History denies etoh (Eve Prajapati) Review of Systems Gastrointestinal: DENIES: Abdominal pain otherwise noncontributory (Eve Prajapati) GI Exam Vitals I&O Vital Signs Date Time Temp Pulse Resp B/P (MAP) Pulse Ox O2 Delivery O2 Flow Rate FiO2 12/28/17 14:30 96 Nasal Cannula 3.00 12/28/17 12:00 98.1 75 17 87/52 (64) 94 12/28/17 08:30 88 12/28/17 08:00 98.0 88 17 98/53 (68) 93 12/28/17 04:00 98.0 89 18 94/50 (65) 92 12/28/17 03:44 99 12/28/17 00:00 97.2 82 18 97/54 (68) 93 12/27/17 20:00 98.9 87 12 89/61 (70) 95 12/27/17 20:00 87 12/27/17 19:37 16 12/27/17 18:00 86 12/27/17 16:00 99.0 86 12 95/57 (70) 92 12/27/17 16:00 86 I/O 12/27/17 12/27/17 12/27/17 12/28/17 12/28/17 12/28/17 07:00 15:00 23:00 07:00 15:00 23:00 Intake Total 1673 ml 520 ml 715 ml Output Total 450 ml 1000 ml 750 ml Balance 1223 ml -480 ml -750 ml 715 ml Intake IV Total 965 ml 715 ml Tube Feeding 658 ml 420 ml Other 50 ml 100 ml Output Urine Total 350 ml 900 ml 750 ml Stool Total 100 ml 100 ml Imaging Last Impressions Chest X-Ray 12/27/17 0600 Signed Impressions: Service Date/Time: Wednesday, December 27, 2017 04:32 - CONCLUSION: Bibasilar consolidation slightly worse. Lines and tubes unchanged. Jacinto Crouch MD Lower Extremity Ultrasound 12/24/17 0000 Signed Impressions: Service Date/Time: Sunday, December 24, 2017 08:58 - CONCLUSION: Deep venous thrombosis extending above the knee as described above. Tre King MD FACR Lung Scan-V Nuclear Medicine 12/23/17 0000 Signed Impressions: Service Date/Time: Saturday, December 23, 2017 13:14 - CONCLUSION: 1. A reverse mismatch posteriorly in the left base with increased activity on the perfusion images and no identifiable activity in the left base on the corresponding ventilatory sequence. Findings are probably due to a posterior layering effusion. There may be some fluid in the fissure on the left as well based on the linear perfusion defect posteriorly in the left base. 2. Central trapping possibly representing some degree of COPD. 3. No scintigraphic findings of pulmonary embolus. Pj Laboy MD Abdomen Ultrasound 12/23/17 0000 Signed Impressions: Service Date/Time: Saturday, December 23, 2017 08:44 - CONCLUSION: 1. Liver appears somewhat prominent but otherwise sonographically intact. There is some free fluid along the hepatic convexity. 2. Cholelithiasis with probable associated gallbladder sludge. 3. Due to the patient's current clinical condition and the fact they were restrained, limited examination of the additional abdominal viscera. Pancreas is obscured by overlying bowel gas. Left kidney, aorta and IVC are poorly visualized. Pj Laboy MD Chest CT 12/22/17 0000 Signed Impressions: Service Date/Time: December 19:57 - CONCLUSION: 1. Moderate cardiomegaly with moderate pericardial effusion. 2. Consolidation and airspace disease in the lower lobes left greater than right as well as more patchy airspace disease in the right lung. 3. Small pleural effusions. 4. Diffuse anasarca with ascites in the upper abdomen. 5. Hepatomegaly and abnormal apparent small high density spleen. Zay Barakat MD Laboratory Test 12/27/17 23:12 12/28/17 04:40 Vancomycin Level Trough 18.9 MCG/ML White Blood Count 10.9 TH/MM3 Red Blood Count 2.83 MIL/MM3 Hemoglobin 8.7 GM/DL Hematocrit 25.2 % Mean Corpuscular Volume 89.1 FL Mean Corpuscular Hemoglobin 30.8 PG Mean Corpuscular Hemoglobin Concent 34.6 % Red Cell Distribution Width 17.9 % Platelet Count 84 TH/MM3 Mean Platelet Volume 9.8 FL Activated Partial Thromboplast Time 34.2 SEC Blood Urea Nitrogen 30 MG/DL Creatinine 0.83 MG/DL Random Glucose 81 MG/DL Calcium Level 8.4 MG/DL Phosphorus Level 4.0 MG/DL Magnesium Level 2.2 MG/DL Sodium Level 144 MEQ/L Potassium Level 3.7 MEQ/L Chloride Level 109 MEQ/L Carbon Dioxide Level 28.9 MEQ/L Anion Gap 6 MEQ/L Estimat Glomerular Filtration Rate 91 ML/MIN Total Creatine Kinase 45 U/L Troponin I LESS THAN 0.02 NG/ML Thyroid Stimulating Hormone 3rd Gen 7.770 uIU/ML Date/Time Source Procedure Growth Status 12/23/17 18:07 Blood Peripheral Aerobic Blood Culture - Final NO GROWTH IN 5 DAYS Complete 12/23/17 18:07 Blood Peripheral Anaerobic Blood Culture - Final NO GROWTH IN 5 DAYS Complete 12/25/17 01:43 Stool Stool Stool Occult Blood (SANDRA) - Final HEMOCCULT NEGATIVE Complete 12/22/17 21:30 Sputum Endotracheal Gram Stain - Final Complete 12/22/17 21:30 Sputum Culture - Final Beta Strep Not Group A Complete 12/22/17 18:16 Urine Random Urine Urine Culture - Final Escherichia Coli Esbl Positive Multi-Drug Resistant Complete Physical Examination HEENT: PERRL; normocephalic; atraumatic; CHEST: diminished CARDIAC: RRR ABDOMEN: semifirm, obese, nontender; no hepatosplenomegaly; bowel sounds are present in all four quadrants. EXTREMITIES: RLE edema SKIN: Normal; no rash; no jaundice. [employer]: alert (Eve Prajapati) Assessment and Plan Plan ASSESSMENT - hyperbilirubinemia - direct = indirect.?hemolysis, ?cholestasis transaminases WNL. limited hx obtained US abd showed prominent liver, cholelithiasis with prob sludge, ascites. will get MRCP r/o obstruction - elevated NH - unclear significance ?zinc deficiency - anemia - sickle cell s/p 23 x PRBC stool neg for occult blood. hematology following PLAN - MRCP - serum zinc & ceruloplasmin - monitor NH - monitor LFTs - pain mgmt - supportive care pt seen by myself and Dr Fuentes and this note is on her behalf (Eve Prajapati) Physician Comments seen, examined agree with above echocardiogram (Jennifer Fuentes MD) Eve Prajapati Dec 28, 2017 16:21 Jennifer Fuentes MD Dec 28, 2017 16:57
--- NOTE | 2017-12-28 17:42 | MB ---
cc: Toy Hayes MD DATE: 12/28/2017 REASON FOR CONSULTATION: Hypoxemia. HISTORY OF PRESENT ILLNESS: The patient is a 41-year-old female who is known to have sickle cell disease, came to the hospital with shortness of breath and hypoxia. The patient was diagnosed with pneumonia, and she is in renal failure. The patient did go into respiratory failure. She needed to be intubated and later on, she was successfully extubated. The patient had acute chest syndrome and she was treated with exchange transfusion. Right now, the patient feels okay. Continues to have shortness of breath. The patient is not a very good historian. I reviewed her past medical history, social history, medications, and all reviewed in detail. PHYSICAL EXAMINATION: VITAL SIGNS: Temperature 98.0, pulse 71, respiratory rate 17, blood pressure 90/53, she is sating 94% on 3 liters nasal cannula. HEENT: Atraumatic, normocephalic. NECK: Trachea midline. LUNGS: Bilateral basilar crackles. HEART: S1, S2. ABDOMEN: Soft, obese. EXTREMITIES: Positive edema. NEUROLOGIC: The patient is awake, does move all her extremities. LABORATORY DATA: Reviewed. WBC is 10.9, hemoglobin 8.7, platelets 84. I reviewed her last chest x-ray that did show bibasilar airspace disease. I reviewed her microbiology. ASSESSMENT AND PLAN: 1. Status post acute hypoxic respiratory failure. 2. Status post acute chest syndrome. 3. Pneumonia. 4. Renal failure. 5. Sickle cell, status post crisis. 6. Likely, sleep apnea. I do believe the patient is improving. I would like to recommend to continue to followup antibiotics as per ID recommendation. Continue bronchodilators. Continue dialysis and avoid any volume overload. I would recommend noninvasive positive pressure ventilation with BiPAP at night. I do believe that the patient will have sleep apnea. I would like to recommend BiPAP 10/5 with sleep. I would like to thank you for this consultation. I will continue to follow the patient with you. MD NETO Fletcher/TAIWO , 05:26 PM , 05:41 PM
[2017-12-28] MEDS: MORPHINE SULFATE 4 MG/ML INJ IV PUSH PRN (21:35)
[2017-12-29] VITALS: BP 108/57; PULSE 76; RESP 20; O2SAT 99
[2017-12-29] MEDS: ARTIFICIAL TEARS OPTH SOLN 15 ML BTL EACH EYE SCH ×3 (05:54→22:00)
[2017-12-29] MEDS: HEPARIN-D5W 25,000 U/250 ML 250 ML IV PRN (05:54)
[2017-12-29] MEDS: INSULIN ASPART SUPPLEMENTAL SCALE SQ SCH ×4 (06:00→23:59)
[2017-12-29 08:00] VITALS: BP 104/94; PULSE 86; RESP 18; TEMP 98.5; O2SAT 98
[2017-12-29 08:35] LABS: AUTOMATED NEUTROPHIL # 5.4 TH/MM3 (1.8-7.7); BASOPHIL # 0.2 TH/MM3 (0-0.2); BASOPHIL % 2.6 % (0.0-2.0); EOSINOPHIL # 0.5 TH/MM3 (0-0.4); EOSINOPHIL % 5.4 % (0.0-4.0); HEMATOCRIT 24.6 % (35.0-46.0); HEMOGLOBIN 8.4 GM/DL (11.6-15.3); LYMPH % 14.7 % (9.0-44.0); LYMPHOCYTE # 1.2 TH/MM3 (1.0-4.8); MEAN CELL VOLUME 90.9 FL (80.0-100.0); MEAN CORPUSCULAR HEMOGLOBIN 31.2 PG (27.0-34.0); MEAN CORPUSCULAR HGB CONC 34.3 % (32.0-36.0); MEAN PLATELET VOLUME 9.6 FL (7.0-11.0); MONO % 13.4 % (0.0-8.0); MONOCYTE # 1.1 TH/MM3 (0-0.9); NEUT % 63.9 % (16.0-70.0); PLATELET COUNT 107 TH/MM3 (150-450); RED BLOOD COUNT 2.71 MIL/MM3 (4.00-5.30); RED CELL DISTRIBUTION WIDTH 18.3 % (11.6-17.2); WHITE BLOOD COUNT 8.5 TH/MM3 (4.0-11.0)
[2017-12-29 09:00] LABS: ALBUMIN 3.1 GM/DL (3.4-5.0); AST (GOT) 39 U/L (15-37); BICARBONATE 27.1 MEQ/L (21.0-32.0); BLOOD UREA NITROGEN 24 MG/DL (7-18); CALCIUM 8.9 MG/DL (8.5-10.1); CHLORIDE 106 MEQ/L (98-107); CREATININE 0.79 MG/DL (0.50-1.00); GLOMERULAR FILTRATION RATE 96 ML/MIN (>89); GLUCOSE,RANDOM 88 MG/DL (74-106); SODIUM (NA) 142 MEQ/L (136-145)
[2017-12-29 09:04] LABS: ALKALINE PHOSPHATASE 106 U/L (45-117); ALT (GPT) 14 U/L (10-53); TOTAL BILIRUBIN ADULT 2.3 MG/DL (0.2-1.0); TOTAL PROTEIN 8.1 GM/DL (6.4-8.2)
[2017-12-29] MEDS: LANSOPRAZOLE SOLUTAB 30 MG TAB NG SCH (10:02)
[2017-12-29] MEDS: POLYETHYLENE GLYCOL 17 GM PKG PO SCH ×2 (10:02→19:48)
[2017-12-29] MEDS: DOCUSATE SODIUM 50 MG/SENNA 8.6 MG TAB PO SCH ×2 (10:02→19:48)
[2017-12-29] MEDS: LACTULOSE SYRUP 20 GM/30 ML CUP PO SCH ×4 (10:02→19:48)
[2017-12-29] MEDS: FOLIC ACID 1 MG TAB PO SCH (10:02)
[2017-12-29] MEDS: SODIUM CHLORIDE 0.9% FLUSH 10 ML FLUSH IV FLUSH SCH ×2 (10:06→19:49)
--- NOTE | 2017-12-29 11:31 | HHI.GIFU ---
Subjective Remarks Pt resting in bed. says she just vomited. Per RN she had not been complaining of nausea, she just walked in on the pt vomiting. No blood. Pt relatively noncontributory. Objective Vitals I&O Vital Signs Date Time Temp Pulse Resp B/P (MAP) Pulse Ox O2 Delivery O2 Flow Rate FiO2 12/29/17 08:00 98.5 86 18 104/94 (97) 98 12/29/17 00:00 76 20 108/57 (74) 99 12/28/17 23:50 20 12/28/17 20:00 97.9 84 20 101/59 (73) 98 12/28/17 17:53 94 Nasal Cannula 3.00 12/28/17 16:00 98.0 71 17 90/53 (65) 94 12/28/17 14:30 96 Nasal Cannula 3.00 12/28/17 12:00 98.1 75 17 87/52 (64) 94 I/O 12/28/17 12/28/17 12/28/17 12/29/17 12/29/17 12/29/17 07:00 15:00 23:00 07:00 15:00 23:00 Intake Total 715 ml 720 ml Output Total 750 ml 950 ml Balance -750 ml 715 ml -230 ml Intake Oral 720 ml IV Total 715 ml Output Urine Total 750 ml 950 ml # Bowel Movements 1 Laboratory Laboratory Tests Test 12/29/17 05:50 12/29/17 08:17 Stool C. difficile Toxin (PCR) NEGATIVE Stl C. difficile Toxin Epiderm 027 PRESUMPTIVE NEGATIVE White Blood Count 8.5 Red Blood Count 2.71 Hemoglobin 8.4 Hematocrit 24.6 Mean Corpuscular Volume 90.9 Mean Corpuscular Hemoglobin 31.2 Mean Corpuscular Hemoglobin Concent 34.3 Red Cell Distribution Width 18.3 Platelet Count 107 Mean Platelet Volume 9.6 Neutrophils (%) (Auto) 63.9 Lymphocytes (%) (Auto) 14.7 Monocytes (%) (Auto) 13.4 Eosinophils (%) (Auto) 5.4 Basophils (%) (Auto) 2.6 Neutrophils # (Auto) 5.4 Lymphocytes # (Auto) 1.2 Monocytes # (Auto) 1.1 Eosinophils # (Auto) 0.5 Basophils # (Auto) 0.2 CBC Comment DIFF FINAL Differential Comment Activated Partial Thromboplast Time 36.0 Blood Urea Nitrogen 24 Creatinine 0.79 Random Glucose 88 Total Protein 8.1 Albumin 3.1 Calcium Level 8.9 Alkaline Phosphatase 106 Aspartate Amino Transf (AST/SGOT) 39 Alanine Aminotransferase (ALT/SGPT) 14 Lactate Dehydrogenase 320 Total Bilirubin 2.3 Sodium Level 142 Potassium Level 3.8 Chloride Level 106 Carbon Dioxide Level 27.1 Anion Gap 9 Estimat Glomerular Filtration Rate 96 Ammonia 82 Date/Time Source Procedure Growth Status 12/23/17 18:07 Blood Peripheral Aerobic Blood Culture - Final NO GROWTH IN 5 DAYS Complete 12/23/17 18:07 Blood Peripheral Anaerobic Blood Culture - Final NO GROWTH IN 5 DAYS Complete 12/29/17 05:50 Stool Stool Stool Occult Blood (SANDRA) - Final HEMOCCULT NEGATIVE Complete 12/22/17 21:30 Sputum Endotracheal Gram Stain - Final Complete 12/22/17 21:30 Sputum Culture - Final Beta Strep Not Group A Complete 12/22/17 18:16 Urine Random Urine Urine Culture - Final Escherichia Coli Esbl Positive Multi-Drug Resistant Complete Imaging Last Impressions Chest X-Ray 12/27/17 0600 Signed Impressions: Service Date/Time: Wednesday, December 27, 2017 04:32 - CONCLUSION: Bibasilar consolidation slightly worse. Lines and tubes unchanged. Jacinto Crouch MD Lower Extremity Ultrasound 12/24/17 0000 Signed Impressions: Service Date/Time: Sunday, December 24, 2017 08:58 - CONCLUSION: Deep venous thrombosis extending above the knee as described above. Tre King MD FACR Lung Scan- Nuclear Medicine 12/23/17 0000 Signed Impressions: Service Date/Time: Saturday, December 23, 2017 13:14 - CONCLUSION: 1. A reverse mismatch posteriorly in the left base with increased activity on the perfusion images and no identifiable activity in the left base on the corresponding ventilatory sequence. Findings are probably due to a posterior layering effusion. There may be some fluid in the fissure on the left as well based on the linear perfusion defect posteriorly in the left base. 2. Central trapping possibly representing some degree of COPD. 3. No scintigraphic findings of pulmonary embolus. Pj Laboy MD Abdomen Ultrasound 12/23/17 0000 Signed Impressions: Service Date/Time: Saturday, December 23, 2017 08:44 - CONCLUSION: 1. Liver appears somewhat prominent but otherwise sonographically intact. There is some free fluid along the hepatic convexity. 2. Cholelithiasis with probable associated gallbladder sludge. 3. Due to the patient's current clinical condition and the fact they were restrained, limited examination of the additional abdominal viscera. Pancreas is obscured by overlying bowel gas. Left kidney, aorta and IVC are poorly visualized. Pj Laboy MD Chest CT 12/22/17 0000 Signed Impressions: Service Date/Time: December 19:57 - CONCLUSION: 1. Moderate cardiomegaly with moderate pericardial effusion. 2. Consolidation and airspace disease in the lower lobes left greater than right as well as more patchy airspace disease in the right lung. 3. Small pleural effusions. 4. Diffuse anasarca with ascites in the upper abdomen. 5. Hepatomegaly and abnormal apparent small high density spleen. Zay Barakat MD Physical Exam HEENT: PERRL; normocephalic; atraumatic; no jaundice. CHEST: diminished CARDIAC: RRR ABDOMEN: firm, obese, nontender; bowel sounds are present in all four quadrants. EXTREMITIES: No clubbing, cyanosis, edema RLE SKIN: Normal; no rash; no jaundice. [employer]: alert Assessment and Plan Plan ASSESSMENT - hyperbilirubinemia - direct = indirect.?hemolysis, ?cholestasis transaminases WNL. limited hx obtained US abd showed prominent liver, cholelithiasis with prob sludge, ascites. will get MRCP r/o obstruction - elevated NH - unclear significance ?zinc deficiency - anemia - sickle cell s/p 23 x PRBC stool neg for occult blood. hematology following 12/29/17 pt relatively non contributory. 1 episode vomiting this am, no complaint nausea. MRCP pending. NH rising. pumonology following, needs bipap. tbil decreased today PLAN - await MRCP - await echo - await serum zinc & ceruloplasmin - monitor NH - monitor LFTs - pain mgmt - supportive care pt seen by myself and Dr Fuentes and this note is on her behalf Eve Prajapati Dec 29, 2017 11:31 am
--- NOTE | 2017-12-29 11:43 | PD.ONC.PN ---
Subjective Subjective Remarks Afebrile overnight. Patient resting in bed in nad. late entry, patient seen at 10AM. she states she is coming along, feeling improved. denies pain at the present. per nurse at the bedside, her vas-cath partially fell out last night. Objective Data Date Time Temp Pulse Resp B/P (MAP) Pulse Ox O2 Delivery O2 Flow Rate FiO2 12/29/17 08:00 98.5 86 18 104/94 (97) 98 12/29/17 00:00 76 20 108/57 (74) 99 12/28/17 23:50 20 12/28/17 20:00 97.9 84 20 101/59 (73) 98 12/28/17 17:53 94 Nasal Cannula 3.00 12/28/17 16:00 98.0 71 17 90/53 (65) 94 12/28/17 14:30 96 Nasal Cannula 3.00 12/28/17 12:00 98.1 75 17 87/52 (64) 94 Result Diagram: 12/29/1717 12/29/17 0817 Laboratory Results Laboratory Tests Test 12/29/17 05:50 12/29/17 08:17 Stool C. difficile Toxin (PCR) NEGATIVE Stl C. difficile Toxin Epiderm 027 PRESUMPTIVE NEGATIVE White Blood Count 8.5 TH/MM3 Red Blood Count 2.71 MIL/MM3 Hemoglobin 8.4 GM/DL Hematocrit 24.6 % Mean Corpuscular Volume 90.9 FL Mean Corpuscular Hemoglobin 31.2 PG Mean Corpuscular Hemoglobin Concent 34.3 % Red Cell Distribution Width 18.3 % Platelet Count 107 TH/MM3 Mean Platelet Volume 9.6 FL Neutrophils (%) (Auto) 63.9 % Lymphocytes (%) (Auto) 14.7 % Monocytes (%) (Auto) 13.4 % Eosinophils (%) (Auto) 5.4 % Basophils (%) (Auto) 2.6 % Neutrophils # (Auto) 5.4 TH/MM3 Lymphocytes # (Auto) 1.2 TH/MM3 Monocytes # (Auto) 1.1 TH/MM3 Eosinophils # (Auto) 0.5 TH/MM3 Basophils # (Auto) 0.2 TH/MM3 CBC Comment DIFF FINAL Differential Comment Activated Partial Thromboplast Time 36.0 SEC Blood Urea Nitrogen 24 MG/DL Creatinine 0.79 MG/DL Random Glucose 88 MG/DL Total Protein 8.1 GM/DL Albumin 3.1 GM/DL Calcium Level 8.9 MG/DL Alkaline Phosphatase 106 U/L Aspartate Amino Transf (AST/SGOT) 39 U/L Alanine Aminotransferase (ALT/SGPT) 14 U/L Lactate Dehydrogenase 320 U/L Total Bilirubin 2.3 MG/DL Sodium Level 142 MEQ/L Potassium Level 3.8 MEQ/L Chloride Level 106 MEQ/L Carbon Dioxide Level 27.1 MEQ/L Anion Gap 9 MEQ/L Estimat Glomerular Filtration Rate 96 ML/MIN Ammonia 82 MCMOL/L Culture Results Microbiology Date/Time Source Procedure Growth Status 12/29/17 05:50 Stool Stool Stool Occult Blood (SANDRA) - Final HEMOCCULT NEGATIVE Complete Administered Medications Medications (Trade) Dose Ordered Sig/Earnest Route PRN Reason Start Time Stop Time Status Last Admin Dose Admin Sodium Chloride (NS Flush) 2 ml BID IV FLUSH 12/22/17 21:00 12/29/17 10:06 Morphine Sulfate (Morphine Inj) 2 mg Q2H PRN IV PUSH PAIN SCALE 6 TO 10 12/22/17 18:45 12/28/17 21:35 Senna/Docusate Sodium (Amber-Colace) 1 tab BID PO 12/22/17 21:00 12/29/17 10:02 Folic Acid (Folate) 1 mg DAILY PO 12/23/17 09:00 12/29/17 10:02 Artificial Tears (Tears Naturale Opth Soln) 1 drop Q8HR EACH EYE 12/23/17 22:00 12/29/17 05:54 Lansoprazole (Prevacid Odt) 30 mg DAILY NG 12/24/17 09:00 12/29/17 10:02 Albuterol Sulfate (Albuterol Neb) 2.5 mg Q2HR NEB PRN NEB dyspnea 12/23/17 15:30 12/27/17 14:23 Insulin Aspart (NovoLOG SUPPLEMENTAL SCALE) 1 Q6HR SQ 12/23/17 18:00 12/26/17 12:00 Heparin Sodium/ Dextrose 250 ml @ 18 mls/hr TITRATE PRN IV Coagulation Management 12/24/17 08:45 12/29/17 05:54 Polyethylene Glycol (Miralax) 17 gm BID PO 12/24/17 09:00 12/29/17 10:02 Lactulose (Lactulose Liq) 30 ml QID PO 12/24/17 13:00 12/29/17 10:02 Ertapenem 1000 mg/ Sodium Chloride 100 ml @ 200 mls/hr Q24H IV 12/27/17 13:00 12/28/17 14:01 Acetaminophen/ Hydrocodone Bitart (Bergoo 7.5-325 Mg) 1 tab Q6H PRN PO PAIN SCALE 7 TO 10 12/27/17 18:00 12/27/17 18:37 Objective Remarks GENERAL: Middle aged female, lying in bed in nad. On O2 via NC SKIN: Warm and dry. HEAD: Normocephalic. EYES: No injection or drainage. NECK: Supple, trachea midline. CARDIOVASCULAR: Regular rate and rhythm RESPIRATORY: anterior martins clear. on 3L O2 GASTROINTESTINAL: Abdomen soft, non-tender, nondistended. EXTREMITIES: No cyanosis. RLE with edema. NEUROLOGICAL: No obvious focal deficit Assessment/Plan Problem List: (1) Sickle cell disease ICD Codes: D57.1 - Sickle-cell disease without crisis Status: Acute Plan: --12/29: hgb with slight dip, LDH with slight rise. continue supportive care. Hx/Workup: Patient with history of hemoglobin SS sickle cell disease brought into the emergency room with acute shortness of breath. She has been on Xarelto for a right lower extremity DVT as well as history of CHF. She had a lung VQ scan that showed a low probability for pulmonary embolism. (2) Respiratory failure ICD Codes: J96.90 - Respiratory failure, unspecified, unspecified whether with hypoxia or hypercapnia (3) Sickle cell pain crisis ICD Codes: D57.00 - Hb-SS disease with crisis, unspecified (4) Dyspnea ICD Codes: R06.00 - Dyspnea, unspecified Status: Acute (5) Hypercapnia ICD Codes: R06.89 - Other abnormalities of breathing Status: Acute (6) Symptomatic anemia ICD Codes: D64.9 - Anemia, unspecified Status: Acute (7) DVT (deep venous thrombosis) ICD Codes: I82.409 - Acute embolism and thrombosis of unspecified deep veins of unspecified lower extremity Assessment 42-year-old female with hemoglobin SS disease admitted with shortness of breath Plan 1. ok to finish removing vas-cath 2. monitor CBC, LDH 3. monitor dyspnea. 4. continue supportive care. Attending Statement The exam, history, and the medical decision-making described in the above note were completed with the assistance of the mid-level provider. I reviewed and agree with the findings presented. I attest that I had a [id number] encounter with the patient on the same day, and personally performed and documented my assessment and findings in the medical record. supprotive care no pRBC transfusion Heparin GTT for hx of DVT Problem Qualifiers (1) Sickle cell disease: Qualified Codes: D57.01 - Hb-SS disease with acute chest syndrome (2) Dyspnea: Qualified Codes: R06.00 - Dyspnea, unspecified (3) DVT (deep venous thrombosis): Kimberley Moreno Dec 29, 2017 11:42 Abiodun Ricks MD Dec 29, 2017 20:09
[2017-12-29 12:00] VITALS: BP 112/54; PULSE 87; RESP 17; TEMP 97.6; O2SAT 96
[2017-12-29] MEDS: MORPHINE SULFATE 4 MG/ML INJ IV PUSH PRN ×3 (13:14→21:00)
[2017-12-29] MEDS: SODIUM CHLORIDE 0.9% FLUSH 10 ML FLUSH IV FLUSH PRN ×2 (13:15→18:08)
[2017-12-29] MEDS: ERTAPENEM INJ 1,000 MG in SODIUM CHLORIDE 0.9% INJ 100 ML IV SCH (13:15)
--- NOTE | 2017-12-29 14:49 | HHI.PR ---
Subjective Remarks Follow up respiratory failure, anemia, sickle cell pain crisis. Patient is much more alert today. She states that she feels much better today. Denies shortness of breath. States that her right leg is still swollen. Objective Vitals Vital Signs Date Time Temp Pulse Resp B/P (MAP) Pulse Ox O2 Delivery O2 Flow Rate FiO2 12/29/17 12:00 97.6 87 17 112/54 (73) 96 12/29/17 08:00 98.5 86 18 104/94 (97) 98 12/29/17 00:00 76 20 108/57 (74) 99 12/28/17 23:50 20 12/28/17 20:00 97.9 84 20 101/59 (73) 98 12/28/17 17:53 94 Nasal Cannula 3.00 12/28/17 16:00 98.0 71 17 90/53 (65) 94 I/O 12/28/17 12/28/17 12/28/17 12/29/17 12/29/17 12/29/17 07:00 15:00 23:00 07:00 15:00 23:00 Intake Total 715 ml 720 ml Output Total 750 ml 950 ml Balance -750 ml 715 ml -230 ml Intake Oral 720 ml IV Total 715 ml Output Urine Total 750 ml 950 ml # Bowel Movements 1 Result Diagram: 12/29/17 0817 12/29/17 0817 Imaging Last Impressions Chest X-Ray 12/27/17 0600 Signed Impressions: Service Date/Time: Wednesday, December 27, 2017 04:32 - CONCLUSION: Bibasilar consolidation slightly worse. Lines and tubes unchanged. Jacinto Crouch MD Lower Extremity Ultrasound 12/24/17 0000 Signed Impressions: Service Date/Time: Sunday, December 24, 2017 08:58 - CONCLUSION: Deep venous thrombosis extending above the knee as described above. Tre King MD FACR Lung Scan- Nuclear Medicine 12/23/17 0000 Signed Impressions: Service Date/Time: Saturday, December 23, 2017 13:14 - CONCLUSION: 1. A reverse mismatch posteriorly in the left base with increased activity on the perfusion images and no identifiable activity in the left base on the corresponding ventilatory sequence. Findings are probably due to a posterior layering effusion. There may be some fluid in the fissure on the left as well based on the linear perfusion defect posteriorly in the left base. 2. Central trapping possibly representing some degree of COPD. 3. No scintigraphic findings of pulmonary embolus. Pj Laboy MD Abdomen Ultrasound 12/23/17 0000 Signed Impressions: Service Date/Time: Saturday, December 23, 2017 08:44 - CONCLUSION: 1. Liver appears somewhat prominent but otherwise sonographically intact. There is some free fluid along the hepatic convexity. 2. Cholelithiasis with probable associated gallbladder sludge. 3. Due to the patient's current clinical condition and the fact they were restrained, limited examination of the additional abdominal viscera. Pancreas is obscured by overlying bowel gas. Left kidney, aorta and IVC are poorly visualized. Pj Laboy MD Chest CT 12/22/17 0000 Signed Impressions: Service Date/Time: December 19:57 - CONCLUSION: 1. Moderate cardiomegaly with moderate pericardial effusion. 2. Consolidation and airspace disease in the lower lobes left greater than right as well as more patchy airspace disease in the right lung. 3. Small pleural effusions. 4. Diffuse anasarca with ascites in the upper abdomen. 5. Hepatomegaly and abnormal apparent small high density spleen. Zay Barakat MD Objective Remarks General: No acute distress. Heart: Regular rate and rhythm. No murmur. Lungs: Diminished breath sounds bilaterally. No wheezes/rhonchi noted. Breathing is nonlabored. Abdomen: Soft, nontender, nondistended. Extremities: 2+ right lower extremity edema. Psych: Sleeping, but awakens to verbal stimuli. Answers questions appropriately. She is confused. Not oriented to year, city. Neuro: Speech is quiet. Procedures 12/25-plasmapheresis 12/26-plasmapheresis Urinary Catheter: No Vascular Central Line Catheter: No A/P Assessment and Plan 1. Acute hypoxic hypercapnic respiratory failure: Extubated 12/27/17. Appreciate pulmonology recommendations. Continue bronchodilators, supplemental oxygen. Currently on 3L. 2. Chronic diastolic heart failure, small pericardial effusion without evidence of tamponade: 2D echocardiogram showed ejection fraction 55-60%. Right ventricle is moderately dilated. Right atrial size is severely dilated. Severe tricuspid regurgitation and trace mitral valve regurgitation noted. Inferior vena cava dilated. IV fluids discontinued. 3. Chronic pain: On chronic oxycodone at home. Fentanyl patch discontinued. Morphine as needed. 4. Sickle cell disease with vaso-occlusive crisis: Appreciate hematology recommendations. Continue folic acid. Status post plasmapheresis. Monitor H&H , LDH, reticulocyte count. 5. Right lower extremity DVT: IVC filter placed, unknown date. Continue heparin drip. 6. UTI: Urine culture growing ESBL E. coli. Appreciate infectious disease recommendations. Continue ertapenem. 7. Acute kidney injury: Improving. 8. Elevated total bilirubin: Imaging shows hepatomegaly, sludge in gallbladder , ascites. Appreciate GI recommendations. MRCP ordered. 9. GI prophylaxis: Prevacid. 10. Schizophrenia, depression: Continue home medications, citalopram and paliperidone. 11. Encephalopathy: Mental status is improved today. Still confused. Discharge Planning Pending further clinical improvement. Negro Dyer MD Dec 29, 2017 14:49
[2017-12-29] MEDS ORDERED: LORazepam 2 MG/ML VIAL IV PUSH PRN (15:00)
[2017-12-29 16:00] VITALS: BP 105/59; PULSE 79; RESP 17; TEMP 98.2; O2SAT 94
[2017-12-29 20:00] VITALS: BP 109/52; PULSE 88; RESP 18; TEMP 98.2; O2SAT 95
[2017-12-29 20:04] VITALS: PULSE 82
[2017-12-30] VITALS (8 sets, daily range): BP systolic 99–108; BP diastolic 54–61; PULSE 85–96; RESP 18–22; TEMP 97.6–99.1; O2SAT 90–95
[2017-12-30] MEDS: MORPHINE SULFATE 4 MG/ML INJ IV PUSH PRN ×6 (02:04→23:52)
[2017-12-30] MEDS: ARTIFICIAL TEARS OPTH SOLN 15 ML BTL EACH EYE SCH ×4 (04:49→21:18)
[2017-12-30] MEDS: INSULIN ASPART SUPPLEMENTAL SCALE SQ SCH ×3 (04:49→16:55)
[2017-12-30] MEDS: HEPARIN-D5W 25,000 U/250 ML 250 ML IV PRN (05:15)
[2017-12-30 05:24] LABS: AUTOMATED NEUTROPHIL # 4.9 TH/MM3 (1.8-7.7); BASOPHIL # 0.3 TH/MM3 (0-0.2); BASOPHIL % 3.2 % (0.0-2.0); EOSINOPHIL # 0.4 TH/MM3 (0-0.4); EOSINOPHIL % 4.6 % (0.0-4.0); HEMATOCRIT 24.3 % (35.0-46.0); HEMOGLOBIN 8.2 GM/DL (11.6-15.3); LYMPH % 16.2 % (9.0-44.0); LYMPHOCYTE # 1.3 TH/MM3 (1.0-4.8); MEAN CELL VOLUME 91.5 FL (80.0-100.0); MEAN CORPUSCULAR HEMOGLOBIN 30.8 PG (27.0-34.0); MEAN CORPUSCULAR HGB CONC 33.7 % (32.0-36.0); MEAN PLATELET VOLUME 9.9 FL (7.0-11.0); MONO % 16.1 % (0.0-8.0); MONOCYTE # 1.3 TH/MM3 (0-0.9); NEUT % 59.9 % (16.0-70.0); PLATELET COUNT 121 TH/MM3 (150-450); RED BLOOD COUNT 2.65 MIL/MM3 (4.00-5.30); RED CELL DISTRIBUTION WIDTH 17.9 % (11.6-17.2); WHITE BLOOD COUNT 8.3 TH/MM3 (4.0-11.0)
[2017-12-30 05:25] LABS: RETIC # 158.9 MIL/L (20.0-150.0)
[2017-12-30 05:50] LABS: ALBUMIN 3.2 GM/DL (3.4-5.0); DIRECT BILIRUBIN ADULT 1.7 MG/DL (0.0-0.2)
[2017-12-30 05:51] LABS: INDIRECT BILIRUBIN 0.7 MG/DL (0.0-0.8); TOTAL BILIRUBIN ADULT 2.4 MG/DL (0.2-1.0); TOTAL PROTEIN 8.2 GM/DL (6.4-8.2)
[2017-12-30] MEDS: FOLIC ACID 1 MG TAB PO SCH (09:23)
[2017-12-30] MEDS: LACTULOSE SYRUP 20 GM/30 ML CUP PO SCH ×4 (09:23→21:00)
[2017-12-30] MEDS: LANSOPRAZOLE SOLUTAB 30 MG TAB NG SCH (09:23)
[2017-12-30] MEDS: DOCUSATE SODIUM 50 MG/SENNA 8.6 MG TAB PO SCH ×2 (09:23→21:10)
[2017-12-30] MEDS: POLYETHYLENE GLYCOL 17 GM PKG PO SCH ×2 (09:23→21:00)
[2017-12-30] MEDS: SODIUM CHLORIDE 0.9% FLUSH 10 ML FLUSH IV FLUSH SCH ×2 (09:27→21:00)
[2017-12-30] MEDS: RESP: ALBUTEROL 2.5 MG/3 ML NEB (PRN) NEB (09:57)
--- NOTE | 2017-12-30 11:21 | HHI.GIFU ---
Subjective Remarks Pt in bed Eyes closed, does not respond to questions Abdomen distended and firm (Rani Joseph) Objective Vitals I&O Vital Signs Date Time Temp Pulse Resp B/P (MAP) Pulse Ox O2 Delivery O2 Flow Rate FiO2 12/30/17 09:57 95 Nasal Cannula 3.00 12/30/17 09:37 20 12/30/17 08:00 99.0 88 21 100/56 (71) 92 12/30/17 04:00 98.6 95 18 99/56 (70) 91 12/30/17 00:22 96 12/30/17 00:00 98.0 90 18 103/55 (71) 91 12/29/17 21:40 Nasal Cannula 3.00 12/29/17 20:04 82 12/29/17 20:00 98.2 88 18 109/52 (71) 95 12/29/17 16:00 98.2 79 17 105/59 (74) 94 12/29/17 12:00 97.6 87 17 112/54 (73) 96 I/O 12/29/17 12/29/17 12/29/17 12/30/17 12/30/17 12/30/17 06:59 14:59 22:59 06:59 14:59 22:59 Intake Total 100 ml 660 ml Output Total 2350 ml Balance 100 ml -1690 ml Intake Oral 660 ml IV Total 100 ml Output Urine Total 2350 ml # Bowel Movements 1 Laboratory Laboratory Tests Test 12/29/17 14:04 12/29/17 20:01 12/30/17 02:00 12/30/17 04:54 Activated Partial Thromboplast Time 36.2 35.9 36.2 39.7 White Blood Count 8.3 Red Blood Count 2.65 Hemoglobin 8.2 Hematocrit 24.3 Mean Corpuscular Volume 91.5 Mean Corpuscular Hemoglobin 30.8 Mean Corpuscular Hemoglobin Concent 33.7 Red Cell Distribution Width 17.9 Platelet Count 121 Mean Platelet Volume 9.9 Neutrophils (%) (Auto) 59.9 Lymphocytes (%) (Auto) 16.2 Monocytes (%) (Auto) 16.1 Eosinophils (%) (Auto) 4.6 Basophils (%) (Auto) 3.2 Neutrophils # (Auto) 4.9 Lymphocytes # (Auto) 1.3 Monocytes # (Auto) 1.3 Eosinophils # (Auto) 0.4 Basophils # (Auto) 0.3 CBC Comment DIFF FINAL Differential Comment Reticulocyte Count 6.0 Absolute Reticulocyte Count 158.9 Total Bilirubin 2.4 Direct Bilirubin 1.7 Indirect Bilirubin 0.7 Aspartate Amino Transf (AST/SGOT) 43 Alanine Aminotransferase (ALT/SGPT) 15 Alkaline Phosphatase 100 Ammonia 88 Lactate Dehydrogenase 320 Total Protein 8.2 Albumin 3.2 Test 12/30/17 09:30 Activated Partial Thromboplast Time 41.8 Date/Time Source Procedure Growth Status 12/23/17 18:07 Blood Peripheral Aerobic Blood Culture - Final NO GROWTH IN 5 DAYS Complete 12/23/17 18:07 Blood Peripheral Anaerobic Blood Culture - Final NO GROWTH IN 5 DAYS Complete 12/29/17 05:50 Stool Stool Stool Occult Blood (SANDRA) - Final HEMOCCULT NEGATIVE Complete 12/22/17 21:30 Sputum Endotracheal Gram Stain - Final Complete 12/22/17 21:30 Sputum Culture - Final Beta Strep Not Group A Complete 12/22/17 18:16 Urine Random Urine Urine Culture - Final Escherichia Coli Esbl Positive Multi-Drug Resistant Complete Imaging Last Impressions Chest X-Ray 12/27/17 0600 Signed Impressions: Service Date/Time: Wednesday, December 27, 2017 04:32 - CONCLUSION: Bibasilar consolidation slightly worse. Lines and tubes unchanged. Jacinto Crouch MD Lower Extremity Ultrasound 12/24/17 0000 Signed Impressions: Service Date/Time: Sunday, December 24, 2017 08:58 - CONCLUSION: Deep venous thrombosis extending above the knee as described above. Tre King MD FACR Lung Scan- Nuclear Medicine 12/23/17 0000 Signed Impressions: Service Date/Time: Saturday, December 23, 2017 13:14 - CONCLUSION: 1. A reverse mismatch posteriorly in the left base with increased activity on the perfusion images and no identifiable activity in the left base on the corresponding ventilatory sequence. Findings are probably due to a posterior layering effusion. There may be some fluid in the fissure on the left as well based on the linear perfusion defect posteriorly in the left base. 2. Central trapping possibly representing some degree of COPD. 3. No scintigraphic findings of pulmonary embolus. Pj Laboy MD Abdomen Ultrasound 12/23/17 0000 Signed Impressions: Service Date/Time: Saturday, December 23, 2017 08:44 - CONCLUSION: 1. Liver appears somewhat prominent but otherwise sonographically intact. There is some free fluid along the hepatic convexity. 2. Cholelithiasis with probable associated gallbladder sludge. 3. Due to the patient's current clinical condition and the fact they were restrained, limited examination of the additional abdominal viscera. Pancreas is obscured by overlying bowel gas. Left kidney, aorta and IVC are poorly visualized. Pj Laboy MD Chest CT 12/22/17 0000 Signed Impressions: Service Date/Time: December 19:57 - CONCLUSION: 1. Moderate cardiomegaly with moderate pericardial effusion. 2. Consolidation and airspace disease in the lower lobes left greater than right as well as more patchy airspace disease in the right lung. 3. Small pleural effusions. 4. Diffuse anasarca with ascites in the upper abdomen. 5. Hepatomegaly and abnormal apparent small high density spleen. Zay Barakat MD Physical Exam HEENT: Normocephalic; atraumatic CHEST: Nonlabored respiration, Port to left chest CARDIAC: RRR ABDOMEN: Distended, firm, bowel sounds active EXTREMITIES: RLE edema MALTSTER: Sleeping (Rani Joseph) Assessment and Plan Plan ASSESSMENT - Hyperbilirubinemia- T bili-2.4 Indirect-0.7 Direct-1.78- likely hemolytic Pt with known sickle cell disease LDH-320 Abdomen US (12/23) --> Liver appears somewhat prominent but otherwise sonographically intact. There is some free fluid along the hepatic convexity. Cholelithiasis with probably associated gallbladder sludge. Limited exam of the abdominal viscera. Pancreas is obscured by overlying gas. - Hyperammonemia- Ammonia-88 ?Zinc deficiency - Sick cell disease with vaso-occlusive crisis Retic count-6 Abs Retic-158.9 Pt currently on Heparin gtt. Hematology following - S/P plasmapheresis x 2 - Respiratory distress- Pulmonology following PLAN - MRCP pending - KUB- abdomen distended and firm - Serum Zinc - Ceruloplasmin pending - Lactulose - Monitor CBC, CMP - Heparin gtt - Hematology, pulmonology, ID following - Further recommendations based on findings of above and clinical course Patient has been seen and examined by myself and Dr. Fuentes and this note is written on her behalf (Rani Joseph) Physician Comments seen, examined,anasarca old echo-severe tricuspid regurgitation,pericardial effusion, possible congestive hepatopathy patient has an epigastric scar, asked aboroselia it, states was to remove gallstones- as per us she has gb ideally due to the fact she has sickle cell-should have gb removed at one point elevated ammonia level-on Lactulose, no signs of hepatic encephalopathy -we will monitor for now, fu zinc level, consider urea cycle deficiency await liver work-up fu repeat echocardiogram ct abdomen/pelvis advance diet to soft add rifaximin 550 mg po bid (Jennifer Fuentes MD) Rani Joseph Dec 30, 2017 11:21 Jennifer Fuentes MD Dec 30, 2017 14:31
--- NOTE | 2017-12-30 12:29 | RADRPT ---
EXAM DATE/TIME: 12/30/2017 11:35 [facility] COMPARISON: No previous studies available for comparison. INDICATIONS : Abdominal distention MEDICAL HISTORY : Sickle Cell disease. DVT SURGICAL HISTORY : IVC filter placement. ENCOUNTER: Subsequent ACUITY: 1 week PAIN SCORE: Non-responsive. LOCATION: Bilateral abdomen FINDINGS: 2 portable supine frontal views of the abdomen demonstrate air within bowel in a nonobstructive patte rn. Air is present mostly within the colon but also within the small bowel. Liver shadow appears enla rged. No concerning calcifications are identified. IVC filter overlies the L3 vertebral body. There i s slight blunting of the costophrenic sulci bilaterally. The bones demonstrate no acute finding. CONCLUSION: 1. No acute finding is identified within the abdomen. A nonobstructive bowel gas pattern is present. 2. Hepatomegaly. 3. Trace bilateral pleural fluid. Jacinto Nieves MD on December 30, 2017 at 12:26 Board Certified Radiologist. This report was verified electronically.
[2017-12-30] MEDS: ACETAMINOPHEN/HYDROcodone 325 MG/7.5 MG TAB PO PRN (12:30)
[2017-12-30] MEDS: ERTAPENEM INJ 1,000 MG in SODIUM CHLORIDE 0.9% INJ 100 ML IV SCH (12:30)
[2017-12-30] MEDS: SODIUM CHLORIDE 0.9% FLUSH 10 ML FLUSH IV FLUSH PRN (14:32)
[2017-12-30] MEDS ORDERED: CETIRIZINE HCL 10 MG TAB PO SCH (15:15)
[2017-12-30] MEDS ORDERED: DIATRIZOATE MEGLUM/DIATRIZOATE SOD 9 ML CUP PO ONE (15:30)
--- NOTE | 2017-12-30 15:44 | HHI.PR ---
Subjective Remarks Follow up anemia, sickle cell pain, respiratory failure. Patient states that she feels a lot better today. Denies shortness of breath, chest pain. Still with swelling in her right leg. States that she wants to go home tomorrow. Objective Vitals Vital Signs Date Time Temp Pulse Resp B/P (MAP) Pulse Ox O2 Delivery O2 Flow Rate FiO2 12/30/17 13:30 18 12/30/17 12:00 97.6 85 22 105/61 (76) 92 12/30/17 09:57 95 Nasal Cannula 3.00 12/30/17 09:37 20 12/30/17 08:00 99.0 88 21 100/56 (71) 92 12/30/17 04:00 98.6 95 18 99/56 (70) 91 12/30/17 00:22 96 12/30/17 00:00 98.0 90 18 103/55 (71) 91 12/29/17 21:40 Nasal Cannula 3.00 12/29/17 20:04 82 12/29/17 20:00 98.2 88 18 109/52 (71) 95 12/29/17 16:00 98.2 79 17 105/59 (74) 94 I/O 12/29/17 12/29/17 12/29/17 12/30/17 12/30/17 12/30/17 07:00 15:00 23:00 07:00 15:00 23:00 Intake Total 100 ml 660 ml Output Total 2350 ml Balance 100 ml -1690 ml Intake Oral 660 ml IV Total 100 ml Output Urine Total 2350 ml # Bowel Movements 1 Result Diagram: 12/30/17 0454 12/29/17 0817 Imaging Last Impressions Abdomen X-Ray 12/30/17 0000 Signed Impressions: Service Date/Time: Saturday, December 30, 2017 11:35 - CONCLUSION: 1. No acute finding is identified within the abdomen. A nonobstructive bowel gas pattern is present. 2. Hepatomegaly. 3. Trace bilateral pleural fluid. Jacinto Nieves MD Chest X-Ray 12/27/17 0600 Signed Impressions: Service Date/Time: Wednesday, December 27, 2017 04:32 - CONCLUSION: Bibasilar consolidation slightly worse. Lines and tubes unchanged. Jacinto Crouch MD Lower Extremity Ultrasound 12/24/17 0000 Signed Impressions: Service Date/Time: Sunday, December 24, 2017 08:58 - CONCLUSION: Deep venous thrombosis extending above the knee as described above. Tre King MD FACR Lung Scan-VQ Nuclear Medicine 12/23/17 0000 Signed Impressions: Service Date/Time: Saturday, December 23, 2017 13:14 - CONCLUSION: 1. A reverse mismatch posteriorly in the left base with increased activity on the perfusion images and no identifiable activity in the left base on the corresponding ventilatory sequence. Findings are probably due to a posterior layering effusion. There may be some fluid in the fissure on the left as well based on the linear perfusion defect posteriorly in the left base. 2. Central trapping possibly representing some degree of COPD. 3. No scintigraphic findings of pulmonary embolus. Pj Laboy MD Abdomen Ultrasound 12/23/17 0000 Signed Impressions: Service Date/Time: Saturday, December 23, 2017 08:44 - CONCLUSION: 1. Liver appears somewhat prominent but otherwise sonographically intact. There is some free fluid along the hepatic convexity. 2. Cholelithiasis with probable associated gallbladder sludge. 3. Due to the patient's current clinical condition and the fact they were restrained, limited examination of the additional abdominal viscera. Pancreas is obscured by overlying bowel gas. Left kidney, aorta and IVC are poorly visualized. Pj Laboy MD Chest CT 12/22/17 0000 Signed Impressions: Service Date/Time: December 19:57 - CONCLUSION: 1. Moderate cardiomegaly with moderate pericardial effusion. 2. Consolidation and airspace disease in the lower lobes left greater than right as well as more patchy airspace disease in the right lung. 3. Small pleural effusions. 4. Diffuse anasarca with ascites in the upper abdomen. 5. Hepatomegaly and abnormal apparent small high density spleen. Zay Barakat MD Objective Remarks General: No acute distress. Heart: Regular rate and rhythm. No murmur. Lungs: Diminished breath sounds bilaterally. No wheezes/rhonchi noted. Breathing is nonlabored. Abdomen: Soft, nontender, nondistended. Extremities: 2+ right lower extremity edema. Psych: Sleeping, but awakens to verbal stimuli. Answers questions appropriately , but does display some confusion. Neuro: Speech is quiet. Procedures 4/15-plasmapheresis 12/26-plasmapheresis Urinary Catheter: No Vascular Central Line Catheter: No A/P Assessment and Plan 1. Acute hypoxic hypercapnic respiratory failure: Extubated 12/27/17. Appreciate pulmonology recommendations. Continue bronchodilators, supplemental oxygen. Currently on 3L. 2. Chronic diastolic heart failure, small pericardial effusion without evidence of tamponade: 2D echocardiogram showed ejection fraction 55-60%. Right ventricle is moderately dilated. Right atrial size is severely dilated. Severe tricuspid regurgitation and trace mitral valve regurgitation noted. Inferior vena cava dilated. IV fluids discontinued. Consult cardiology. 3. Chronic pain: On chronic oxycodone at home. Fentanyl patch discontinued. Morphine as needed. 4. Sickle cell disease with vaso-occlusive crisis: Appreciate hematology recommendations. Continue folic acid. Status post plasmapheresis. Monitor H&H , LDH, reticulocyte count. 5. Right lower extremity DVT: IVC filter placed, unknown date. Continue heparin drip. Will need oral anticoagulation. 6. UTI: Urine culture growing ESBL E. coli. Appreciate infectious disease recommendations. Continue ertapenem. 7. Acute kidney injury: Improving. 8. Elevated total bilirubin: Imaging shows hepatomegaly, sludge in gallbladder , ascites. Appreciate GI recommendations. MRCP ordered. 9. GI prophylaxis: Prevacid. 10. Schizophrenia, depression: Continue home medications, citalopram and paliperidone. 11. Encephalopathy: Mental status is improved today. Still confused. Discharge Planning Pending further clinical improvement. Negro Dyer MD Dec 30, 2017 15:44
--- NOTE | 2017-12-30 16:53 | MB ---
cc: Manuel Shanks MD, Vance E MD DATE: 12/30/2017 REASON FOR CONSULTATION: Evaluation of CHF. HISTORY OF PRESENT ILLNESS: Roz Weiss is a 42-year-old woman with sickle cell anemia. She has already been in the hospital now over a week. I am being asked to see her because she has anasarca. She has evidence for significant liver disease. Her ammonia levels are elevated. She also has severe tricuspid regurgitation and she is noted to have anasarca, currently not on any diuretics. She had renal failure earlier with a creatinine up to 2.19. Her creatinine is now down to normal of 0.79. The patient gave me a very limited history. She kept referring me to ask her boyfriend questions, but her boyfriend is not here in the room. She has a complicated history well documented now in her chart. PAST MEDICAL HISTORY: She is known to have sickle cell anemia, previous DVT with IVC filter placed. She has been on anticoagulation with Xarelto. SOCIAL HISTORY: She denies smoking, denies drinking. PAST SURGICAL HISTORY: Includes the IVC filter. FAMILY HISTORY: Positive for sickle cell. PHYSICAL EXAMINATION: GENERAL: Shows a well-developed, female. She does not appear to be in acute distress. VITAL SIGNS: Last blood pressure is 105/61, pulse rate 85. HEENT: Unremarkable. NECK: Obese. It is hard to assess her neck veins. CHEST: Shows diminished breath sounds at the bases. HEART: Shows distant S1, S2. Regular rate and rhythm. I do not hear an S3. ABDOMEN: Obese. EXTREMITIES: She has generalized anasarca with severe lower extremity edema, but edema also up in her arms and thighs. LABORATORY DATA: Her lab work was showing her last BUN was 24 with a creatinine of 0.79. Liver tests are elevated. Ammonia level is elevated at 88. IMAGING STUDIES Her last chest x-ray was 12/27 showing bibasilar consolidation. IMPRESSION Anasarca. Appears to have more than one etiology. She may have some underlying pulmonary disease from her sleep apnea and she has obvious severe tricuspid regurgitation on her echo. She also has liver disease. She has abnormalities on her chest x-ray. I cannot exclude possibility of diastolic heart failure. PLAN: I am going to initiate diuresis with Torsemide 20 mg daily along with potassium repletion. Creatinine will need to be watched carefully to avoid producing hepatorenal syndrome. I will follow her up on a p.r.n. basis and she has multiple other doctors following her, but hopefully with diuretic we can start to get some fluid off. MD QUINCY Fitzpatrick/ , 04:37 PM , 04:52 PM
--- NOTE | 2017-12-30 18:08 | ECHRPT ---
Indication: CARDIOMEGALY, HEPATOMEGALY CONCLUSIONS Normal left ventricular size. Mild concentric left ventricular hypertrophy. The left ventricular systolic function is normal with an estimated ejection fraction in the range of 55-60%. There is a flattened septum in diastole consistent with right ventricle volume overload. . The right ventricular systoilc function is severely decreased. The right ventricle is severely dilated. The right atrial size is [id number] dilated. The interatrial septum not well visualized. The aortic root and proximal ascending aorta are not well visualized. Mild mitral valve regurgitation. Severe tricuspid valve stenosis. Mild pulmonary valve regurgitation. The inferior vena cava is severly dilated. Dilated inferior vena cava with poor inspiration collapse consistent with elevated right atrial pres sure. There is a small pericardial effusion present. BP: / HR: Rhythm: Sinus MEASUREMENTS (Male / Female) Normal Values Technical Quality:Fair 2D ECHO LV Diastolic Diameter PLAX 4.6 cm 4.2 - 5.9 / 3.9 - 5.3 cm LV Systolic Diameter PLAX 3.2 cm IVS Diastolic Thickness 1.1 cm 0.6 - 1.0 / 0.6 - 0.9 cm LVPW Diastolic Thickness 1.1 cm 0.6 - 1.0 / 0.6 - 0.9 cm LV Relative Wall Thickness 0.5 RV Internal Dim ED PLAX 4.9 cm LVOT Diameter 2.2 cm Aortic Root Diameter 3.0 cm LA Systolic Diameter LX 3.2 cm 3.0 - 4.0 / 2.7 - 3.8 cm DOPPLER AV Peak Velocity 182.0 cm/s AV Peak Gradient 13.2 mmHg AV Mean Gradient 9.0 mmHg AV Velocity Time Integral 35.2 cm LVOT Peak Velocity 119.0 cm/s LVOT Peak Gradient 5.7 mmHg LVOT Velocity Time Integral 19.9 cm AV Area Cont Eq vti 2.1 cm AV Area Cont Eq pk 2.5 cm Mitral E Point Velocity 102.0 cm/s Mitral A Point Velocity 74.0 cm/s Mitral E to A Ratio 1.4 LV E' Lateral Velocity 13.9 cm/s Mitral E to LV E' Lateral Ratio 7.3 LV E' Septal Velocity 10.2 cm/s Mitral E to LV E' Septal Ratio 10.0 TR Peak Velocity 243.0 cm/s TR Peak Gradient 23.6 mmHg Right Atrial Pressure 10.0 mmHg Pulmonary Artery Systolic Pressu 33.6 mmHg Right Ventricular Systolic Press 33.6 mmHg PV Peak Velocity 79.7 cm/s PV Peak Gradient 2.5 mmHg FINDINGS LEFT VENTRICLE Normal left ventricular size. Mild concentric left ventricular hypertrophy. The left ventricular systolic function is normal with an estimated ejection fraction in the range of 55-60%. There is a flattened septum in diastole consistent with right ventricle volume overload. . RIGHT VENTRICLE The right ventricular systoilc function is severely decreased. The right ventricle is severely dilated. LEFT ATRIUM The left atrial size is normal. RIGHT ATRIUM The right atrial size is dxlcmgzk-bb-scwmshvq dilated. ATRIAL SEPTUM The interatrial septum not well visualized. AORTA The aortic root and proximal ascending aorta are not well visualized. MITRAL VALVE Mild mitral valve regurgitation. AORTIC VALVE Trileaflet aortic valve. No aortic valve stenosis or regurgitation. TRICUSPID VALVE Severe tricuspid valve stenosis. PULMONARY VALVE Mild pulmonary valve regurgitation. VESSELS The inferior vena cava is severly dilated. Dilated inferior vena cava with poor inspiration collapse consistent with elevated right atrial pres sure. PERICARDIUM There is a small pericardial effusion present. Manuel Shanks MD (Electronically Signed) Final Date:30 December 2017 18:06
[2017-12-30] MEDS: TORSEMIDE 20 MG TAB PO SCH (19:50)
[2017-12-30] MEDS: RIFAXIMIN 550 MG TAB PO SCH (21:10)
[2017-12-30] MEDS: POTASSIUM CHLORIDE 20 MEQ CONTROLLED RELEASE TAB PO SCH (21:10)
--- NOTE | 2017-12-30 23:50 | RADRPT ---
EXAM DATE/TIME: 12/30/2017 23:30 [facility] COMPARISON: No previous studies available for comparison. INDICATIONS : Distension ORAL CONTRAST: Patient refused oral contrast. RADIATION DOSE: 27.01 CTDIvol (mGy) ; Patient body habitus MEDICAL HISTORY : Deep venous thrombosis. Sickle Cell disease. SURGICAL HISTORY : IVC Filter placement. ENCOUNTER: Initial ACUITY: 1 day PAIN SCALE: 5/10 LOCATION: abdomen TECHNIQUE: Volumetric scanning of the abdomen and pelvis was performed. Using automated exposure control and ad justment of the mA and/or kV according to patient size, radiation dose was kept as low as reasonably achievable to obtain optimal diagnostic quality images. DICOM format image data is available electro nically for review and comparison. FINDINGS: LOWER LUNGS: Cardiomegaly with moderate size pericardial effusion. Tiny posterior layering bilateral pleural effus ions with associated atelectasis. LIVER: Homogeneous density without lesion. There is no dilation of the biliary tree. Gallbladder is surgica lly absent. SPLEEN: Surgically absent. PANCREAS: Within normal limits. KIDNEYS: Normal in size and shape. There is no mass, stone, or hydronephrosis. ADRENAL GLANDS: Within normal limits. VASCULAR: There is no aortic aneurysm. ATrapEase IVC filter noted. BOWEL/MESENTERY: Small volume ascites. Fluid-filled and gas-filled loops of nondilated large and small bowel. No free air. ABDOMINAL WALL: Diffuse anasarca. RETROPERITONEUM: There is no lymphadenopathy. BLADDER: No wall thickening or mass. REPRODUCTIVE: Within normal limits. INGUINAL: There is no lymphadenopathy or hernia. MUSCULOSKELETAL: Degenerative changes involving the left hip with suspected old trauma. CONCLUSION: 1. Anasarca with small volume ascites. No dilated loops of bowel observed. 2. Cardiomegaly with moderate pericardial effusion. 3. Small bilateral pleural effusions with associated passive atelectasis. Aakash Gonzalez Jr., MD on December 30, 2017 at 23:45 Board Certified Radiologist. This report was verified electronically.
[2017-12-31] VITALS (8 sets, daily range): BP systolic 108–118; BP diastolic 52–66; PULSE 83–96; RESP 18–20; TEMP 98.1–99; O2SAT 94–100
[2017-12-31] MEDS: HEPARIN-D5W 25,000 U/250 ML 250 ML IV PRN (00:01)
[2017-12-31] MEDS: ARTIFICIAL TEARS OPTH SOLN 15 ML BTL EACH EYE SCH ×3 (06:00→20:51)
[2017-12-31] MEDS: INSULIN ASPART SUPPLEMENTAL SCALE SQ SCH ×5 (06:00→23:33)
[2017-12-31] MEDS: MORPHINE SULFATE 4 MG/ML INJ IV PUSH PRN ×5 (06:01→22:33)
[2017-12-31 06:11] LABS: AUTOMATED NEUTROPHIL # 4.4 TH/MM3 (1.8-7.7); BASOPHIL # 0.3 TH/MM3 (0-0.2); BASOPHIL % 3.3 % (0.0-2.0); EOSINOPHIL # 0.3 TH/MM3 (0-0.4); EOSINOPHIL % 3.5 % (0.0-4.0); HEMATOCRIT 24.5 % (35.0-46.0); HEMOGLOBIN 8.2 GM/DL (11.6-15.3); LYMPH % 17.5 % (9.0-44.0); LYMPHOCYTE # 1.4 TH/MM3 (1.0-4.8); MEAN CELL VOLUME 91.4 FL (80.0-100.0); MEAN CORPUSCULAR HEMOGLOBIN 30.7 PG (27.0-34.0); MEAN CORPUSCULAR HGB CONC 33.6 % (32.0-36.0); MONO % 20.1 % (0.0-8.0); MONOCYTE # 1.6 TH/MM3 (0-0.9); NEUT % 55.6 % (16.0-70.0); PLATELET COUNT 152 TH/MM3 (150-450); RED BLOOD COUNT 2.69 MIL/MM3 (4.00-5.30); RED CELL DISTRIBUTION WIDTH 18.3 % (11.6-17.2); WHITE BLOOD COUNT 7.8 TH/MM3 (4.0-11.0)
[2017-12-31 06:36] LABS: ALBUMIN 3.2 GM/DL (3.4-5.0); AST (GOT) 46 U/L (15-37); BICARBONATE 28.8 MEQ/L (21.0-32.0); BLOOD UREA NITROGEN 23 MG/DL (7-18); CALCIUM 8.7 MG/DL (8.5-10.1); CHLORIDE 106 MEQ/L (98-107); CREATININE 0.88 MG/DL (0.50-1.00); GLOMERULAR FILTRATION RATE 85 ML/MIN (>89); GLUCOSE,RANDOM 92 MG/DL (74-106); SODIUM (NA) 139 MEQ/L (136-145)
[2017-12-31 06:38] LABS: ALT (GPT) 15 U/L (10-53)
[2017-12-31 06:40] LABS: ALKALINE PHOSPHATASE 113 U/L (45-117); TOTAL BILIRUBIN ADULT 2.3 MG/DL (0.2-1.0); TOTAL PROTEIN 8.5 GM/DL (6.4-8.2)
[2017-12-31] MEDS: LANSOPRAZOLE SOLUTAB 30 MG TAB NG SCH (09:00)
[2017-12-31] MEDS: SODIUM CHLORIDE 0.9% FLUSH 10 ML FLUSH IV FLUSH SCH ×2 (09:18→20:50)
[2017-12-31] MEDS: FOLIC ACID 1 MG TAB PO SCH (09:20)
[2017-12-31] MEDS: TORSEMIDE 20 MG TAB PO SCH (09:20)
[2017-12-31] MEDS: POTASSIUM CHLORIDE 20 MEQ CONTROLLED RELEASE TAB PO SCH ×2 (09:20→20:50)
[2017-12-31] MEDS: DOCUSATE SODIUM 50 MG/SENNA 8.6 MG TAB PO SCH ×2 (09:20→20:51)
[2017-12-31] MEDS: LACTULOSE SYRUP 20 GM/30 ML CUP PO SCH ×4 (09:20→20:51)
[2017-12-31] MEDS: POLYETHYLENE GLYCOL 17 GM PKG PO SCH ×2 (09:21→20:51)
[2017-12-31] MEDS: RIFAXIMIN 550 MG TAB PO SCH ×2 (09:21→20:50)
--- NOTE | 2017-12-31 12:59 | HHI.GIFU ---
Subjective Remarks Pt resting in bed Opens eyes to verbal stimuli Not answering questions Objective Vitals I&O Vital Signs Date Time Temp Pulse Resp B/P (MAP) Pulse Ox O2 Delivery O2 Flow Rate FiO2 12/31/17 09:23 18 12/31/17 08:00 98.6 93 18 108/52 (70) 94 12/31/17 04:00 98.1 92 20 109/60 (76) 97 12/31/17 00:00 99.0 83 20 118/66 (83) 97 12/30/17 20:00 99.1 91 18 108/54 (72) 92 12/30/17 16:00 98.1 86 20 108/58 (75) 90 12/30/17 13:30 18 I/O 12/30/17 12/30/17 12/30/17 12/31/17 12/31/17 12/31/17 07:00 15:00 23:00 07:00 15:00 23:00 Intake Total 100 ml 900 ml 480 ml Output Total 1400 ml 650 ml Balance 100 ml -500 ml -170 ml Intake Oral 900 ml 480 ml IV Total 100 ml Output Urine Total 1400 ml 650 ml # Bowel Movements 1 Laboratory Laboratory Tests Test 12/30/17 16:36 12/30/17 22:30 12/31/17 05:45 12/31/17 09:10 Activated Partial Thromboplast Time 39.1 38.0 128.7 White Blood Count 7.8 Red Blood Count 2.69 Hemoglobin 8.2 Hematocrit 24.5 Mean Corpuscular Volume 91.4 Mean Corpuscular Hemoglobin 30.7 Mean Corpuscular Hemoglobin Concent 33.6 Red Cell Distribution Width 18.3 Platelet Count 152 Mean Platelet Volume 10.0 Neutrophils (%) (Auto) 55.6 Lymphocytes (%) (Auto) 17.5 Monocytes (%) (Auto) 20.1 Eosinophils (%) (Auto) 3.5 Basophils (%) (Auto) 3.3 Neutrophils # (Auto) 4.4 Lymphocytes # (Auto) 1.4 Monocytes # (Auto) 1.6 Eosinophils # (Auto) 0.3 Basophils # (Auto) 0.3 CBC Comment DIFF FINAL Differential Comment Blood Urea Nitrogen 23 Creatinine 0.88 Random Glucose 92 Total Protein 8.5 Albumin 3.2 Calcium Level 8.7 Alkaline Phosphatase 113 Aspartate Amino Transf (AST/SGOT) 46 Alanine Aminotransferase (ALT/SGPT) 15 Total Bilirubin 2.3 Sodium Level 139 Potassium Level 4.4 Chloride Level 106 Carbon Dioxide Level 28.8 Anion Gap 4 Estimat Glomerular Filtration Rate 85 Date/Time Source Procedure Growth Status 12/23/17 18:07 Blood Peripheral Aerobic Blood Culture - Final NO GROWTH IN 5 DAYS Complete 12/23/17 18:07 Blood Peripheral Anaerobic Blood Culture - Final NO GROWTH IN 5 DAYS Complete 12/29/17 05:50 Stool Stool Stool Occult Blood (SANDRA) - Final HEMOCCULT NEGATIVE Complete 12/22/17 21:30 Sputum Endotracheal Gram Stain - Final Complete 12/22/17 21:30 Sputum Culture - Final Beta Strep Not Group A Complete 12/22/17 18:16 Urine Random Urine Urine Culture - Final Escherichia Coli Esbl Positive Multi-Drug Resistant Complete Imaging Last Impressions Abdomen/Pelvis CT 12/30/17 0000 Signed Impressions: Service Date/Time: Saturday, December 30, 2017 23:30 - CONCLUSION: 1. Anasarca with small volume ascites. No dilated loops of bowel observed. 2. Cardiomegaly with moderate pericardial effusion. 3. Small bilateral pleural effusions with associated passive atelectasis. Aakash Gonzalez Jr., MD Abdomen X-Ray 12/30/17 0000 Signed Impressions: Service Date/Time: Saturday, December 30, 2017 11:35 - CONCLUSION: 1. No acute finding is identified within the abdomen. A nonobstructive bowel gas pattern is present. 2. Hepatomegaly. 3. Trace bilateral pleural fluid. Jacinto Nieves MD Chest X-Ray 12/27/17 0600 Signed Impressions: Service Date/Time: Wednesday, December 27, 2017 04:32 - CONCLUSION: Bibasilar consolidation slightly worse. Lines and tubes unchanged. Jacinto Crouch MD Lower Extremity Ultrasound 12/24/17 0000 Signed Impressions: Service Date/Time: Sunday, December 24, 2017 08:58 - CONCLUSION: Deep venous thrombosis extending above the knee as described above. Tre King MD FACR Lung Scan- Nuclear Medicine 12/23/17 0000 Signed Impressions: Service Date/Time: Saturday, December 23, 2017 13:14 - CONCLUSION: 1. A reverse mismatch posteriorly in the left base with increased activity on the perfusion images and no identifiable activity in the left base on the corresponding ventilatory sequence. Findings are probably due to a posterior layering effusion. There may be some fluid in the fissure on the left as well based on the linear perfusion defect posteriorly in the left base. 2. Central trapping possibly representing some degree of COPD. 3. No scintigraphic findings of pulmonary embolus. Pj Laboy MD Abdomen Ultrasound 12/23/17 0000 Signed Impressions: Service Date/Time: Saturday, December 23, 2017 08:44 - CONCLUSION: 1. Liver appears somewhat prominent but otherwise sonographically intact. There is some free fluid along the hepatic convexity. 2. Cholelithiasis with probable associated gallbladder sludge. 3. Due to the patient's current clinical condition and the fact they were restrained, limited examination of the additional abdominal viscera. Pancreas is obscured by overlying bowel gas. Left kidney, aorta and IVC are poorly visualized. Pj Laboy MD Chest CT 12/22/17 0000 Signed Impressions: Service Date/Time: December 19:57 - CONCLUSION: 1. Moderate cardiomegaly with moderate pericardial effusion. 2. Consolidation and airspace disease in the lower lobes left greater than right as well as more patchy airspace disease in the right lung. 3. Small pleural effusions. 4. Diffuse anasarca with ascites in the upper abdomen. 5. Hepatomegaly and abnormal apparent small high density spleen. 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 There is some free fluid along the hepatic convexity. Cholelithiasis with probably associated gallbladder sludge. Limited exam of the abdominal viscera. Pancreas is obscured by overlying gas. - Hyperammonemia- Ammonia-88 ?Zinc deficiency - Sick cell disease with vaso-occlusive crisis Retic count-6 Abs Retic-158.9 Pt currently on Heparin gtt. Hematology following - S/P plasmapheresis x 2 - Respiratory distress- Pulmonology following (12/31) --> Pt opens eyes to verbal stimuli, not answering questions. She refused her MRCP. CT abdomen and pelvis W/O IV contrast (12/30) --> Anasarca with small volume ascites. No dilated loops of bowel observed. Cardiomegaly with moderate pericardial effusion. Small bilateral pleural effusions. Zinc and ceruloplasmin still pending. Will add full liver work up. Add HFE for elevated ferritin. APTT elevated, Heparin gtt on hold. PLAN - Serum Zinc - Ceruloplasmin pending - HFE and will add full liver work up - Lactulose - Xifaxan - Monitor CBC, CMP - Heparin gtt on hold for elevated APTT - Hematology, pulmonology, ID following - Further recommendations based on findings of above and clinical course Patient has been seen and examined by myself and Dr. Rosenberg and this note is written on his behalf Rani Joseph Dec 31, 2017 12:59
--- NOTE | 2017-12-31 13:01 | PD.CARD.PN ---
Subjective Subjective Remarks sleeping when i went to see her, not easily aroused Objective Medications Current Medications Medications (Trade) Dose Ordered Sig/Earnest Route Start Time Stop Time Status Last Admin (NS Flush) 2 ml UNSCH PRN IV FLUSH 12/22/17 18:45 12/30/17 14:32 (NS Flush) 2 ml BID IV FLUSH 12/22/17 21:00 12/31/17 09:18 (Morphine Inj) 2 mg Q2H PRN IV PUSH 12/22/17 18:45 12/31/17 09:18 (Zofran Inj) 4 mg Q6H PRN IV PUSH 12/22/17 18:45 (Amber-Colace) 1 tab BID PO 12/22/17 21:00 12/31/17 09:20 (Milk Of Magnesia Liq) 30 ml Q12H PRN PO 12/22/17 18:45 (Senokot) 17.2 mg Q12H PRN PO 12/22/17 18:45 (Dulcolax Supp) 10 mg DAILY PRN RECTAL 12/22/17 18:45 (Lactulose Liq) 30 ml DAILY PRN PO 12/22/17 18:45 (Folate) 1 mg DAILY PO 12/23/17 09:00 12/31/17 09:20 (Tears Naturale Opth Soln) 1 drop Q8HR EACH EYE 12/23/17 22:00 12/31/17 06:00 (Prevacid Odt) 30 mg DAILY NG 12/24/17 09:00 12/31/17 09:00 (Albuterol Neb) 2.5 mg Q2HR NEB PRN NEB 12/23/17 15:30 12/30/17 09:57 (Tylenol 650 Mg/ 20 ml Liq) 650 mg Q6H PRN PO 12/23/17 15:45 (D50w (Vial) Inj) 50 ml UNSCH PRN IV PUSH 12/23/17 15:45 (Glucagon Inj) 1 mg UNSCH PRN OTHER 12/23/17 15:45 (NovoLOG SUPPLEMENTAL SCALE) 1 Q6HR SQ 12/23/17 18:00 12/26/17 12:00 Heparin Sodium/ Dextrose 250 ml @ 18 mls/hr TITRATE PRN IV 12/24/17 08:45 12/31/17 00:01 (Miralax) 17 gm BID PO 12/24/17 09:00 12/31/17 09:21 (Lactulose Liq) 30 ml QID PO 12/24/17 13:00 12/31/17 09:20 (NS Flush) UNSCH PRN IV FLUSH 12/24/17 12:45 (Heparin Inj) UNSCH PRN IV FLUSH 12/24/17 12:45 (Heparin Inj) 10,000 units [employer]ANS PRN IV 12/25/17 09:45 (Heparin Inj) 5,000 units UNSCH PRN IV FLUSH 12/25/17 10:00 (Heparin Inj) 1,000 units UNSCH PRN IV FLUSH 12/25/17 10:00 (Benadryl Inj) 25 mg UNSCH PRN IV PUSH 12/26/17 10:15 (Heparin Inj) 5,000 units UNSCH PRN IV FLUSH 12/26/17 10:15 (Heparin Inj) 1,000 units UNSCH PRN IV FLUSH 12/26/17 10:15 (Gentamicin Inj) 20 mg UNSCH PRN IV FLUSH 12/26/17 12:30 Ertapenem 1000 mg/ Sodium Chloride 100 ml @ 200 mls/hr Q24H IV 12/27/17 13:00 12/30/17 12:30 ([place] 7.5-325 Mg) 1 tab Q6H PRN PO 12/27/17 18:00 12/30/17 12:30 (Xifaxan) 550 mg BID PO 12/30/17 21:00 12/31/17 09:21 (Demadex) 20 mg DAILY PO 12/30/17 17:00 12/31/17 09:20 (KCl) 20 meq Q12HR PO 12/30/17 21:00 12/31/17 09:20 Vital Signs / I&O Vital Signs Date Time Temp Pulse Resp B/P (MAP) Pulse Ox O2 Delivery O2 Flow Rate FiO2 12/31/17 09:23 18 12/31/17 08:00 98.6 93 18 108/52 (70) 94 12/31/17 04:00 98.1 92 20 109/60 (76) 97 12/31/17 00:00 99.0 83 20 118/66 (83) 97 12/30/17 20:00 99.1 91 18 108/54 (72) 92 12/30/17 16:00 98.1 86 20 108/58 (75) 90 12/30/17 13:30 18 I/O 12/30/17 12/30/17 12/30/17 12/31/17 12/31/17 12/31/17 06:59 14:59 22:59 06:59 14:59 22:59 Intake Total 100 ml 900 ml 480 ml Output Total 1400 ml 650 ml Balance 100 ml -500 ml -170 ml Intake Oral 900 ml 480 ml IV Total 100 ml Output Urine Total 1400 ml 650 ml # Bowel Movements 1 Physical Exam Exam unchanged from yesterday - [facility] Laboratory Laboratory Tests Test 12/30/17 16:36 12/30/17 22:30 12/31/17 05:45 12/31/17 09:10 Activated Partial Thromboplast Time 39.1 SEC 38.0 SEC 128.7 SEC White Blood Count 7.8 TH/MM3 Red Blood Count 2.69 MIL/MM3 Hemoglobin 8.2 GM/DL Hematocrit 24.5 % Mean Corpuscular Volume 91.4 FL Mean Corpuscular Hemoglobin 30.7 PG Mean Corpuscular Hemoglobin Concent 33.6 % Red Cell Distribution Width 18.3 % Platelet Count 152 TH/MM3 Mean Platelet Volume 10.0 FL Neutrophils (%) (Auto) 55.6 % Lymphocytes (%) (Auto) 17.5 % Monocytes (%) (Auto) 20.1 % Eosinophils (%) (Auto) 3.5 % Basophils (%) (Auto) 3.3 % Neutrophils # (Auto) 4.4 TH/MM3 Lymphocytes # (Auto) 1.4 TH/MM3 Monocytes # (Auto) 1.6 TH/MM3 Eosinophils # (Auto) 0.3 TH/MM3 Basophils # (Auto) 0.3 TH/MM3 CBC Comment DIFF FINAL Differential Comment Blood Urea Nitrogen 23 MG/DL Creatinine 0.88 MG/DL Random Glucose 92 MG/DL Total Protein 8.5 GM/DL Albumin 3.2 GM/DL Calcium Level 8.7 MG/DL Alkaline Phosphatase 113 U/L Aspartate Amino Transf (AST/SGOT) 46 U/L Alanine Aminotransferase (ALT/SGPT) 15 U/L Total Bilirubin 2.3 MG/DL Sodium Level 139 MEQ/L Potassium Level 4.4 MEQ/L Chloride Level 106 MEQ/L Carbon Dioxide Level 28.8 MEQ/L Anion Gap 4 MEQ/L Estimat Glomerular Filtration Rate 85 ML/MIN Imaging Last 48 hours Impressions Abdomen/Pelvis CT 12/30/17 0000 Signed Impressions: Service Date/Time: Saturday, December 30, 2017 23:30 - CONCLUSION: 1. Anasarca with small volume ascites. No dilated loops of bowel observed. 2. Cardiomegaly with moderate pericardial effusion. 3. Small bilateral pleural effusions with associated passive atelectasis. Aakash Gonzalez Jr., MD Abdomen X-Ray 12/30/17 0000 Signed Impressions: Service Date/Time: Saturday, December 30, 2017 11:35 - CONCLUSION: 1. No acute finding is identified within the abdomen. A nonobstructive bowel gas pattern is present. 2. Hepatomegaly. 3. Trace bilateral pleural fluid. Jacinto Nieves MD Assessment and Plan Problem List: (1) Hepatic encephalopathy ICD Codes: K72.90 - Hepatic failure, unspecified without coma (2) Right heart failure ICD Codes: I50.810 - Right heart failure, unspecified (3) Anasarca ICD Codes: R60.1 - Generalized edema Plan: she has begun to Manuel Flores MD Dec 31, 2017 13:01
--- NOTE | 2017-12-31 13:03 | HHI.PR ---
Subjective Remarks Follow up anasarca, sickle cell disease. Patient is confused today. Still with swelling. Objective Vitals Vital Signs Date Time Temp Pulse Resp B/P (MAP) Pulse Ox O2 Delivery O2 Flow Rate FiO2 12/31/17 09:23 18 12/31/17 08:00 98.6 93 18 108/52 (70) 94 12/31/17 04:00 98.1 92 20 109/60 (76) 97 12/31/17 00:00 99.0 83 20 118/66 (83) 97 12/30/17 20:00 99.1 91 18 108/54 (72) 92 12/30/17 16:00 98.1 86 20 108/58 (75) 90 12/30/17 13:30 18 I/O 12/30/17 12/30/17 12/30/17 12/31/17 12/31/17 12/31/17 07:00 15:00 23:00 07:00 15:00 23:00 Intake Total 100 ml 900 ml 480 ml Output Total 1400 ml 650 ml Balance 100 ml -500 ml -170 ml Intake Oral 900 ml 480 ml IV Total 100 ml Output Urine Total 1400 ml 650 ml # Bowel Movements 1 Result Diagram: 12/31/17 0545 12/31/17 0545 Imaging Last Impressions Abdomen/Pelvis CT 12/30/17 0000 Signed Impressions: Service Date/Time: Saturday, December 30, 2017 23:30 - CONCLUSION: 1. Anasarca with small volume ascites. No dilated loops of bowel observed. 2. Cardiomegaly with moderate pericardial effusion. 3. Small bilateral pleural effusions with associated passive atelectasis. Aakash Gonzalez Jr., MD Abdomen X-Ray 12/30/17 0000 Signed Impressions: Service Date/Time: Saturday, December 30, 2017 11:35 - CONCLUSION: 1. No acute finding is identified within the abdomen. A nonobstructive bowel gas pattern is present. 2. Hepatomegaly. 3. Trace bilateral pleural fluid. Jacinto Nieves MD Chest X-Ray 12/27/17 0600 Signed Impressions: Service Date/Time: Wednesday, December 27, 2017 04:32 - CONCLUSION: Bibasilar consolidation slightly worse. Lines and tubes unchanged. Jacinto Crocuh MD Lower Extremity Ultrasound 12/24/17 0000 Signed Impressions: Service Date/Time: Sunday, December 24, 2017 08:58 - CONCLUSION: Deep venous thrombosis extending above the knee as described above. Tre King MD FACR Lung Scan-V Nuclear Medicine 12/23/17 0000 Signed Impressions: Service Date/Time: Saturday, December 23, 2017 13:14 - CONCLUSION: 1. A reverse mismatch posteriorly in the left base with increased activity on the perfusion images and no identifiable activity in the left base on the corresponding ventilatory sequence. Findings are probably due to a posterior layering effusion. There may be some fluid in the fissure on the left as well based on the linear perfusion defect posteriorly in the left base. 2. Central trapping possibly representing some degree of COPD. 3. No scintigraphic findings of pulmonary embolus. Pj Laboy MD Abdomen Ultrasound 12/23/17 0000 Signed Impressions: Service Date/Time: Saturday, December 23, 2017 08:44 - CONCLUSION: 1. Liver appears somewhat prominent but otherwise sonographically intact. There is some free fluid along the hepatic convexity. 2. Cholelithiasis with probable associated gallbladder sludge. 3. Due to the patient's current clinical condition and the fact they were restrained, limited examination of the additional abdominal viscera. Pancreas is obscured by overlying bowel gas. Left kidney, aorta and IVC are poorly visualized. Pj Laboy MD Chest CT 12/22/17 0000 Signed Impressions: Service Date/Time: December 19:57 - CONCLUSION: 1. Moderate cardiomegaly with moderate pericardial effusion. 2. Consolidation and airspace disease in the lower lobes left greater than right as well as more patchy airspace disease in the right lung. 3. Small pleural effusions. 4. Diffuse anasarca with ascites in the upper abdomen. 5. Hepatomegaly and abnormal apparent small high density spleen. Zay Barakat MD Objective Remarks General: No acute distress. Heart: Regular rate and rhythm. No murmur. Lungs: Diminished breath sounds bilaterally. No wheezes/rhonchi noted. Breathing is nonlabored. Abdomen: Soft, nontender, nondistended. Extremities: 2+ lower extremity edema. Edema extends to lower abdomen. Psych: Sleeping, but awakens to verbal stimuli. Confused. Neuro: Speech is quiet. Procedures 12/25-plasmapheresis 12/26-plasmapheresis Urinary Catheter: Yes Assessment to: Continue [place] insert reason: Obstruction/Retention Vascular Central Line Catheter: No A/P Assessment and Plan 1. Acute hypoxic hypercapnic respiratory failure: Extubated 12/27/17. Appreciate pulmonology recommendations. Continue bronchodilators, supplemental oxygen. Currently on 3L. 2. Chronic diastolic heart failure, small pericardial effusion without evidence of tamponade: 2D echocardiogram showed ejection fraction 55-60%. Right ventricle is moderately dilated. Right atrial size is severely dilated. Severe tricuspid regurgitation and trace mitral valve regurgitation noted. Inferior vena cava dilated. IV fluids discontinued. Appreciate cardiology recommendations. Continue diuresis. 3. Chronic pain: On chronic oxycodone at home. Fentanyl patch discontinued. Morphine as needed. 4. Sickle cell disease with vaso-occlusive crisis: Appreciate hematology recommendations. Continue folic acid. Status post plasmapheresis. Monitor H&H , LDH, reticulocyte count. 5. Right lower extremity DVT: IVC filter placed, unknown date. Continue heparin drip. Will need oral anticoagulation. 6. UTI: Urine culture growing ESBL E. coli. Appreciate infectious disease recommendations. Continue ertapenem. 7. Acute kidney injury: Improved. Monitor BUN/creatinine closely while on diuretics. 8. Elevated total bilirubin: Imaging shows hepatomegaly, sludge in gallbladder , ascites. Appreciate GI recommendations. Patient refused MRCP. CT abdomen done. 9. GI prophylaxis: Prevacid. 10. Schizophrenia, depression: Continue home medications, citalopram and paliperidone. 11. Encephalopathy: Serum ammonia is elevated. Continue lactulose, rifaximin. She is more confused today. Check head CT. Discharge Planning Pending further clinical improvement. Negro Dyer MD Dec 31, 2017 13:03
[2017-12-31] MEDS: ERTAPENEM INJ 1,000 MG in SODIUM CHLORIDE 0.9% INJ 100 ML IV SCH (13:26)
[2017-12-31] MEDS ORDERED: REMOVE OLD DURAGESIC (FENTANYL) PATCH T-DERMAL SCH (14:00)
[2017-12-31] MEDS: SODIUM CHLORIDE 0.9% FLUSH 10 ML FLUSH IV FLUSH PRN (16:14)
--- NOTE | 2017-12-31 17:11 | RADRPT ---
EXAM DATE/TIME: 12/31/2017 16:38 [place] COMPARISON: No previous studies available for comparison. INDICATIONS : Altered mental status. RADIATION DOSE: 40.79 CTDIvol (mGy) MEDICAL HISTORY : None SURGICAL HISTORY : None. ENCOUNTER: Initial ACUITY: 1 day PAIN SCALE: 5/10 LOCATION: cranial TECHNIQUE: Multiple contiguous axial images were obtained of the head. Using automated exposure control and adj ustment of the mA and/or kV according to patient size, radiation dose was kept as low as reasonably a chievable to obtain optimal diagnostic quality images. DICOM format image data is available electro nically for review and comparison. FINDINGS: CEREBRUM: The ventricles are normal for age. No evidence of midline shift, mass lesion, hemorrhage or acute in farction. No extra-axial fluid collections are seen. POSTERIOR FOSSA: The cerebellum and brainstem are intact. The 4th ventricle is midline. The cerebellopontine angle i s unremarkable. EXTRACRANIAL: The visualized portion of the orbits is intact. Isolated mucoperiosteal thickening in a posterior eth moid air cell on the right SKULL: The calvaria is intact. No evidence of skull fracture. CONCLUSION: 1. Isolated chronic sinusitis in a posterior right ethmoid air cells. 2. Otherwise negative. Pj Laboy MD on December 31, 2017 at 17:07 Board Certified Radiologist. This report was verified electronically.
[2017-12-31 17:55] LABS: CERULOPLASMIN 28 mg/dL (18-53)
[2018-01-01] VITALS (9 sets, daily range): BP systolic 95–124; BP diastolic 60–68; PULSE 79–103; RESP 18–20; TEMP 97.6–98.6; O2SAT 93–100
[2018-01-01] MEDS: HEPARIN-D5W 25,000 U/250 ML 250 ML IV PRN (00:33)
[2018-01-01] MEDS: ARTIFICIAL TEARS OPTH SOLN 15 ML BTL EACH EYE SCH ×3 (05:01→20:52)
[2018-01-01 05:28] LABS: AUTOMATED NEUTROPHIL # 5.5 TH/MM3 (1.8-7.7); BASOPHIL # 0.3 TH/MM3 (0-0.2); BASOPHIL % 3.6 % (0.0-2.0); EOSINOPHIL # 0.4 TH/MM3 (0-0.4); EOSINOPHIL % 4.5 % (0.0-4.0); HEMATOCRIT 24.1 % (35.0-46.0); LYMPH % 14.4 % (9.0-44.0); LYMPHOCYTE # 1.3 TH/MM3 (1.0-4.8); MEAN CELL VOLUME 91.9 FL (80.0-100.0); MEAN CORPUSCULAR HEMOGLOBIN 30.6 PG (27.0-34.0); MEAN CORPUSCULAR HGB CONC 33.3 % (32.0-36.0); MONO % 15.3 % (0.0-8.0); MONOCYTE # 1.4 TH/MM3 (0-0.9); NEUT % 62.2 % (16.0-70.0); PLATELET COUNT 182 TH/MM3 (150-450); RED BLOOD COUNT 2.62 MIL/MM3 (4.00-5.30); RED CELL DISTRIBUTION WIDTH 18.3 % (11.6-17.2); WHITE BLOOD COUNT 8.9 TH/MM3 (4.0-11.0)
[2018-01-01 05:45] LABS: ALBUMIN 3.1 GM/DL (3.4-5.0); ALT (GPT) 15 U/L (10-53); AST (GOT) 44 U/L (15-37); BICARBONATE 28.7 MEQ/L (21.0-32.0); BLOOD UREA NITROGEN 23 MG/DL (7-18); CALCIUM 8.5 MG/DL (8.5-10.1); CHLORIDE 106 MEQ/L (98-107); CREATININE 0.89 MG/DL (0.50-1.00); GLOMERULAR FILTRATION RATE 84 ML/MIN (>89); GLUCOSE,RANDOM 93 MG/DL (74-106); MAGNESIUM 1.8 MG/DL (1.5-2.5); SODIUM (NA) 140 MEQ/L (136-145)
[2018-01-01 05:48] LABS: ALKALINE PHOSPHATASE 128 U/L (45-117); TOTAL BILIRUBIN ADULT 2.5 MG/DL (0.2-1.0); TOTAL PROTEIN 8.4 GM/DL (6.4-8.2)
[2018-01-01] MEDS: INSULIN ASPART SUPPLEMENTAL SCALE SQ SCH ×4 (06:00→22:45)
[2018-01-01 08:28] LABS: INTERNATIONAL NORMALIZED RATIO 1.4 RATIO; PROTHROMBIN TIME - PATIENT 13.8 SEC (9.8-11.6)
[2018-01-01] MEDS: SODIUM CHLORIDE 0.9% FLUSH 10 ML FLUSH IV FLUSH SCH ×2 (09:00→20:52)
[2018-01-01] MEDS: POLYETHYLENE GLYCOL 17 GM PKG PO SCH ×2 (10:00→20:51)
[2018-01-01] MEDS: LACTULOSE SYRUP 20 GM/30 ML CUP PO SCH ×4 (10:01→20:52)
[2018-01-01] MEDS: DOCUSATE SODIUM 50 MG/SENNA 8.6 MG TAB PO SCH ×2 (10:01→20:52)
[2018-01-01] MEDS: TORSEMIDE 20 MG TAB PO SCH (10:02)
[2018-01-01] MEDS: LANSOPRAZOLE SOLUTAB 30 MG TAB NG SCH (10:02)
[2018-01-01] MEDS: RIFAXIMIN 550 MG TAB PO SCH ×2 (10:02→20:52)
[2018-01-01] MEDS: FOLIC ACID 1 MG TAB PO SCH (10:02)
[2018-01-01] MEDS: POTASSIUM CHLORIDE 20 MEQ CONTROLLED RELEASE TAB PO SCH ×2 (10:02→20:51)
[2018-01-01] MEDS: MORPHINE SULFATE 4 MG/ML INJ IV PUSH PRN ×4 (10:03→21:00)
--- NOTE | 2018-01-01 14:08 | HHI.GIFU ---
Subjective Remarks Pt much more alert today Answers questions appropriately Denies nausea, vomiting, abdominal pain (Rani Joseph) Objective Vitals I&O Vital Signs Date Time Temp Pulse Resp B/P (MAP) Pulse Ox O2 Delivery O2 Flow Rate FiO2 01/01/18 10:07 95 Nasal Cannula 3.00 01/01/18 08:00 98.4 91 18 95/60 (72) 95 01/01/18 07:59 90 01/01/18 04:00 97.6 91 20 124/68 (86) 100 01/01/18 00:00 98.2 103 20 117/64 (81) 100 12/31/17 20:00 98.7 92 20 110/58 (75) 100 12/31/17 19:42 93 12/31/17 17:50 94 Nasal Cannula 3.00 12/31/17 16:18 18 12/31/17 16:00 98.2 96 19 109/59 (76) 94 I/O 12/31/17 12/31/17 12/31/17 01/01/18 01/01/18 01/01/18 07:00 15:00 23:00 07:00 15:00 23:00 Intake Total 480 ml 480 ml 240 ml Output Total 650 ml 2000 ml 600 ml Balance -170 ml -1520 ml -360 ml Intake Oral 480 ml 480 ml 240 ml Output Urine Total 650 ml 2000 ml 600 ml # Bowel Movements 1 1 Laboratory Laboratory Tests Test 12/31/17 14:30 12/31/17 21:23 01/01/18 05:00 01/01/18 07:43 Hepatitis A IgM Antibody NONREACTIVE Hepatitis B Surface Antigen NONREACTIVE Hepatitis B Core IgM Antibody NONREACTIVE Hepatitis C IgG Antibody NONREACTIVE Activated Partial Thromboplast Time 34.5 33.4 White Blood Count 8.9 Red Blood Count 2.62 Hemoglobin 8.0 Hematocrit 24.1 Mean Corpuscular Volume 91.9 Mean Corpuscular Hemoglobin 30.6 Mean Corpuscular Hemoglobin Concent 33.3 Red Cell Distribution Width 18.3 Platelet Count 182 Mean Platelet Volume 10.0 Neutrophils (%) (Auto) 62.2 Lymphocytes (%) (Auto) 14.4 Monocytes (%) (Auto) 15.3 Eosinophils (%) (Auto) 4.5 Basophils (%) (Auto) 3.6 Neutrophils # (Auto) 5.5 Lymphocytes # (Auto) 1.3 Monocytes # (Auto) 1.4 Eosinophils # (Auto) 0.4 Basophils # (Auto) 0.3 CBC Comment DIFF FINAL Differential Comment Blood Urea Nitrogen 23 Creatinine 0.89 Random Glucose 93 Total Protein 8.4 Albumin 3.1 Calcium Level 8.5 Magnesium Level 1.8 Alkaline Phosphatase 128 Aspartate Amino Transf (AST/SGOT) 44 Alanine Aminotransferase (ALT/SGPT) 15 Total Bilirubin 2.5 Sodium Level 140 Potassium Level 4.4 Chloride Level 106 Carbon Dioxide Level 28.7 Anion Gap 5 Estimat Glomerular Filtration Rate 84 Prothrombin Time 13.8 Prothromb Time International Ratio 1.4 Date/Time Source Procedure Growth Status 12/23/17 18:07 Blood Peripheral Aerobic Blood Culture - Final NO GROWTH IN 5 DAYS Complete 12/23/17 18:07 Blood Peripheral Anaerobic Blood Culture - Final NO GROWTH IN 5 DAYS Complete 12/29/17 05:50 Stool Stool Stool Occult Blood (SANDRA) - Final HEMOCCULT NEGATIVE Complete 12/22/17 21:30 Sputum Endotracheal Gram Stain - Final Complete 12/22/17 21:30 Sputum Culture - Final Beta Strep Not Group A Complete 12/22/17 18:16 Urine Random Urine Urine Culture - Final Escherichia Coli Esbl Positive Multi-Drug Resistant Complete Imaging Last Impressions Head CT 12/31/17 0000 Signed Impressions: Service Date/Time: Sunday, December 31, 2017 16:38 - CONCLUSION: 1. Isolated chronic sinusitis in a posterior right ethmoid air cells. 2. Otherwise negative. Pj Laboy MD Abdomen/Pelvis CT 12/30/17 0000 Signed Impressions: Service Date/Time: Saturday, December 30, 2017 23:30 - CONCLUSION: 1. Anasarca with small volume ascites. No dilated loops of bowel observed. 2. Cardiomegaly with moderate pericardial effusion. 3. Small bilateral pleural effusions with associated passive atelectasis. Aakash Gonzalez Jr., MD Abdomen X-Ray 12/30/17 0000 Signed Impressions: Service Date/Time: Saturday, December 30, 2017 11:35 - CONCLUSION: 1. No acute finding is identified within the abdomen. A nonobstructive bowel gas pattern is present. 2. Hepatomegaly. 3. Trace bilateral pleural fluid. Jacinto Nieves MD Chest X-Ray 12/27/17 0600 Signed Impressions: Service Date/Time: Wednesday, December 27, 2017 04:32 - CONCLUSION: Bibasilar consolidation slightly worse. Lines and tubes unchanged. Jacinto Crouch MD Lower Extremity Ultrasound 12/24/17 0000 Signed Impressions: Service Date/Time: Sunday, December 24, 2017 08:58 - CONCLUSION: Deep venous thrombosis extending above the knee as described above. Tre King MD FACR Lung Scan-VQ Nuclear Medicine 12/23/17 0000 Signed Impressions: Service Date/Time: Saturday, December 23, 2017 13:14 - CONCLUSION: 1. A reverse mismatch posteriorly in the left base with increased activity on the perfusion images and no identifiable activity in the left base on the corresponding ventilatory sequence. Findings are probably due to a posterior layering effusion. There may be some fluid in the fissure on the left as well based on the linear perfusion defect posteriorly in the left base. 2. Central trapping possibly representing some degree of COPD. 3. No scintigraphic findings of pulmonary embolus. Pj Laboy MD Abdomen Ultrasound 12/23/17 0000 Signed Impressions: Service Date/Time: Saturday, December 23, 2017 08:44 - CONCLUSION: 1. Liver appears somewhat prominent but otherwise sonographically intact. There is some free fluid along the hepatic convexity. 2. Cholelithiasis with probable associated gallbladder sludge. 3. Due to the patient's current clinical condition and the fact they were restrained, limited examination of the additional abdominal viscera. Pancreas is obscured by overlying bowel gas. Left kidney, aorta and IVC are poorly visualized. Pj Laboy MD Chest CT 12/22/17 0000 Signed Impressions: Service Date/Time: December 19:57 - CONCLUSION: 1. Moderate cardiomegaly with moderate pericardial effusion. 2. Consolidation and airspace disease in the lower lobes left greater than right as well as more patchy airspace disease in the right lung. 3. Small pleural effusions. 4. Diffuse anasarca with ascites in the upper abdomen. 5. Hepatomegaly and abnormal apparent small high density spleen. 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 There is some free fluid along the hepatic convexity. Cholelithiasis with probably associated gallbladder sludge. Limited exam of the abdominal viscera. Pancreas is obscured by overlying gas. Liver LYONS: Ceruloplasmin-28 Hepatitis panel negative. Iron-1189 TIBC-192 Ferritin-2893 KEL, AMA, ASMA, A1A, HFE pending - Hyperammonemia- Ammonia-88 ?Zinc deficiency - Sick cell disease with vaso-occlusive crisis Retic count-6 Abs Retic-158.9 Pt currently on Heparin gtt. Hematology following - S/P plasmapheresis x 2 - Respiratory distress- Pulmonology following (12/31) --> Pt opens eyes to verbal stimuli, not answering questions. She refused her MRCP. CT abdomen and pelvis W/O IV contrast (12/30) --> Anasarca with small volume ascites. No dilated loops of bowel observed. Cardiomegaly with moderate pericardial effusion. Small bilateral pleural effusions. Zinc and ceruloplasmin still pending. Will add full liver work up. Add HFE for elevated ferritin. APTT elevated, Heparin gtt on hold. (01/01) Pt much more alert today, answers questions appropriately. Zinc and HFE pending. Ceruloplasmin-28. Heparin gtt restarted PLAN - Serum Zinc - HFE and will add full liver work up - Lactulose - Xifaxan - Monitor CBC, CMP - Heparin gtt on hold for elevated APTT - Hematology, pulmonology, ID following - Further recommendations based on findings of above and clinical course Patient has been seen and examined by myself and Dr. Rosenberg and this note is written on his behalf (Rani Joseph) Physician Comments Patient seen and examined Agree with above Continue with current supportive care Monitor labs Most likely reason for elevated bilirubin is hemolysis due to sickle cell disease especially that LDH is elevated Most likely reason for elevated ammonia is probably a high cardiac output secondary to hemolysis and anemia Doubt any underlying liver issue at this point we will recheck labs to assess for resolution (Tacos Manzo MD) Rani Joseph Jan 01, 2018 14:08 Tacos Manzo MD Jan 01, 2018 23:31
--- NOTE | 2018-01-01 14:46 | HHI.PR ---
Objective Vitals Vital Signs Date Time Temp Pulse Resp B/P (MAP) Pulse Ox O2 Delivery O2 Flow Rate FiO2 01/01/18 12:00 98.6 92 18 122/64 (83) 94 01/01/18 10:07 95 Nasal Cannula 3.00 01/01/18 08:00 98.4 91 18 95/60 (72) 95 01/01/18 07:59 90 01/01/18 04:00 97.6 91 20 124/68 (86) 100 01/01/18 00:00 98.2 103 20 117/64 (81) 100 12/31/17 20:00 98.7 92 20 110/58 (75) 100 12/31/17 19:42 93 12/31/17 17:50 94 Nasal Cannula 3.00 12/31/17 16:18 18 12/31/17 16:00 98.2 96 19 109/59 (76) 94 I/O 12/31/17 12/31/17 12/31/17 01/01/18 01/01/18 01/01/18 07:00 15:00 23:00 07:00 15:00 23:00 Intake Total 480 ml 480 ml 240 ml Output Total 650 ml 2000 ml 600 ml Balance -170 ml -1520 ml -360 ml Intake Oral 480 ml 480 ml 240 ml Output Urine Total 650 ml 2000 ml 600 ml # Bowel Movements 1 1 Result Diagram: 01/01/18 0500 01/01/18 0500 Objective Remarks General: No acute distress. Heart: Regular rate and rhythm. No murmur. Lungs: Diminished breath sounds bilaterally. No wheezes/rhonchi noted. Breathing is nonlabored. Abdomen: Soft, nontender, nondistended. Extremities: 2+ lower extremity edema. Edema extends to lower abdomen. Psych: Sleeping, but awakens to verbal stimuli. Confused. Neuro: Speech is quiet. Procedures 12/25-plasmapheresis 12/26-plasmapheresis A/P Assessment and Plan 1. Acute hypoxic hypercapnic respiratory failure: Extubated 12/27/17. Appreciate pulmonology recommendations. Continue bronchodilators, supplemental oxygen. Currently on 3L. 2. Chronic diastolic heart failure, small pericardial effusion without evidence of tamponade: 2D echocardiogram showed ejection fraction 55-60%. Right ventricle is moderately dilated. Right atrial size is severely dilated. Severe tricuspid regurgitation and trace mitral valve regurgitation noted. Inferior vena cava dilated. IV fluids discontinued. Appreciate cardiology recommendations. Continue diuresis. 3. Chronic pain: On chronic oxycodone at home. Fentanyl patch discontinued. Morphine as needed. 4. Sickle cell disease with vaso-occlusive crisis: Appreciate hematology recommendations. Continue folic acid. Status post plasmapheresis. Monitor H&H , LDH, reticulocyte count. 5. Right lower extremity DVT: IVC filter placed, unknown date. Discontinue heparin drip. Start Xarelto. 6. UTI: Urine culture growing ESBL E. coli. Appreciate infectious disease recommendations. Continue ertapenem. 7. Acute kidney injury: Improved. Monitor BUN/creatinine closely while on diuretics. 8. Elevated total bilirubin: Imaging shows hepatomegaly, sludge in gallbladder , ascites. Appreciate GI recommendations. Patient refused MRCP. CT abdomen done. 9. GI prophylaxis: Prevacid. 10. Schizophrenia, depression: Continue home medications, citalopram and paliperidone. 11. Encephalopathy: Serum ammonia is elevated. Continue lactulose, rifaximin. She is less confused today. Head CT negative. Discharge Planning Pending further clinical improvement. Negro Dyer MD Jan 01, 2018 14:46
[2018-01-01] MEDS: ERTAPENEM INJ 1,000 MG in SODIUM CHLORIDE 0.9% INJ 100 ML IV SCH (15:32)
[2018-01-01] MEDS: HYDROXYUREA 500 MG CAP PO SCH (15:39)
[2018-01-01] MEDS: RIVAROXABAN 20 MG TAB PO SCH (15:39)
[2018-01-01] MEDS: PALIPERIDONE ER 3 MG TAB PO SCH (15:40)
[2018-01-01] MEDS: CITALOPRAM HYDROBROMIDE 20 MG TAB PO SCH (15:40)
[2018-01-01] MEDS: BENZTROPINE MESYLATE 1 MG TAB PO SCH ×2 (15:40→20:52)
[2018-01-01 17:19] LABS: ALBUMIN 3.1 GM/DL (3.4-5.0); DIRECT BILIRUBIN ADULT 1.5 MG/DL (0.0-0.2)
[2018-01-01 17:20] LABS: TOTAL BILIRUBIN ADULT 2.5 MG/DL (0.2-1.0); TOTAL PROTEIN 8.5 GM/DL (6.4-8.2)
[2018-01-02] VITALS (7 sets, daily range): BP systolic 95–118; BP diastolic 58–71; PULSE 72–97; RESP 18–24; TEMP 97.6–99.2; O2SAT 89–97
[2018-01-02] MEDS: MORPHINE SULFATE 4 MG/ML INJ IV PUSH PRN ×4 (01:52→22:03)
[2018-01-02 05:44] LABS: BASOPHIL % 0.5 % (0.0-2.0); EOSINOPHIL # 0.4 TH/MM3 (0-0.4); EOSINOPHIL % 4.3 % (0.0-4.0); HEMATOCRIT 23.9 % (35.0-46.0); HEMOGLOBIN 7.8 GM/DL (11.6-15.3); LYMPH % 13.2 % (9.0-44.0); LYMPHOCYTE # 1.1 TH/MM3 (1.0-4.8); MEAN CELL VOLUME 92.3 FL (80.0-100.0); MEAN CORPUSCULAR HEMOGLOBIN 30.2 PG (27.0-34.0); MEAN CORPUSCULAR HGB CONC 32.7 % (32.0-36.0); MEAN PLATELET VOLUME 9.9 FL (7.0-11.0); MONO % 13.1 % (0.0-8.0); MONOCYTE # 1.1 TH/MM3 (0-0.9); NEUT % 68.9 % (16.0-70.0); PLATELET COUNT 214 TH/MM3 (150-450); RED BLOOD COUNT 2.59 MIL/MM3 (4.00-5.30); RED CELL DISTRIBUTION WIDTH 18.2 % (11.6-17.2); WHITE BLOOD COUNT 8.6 TH/MM3 (4.0-11.0)
[2018-01-02] MEDS: INSULIN ASPART SUPPLEMENTAL SCALE SQ SCH ×3 (06:00→17:52)
[2018-01-02] MEDS: ARTIFICIAL TEARS OPTH SOLN 15 ML BTL EACH EYE SCH ×3 (06:00→22:00)
[2018-01-02 06:10] LABS: BICARBONATE 31.3 MEQ/L (21.0-32.0); CALCIUM 8.9 MG/DL (8.5-10.1); CREATININE 0.79 MG/DL (0.50-1.00)
[2018-01-02] MEDS: SODIUM CHLORIDE 0.9% FLUSH 10 ML FLUSH IV FLUSH SCH ×2 (08:10→22:03)
[2018-01-02] MEDS: LACTULOSE SYRUP 20 GM/30 ML CUP PO SCH ×4 (08:12→22:00)
[2018-01-02] MEDS: BENZTROPINE MESYLATE 1 MG TAB PO SCH ×2 (08:13→22:00)
[2018-01-02] MEDS: PALIPERIDONE ER 3 MG TAB PO SCH (08:13)
[2018-01-02] MEDS: RIFAXIMIN 550 MG TAB PO SCH ×2 (08:13→22:00)
[2018-01-02] MEDS: DOCUSATE SODIUM 50 MG/SENNA 8.6 MG TAB PO SCH ×2 (08:13→21:00)
[2018-01-02] MEDS: FOLIC ACID 1 MG TAB PO SCH (08:13)
[2018-01-02] MEDS: RIVAROXABAN 20 MG TAB PO SCH (08:13)
[2018-01-02] MEDS: TORSEMIDE 20 MG TAB PO SCH (08:13)
[2018-01-02] MEDS: POTASSIUM CHLORIDE 20 MEQ CONTROLLED RELEASE TAB PO SCH ×2 (08:14→22:01)
[2018-01-02] MEDS: CITALOPRAM HYDROBROMIDE 20 MG TAB PO SCH (08:14)
[2018-01-02] MEDS: POLYETHYLENE GLYCOL 17 GM PKG PO SCH ×2 (08:14→21:00)
[2018-01-02] MEDS: LANSOPRAZOLE SOLUTAB 30 MG TAB NG SCH (08:15)
[2018-01-02] MEDS: HYDROXYUREA 500 MG CAP PO SCH (08:16)
[2018-01-02] MEDS: ACETAMINOPHEN/HYDROcodone 325 MG/7.5 MG TAB PO PRN (12:57)
[2018-01-02] MEDS: ERTAPENEM INJ 1,000 MG in SODIUM CHLORIDE 0.9% INJ 100 ML IV SCH (12:58)
--- NOTE | 2018-01-02 14:20 | HHI.GIFU ---
Subjective Remarks Resting in the bed, pizza at the bedside Current hemoglobin 7.8 Abdomen taut, mild discomfort with light palpation Asking for pain meds Afebrile (Symone Simmons) Objective Vitals I&O Vital Signs Date Time Temp Pulse Resp B/P (MAP) Pulse Ox O2 Delivery O2 Flow Rate FiO2 01/02/18 12:00 98.2 90 20 118/60 (79) 97 01/02/18 09:30 91 110/63 (79) 01/02/18 08:15 18 01/02/18 08:00 98.1 95 18 95/58 (70) 89 01/02/18 00:00 97.6 72 20 100/61 (74) 95 01/01/18 20:00 98.0 79 20 109/65 (80) 94 01/01/18 16:00 97.8 81 18 103/60 (74) 93 I/O 01/01/18 01/01/18 01/01/18 01/02/18 01/02/18 01/02/18 06:59 14:59 22:59 06:59 14:59 22:59 Intake Total 240 ml 640 ml Output Total 600 ml 2100 ml 2500 ml Balance -360 ml -1460 ml -2500 ml Intake Oral 240 ml 640 ml Output Urine Total 600 ml 2100 ml 2500 ml # Bowel Movements 2 1 Laboratory Laboratory Tests Test 01/02/18 05:30 White Blood Count 8.6 Red Blood Count 2.59 Hemoglobin 7.8 Hematocrit 23.9 Mean Corpuscular Volume 92.3 Mean Corpuscular Hemoglobin 30.2 Mean Corpuscular Hemoglobin Concent 32.7 Red Cell Distribution Width 18.2 Platelet Count 214 Mean Platelet Volume 9.9 Neutrophils (%) (Auto) 68.9 Lymphocytes (%) (Auto) 13.2 Monocytes (%) (Auto) 13.1 Eosinophils (%) (Auto) 4.3 Basophils (%) (Auto) 0.5 Neutrophils # (Auto) 6.0 Lymphocytes # (Auto) 1.1 Monocytes # (Auto) 1.1 Eosinophils # (Auto) 0.4 Basophils # (Auto) 0.0 CBC Comment DIFF FINAL Differential Comment Blood Urea Nitrogen 23 Creatinine 0.79 Random Glucose 83 Calcium Level 8.9 Sodium Level 140 Potassium Level 4.4 Chloride Level 104 Carbon Dioxide Level 31.3 Anion Gap 5 Estimat Glomerular Filtration Rate 96 Ammonia 68 Date/Time Source Procedure Growth Status 12/23/17 18:07 Blood Peripheral Aerobic Blood Culture - Final NO GROWTH IN 5 DAYS Complete 12/23/17 18:07 Blood Peripheral Anaerobic Blood Culture - Final NO GROWTH IN 5 DAYS Complete 12/29/17 05:50 Stool Stool Stool Occult Blood (SANDRA) - Final HEMOCCULT NEGATIVE Complete 12/22/17 21:30 Sputum Endotracheal Gram Stain - Final Complete 12/22/17 21:30 Sputum Culture - Final Beta Strep Not Group A Complete 12/22/17 18:16 Urine Random Urine Urine Culture - Final Escherichia Coli Esbl Positive Multi-Drug Resistant Complete Imaging Last Impressions Head CT 12/31/17 0000 Signed Impressions: Service Date/Time: Sunday, December 31, 2017 16:38 - CONCLUSION: 1. Isolated chronic sinusitis in a posterior right ethmoid air cells. 2. Otherwise negative. Pj Laboy MD Abdomen/Pelvis CT 12/30/17 0000 Signed Impressions: Service Date/Time: Saturday, December 30, 2017 23:30 - CONCLUSION: 1. Anasarca with small volume ascites. No dilated loops of bowel observed. 2. Cardiomegaly with moderate pericardial effusion. 3. Small bilateral pleural effusions with associated passive atelectasis. Aakash Gonzalez Jr., MD Abdomen X-Ray 12/30/17 0000 Signed Impressions: Service Date/Time: Saturday, December 30, 2017 11:35 - CONCLUSION: 1. No acute finding is identified within the abdomen. A nonobstructive bowel gas pattern is present. 2. Hepatomegaly. 3. Trace bilateral pleural fluid. Jacinto Nieves MD Chest X-Ray 12/27/17 0600 Signed Impressions: Service Date/Time: Wednesday, December 27, 2017 04:32 - CONCLUSION: Bibasilar consolidation slightly worse. Lines and tubes unchanged. Jacinto Crouch MD Lower Extremity Ultrasound 12/24/17 0000 Signed Impressions: Service Date/Time: Sunday, December 24, 2017 08:58 - CONCLUSION: Deep venous thrombosis extending above the knee as described above. Tre King MD FACR Lung Scan- Nuclear Medicine 12/23/17 0000 Signed Impressions: Service Date/Time: Saturday, December 23, 2017 13:14 - CONCLUSION: 1. A reverse mismatch posteriorly in the left base with increased activity on the perfusion images and no identifiable activity in the left base on the corresponding ventilatory sequence. Findings are probably due to a posterior layering effusion. There may be some fluid in the fissure on the left as well based on the linear perfusion defect posteriorly in the left base. 2. Central trapping possibly representing some degree of COPD. 3. No scintigraphic findings of pulmonary embolus. Pj Laboy MD Abdomen Ultrasound 12/23/17 0000 Signed Impressions: Service Date/Time: Saturday, December 23, 2017 08:44 - CONCLUSION: 1. Liver appears somewhat prominent but otherwise sonographically intact. There is some free fluid along the hepatic convexity. 2. Cholelithiasis with probable associated gallbladder sludge. 3. Due to the patient's current clinical condition and the fact they were restrained, limited examination of the additional abdominal viscera. Pancreas is obscured by overlying bowel gas. Left kidney, aorta and IVC are poorly visualized. Pj Laboy MD Chest CT 12/22/17 0000 Signed Impressions: Service Date/Time: December 19:57 - CONCLUSION: 1. Moderate cardiomegaly with moderate pericardial effusion. 2. Consolidation and airspace disease in the lower lobes left greater than right as well as more patchy airspace disease in the right lung. 3. Small pleural effusions. 4. Diffuse anasarca with ascites in the upper abdomen. 5. Hepatomegaly and abnormal apparent small high density spleen. 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 There is some free fluid along the hepatic convexity. Cholelithiasis with probably associated gallbladder sludge. Limited exam of the abdominal viscera. Pancreas is obscured by overlying gas. Liver LYONS: Ceruloplasmin-28 Hepatitis panel negative. Iron-1189 TIBC-192 Ferritin-2893 KEL, AMA, ASMA, A1A, HFE pending - Hyperammonemia- Ammonia-88 ?Zinc deficiency - Sick cell disease with vaso-occlusive crisis Retic count-6 Abs Retic-158.9 Pt currently on Heparin gtt. Hematology following - S/P plasmapheresis x 2 - Respiratory distress- Pulmonology following (12/31) --> Pt opens eyes to verbal stimuli, not answering questions. She refused her MRCP. CT abdomen and pelvis W/O IV contrast (12/30) --> Anasarca with small volume ascites. No dilated loops of bowel observed. Cardiomegaly with moderate pericardial effusion. Small bilateral pleural effusions. Zinc and ceruloplasmin still pending. Will add full liver work up. Add HFE for elevated ferritin. APTT elevated, Heparin gtt on hold. (01/01) Pt much more alert today, answers questions appropriately. Zinc and HFE pending. Ceruloplasmin-28. Heparin gtt restarted 01/02/2013, patient's abdomen continues to be taut, pizza at her bedside. Asking for pain management per nursing staff but appears to be fairly comfortable Liver workup pending, ammonia level 68, speech rambling at times but is answering questions for the most part appropriately. Heparin drip dc. PLAN -Diet, heart healthy, pizza at her bedside probably from outside - Lactulose - Xifaxan - Monitor labs -Supportive care - Further recommendations based on findings of above and clinical course Patient has been seen and examined by myself and Dr. Manzo, note is written on his behalf (Symone Simmons) Physician Comments Patient seen and examined Agree with above Continue with current supportive care Monitor lab (Tacos Manzo MD) Symone Simmons Jan 02, 2018 14:20 Tacos Manzo MD Jan 03, 2018 20:32
--- NOTE | 2018-01-02 15:15 | HHI.PR ---
Subjective Remarks Follow up anasarca, encephalopathy. Patient reports pain "all over" and rates it 10/10. Some dyspnea today. Objective Vitals Vital Signs Date Time Temp Pulse Resp B/P (MAP) Pulse Ox O2 Delivery O2 Flow Rate FiO2 01/02/18 12:00 98.2 90 20 118/60 (79) 97 01/02/18 09:30 91 110/63 (79) 01/02/18 08:15 18 01/02/18 08:00 98.1 95 18 95/58 (70) 89 01/02/18 00:00 97.6 72 20 100/61 (74) 95 01/01/18 20:00 98.0 79 20 109/65 (80) 94 01/01/18 16:00 97.8 81 18 103/60 (74) 93 I/O 01/01/18 01/01/18 01/01/18 01/02/18 01/02/18 01/02/18 07:00 15:00 23:00 07:00 15:00 23:00 Intake Total 240 ml 640 ml Output Total 600 ml 2100 ml 2500 ml Balance -360 ml -1460 ml -2500 ml Intake Oral 240 ml 640 ml Output Urine Total 600 ml 2100 ml 2500 ml # Bowel Movements 2 1 Result Diagram: 01/02/18 0530 01/02/18 0530 Imaging Last Impressions Head CT 12/31/17 0000 Signed Impressions: Service Date/Time: Sunday, December 31, 2017 16:38 - CONCLUSION: 1. Isolated chronic sinusitis in a posterior right ethmoid air cells. 2. Otherwise negative. Pj Laboy MD Abdomen/Pelvis CT 12/30/17 0000 Signed Impressions: Service Date/Time: Saturday, December 30, 2017 23:30 - CONCLUSION: 1. Anasarca with small volume ascites. No dilated loops of bowel observed. 2. Cardiomegaly with moderate pericardial effusion. 3. Small bilateral pleural effusions with associated passive atelectasis. Aakash Gonzalez Jr., MD Abdomen X-Ray 12/30/17 0000 Signed Impressions: Service Date/Time: Saturday, December 30, 2017 11:35 - CONCLUSION: 1. No acute finding is identified within the abdomen. A nonobstructive bowel gas pattern is present. 2. Hepatomegaly. 3. Trace bilateral pleural fluid. Jacinto Nieves MD Chest X-Ray 12/27/17 0600 Signed Impressions: Service Date/Time: Wednesday, December 27, 2017 04:32 - CONCLUSION: Bibasilar consolidation slightly worse. Lines and tubes unchanged. Jacinto Crouch MD Lower Extremity Ultrasound 12/24/17 0000 Signed Impressions: Service Date/Time: Sunday, December 24, 2017 08:58 - CONCLUSION: Deep venous thrombosis extending above the knee as described above. Tre King MD FACR Lung Scan-VQ Nuclear Medicine 12/23/17 0000 Signed Impressions: Service Date/Time: Saturday, December 23, 2017 13:14 - CONCLUSION: 1. A reverse mismatch posteriorly in the left base with increased activity on the perfusion images and no identifiable activity in the left base on the corresponding ventilatory sequence. Findings are probably due to a posterior layering effusion. There may be some fluid in the fissure on the left as well based on the linear perfusion defect posteriorly in the left base. 2. Central trapping possibly representing some degree of COPD. 3. No scintigraphic findings of pulmonary embolus. Pj Laboy MD Abdomen Ultrasound 12/23/17 0000 Signed Impressions: Service Date/Time: Saturday, December 23, 2017 08:44 - CONCLUSION: 1. Liver appears somewhat prominent but otherwise sonographically intact. There is some free fluid along the hepatic convexity. 2. Cholelithiasis with probable associated gallbladder sludge. 3. Due to the patient's current clinical condition and the fact they were restrained, limited examination of the additional abdominal viscera. Pancreas is obscured by overlying bowel gas. Left kidney, aorta and IVC are poorly visualized. Pj Laboy MD Chest CT 12/22/17 0000 Signed Impressions: Service Date/Time: December 19:57 - CONCLUSION: 1. Moderate cardiomegaly with moderate pericardial effusion. 2. Consolidation and airspace disease in the lower lobes left greater than right as well as more patchy airspace disease in the right lung. 3. Small pleural effusions. 4. Diffuse anasarca with ascites in the upper abdomen. 5. Hepatomegaly and abnormal apparent small high density spleen. Zay Barakat MD Objective Remarks General: No acute distress. Heart: Regular rate and rhythm. No murmur. Lungs: Diminished breath sounds bilaterally. No wheezes/rhonchi noted. Breathing is nonlabored. Abdomen: Soft, nontender, nondistended. Extremities: 2+ lower extremity edema, R>L. Psych: Alert, answers questions appropriately. Neuro: Speech is quiet. Procedures 12/25-plasmapheresis 12/26-plasmapheresis Urinary Catheter: Yes Assessment to: Continue Teague insert reason: Obstruction/Retention Vascular Central Line Catheter: No A/P Assessment and Plan 1. Acute hypoxic hypercapnic respiratory failure: Extubated 12/27/17. Appreciate pulmonology recommendations. Continue bronchodilators, supplemental oxygen. Currently on 3L. 2. Chronic diastolic heart failure, small pericardial effusion without evidence of tamponade: 2D echocardiogram showed ejection fraction 55-60%. Right ventricle is moderately dilated. Right atrial size is severely dilated. Severe tricuspid regurgitation and trace mitral valve regurgitation noted. Inferior vena cava dilated. IV fluids discontinued. Appreciate cardiology recommendations. Diuresing well. 3. Chronic pain: On chronic [place] and Fentanyl patch at home. Fentanyl patch discontinued due to encephalopathy. Mental status improved and patient reporting significant pain. Will restart fentanyl patch. Morphine as needed. 4. Sickle cell disease with vaso-occlusive crisis: Appreciate hematology recommendations. Continue folic acid. Status post plasmapheresis. Monitor H&H , LDH, reticulocyte count. 5. Right lower extremity DVT: IVC filter placed, unknown date. Discontinue heparin drip. Start Xarelto. 6. UTI: Urine culture growing ESBL E. coli. Appreciate infectious disease recommendations. Continue ertapenem. 7. Acute kidney injury: Improved. Monitor BUN/creatinine closely while on diuretics. 8. Elevated total bilirubin: Imaging shows hepatomegaly, sludge in gallbladder , ascites. Appreciate GI recommendations. Patient refused MRCP. CT abdomen done. 9. GI prophylaxis: Prevacid. 10. Schizophrenia, depression: Continue home medications, citalopram and paliperidone. 11. Encephalopathy: Serum ammonia is trending down. Continue lactulose, rifaximin. Confusion has improved. Head CT negative. Discharge Planning Pending further clinical improvement. Negro Dyer MD Jan 02, 2018 15:15
--- NOTE | 2018-01-02 15:33 | HHI.IDPN ---
Subjective Subjective Remarks pt is now extubated, transferred to floor no c/o, no fever Allergies: Coded Allergies: No Known Allergies (Unverified , 12/22/17) Objective . Vital Signs Date Time Temp Pulse Resp B/P (MAP) Pulse Ox O2 Delivery O2 Flow Rate FiO2 01/02/18 12:00 98.2 90 20 118/60 (79) 97 01/02/18 09:30 91 110/63 (79) 01/02/18 08:15 18 01/02/18 08:00 98.1 95 18 95/58 (70) 89 01/02/18 00:00 97.6 72 20 100/61 (74) 95 01/01/18 20:00 98.0 79 20 109/65 (80) 94 01/01/18 16:00 97.8 81 18 103/60 (74) 93 . Laboratory Tests Test 01/01/18 05:00 01/02/18 05:30 White Blood Count 8.9 TH/MM3 8.6 TH/MM3 Red Blood Count 2.62 MIL/MM3 2.59 MIL/MM3 Hemoglobin 8.0 GM/DL 7.8 GM/DL Hematocrit 24.1 % 23.9 % Mean Corpuscular Volume 91.9 FL 92.3 FL Mean Corpuscular Hemoglobin 30.6 PG 30.2 PG Mean Corpuscular Hemoglobin Concent 33.3 % 32.7 % Red Cell Distribution Width 18.3 % 18.2 % Platelet Count 182 TH/MM3 214 TH/MM3 Mean Platelet Volume 10.0 FL 9.9 FL Neutrophils (%) (Auto) 62.2 % 68.9 % Lymphocytes (%) (Auto) 14.4 % 13.2 % Monocytes (%) (Auto) 15.3 % 13.1 % Eosinophils (%) (Auto) 4.5 % 4.3 % Basophils (%) (Auto) 3.6 % 0.5 % Neutrophils # (Auto) 5.5 TH/MM3 6.0 TH/MM3 Lymphocytes # (Auto) 1.3 TH/MM3 1.1 TH/MM3 Monocytes # (Auto) 1.4 TH/MM3 1.1 TH/MM3 Eosinophils # (Auto) 0.4 TH/MM3 0.4 TH/MM3 Basophils # (Auto) 0.3 TH/MM3 0.0 TH/MM3 CBC Comment DIFF FINAL DIFF FINAL Differential Comment Laboratory Tests Test 01/01/18 05:00 01/02/18 05:30 Blood Urea Nitrogen 23 MG/DL 23 MG/DL Creatinine 0.89 MG/DL 0.79 MG/DL Random Glucose 93 MG/DL 83 MG/DL Total Protein 8.4 GM/DL Albumin 3.1 GM/DL Calcium Level 8.5 MG/DL 8.9 MG/DL Magnesium Level 1.8 MG/DL Alkaline Phosphatase 128 U/L Aspartate Amino Transf (AST/SGOT) 44 U/L Alanine Aminotransferase (ALT/SGPT) 15 U/L Total Bilirubin 2.5 MG/DL Sodium Level 140 MEQ/L 140 MEQ/L Potassium Level 4.4 MEQ/L 4.4 MEQ/L Chloride Level 106 MEQ/L 104 MEQ/L Carbon Dioxide Level 28.7 MEQ/L 31.3 MEQ/L Anion Gap 5 MEQ/L 5 MEQ/L Estimat Glomerular Filtration Rate 84 ML/MIN 96 ML/MIN Direct Bilirubin 1.5 MG/DL Indirect Bilirubin 1.0 MG/DL Ammonia 68 MCMOL/L Imaging Last Impressions Head CT 12/31/17 0000 Signed Impressions: Service Date/Time: Sunday, December 31, 2017 16:38 - CONCLUSION: 1. Isolated chronic sinusitis in a posterior right ethmoid air cells. 2. Otherwise negative. Pj Laboy MD Abdomen/Pelvis CT 12/30/17 0000 Signed Impressions: Service Date/Time: Saturday, December 30, 2017 23:30 - CONCLUSION: 1. Anasarca with small volume ascites. No dilated loops of bowel observed. 2. Cardiomegaly with moderate pericardial effusion. 3. Small bilateral pleural effusions with associated passive atelectasis. Aakash Gonzalez Jr., MD Abdomen X-Ray 12/30/17 0000 Signed Impressions: Service Date/Time: Saturday, December 30, 2017 11:35 - CONCLUSION: 1. No acute finding is identified within the abdomen. A nonobstructive bowel gas pattern is present. 2. Hepatomegaly. 3. Trace bilateral pleural fluid. Jacinto Nivees MD Chest X-Ray 12/27/17 0600 Signed Impressions: Service Date/Time: Wednesday, December 27, 2017 04:32 - CONCLUSION: Bibasilar consolidation slightly worse. Lines and tubes unchanged. Jacinto Crouch MD Lower Extremity Ultrasound 12/24/17 0000 Signed Impressions: Service Date/Time: Sunday, December 24, 2017 08:58 - CONCLUSION: Deep venous thrombosis extending above the knee as described above. Tre King MD FACR Lung Scan-VQ Nuclear Medicine 12/23/17 0000 Signed Impressions: Service Date/Time: Saturday, December 23, 2017 13:14 - CONCLUSION: 1. A reverse mismatch posteriorly in the left base with increased activity on the perfusion images and no identifiable activity in the left base on the corresponding ventilatory sequence. Findings are probably due to a posterior layering effusion. There may be some fluid in the fissure on the left as well based on the linear perfusion defect posteriorly in the left base. 2. Central trapping possibly representing some degree of COPD. 3. No scintigraphic findings of pulmonary embolus. Pj Laboy MD Abdomen Ultrasound 12/23/17 0000 Signed Impressions: Service Date/Time: Saturday, December 23, 2017 08:44 - CONCLUSION: 1. Liver appears somewhat prominent but otherwise sonographically intact. There is some free fluid along the hepatic convexity. 2. Cholelithiasis with probable associated gallbladder sludge. 3. Due to the patient's current clinical condition and the fact they were restrained, limited examination of the additional abdominal viscera. Pancreas is obscured by overlying bowel gas. Left kidney, aorta and IVC are poorly visualized. Pj Laboy MD Chest CT 12/22/17 0000 Signed Impressions: Service Date/Time: December 19:57 - CONCLUSION: 1. Moderate cardiomegaly with moderate pericardial effusion. 2. Consolidation and airspace disease in the lower lobes left greater than right as well as more patchy airspace disease in the right lung. 3. Small pleural effusions. 4. Diffuse anasarca with ascites in the upper abdomen. 5. Hepatomegaly and abnormal apparent small high density spleen. Zay Barakat MD Physical Exam CONSTITUTIONAL/GENERAL: This is an adequately nourished patient, in no apparent distress. TUBES/LINES/DRAINS: SKIN: No jaundice, rashes, or lesions. Skin temperature appropriate. Not diaphoretic. Anasarca L breast is very emedatousd with orange peel present below nipple CARDIOVASCULAR: Regular rate and rhythm without murmurs, gallops, or rubs. No JVD. Peripheral pulses symmetric. RESPIRATORY/CHEST: Symmetric, unlabored respirations. Clear to auscultation. Breath sounds equal bilaterally. No wheezes, rales, or rhonchi. GASTROINTESTINAL: Abdomen soft, non-tender, nondistended. No hepato-splenomegaly , or palpable masses. No guarding. Bowel sounds present. distended nontender to palpation + prominent pitting edema GENITOURINARY: Without palpable bladder distension. MUSCULOSKELETAL: Extremities without clubbing, cyanosis, + severe 4+ tight pitting edema, more prominent on R thigh No joint tenderness or effusion noted. No calf tenderness. No mottling or clubbing. NEUROLOGICAL: Awake and alert. Motor and sensory grossly within normal limits. Follows commands . Moves all extremities. PSYCHIATRIC: No obvious anxiety/depression. no apparent hallucinations or other psychotic thought process. Assessment & Plan Remarks SCD crisis: resolving Acute VDRF: resolved UTI, ESBL + E.coli PNA, grew out strep Abx associated diarrhea, C.diff negative Abnormal L breast exam : edema , "orange peel) - cont Ertapenem x 10-14 days total (started on 12/27) - need to have mamogram as o/p will see as needed at this point Yani Vidales MD Jan 02, 2018 15:33
[2018-01-02] MEDS: fentaNYL 50 MCG/HR PATCH T-DERMAL SCH (17:51)
[2018-01-02] MEDS: SODIUM CHLORIDE 0.9% FLUSH 10 ML FLUSH IV FLUSH PRN (17:56)
[2018-01-03] VITALS (7 sets, daily range): BP systolic 101–115; BP diastolic 56–75; PULSE 84–95; RESP 16–18; TEMP 98–99.1; O2SAT 92–98
[2018-01-03] MEDS: INSULIN ASPART SUPPLEMENTAL SCALE SQ SCH ×4 (04:19→16:43)
[2018-01-03] MEDS: MORPHINE SULFATE 4 MG/ML INJ IV PUSH PRN (04:19)
[2018-01-03] MEDS: ARTIFICIAL TEARS OPTH SOLN 15 ML BTL EACH EYE SCH ×3 (04:22→21:05)
[2018-01-03] MEDS: DOCUSATE SODIUM 50 MG/SENNA 8.6 MG TAB PO SCH ×2 (09:00→21:00)
[2018-01-03] MEDS: SODIUM CHLORIDE 0.9% FLUSH 10 ML FLUSH IV FLUSH SCH ×2 (09:00→21:04)
[2018-01-03] MEDS: LACTULOSE SYRUP 20 GM/30 ML CUP PO SCH ×4 (09:00→20:59)
[2018-01-03] MEDS: CITALOPRAM HYDROBROMIDE 20 MG TAB PO SCH (09:00)
[2018-01-03] MEDS: PALIPERIDONE ER 3 MG TAB PO SCH (09:13)
[2018-01-03] MEDS: LANSOPRAZOLE SOLUTAB 30 MG TAB NG SCH (09:13)
[2018-01-03] MEDS: RIFAXIMIN 550 MG TAB PO SCH ×2 (09:13→21:00)
[2018-01-03] MEDS: RIVAROXABAN 20 MG TAB PO SCH (09:13)
[2018-01-03] MEDS: BENZTROPINE MESYLATE 1 MG TAB PO SCH ×2 (09:13→21:01)
[2018-01-03] MEDS: POTASSIUM CHLORIDE 20 MEQ CONTROLLED RELEASE TAB PO SCH ×2 (09:13→21:01)
[2018-01-03] MEDS: FOLIC ACID 1 MG TAB PO SCH (09:13)
[2018-01-03] MEDS: POLYETHYLENE GLYCOL 17 GM PKG PO SCH ×2 (09:13→21:00)
[2018-01-03] MEDS: HYDROXYUREA 500 MG CAP PO SCH (09:15)
[2018-01-03] MEDS: TORSEMIDE 20 MG TAB PO SCH (09:17)
[2018-01-03] MEDS: ACETAMINOPHEN/HYDROcodone 325 MG/7.5 MG TAB PO PRN ×2 (12:11→21:00)
[2018-01-03] MEDS: ERTAPENEM INJ 1,000 MG in SODIUM CHLORIDE 0.9% INJ 100 ML IV SCH (12:11)
[2018-01-03 13:34] LABS: SMOOTH MUSCLE TOTAL AUTOABS Negative (Negative)
--- NOTE | 2018-01-03 14:13 | HHI.PR ---
Subjective Remarks Follow-up anasarca, chronic pain. Patient states that her pain is much better today. Swelling seems to be improving as well. Denies shortness of breath. Asks when she can go home. Objective Vitals Vital Signs Date Time Temp Pulse Resp B/P (MAP) Pulse Ox O2 Delivery O2 Flow Rate FiO2 01/03/18 12:00 98.4 91 18 108/64 (79) 95 01/03/18 08:00 99.1 93 18 101/56 (71) 92 01/03/18 04:00 98.1 95 18 114/60 (78) 92 01/03/18 01:24 85 01/03/18 00:00 98.7 90 18 115/57 (76) 96 01/02/18 20:00 99.2 93 18 104/59 (74) 96 01/02/18 18:04 93 Nasal Cannula 3.00 01/02/18 18:01 20 01/02/18 16:00 98.0 97 24 118/71 (87) 93 I/O 01/02/18 01/02/18 01/02/18 01/03/18 01/03/18 01/03/18 07:00 15:00 23:00 07:00 15:00 23:00 Intake Total 100 ml 3200 ml Output Total 2500 ml 3250 ml Balance -2500 ml 100 ml -50 ml Intake Oral 3200 ml IV Total 100 ml Output Urine Total 2500 ml 3250 ml # Voids 1 # Bowel Movements 1 0 5 Result Diagram: 01/02/18 0530 01/02/18 0530 Imaging Last Impressions Head CT 12/31/17 0000 Signed Impressions: Service Date/Time: Sunday, December 31, 2017 16:38 - CONCLUSION: 1. Isolated chronic sinusitis in a posterior right ethmoid air cells. 2. Otherwise negative. Pj Laboy MD Abdomen/Pelvis CT 12/30/17 0000 Signed Impressions: Service Date/Time: Saturday, December 30, 2017 23:30 - CONCLUSION: 1. Anasarca with small volume ascites. No dilated loops of bowel observed. 2. Cardiomegaly with moderate pericardial effusion. 3. Small bilateral pleural effusions with associated passive atelectasis. Aakash Gonzalez Jr., MD Abdomen X-Ray 12/30/17 0000 Signed Impressions: Service Date/Time: Saturday, December 30, 2017 11:35 - CONCLUSION: 1. No acute finding is identified within the abdomen. A nonobstructive bowel gas pattern is present. 2. Hepatomegaly. 3. Trace bilateral pleural fluid. Jacinto Nieves MD Chest X-Ray 12/27/17 0600 Signed Impressions: Service Date/Time: Wednesday, December 27, 2017 04:32 - CONCLUSION: Bibasilar consolidation slightly worse. Lines and tubes unchanged. Jacinto Crouch MD Lower Extremity Ultrasound 12/24/17 0000 Signed Impressions: Service Date/Time: Sunday, December 24, 2017 08:58 - CONCLUSION: Deep venous thrombosis extending above the knee as described above. Tre King MD FACR Lung Scan-V Nuclear Medicine 12/23/17 0000 Signed Impressions: Service Date/Time: Saturday, December 23, 2017 13:14 - CONCLUSION: 1. A reverse mismatch posteriorly in the left base with increased activity on the perfusion images and no identifiable activity in the left base on the corresponding ventilatory sequence. Findings are probably due to a posterior layering effusion. There may be some fluid in the fissure on the left as well based on the linear perfusion defect posteriorly in the left base. 2. Central trapping possibly representing some degree of COPD. 3. No scintigraphic findings of pulmonary embolus. Pj Laboy MD Abdomen Ultrasound 12/23/17 0000 Signed Impressions: Service Date/Time: Saturday, December 23, 2017 08:44 - CONCLUSION: 1. Liver appears somewhat prominent but otherwise sonographically intact. There is some free fluid along the hepatic convexity. 2. Cholelithiasis with probable associated gallbladder sludge. 3. Due to the patient's current clinical condition and the fact they were restrained, limited examination of the additional abdominal viscera. Pancreas is obscured by overlying bowel gas. Left kidney, aorta and IVC are poorly visualized. Pj Laboy MD Chest CT 12/22/17 0000 Signed Impressions: Service Date/Time: December 19:57 - CONCLUSION: 1. Moderate cardiomegaly with moderate pericardial effusion. 2. Consolidation and airspace disease in the lower lobes left greater than right as well as more patchy airspace disease in the right lung. 3. Small pleural effusions. 4. Diffuse anasarca with ascites in the upper abdomen. 5. Hepatomegaly and abnormal apparent small high density spleen. Zay Barakat MD Objective Remarks General: No acute distress. Sitting up in a chair. Heart: Regular rate and rhythm. No murmur. Lungs: Diminished breath sounds bilaterally. No wheezes/rhonchi noted. Breathing is nonlabored. Abdomen: Soft, nontender, nondistended. Extremities: 2+ lower extremity edema, R>L. Psych: Alert, answers questions appropriately. Neuro: Speech is quiet. Procedures 12/25-plasmapheresis 12/26-plasmapheresis Urinary Catheter: Yes Assessment to: Continue Teague insert reason: Obstruction/Retention Vascular Central Line Catheter: No A/P Assessment and Plan 1. Acute hypoxic hypercapnic respiratory failure: Extubated 12/27/17. Appreciate pulmonology recommendations. Continue bronchodilators, supplemental oxygen. Currently on 3L. 2. Chronic diastolic heart failure, small pericardial effusion without evidence of tamponade: 2D echocardiogram showed ejection fraction 55-60%. Right ventricle is moderately dilated. Right atrial size is severely dilated. Severe tricuspid regurgitation and trace mitral valve regurgitation noted. Inferior vena cava dilated. IV fluids discontinued. Appreciate cardiology recommendations. Diuresing well. 3. Chronic pain: On chronic Riesel and Fentanyl patch at home. Fentanyl patch discontinued due to encephalopathy. Mental status improved and patient reporting significant pain. Fentanyl patch restarted. Riesel as needed. 4. Sickle cell disease with vaso-occlusive crisis: Appreciate hematology recommendations. Continue folic acid. Status post plasmapheresis. Monitor H&H , LDH, reticulocyte count. 5. Right lower extremity DVT: IVC filter placed, unknown date. Continue Xarelto. 6. UTI: Urine culture growing ESBL E. coli. Appreciate infectious disease recommendations. Continue ertapenem. 7. Acute kidney injury: Improved. Monitor BUN/creatinine closely while on diuretics. 8. Elevated total bilirubin: Imaging shows hepatomegaly, sludge in gallbladder , ascites. Appreciate GI recommendations. Patient refused MRCP. CT abdomen done. GI requesting liver biopsy. Patient will need to be off anticoagulation. May need to go back on heparin drip. 9. GI prophylaxis: Prevacid. 10. Schizophrenia, depression: Continue home medications, citalopram and paliperidone. 11. Encephalopathy: Serum ammonia is trending down. Continue lactulose, rifaximin. Confusion has improved. Head CT negative. Discharge Planning Pending further clinical improvement and clearance by Negro Gore MD Jan 03, 2018 14:13
--- NOTE | 2018-01-03 14:25 | HHI.GIFU ---
Subjective Remarks Patient is getting up in chair with 2 people support Very weak lower extremities Able to eat solid food without nausea and vomiting today Temp 99.2 high noted in the past 24 hours Large loose dark diarrheal stool noted. (Symone Simmons) Objective Vitals I&O Vital Signs Date Time Temp Pulse Resp B/P (MAP) Pulse Ox O2 Delivery O2 Flow Rate FiO2 01/03/18 12:00 98.4 91 18 108/64 (79) 95 01/03/18 08:00 99.1 93 18 101/56 (71) 92 01/03/18 04:00 98.1 95 18 114/60 (78) 92 01/03/18 01:24 85 01/03/18 00:00 98.7 90 18 115/57 (76) 96 01/02/18 20:00 99.2 93 18 104/59 (74) 96 01/02/18 18:04 93 Nasal Cannula 3.00 01/02/18 18:01 20 01/02/18 16:00 98.0 97 24 118/71 (87) 93 I/O 01/02/18 01/02/18 01/02/18 01/03/18 01/03/18 01/03/18 07:00 15:00 23:00 07:00 15:00 23:00 Intake Total 100 ml 3200 ml Output Total 2500 ml 3250 ml Balance -2500 ml 100 ml -50 ml Intake Oral 3200 ml IV Total 100 ml Output Urine Total 2500 ml 3250 ml # Voids 1 # Bowel Movements 1 0 5 Laboratory Date/Time Source Procedure Growth Status 12/23/17 18:07 Blood Peripheral Aerobic Blood Culture - Final NO GROWTH IN 5 DAYS Complete 12/23/17 18:07 Blood Peripheral Anaerobic Blood Culture - Final NO GROWTH IN 5 DAYS Complete 12/29/17 05:50 Stool Stool Stool Occult Blood (SANDRA) - Final HEMOCCULT NEGATIVE Complete 12/22/17 21:30 Sputum Endotracheal Gram Stain - Final Complete 12/22/17 21:30 Sputum Culture - Final Beta Strep Not Group A Complete 12/22/17 18:16 Urine Random Urine Urine Culture - Final Escherichia Coli Esbl Positive Multi-Drug Resistant Complete Imaging Last Impressions Head CT 12/31/17 0000 Signed Impressions: Service Date/Time: Sunday, December 31, 2017 16:38 - CONCLUSION: 1. Isolated chronic sinusitis in a posterior right ethmoid air cells. 2. Otherwise negative. Pj Laboy MD Abdomen/Pelvis CT 12/30/17 0000 Signed Impressions: Service Date/Time: Saturday, December 30, 2017 23:30 - CONCLUSION: 1. Anasarca with small volume ascites. No dilated loops of bowel observed. 2. Cardiomegaly with moderate pericardial effusion. 3. Small bilateral pleural effusions with associated passive atelectasis. Aakash Gonzalez Jr., MD Abdomen X-Ray 12/30/17 0000 Signed Impressions: Service Date/Time: Saturday, December 30, 2017 11:35 - CONCLUSION: 1. No acute finding is identified within the abdomen. A nonobstructive bowel gas pattern is present. 2. Hepatomegaly. 3. Trace bilateral pleural fluid. Jacinto Nieves MD Chest X-Ray 12/27/17 0600 Signed Impressions: Service Date/Time: Wednesday, December 27, 2017 04:32 - CONCLUSION: Bibasilar consolidation slightly worse. Lines and tubes unchanged. Jacinto Crouch MD Lower Extremity Ultrasound 12/24/17 0000 Signed Impressions: Service Date/Time: Sunday, December 24, 2017 08:58 - CONCLUSION: Deep venous thrombosis extending above the knee as described above. Tre King MD FACR Lung Scan-V Nuclear Medicine 12/23/17 0000 Signed Impressions: Service Date/Time: Saturday, December 23, 2017 13:14 - CONCLUSION: 1. A reverse mismatch posteriorly in the left base with increased activity on the perfusion images and no identifiable activity in the left base on the corresponding ventilatory sequence. Findings are probably due to a posterior layering effusion. There may be some fluid in the fissure on the left as well based on the linear perfusion defect posteriorly in the left base. 2. Central trapping possibly representing some degree of COPD. 3. No scintigraphic findings of pulmonary embolus. Pj Laboy MD Abdomen Ultrasound 12/23/17 0000 Signed Impressions: Service Date/Time: Saturday, December 23, 2017 08:44 - CONCLUSION: 1. Liver appears somewhat prominent but otherwise sonographically intact. There is some free fluid along the hepatic convexity. 2. Cholelithiasis with probable associated gallbladder sludge. 3. Due to the patient's current clinical condition and the fact they were restrained, limited examination of the additional abdominal viscera. Pancreas is obscured by overlying bowel gas. Left kidney, aorta and IVC are poorly visualized. Pj Laboy MD Chest CT 12/22/17 0000 Signed Impressions: Service Date/Time: December 19:57 - CONCLUSION: 1. Moderate cardiomegaly with moderate pericardial effusion. 2. Consolidation and airspace disease in the lower lobes left greater than right as well as more patchy airspace disease in the right lung. 3. Small pleural effusions. 4. Diffuse anasarca with ascites in the upper abdomen. 5. Hepatomegaly and abnormal apparent small high density spleen. 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 There is some free fluid along the hepatic convexity. Cholelithiasis with probably associated gallbladder sludge. Limited exam of the abdominal viscera. Pancreas is obscured by overlying gas. Liver LYONS: Ceruloplasmin-28 Hepatitis panel negative. Iron-1189 TIBC-192 Ferritin-2893 KEL, AMA, ASMA, A1A, HFE pending - Hyperammonemia- Ammonia-88 ?Zinc deficiency - Sick cell disease with vaso-occlusive crisis Retic count-6 Abs Retic-158.9 Pt currently on Heparin gtt. Hematology following - S/P plasmapheresis x 2 - Respiratory distress- Pulmonology following (12/31) --> Pt opens eyes to verbal stimuli, not answering questions. She refused her MRCP. CT abdomen and pelvis W/O IV contrast (12/30) --> Anasarca with small volume ascites. No dilated loops of bowel observed. Cardiomegaly with moderate pericardial effusion. Small bilateral pleural effusions. Zinc and ceruloplasmin still pending. Will add full liver work up. Add HFE for elevated ferritin. APTT elevated, Heparin gtt on hold. (01/01) Pt much more alert today, answers questions appropriately. Zinc and HFE pending. Ceruloplasmin-28. Heparin gtt restarted 01/02/2013, patient's abdomen continues to be taut, pizza at her bedside. Asking for pain management per nursing staff but appears to be fairly comfortable Liver workup pending, ammonia level 68, speech rambling at times but is answering questions for the most part appropriately. Heparin drip dc. 01/03/2018, patient is eating regular food which includes 2 pieces of pizza in the past 24 hours. Bowel sounds continue to be more active abdomen is taut, nontender. Patient is up in chair today with 2 people assist and appears to be feeling better. Increased alertness today. no obvious nausea or vomiting current hemoglobin 7.8. Denies any dizziness or lightheadedness. Previous x-ray showed hepatomegaly, labs hemochromatosis pending, nonreactive hepatitis panel, negative C. difficile Patient is having loose dark brown stools no obvious blood. Will check Hemoccult PLAN -Diet, heart healthy, - Continue to monitor labs -Check Hemoccult, monitor intake/output and diarrhea stools - Lactulose - Xifaxan - Monitor labs -Supportive care - Further recommendations based on findings of above and clinical course Patient has been seen and examined by myself and Dr. Manzo, note is written on his behalf (Symone Simmons) Physician Comments Patient seen and examined Agree with above Continue with current supportive care Monitor lab (Tacos Manzo MD) Symone Simmons Jan 03, 2018 14:25 Tacos Manzo MD Jan 03, 2018 20:26
[2018-01-04] VITALS: BP 98/53; PULSE 103; RESP 18; TEMP 99.2; O2SAT 92
[2018-01-04] MEDS: ACETAMINOPHEN/HYDROcodone 325 MG/7.5 MG TAB PO PRN ×4 (03:34→21:37)
[2018-01-04 04:00] VITALS: BP 94/58; PULSE 95; RESP 18; TEMP 98.5; O2SAT 98
[2018-01-04] MEDS: ARTIFICIAL TEARS OPTH SOLN 15 ML BTL EACH EYE SCH ×3 (04:51→23:57)
[2018-01-04] MEDS: INSULIN ASPART SUPPLEMENTAL SCALE SQ SCH ×4 (05:01→16:14)
[2018-01-04 05:23] LABS: HEMATOCRIT 22.7 % (35.0-46.0); HEMOGLOBIN 7.6 GM/DL (11.6-15.3); MEAN CELL VOLUME 91.8 FL (80.0-100.0); MEAN CORPUSCULAR HEMOGLOBIN 30.6 PG (27.0-34.0); MEAN CORPUSCULAR HGB CONC 33.4 % (32.0-36.0); MEAN PLATELET VOLUME 10.1 FL (7.0-11.0); PLATELET COUNT 247 TH/MM3 (150-450); RED BLOOD COUNT 2.47 MIL/MM3 (4.00-5.30); RED CELL DISTRIBUTION WIDTH 17.7 % (11.6-17.2); WHITE BLOOD COUNT 8.8 TH/MM3 (4.0-11.0)
[2018-01-04 05:27] LABS: INTERNATIONAL NORMALIZED RATIO 1.7 RATIO
[2018-01-04 05:32] LABS: AST (GOT) 58 U/L (15-37); BICARBONATE 32.8 MEQ/L (21.0-32.0); BLOOD UREA NITROGEN 21 MG/DL (7-18); CALCIUM 8.4 MG/DL (8.5-10.1); CHLORIDE 102 MEQ/L (98-107); CREATININE 0.81 MG/DL (0.50-1.00); GLOMERULAR FILTRATION RATE 93 ML/MIN (>89); GLUCOSE,RANDOM 87 MG/DL (74-106); SODIUM (NA) 140 MEQ/L (136-145)
[2018-01-04 05:34] LABS: ALT (GPT) 21 U/L (10-53)
[2018-01-04 05:36] LABS: ALKALINE PHOSPHATASE 146 U/L (45-117); TOTAL BILIRUBIN ADULT 1.9 MG/DL (0.2-1.0); TOTAL PROTEIN 8.2 GM/DL (6.4-8.2)
[2018-01-04 08:00] VITALS: BP 114/68; PULSE 88; RESP 19; TEMP 98; O2SAT 97
[2018-01-04] MEDS: DOCUSATE SODIUM 50 MG/SENNA 8.6 MG TAB PO SCH ×2 (09:18→21:36)
[2018-01-04] MEDS: POLYETHYLENE GLYCOL 17 GM PKG PO SCH ×2 (09:19→21:36)
[2018-01-04] MEDS: RIVAROXABAN 20 MG TAB PO SCH (09:19)
[2018-01-04] MEDS: TORSEMIDE 20 MG TAB PO SCH (09:19)
[2018-01-04] MEDS: PALIPERIDONE ER 3 MG TAB PO SCH (09:19)
[2018-01-04] MEDS: RIFAXIMIN 550 MG TAB PO SCH ×2 (09:19→21:37)
[2018-01-04] MEDS: POTASSIUM CHLORIDE 20 MEQ CONTROLLED RELEASE TAB PO SCH ×2 (09:19→21:35)
[2018-01-04] MEDS: FOLIC ACID 1 MG TAB PO SCH (09:19)
[2018-01-04] MEDS: LACTULOSE SYRUP 20 GM/30 ML CUP PO SCH ×4 (09:19→21:36)
[2018-01-04] MEDS: HYDROXYUREA 500 MG CAP PO SCH (09:20)
[2018-01-04] MEDS: BENZTROPINE MESYLATE 1 MG TAB PO SCH ×2 (09:20→21:34)
[2018-01-04] MEDS: LANSOPRAZOLE SOLUTAB 30 MG TAB NG SCH (09:20)
[2018-01-04] MEDS: CITALOPRAM HYDROBROMIDE 20 MG TAB PO SCH (09:20)
[2018-01-04] MEDS: SODIUM CHLORIDE 0.9% FLUSH 10 ML FLUSH IV FLUSH SCH ×2 (09:21→21:34)
[2018-01-04 12:00] VITALS: BP 104/60; PULSE 84; RESP 19; TEMP 98.7; O2SAT 91
[2018-01-04] MEDS: ERTAPENEM INJ 1,000 MG in SODIUM CHLORIDE 0.9% INJ 100 ML IV SCH (12:43)
--- NOTE | 2018-01-04 14:10 | HHI.GIFU ---
Subjective Remarks Patient is calm resting in the bed with friend watching a movie Denies any dizziness or lightheadedness but does have generalized weakness Bowel movements loose, but patient is able to tolerate solid food without nausea or vomiting Current hemoglobin 7.6 (Symone Simmons) Objective Vitals I&O Vital Signs Date Time Temp Pulse Resp B/P (MAP) Pulse Ox O2 Delivery O2 Flow Rate FiO2 01/04/18 12:00 98.7 84 19 104/60 (75) 91 01/04/18 08:00 98.0 88 19 114/68 (83) 97 01/04/18 04:00 98.5 95 18 94/58 (70) 98 01/04/18 00:00 99.2 103 18 98/53 (68) 92 01/03/18 20:00 98.0 93 18 111/75 (87) 98 01/03/18 16:00 98.1 84 16 103/57 (72) 94 I/O 01/03/18 01/03/18 01/03/18 01/04/18 01/04/18 01/04/18 07:00 15:00 23:00 07:00 15:00 23:00 Intake Total 960 ml 240 ml Output Total 4250 ml 1001 ml Balance -3290 ml -761 ml Intake Oral 960 ml 240 ml Output Urine Total 4250 ml 1000 ml Stool Total 1 ml # Voids 1 # Bowel Movements 5 2 Laboratory Laboratory Tests Test 01/04/18 05:00 White Blood Count 8.8 Red Blood Count 2.47 Hemoglobin 7.6 Hematocrit 22.7 Mean Corpuscular Volume 91.8 Mean Corpuscular Hemoglobin 30.6 Mean Corpuscular Hemoglobin Concent 33.4 Red Cell Distribution Width 17.7 Platelet Count 247 Mean Platelet Volume 10.1 Prothrombin Time 17.0 Prothromb Time International Ratio 1.7 Blood Urea Nitrogen 21 Creatinine 0.81 Random Glucose 87 Total Protein 8.2 Albumin 3.0 Calcium Level 8.4 Alkaline Phosphatase 146 Aspartate Amino Transf (AST/SGOT) 58 Alanine Aminotransferase (ALT/SGPT) 21 Total Bilirubin 1.9 Sodium Level 140 Potassium Level 4.2 Chloride Level 102 Carbon Dioxide Level 32.8 Anion Gap 5 Estimat Glomerular Filtration Rate 93 Date/Time Source Procedure Growth Status 12/23/17 18:07 Blood Peripheral Aerobic Blood Culture - Final NO GROWTH IN 5 DAYS Complete 12/23/17 18:07 Blood Peripheral Anaerobic Blood Culture - Final NO GROWTH IN 5 DAYS Complete 12/29/17 05:50 Stool Stool Stool Occult Blood (SANDRA) - Final HEMOCCULT NEGATIVE Complete 12/22/17 21:30 Sputum Endotracheal Gram Stain - Final Complete 12/22/17 21:30 Sputum Culture - Final Beta Strep Not Group A Complete 12/22/17 18:16 Urine Random Urine Urine Culture - Final Escherichia Coli Esbl Positive Multi-Drug Resistant Complete Imaging Last Impressions Head CT 12/31/17 0000 Signed Impressions: Service Date/Time: Sunday, December 31, 2017 16:38 - CONCLUSION: 1. Isolated chronic sinusitis in a posterior right ethmoid air cells. 2. Otherwise negative. Pj Laboy MD Abdomen/Pelvis CT 12/30/17 0000 Signed Impressions: Service Date/Time: Saturday, December 30, 2017 23:30 - CONCLUSION: 1. Anasarca with small volume ascites. No dilated loops of bowel observed. 2. Cardiomegaly with moderate pericardial effusion. 3. Small bilateral pleural effusions with associated passive atelectasis. Aakash Gonzalez Jr., MD Abdomen X-Ray 12/30/17 0000 Signed Impressions: Service Date/Time: Saturday, December 30, 2017 11:35 - CONCLUSION: 1. No acute finding is identified within the abdomen. A nonobstructive bowel gas pattern is present. 2. Hepatomegaly. 3. Trace bilateral pleural fluid. Jacinto Nieves MD Chest X-Ray 12/27/17 0600 Signed Impressions: Service Date/Time: Wednesday, December 27, 2017 04:32 - CONCLUSION: Bibasilar consolidation slightly worse. Lines and tubes unchanged. Jacinto Crouch MD Lower Extremity Ultrasound 12/24/17 0000 Signed Impressions: Service Date/Time: Sunday, December 24, 2017 08:58 - CONCLUSION: Deep venous thrombosis extending above the knee as described above. Tre King MD FACR Lung Scan- Nuclear Medicine 12/23/17 0000 Signed Impressions: Service Date/Time: Saturday, December 23, 2017 13:14 - CONCLUSION: 1. A reverse mismatch posteriorly in the left base with increased activity on the perfusion images and no identifiable activity in the left base on the corresponding ventilatory sequence. Findings are probably due to a posterior layering effusion. There may be some fluid in the fissure on the left as well based on the linear perfusion defect posteriorly in the left base. 2. Central trapping possibly representing some degree of COPD. 3. No scintigraphic findings of pulmonary embolus. Pj Laboy MD Abdomen Ultrasound 12/23/17 0000 Signed Impressions: Service Date/Time: Saturday, December 23, 2017 08:44 - CONCLUSION: 1. Liver appears somewhat prominent but otherwise sonographically intact. There is some free fluid along the hepatic convexity. 2. Cholelithiasis with probable associated gallbladder sludge. 3. Due to the patient's current clinical condition and the fact they were restrained, limited examination of the additional abdominal viscera. Pancreas is obscured by overlying bowel gas. Left kidney, aorta and IVC are poorly visualized. Pj Laboy MD Chest CT 12/22/17 0000 Signed Impressions: Service Date/Time: December 19:57 - CONCLUSION: 1. Moderate cardiomegaly with moderate pericardial effusion. 2. Consolidation and airspace disease in the lower lobes left greater than right as well as more patchy airspace disease in the right lung. 3. Small pleural effusions. 4. Diffuse anasarca with ascites in the upper abdomen. 5. Hepatomegaly and abnormal apparent small high density spleen. 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 There is some free fluid along the hepatic convexity. Cholelithiasis with probably associated gallbladder sludge. Limited exam of the abdominal viscera. Pancreas is obscured by overlying gas. Liver LYONS: Ceruloplasmin-28 Hepatitis panel negative. Iron-1189 TIBC-192 Ferritin-2893 KEL, AMA, ASMA, A1A, HFE pending - Hyperammonemia- Ammonia-88 ?Zinc deficiency - Sick cell disease with vaso-occlusive crisis Retic count-6 Abs Retic-158.9 Pt currently on Heparin gtt. Hematology following - S/P plasmapheresis x 2 - Respiratory distress- Pulmonology following (12/31) --> Pt opens eyes to verbal stimuli, not answering questions. She refused her MRCP. CT abdomen and pelvis W/O IV contrast (12/30) --> Anasarca with small volume ascites. No dilated loops of bowel observed. Cardiomegaly with moderate pericardial effusion. Small bilateral pleural effusions. Zinc and ceruloplasmin still pending. Will add full liver work up. Add HFE for elevated ferritin. APTT elevated, Heparin gtt on hold. (01/01) Pt much more alert today, answers questions appropriately. Zinc and HFE pending. Ceruloplasmin-28. Heparin gtt restarted 01/02/2013, patient's abdomen continues to be taut, pizza at her bedside. Asking for pain management per nursing staff but appears to be fairly comfortable Liver workup pending, ammonia level 68, speech rambling at times but is answering questions for the most part appropriately. Heparin drip dc. 01/03/2018, patient is eating regular food which includes 2 pieces of pizza in the past 24 hours. Bowel sounds continue to be more active abdomen is taut, nontender. Patient is up in chair today with 2 people assist and appears to be feeling better. Increased alertness today. no obvious nausea or vomiting current hemoglobin 7.8. Denies any dizziness or lightheadedness. Previous x-ray showed hepatomegaly, labs hemochromatosis pending, nonreactive hepatitis panel, negative C. difficile Patient is having loose dark brown stools no obvious blood. Will check Hemoccult 01/04/2018 patient still has been loose diarrhea stools, but is still currently getting lactulose 4 times a day. no nausea and vomiting and patient is tolerating solid food. Current hemoglobin 7.6 , last hemoglobin checked 7.8. Decreased bilirubin 1.9, LFTs AST 58 ALT 21, she is alert answers questions appropriately and much calmer. Clinically is showing gradual slow improvement. Previous Hemoccults are negative, will recheck ammonia level in the morning. Patient's abdomen taut, minimal mild tenderness to light palpation, last CT scan showed anasarca with small amount of ascites. PLAN -Diet, heart healthy, hold solid food if patient becomes nauseated or having vomiting encourage p.o. fluids - Continue to monitor labs recheck ammonia level in the morning - monitor intake/output - Lactulose - Xifaxan - Monitor labs -Supportive care - Further recommendations based on findings of above and clinical course Patient has been seen and examined by myself and Dr. Manzo, note is written on his behalf (Symone Simmons) Physician Comments Patient seen and examined Agree with above Continue with current supportive care Monitor labs We will defer to medical service to replace zinc Due to excess loose stools we will cut down on lactulose (Tacos Manzo MD) Symone Simmons Jan 04, 2018 14:10 Tacos Manzo MD Jan 04, 2018 22:44
[2018-01-04 16:00] VITALS: BP 120/80; PULSE 88; RESP 19; TEMP 98.5; O2SAT 97
[2018-01-04 19:54] VITALS: BP 118/57; PULSE 79; RESP 17; TEMP 98.6; O2SAT 90
--- NOTE | 2018-01-04 23:59 | HHI.PR ---
Subjective Remarks Patient says she is generally feeling all right. patient reports that pain all over continues.. Objective Vital Signs Date Time Temp Pulse Resp B/P (MAP) Pulse Ox O2 Delivery O2 Flow Rate FiO2 01/04/18 19:54 98.6 79 17 118/57 (77) 90 01/04/18 17:00 16 01/04/18 16:00 98.5 88 19 120/80 (93) 97 01/04/18 12:00 98.7 84 19 104/60 (75) 91 01/04/18 08:00 98.0 88 19 114/68 (83) 97 01/04/18 04:00 98.5 95 18 94/58 (70) 98 01/04/18 00:00 99.2 103 18 98/53 (68) 92 I/O 01/04/18 01/04/18 01/04/18 01/05/18 01/05/18 01/05/18 07:00 15:00 23:00 07:00 15:00 23:00 Intake Total 240 ml 2010 ml Output Total 1001 ml 2700 ml Balance -761 ml -690 ml Intake Oral 240 ml 1910 ml IV Total 100 ml Output Urine Total 1000 ml 2700 ml Stool Total 1 ml # Bowel Movements 3 Result Diagram: 01/04/18 0500 01/04/18 0500 Objective Remarks GENERAL: She is sitting up in bed. Alert and oriented 3. SKIN: Warm and dry. HEAD: Normocephalic. EYES: No scleral icterus. No injection or drainage. NECK: Supple, trachea midline. No JVD. CARDIOVASCULAR: Regular rate and rhythm without murmurs, gallops, or rubs. RESPIRATORY: Breath sounds equal bilaterally. No accessory muscle use. GASTROINTESTINAL: Abdomen soft, non-tender, nondistended. MUSCULOSKELETAL: No cyanosis, or edema. BACK: Nontender without obvious deformity. No CVA tenderness. A/P Assessment and Plan //Acute hypoxic hypercapnic respiratory failure: Extubated 12/27/17. Appreciate pulmonology recommendations. Continue bronchodilators, supplemental oxygen. Continues on 3L. //Chronic diastolic heart failure, small pericardial effusion without evidence of tamponade: 2D echocardiogram showed ejection fraction 55-60%. Right ventricle is moderately dilated. Right atrial size is severely dilated. Severe tricuspid regurgitation and trace mitral valve regurgitation noted. Inferior vena cava dilated. IV fluids discontinued. Appreciate cardiology recommendations. Diuresing well. //Chronic pain: On chronic Nicollet and Fentanyl patch at home. Fentanyl patch discontinued due to encephalopathy. Mental status improved and patient reporting significant pain. Fentanyl patch restarted. Continue Nicollet as needed. //Sickle cell disease with vaso-occlusive crisis: Appreciate hematology recommendations. Continue folic acid. Status post plasmapheresis. Monitor H&H , LDH, reticulocyte count. // Right lower extremity DVT: IVC filter placed, unknown date. Continue Xarelto. // UTI: Urine culture growing ESBL E. coli. Appreciate infectious disease recommendations. Continue ertapenem. // Acute kidney injury: Improved. Monitor BUN/creatinine closely while on diuretics. // Elevated total bilirubin: Imaging shows hepatomegaly, sludge in gallbladder, ascites. Appreciate GI recommendations. Patient refused MRCP. CT abdomen done. GI requesting liver biopsy. Patient will need to be off anticoagulation. May need to go back on heparin drip. = 01/04. Will need liver biopsy as per GI. Will hold Xarelto. Plan for heparin drip tomorrow morning for bridging. // GI prophylaxis: Prevacid. // Schizophrenia, depression: Continue home medications, citalopram and paliperidone. // Encephalopathy: Serum ammonia is trending down. Continue lactulose, rifaximin. Confusion has improved. Head CT negative. Discharge Planning Pending further clinical improvement and clearance by GI. Onel Claire MD Jan 04, 2018 23:59
[2018-01-05 04:00] VITALS: BP 99/55; PULSE 82; RESP 21; TEMP 98.3; O2SAT 98
[2018-01-05] MEDS: ACETAMINOPHEN/HYDROcodone 325 MG/7.5 MG TAB PO PRN ×4 (04:49→23:21)
[2018-01-05] MEDS: INSULIN ASPART SUPPLEMENTAL SCALE SQ SCH ×5 (04:53→23:28)
[2018-01-05] MEDS: ARTIFICIAL TEARS OPTH SOLN 15 ML BTL EACH EYE SCH ×3 (04:53→23:22)
[2018-01-05 05:11] LABS: HEMATOCRIT 21.6 % (35.0-46.0); HEMOGLOBIN 7.4 GM/DL (11.6-15.3); MEAN CELL VOLUME 89.9 FL (80.0-100.0); MEAN CORPUSCULAR HEMOGLOBIN 30.7 PG (27.0-34.0); MEAN CORPUSCULAR HGB CONC 34.1 % (32.0-36.0); MEAN PLATELET VOLUME 9.8 FL (7.0-11.0); PLATELET COUNT 244 TH/MM3 (150-450); RED BLOOD COUNT 2.41 MIL/MM3 (4.00-5.30); RED CELL DISTRIBUTION WIDTH 17.5 % (11.6-17.2)
[2018-01-05 08:00] VITALS: BP 102/63; PULSE 90; RESP 18; TEMP 98.3; O2SAT 94
[2018-01-05] MEDS: FOLIC ACID 1 MG TAB PO SCH (08:46)
[2018-01-05] MEDS: LACTULOSE SYRUP 20 GM/30 ML CUP PO SCH ×2 (08:46→20:10)
[2018-01-05] MEDS: RIFAXIMIN 550 MG TAB PO SCH ×2 (08:46→20:11)
[2018-01-05] MEDS: CITALOPRAM HYDROBROMIDE 20 MG TAB PO SCH (08:47)
[2018-01-05] MEDS: LANSOPRAZOLE SOLUTAB 30 MG TAB NG SCH (08:47)
[2018-01-05] MEDS: POTASSIUM CHLORIDE 20 MEQ CONTROLLED RELEASE TAB PO SCH ×2 (08:47→20:10)
[2018-01-05] MEDS: TORSEMIDE 20 MG TAB PO SCH (08:47)
[2018-01-05] MEDS: BENZTROPINE MESYLATE 1 MG TAB PO SCH ×2 (08:47→23:18)
[2018-01-05] MEDS: PALIPERIDONE ER 3 MG TAB PO SCH (08:47)
[2018-01-05] MEDS: HYDROXYUREA 500 MG CAP PO SCH (08:48)
[2018-01-05] MEDS: POLYETHYLENE GLYCOL 17 GM PKG PO SCH ×2 (08:49→20:10)
[2018-01-05] MEDS: SODIUM CHLORIDE 0.9% FLUSH 10 ML FLUSH IV FLUSH SCH ×2 (08:50→20:11)
[2018-01-05] MEDS: DOCUSATE SODIUM 50 MG/SENNA 8.6 MG TAB PO SCH ×2 (08:50→20:11)
[2018-01-05] MEDS ORDERED: HEPARIN-D5W 25,000 U/250 ML 250 ML IV PRN (10:00)
[2018-01-05 10:19] LABS: INTERNATIONAL NORMALIZED RATIO 1.6 RATIO; PROTHROMBIN TIME - PATIENT 15.7 SEC (9.8-11.6)
[2018-01-05 12:00] VITALS: BP 111/67; PULSE 80; RESP 18; TEMP 98.2; O2SAT 98
--- NOTE | 2018-01-05 14:01 | RADRPT ---
EXAM DATE/TIME: 01/05/2018 13:47 [place] COMPARISON: No previous studies available for comparison. INDICATIONS : Distention MEDICAL HISTORY : Deep venous thrombosis. Sickle Cell disease SURGICAL HISTORY : IVC Filter placement ENCOUNTER: Subsequent ACUITY: 1 week PAIN SCORE: 0/10 LOCATION: Abdomen FINDINGS: Supine view of the abdomen was performed. The liver may be prominent in size. The abdominal bowel gas pattern is normal. There some calcifications in the left hemipelvis unchanged. Severe osteoarthritis of the left hip. The osseous structures are unremarkable. CONCLUSION: Stable exam with questionable hepatomegaly. IVC filter. Severe osteoarthritis left hip. Orestes Avilez MD on January 05, 2018 at 13:58 Board Certified Radiologist. This report was verified electronically.
[2018-01-05] MEDS: ERTAPENEM INJ 1,000 MG in SODIUM CHLORIDE 0.9% INJ 100 ML IV SCH (14:12)
--- NOTE | 2018-01-05 14:12 | HHI.GIFU ---
Subjective Remarks Resting in the bed Ate breakfast but noted some mild nausea no vomiting Abdominal bloating and tautness continues Afebrile (Symone Simmons) Objective Vitals I&O Vital Signs Date Time Temp Pulse Resp B/P (MAP) Pulse Ox O2 Delivery O2 Flow Rate FiO2 01/05/18 12:00 98.2 80 18 111/67 (82) 98 01/05/18 10:14 Nasal Cannula 2.00 01/05/18 08:00 98.3 90 18 102/63 (76) 94 01/05/18 04:00 98.3 82 21 99/55 (70) 98 01/05/18 01:43 Nasal Cannula 3.00 01/04/18 19:54 98.6 79 17 118/57 (77) 90 01/04/18 17:00 16 01/04/18 16:00 98.5 88 19 120/80 (93) 97 I/O 01/04/18 01/04/18 01/04/18 01/05/18 01/05/18 01/05/18 07:00 15:00 23:00 07:00 15:00 23:00 Intake Total 240 ml 2010 ml Output Total 1001 ml 2700 ml 800 ml Balance -761 ml -690 ml -800 ml Intake Oral 240 ml 1910 ml IV Total 100 ml Output Urine Total 1000 ml 2700 ml 800 ml Stool Total 1 ml # Bowel Movements 3 Laboratory Laboratory Tests Test 01/05/18 05:00 01/05/18 09:55 White Blood Count 9.0 Red Blood Count 2.41 Hemoglobin 7.4 Hematocrit 21.6 Mean Corpuscular Volume 89.9 Mean Corpuscular Hemoglobin 30.7 Mean Corpuscular Hemoglobin Concent 34.1 Red Cell Distribution Width 17.5 Platelet Count 244 Mean Platelet Volume 9.8 Ammonia 50 Prothrombin Time 15.7 Prothromb Time International Ratio 1.6 Activated Partial Thromboplast Time 32.9 Date/Time Source Procedure Growth Status 12/23/17 18:07 Blood Peripheral Aerobic Blood Culture - Final NO GROWTH IN 5 DAYS Complete 12/23/17 18:07 Blood Peripheral Anaerobic Blood Culture - Final NO GROWTH IN 5 DAYS Complete 01/04/18 17:37 Stool Stool Stool Occult Blood (SANDRA) - Final HEMOCCULT NEGATIVE Complete 12/22/17 21:30 Sputum Endotracheal Gram Stain - Final Complete 12/22/17 21:30 Sputum Culture - Final Beta Strep Not Group A Complete 12/22/17 18:16 Urine Random Urine Urine Culture - Final Escherichia Coli Esbl Positive Multi-Drug Resistant Complete Imaging Last Impressions Head CT 12/31/17 0000 Signed Impressions: Service Date/Time: Sunday, December 31, 2017 16:38 - CONCLUSION: 1. Isolated chronic sinusitis in a posterior right ethmoid air cells. 2. Otherwise negative. Pj Laboy MD Abdomen/Pelvis CT 12/30/17 0000 Signed Impressions: Service Date/Time: Saturday, December 30, 2017 23:30 - CONCLUSION: 1. Anasarca with small volume ascites. No dilated loops of bowel observed. 2. Cardiomegaly with moderate pericardial effusion. 3. Small bilateral pleural effusions with associated passive atelectasis. Aakash Gonzalez Jr., MD Abdomen X-Ray 12/30/17 0000 Signed Impressions: Service Date/Time: Saturday, December 30, 2017 11:35 - CONCLUSION: 1. No acute finding is identified within the abdomen. A nonobstructive bowel gas pattern is present. 2. Hepatomegaly. 3. Trace bilateral pleural fluid. Jacinto Nieves MD Chest X-Ray 12/27/17 0600 Signed Impressions: Service Date/Time: Wednesday, December 27, 2017 04:32 - CONCLUSION: Bibasilar consolidation slightly worse. Lines and tubes unchanged. Jacinto Crouch MD Lower Extremity Ultrasound 12/24/17 0000 Signed Impressions: Service Date/Time: Sunday, December 24, 2017 08:58 - CONCLUSION: Deep venous thrombosis extending above the knee as described above. Tre King MD FACR Lung Scan-V Nuclear Medicine 12/23/17 0000 Signed Impressions: Service Date/Time: Saturday, December 23, 2017 13:14 - CONCLUSION: 1. A reverse mismatch posteriorly in the left base with increased activity on the perfusion images and no identifiable activity in the left base on the corresponding ventilatory sequence. Findings are probably due to a posterior layering effusion. There may be some fluid in the fissure on the left as well based on the linear perfusion defect posteriorly in the left base. 2. Central trapping possibly representing some degree of COPD. 3. No scintigraphic findings of pulmonary embolus. Pj Laboy MD Abdomen Ultrasound 12/23/17 0000 Signed Impressions: Service Date/Time: Saturday, December 23, 2017 08:44 - CONCLUSION: 1. Liver appears somewhat prominent but otherwise sonographically intact. There is some free fluid along the hepatic convexity. 2. Cholelithiasis with probable associated gallbladder sludge. 3. Due to the patient's current clinical condition and the fact they were restrained, limited examination of the additional abdominal viscera. Pancreas is obscured by overlying bowel gas. Left kidney, aorta and IVC are poorly visualized. Pj Laboy MD Chest CT 12/22/17 0000 Signed Impressions: Service Date/Time: December 19:57 - CONCLUSION: 1. Moderate cardiomegaly with moderate pericardial effusion. 2. Consolidation and airspace disease in the lower lobes left greater than right as well as more patchy airspace disease in the right lung. 3. Small pleural effusions. 4. Diffuse anasarca with ascites in the upper abdomen. 5. Hepatomegaly and abnormal apparent small high density spleen. 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 There is some free fluid along the hepatic convexity. Cholelithiasis with probably associated gallbladder sludge. Limited exam of the abdominal viscera. Pancreas is obscured by overlying gas. Liver LYONS: Ceruloplasmin-28 Hepatitis panel negative. Iron-1189 TIBC-192 Ferritin-2893 KEL, AMA, ASMA, A1A, HFE pending - Hyperammonemia- Ammonia-88 ?Zinc deficiency - Sick cell disease with vaso-occlusive crisis Retic count-6 Abs Retic-158.9 Pt currently on Heparin gtt. Hematology following - S/P plasmapheresis x 2 - Respiratory distress- Pulmonology following (12/31) --> Pt opens eyes to verbal stimuli, not answering questions. She refused her MRCP. CT abdomen and pelvis W/O IV contrast (12/30) --> Anasarca with small volume ascites. No dilated loops of bowel observed. Cardiomegaly with moderate pericardial effusion. Small bilateral pleural effusions. Zinc and ceruloplasmin still pending. Will add full liver work up. Add HFE for elevated ferritin. APTT elevated, Heparin gtt on hold. (01/01) Pt much more alert today, answers questions appropriately. Zinc and HFE pending. Ceruloplasmin-28. Heparin gtt restarted 01/02/2013, patient's abdomen continues to be taut, pizza at her bedside. Asking for pain management per nursing staff but appears to be fairly comfortable Liver workup pending, ammonia level 68, speech rambling at times but is answering questions for the most part appropriately. Heparin drip dc. 01/03/2018, patient is eating regular food which includes 2 pieces of pizza in the past 24 hours. Bowel sounds continue to be more active abdomen is taut, nontender. Patient is up in chair today with 2 people assist and appears to be feeling better. Increased alertness today. no obvious nausea or vomiting current hemoglobin 7.8. Denies any dizziness or lightheadedness. Previous x-ray showed hepatomegaly, labs hemochromatosis pending, nonreactive hepatitis panel, negative C. difficile Patient is having loose dark brown stools no obvious blood. Will check Hemoccult 01/04/2018 patient still has been loose diarrhea stools, but is still currently getting lactulose 4 times a day. no nausea and vomiting and patient is tolerating solid food. Current hemoglobin 7.6 , last hemoglobin checked 7.8. Decreased bilirubin 1.9, LFTs AST 58 ALT 21, she is alert answers questions appropriately and much calmer. Clinically is showing gradual slow improvement. Previous Hemoccults are negative, will recheck ammonia level in the morning. Patient's abdomen taut, minimal mild tenderness to light palpation, last CT scan showed anasarca with small amount of ascites. 01/05/2018 patient Ate 80% of her breakfast but began having some mild nausea no vomiting fro now. Abdomen continues to be semi-firm. Ammonia level 50, lactulose dose decreased from 4 times daily to twice daily, less loose stools today. Recheck abdominal x-ray today, unremarkable except for her hepatomegaly. Continue to encourage patient to increase her activity and be out of bed in chair. Working with physical therapy PLAN -Diet, heart healthy, eat small amounts of foods 4-6 times a day which may help with her nausea -Monitor labs - monitor intake/output - Lactulose - Xifaxan - Monitor labs -Supportive care - Further recommendations based on findings of above and clinical course Patient has been seen and examined by myself and Dr. Manzo, note is written on his behalf (Symone Simmons) Physician Comments Patient seen and examined Agree with above Continue with current supportive care Monitor labs We will order a liver biopsy (Tacos Manzo MD) Symone Simmons Jan 05, 2018 14:12 Tacos Manzo MD Jan 05, 2018 19:14
[2018-01-05 16:00] VITALS: BP 105/60; PULSE 75; RESP 18; TEMP 98.2; O2SAT 94
[2018-01-05] MEDS ORDERED: REMOVE OLD DURAGESIC (FENTANYL) PATCH T-DERMAL SCH (16:00)
[2018-01-05] MEDS: fentaNYL 50 MCG/HR PATCH T-DERMAL SCH (16:01)
[2018-01-05 18:41] VITALS: PULSE 94
[2018-01-05 20:00] VITALS: BP 117/57; PULSE 82; RESP 18; TEMP 99.1; O2SAT 94
--- NOTE | 2018-01-05 23:27 | HHI.PR ---
Subjective Remarks Patient seen this afternoon following dialysis. Says she is feeling all right. She agrees with biopsy Objective Vital Signs Date Time Temp Pulse Resp B/P (MAP) Pulse Ox O2 Delivery O2 Flow Rate FiO2 01/05/18 20:00 99.1 82 18 117/57 (77) 94 01/05/18 18:41 94 01/05/18 18:15 16 01/05/18 17:02 18 01/05/18 16:00 98.2 75 18 105/60 (75) 94 01/05/18 12:00 98.2 80 18 111/67 (82) 98 01/05/18 10:14 Nasal Cannula 2.00 01/05/18 08:00 98.3 90 18 102/63 (76) 94 01/05/18 04:00 98.3 82 21 99/55 (70) 98 01/05/18 01:43 Nasal Cannula 3.00 I/O 01/05/18 01/05/18 01/05/18 01/06/18 01/06/18 01/06/18 07:00 15:00 23:00 07:00 15:00 23:00 Intake Total 1190 ml Output Total 800 ml 1500 ml Balance -800 ml -310 ml Intake Oral 940 ml IV Total 250 ml Output Urine Total 800 ml 1500 ml # Bowel Movements 3 Result Diagram: 01/05/18 0500 01/04/18 0500 Objective Remarks GENERAL: She is sitting up in bed. Alert and oriented 3.no change on exam SKIN: Warm and dry. HEAD: Normocephalic. EYES: No scleral icterus. No injection or drainage. NECK: Supple, trachea midline. No JVD. CARDIOVASCULAR: Regular rate and rhythm without murmurs, gallops, or rubs. RESPIRATORY: Breath sounds equal bilaterally. No accessory muscle use. GASTROINTESTINAL: Abdomen soft, non-tender, nondistended. MUSCULOSKELETAL: No cyanosis, or edema. BACK: Nontender without obvious deformity. No CVA tenderness. A/P Assessment and Plan ========01/05/18. ======= Plan for liver biopsy tomorrow. Patient is on heparin drip. Further management of adequate by GI. Appreciate assistance. //Acute hypoxic hypercapnic respiratory failure: Extubated 12/27/17. Appreciate pulmonology recommendations. Continue bronchodilators, supplemental oxygen. Continues on 3L. //Chronic diastolic heart failure, small pericardial effusion without evidence of tamponade: 2D echocardiogram showed ejection fraction 55-60%. Right ventricle is moderately dilated. Right atrial size is severely dilated. Severe tricuspid regurgitation and trace mitral valve regurgitation noted. Inferior vena cava dilated. IV fluids discontinued. Appreciate cardiology recommendations. Diuresing well. //Chronic pain: On chronic Res[place] and Fentanyl patch at home. Fentanyl patch discontinued due to encephalopathy. Mental status improved and patient reporting significant pain. Fentanyl patch restarted. Continue Reseda as needed. //Sickle cell disease with vaso-occlusive crisis: Appreciate hematology recommendations. Continue folic acid. Status post plasmapheresis. Monitor H&H , LDH, reticulocyte count. // Right lower extremity DVT: IVC filter placed, unknown date. Continue Xarelto. // UTI: Urine culture growing ESBL E. coli. Appreciate infectious disease recommendations. Continue ertapenem. // Acute kidney injury: Improved. Monitor BUN/creatinine closely while on diuretics. // Elevated total bilirubin: Imaging shows hepatomegaly, sludge in gallbladder, ascites. Appreciate GI recommendations. Patient refused MRCP. CT abdomen done. GI requesting liver biopsy. Patient will need to be off anticoagulation. May need to go back on heparin drip. = 01/04. Will need liver biopsy as per GI. Will hold Xarelto. Plan for heparin drip tomorrow morning for bridging. =01/05Plan for liver biopsy tomorrow. Patient is on heparin drip. Further management of adequate by GI. Appreciate assistance. // GI prophylaxis: Prevacid. // Schizophrenia, depression: Continue home medications, citalopram and paliperidone. // Encephalopathy: Serum ammonia is trending down. Continue lactulose, rifaximin. Confusion has improved. Head CT negative. Discharge Planning Pending further clinical improvement and clearance by GI. =liver biopsy planned for 01/06 Onel Claire MD Jan 05, 2018 23:27
[2018-01-05 23:52] LABS: MITOCHONDRIAL ABS LESS THAN 20.0 U (<=20.0)
[2018-01-06] VITALS (7 sets, daily range): BP systolic 102–125; BP diastolic 51–74; PULSE 74–100; RESP 16–20; TEMP 97.8–98.5; O2SAT 90–95
[2018-01-06] MEDS: INSULIN ASPART SUPPLEMENTAL SCALE SQ SCH ×3 (06:00→17:29)
[2018-01-06] MEDS: ARTIFICIAL TEARS OPTH SOLN 15 ML BTL EACH EYE SCH ×3 (06:50→22:09)
[2018-01-06 07:14] LABS: INTERNATIONAL NORMALIZED RATIO 1.5 RATIO; PROTHROMBIN TIME - PATIENT 15.1 SEC (9.8-11.6)
[2018-01-06 07:17] LABS: AUTOMATED NEUTROPHIL # 6.6 TH/MM3 (1.8-7.7); BASOPHIL # 0.2 TH/MM3 (0-0.2); BASOPHIL % 2.3 % (0.0-2.0); EOSINOPHIL # 0.3 TH/MM3 (0-0.4); EOSINOPHIL % 2.9 % (0.0-4.0); HEMATOCRIT 21.9 % (35.0-46.0); HEMOGLOBIN 7.5 GM/DL (11.6-15.3); LYMPH % 15.1 % (9.0-44.0); LYMPHOCYTE # 1.4 TH/MM3 (1.0-4.8); MEAN CELL VOLUME 89.7 FL (80.0-100.0); MEAN CORPUSCULAR HEMOGLOBIN 30.5 PG (27.0-34.0); MEAN PLATELET VOLUME 10.5 FL (7.0-11.0); MONO % 7.4 % (0.0-8.0); MONOCYTE # 0.7 TH/MM3 (0-0.9); NEUT % 72.3 % (16.0-70.0); PLATELET COUNT 236 TH/MM3 (150-450); RED BLOOD COUNT 2.44 MIL/MM3 (4.00-5.30); RED CELL DISTRIBUTION WIDTH 17.5 % (11.6-17.2); WHITE BLOOD COUNT 9.1 TH/MM3 (4.0-11.0)
[2018-01-06 07:44] LABS: AST (GOT) 61 U/L (15-37); BICARBONATE 35.8 MEQ/L (21.0-32.0); BLOOD UREA NITROGEN 20 MG/DL (7-18); CALCIUM 8.5 MG/DL (8.5-10.1); CHLORIDE 99 MEQ/L (98-107); CREATININE 0.77 MG/DL (0.50-1.00); GLOMERULAR FILTRATION RATE 99 ML/MIN (>89); GLUCOSE,RANDOM 99 MG/DL (74-106); SODIUM (NA) 140 MEQ/L (136-145)
[2018-01-06 08:02] LABS: ALKALINE PHOSPHATASE 159 U/L (45-117); ALT (GPT) 20 U/L (10-53); TOTAL PROTEIN 8.1 GM/DL (6.4-8.2)
[2018-01-06 08:05] LABS: DIRECT BILIRUBIN ADULT 1.2 MG/DL (0.0-0.2); INDIRECT BILIRUBIN 0.7 MG/DL (0.0-0.8); TOTAL BILIRUBIN ADULT 1.9 MG/DL (0.2-1.0); TOTAL PROTEIN 8.3 GM/DL (6.4-8.2)
[2018-01-06] MEDS: BENZTROPINE MESYLATE 1 MG TAB PO SCH ×2 (08:34→22:06)
[2018-01-06] MEDS: LANSOPRAZOLE SOLUTAB 30 MG TAB NG SCH (08:35)
[2018-01-06] MEDS: RIFAXIMIN 550 MG TAB PO SCH ×2 (08:35→22:07)
[2018-01-06] MEDS: LACTULOSE SYRUP 20 GM/30 ML CUP PO SCH ×2 (08:35→21:00)
[2018-01-06] MEDS: POTASSIUM CHLORIDE 20 MEQ CONTROLLED RELEASE TAB PO SCH ×2 (08:35→22:06)
[2018-01-06] MEDS: CITALOPRAM HYDROBROMIDE 20 MG TAB PO SCH (08:35)
[2018-01-06] MEDS: FOLIC ACID 1 MG TAB PO SCH (08:35)
[2018-01-06] MEDS: DOCUSATE SODIUM 50 MG/SENNA 8.6 MG TAB PO SCH ×2 (08:36→21:00)
[2018-01-06] MEDS: POLYETHYLENE GLYCOL 17 GM PKG PO SCH ×2 (08:36→21:00)
[2018-01-06] MEDS: TORSEMIDE 20 MG TAB PO SCH (08:36)
[2018-01-06] MEDS: PALIPERIDONE ER 3 MG TAB PO SCH (09:23)
[2018-01-06] MEDS: SODIUM CHLORIDE 0.9% FLUSH 10 ML FLUSH IV FLUSH SCH ×2 (09:23→22:03)
[2018-01-06] MEDS: HYDROXYUREA 500 MG CAP PO SCH (09:26)
[2018-01-06 10:37] LABS: ALPHA-1-ANTITRYPSIN 194 mg/dL (100 - 190); HEREDITARY HEMOCHROM SPECIMEN WB Whole Blood
[2018-01-06] MEDS: ERTAPENEM INJ 1,000 MG in SODIUM CHLORIDE 0.9% INJ 100 ML IV SCH (15:05)
--- NOTE | 2018-01-06 15:14 | HHI.GIFU ---
Subjective Remarks Patient is n.p.o. resting in the bed Plan for liver biopsy today around noon Patient is wanting juice to drink but explained again, nothing to drink until after test No other acute complaints (Symone Simmons) Objective Vitals I&O Vital Signs Date Time Temp Pulse Resp B/P (MAP) Pulse Ox O2 Delivery O2 Flow Rate FiO2 01/06/18 12:00 98.1 74 20 107/58 (74) 92 01/06/18 08:00 97.9 82 20 107/58 (74) 95 01/06/18 08:00 Nasal Cannula 2.00 30 01/06/18 04:00 97.9 83 18 121/74 (90) 92 01/06/18 00:00 98.1 88 19 110/56 (74) 94 01/05/18 20:00 Nasal Cannula 2.00 30 01/05/18 20:00 99.1 82 18 117/57 (77) 94 01/05/18 18:41 94 01/05/18 18:15 16 01/05/18 17:02 18 01/05/18 16:00 98.2 75 18 105/60 (75) 94 I/O 01/05/18 01/05/18 01/05/18 01/06/18 01/06/18 01/06/18 06:59 14:59 22:59 06:59 14:59 22:59 Intake Total 1190 ml 0 ml Output Total 800 ml 1500 ml 900 ml Balance -800 ml -310 ml -900 ml Intake Oral 940 ml 0 ml IV Total 250 ml Output Urine Total 800 ml 1500 ml 900 ml # Bowel Movements 3 Laboratory Laboratory Tests Test 01/05/18 17:30 01/05/18 23:25 01/06/18 06:50 01/06/18 10:45 Activated Partial Thromboplast Time 277.5 75.8 47.4 White Blood Count 9.1 Red Blood Count 2.44 Hemoglobin 7.5 Hematocrit 21.9 Mean Corpuscular Volume 89.7 Mean Corpuscular Hemoglobin 30.5 Mean Corpuscular Hemoglobin Concent 34.0 Red Cell Distribution Width 17.5 Platelet Count 236 Mean Platelet Volume 10.5 Neutrophils (%) (Auto) 72.3 Lymphocytes (%) (Auto) 15.1 Monocytes (%) (Auto) 7.4 Eosinophils (%) (Auto) 2.9 Basophils (%) (Auto) 2.3 Neutrophils # (Auto) 6.6 Lymphocytes # (Auto) 1.4 Monocytes # (Auto) 0.7 Eosinophils # (Auto) 0.3 Basophils # (Auto) 0.2 CBC Comment AUTO DIFF Differential Comment AUTO DIFF CONFIRMED Platelet Estimate NORMAL Platelet Morphology Comment ENLARGED Red Cell Morphology Comment Prothrombin Time 15.1 Prothromb Time International Ratio 1.5 Blood Urea Nitrogen 20 Creatinine 0.77 Random Glucose 99 Total Protein 8.1 Albumin 3.0 Calcium Level 8.5 Alkaline Phosphatase 159 Aspartate Amino Transf (AST/SGOT) 61 Alanine Aminotransferase (ALT/SGPT) 20 Total Bilirubin 2.0 Sodium Level 140 Potassium Level 4.1 Chloride Level 99 Carbon Dioxide Level 35.8 Anion Gap 5 Estimat Glomerular Filtration Rate 99 Direct Bilirubin 1.2 Indirect Bilirubin 0.7 Date/Time Source Procedure Growth Status 12/23/17 18:07 Blood Peripheral Aerobic Blood Culture - Final NO GROWTH IN 5 DAYS Complete 12/23/17 18:07 Blood Peripheral Anaerobic Blood Culture - Final NO GROWTH IN 5 DAYS Complete 01/04/18 17:37 Stool Stool Stool Occult Blood (SANDRA) - Final HEMOCCULT NEGATIVE Complete 12/22/17 21:30 Sputum Endotracheal Gram Stain - Final Complete 12/22/17 21:30 Sputum Culture - Final Beta Strep Not Group A Complete 12/22/17 18:16 Urine Random Urine Urine Culture - Final Escherichia Coli Esbl Positive Multi-Drug Resistant Complete Physical Exam HEENT: Normocephalic; atraumatic, oral cavity moist, no obvious icterus, morbid obesity CHEST: Nonlabored respirations, no obvious rhonchi or wheezing CARDIAC: RRR ABDOMEN: Obese, round, moderate distention, taut, bowel sounds active mild nausea EXTREMITIES: Right lower extremity edema left leg normal for patient's size [employer]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 There is some free fluid along the hepatic convexity. Cholelithiasis with probably associated gallbladder sludge. Limited exam of the abdominal viscera. Pancreas is obscured by overlying gas. Liver LYONS: Ceruloplasmin-28 Hepatitis panel negative. Iron-1189 TIBC-192 Ferritin-2893 KEL, AMA, ASMA, A1A, HFE pending - Hyperammonemia- Ammonia-88 ?Zinc deficiency - Sick cell disease with vaso-occlusive crisis Retic count-6 Abs Retic-158.9 Pt currently on Heparin gtt. Hematology following - S/P plasmapheresis x 2 - Respiratory distress- Pulmonology following (12/31) --> Pt opens eyes to verbal stimuli, not answering questions. She refused her MRCP. CT abdomen and pelvis W/O IV contrast (12/30) --> Anasarca with small volume ascites. No dilated loops of bowel observed. Cardiomegaly with moderate pericardial effusion. Small bilateral pleural effusions. Zinc and ceruloplasmin still pending. Will add full liver work up. Add HFE for elevated ferritin. APTT elevated, Heparin gtt on hold. (01/01) Pt much more alert today, answers questions appropriately. Zinc and HFE pending. Ceruloplasmin-28. Heparin gtt restarted 01/02/2013, patient's abdomen continues to be taut, pizza at her bedside. Asking for pain management per nursing staff but appears to be fairly comfortable Liver workup pending, ammonia level 68, speech rambling at times but is answering questions for the most part appropriately. Heparin drip dc. 01/03/2018, patient is eating regular food which includes 2 pieces of pizza in the past 24 hours. Bowel sounds continue to be more active abdomen is taut, nontender. Patient is up in chair today with 2 people assist and appears to be feeling better. Increased alertness today. no obvious nausea or vomiting current hemoglobin 7.8. Denies any dizziness or lightheadedness. Previous x-ray showed hepatomegaly, labs hemochromatosis pending, nonreactive hepatitis panel, negative C. difficile Patient is having loose dark brown stools no obvious blood. Will check Hemoccult 01/04/2018 patient still has been loose diarrhea stools, but is still currently getting lactulose 4 times a day. no nausea and vomiting and patient is tolerating solid food. Current hemoglobin 7.6 , last hemoglobin checked 7.8. Decreased bilirubin 1.9, LFTs AST 58 ALT 21, she is alert answers questions appropriately and much calmer. Clinically is showing gradual slow improvement. Previous Hemoccults are negative, will recheck ammonia level in the morning. Patient's abdomen taut, minimal mild tenderness to light palpation, last CT scan showed anasarca with small amount of ascites. 01/05/2018 patient Ate 80% of her breakfast but began having some mild nausea no vomiting fro now. Abdomen continues to be semi-firm. Ammonia level 50, lactulose dose decreased from 4 times daily to twice daily, less loose stools today. Recheck abdominal x-ray today, unremarkable except for her hepatomegaly. Continue to encourage patient to increase her activity and be out of bed in chair. Working with physical therapy 01/06/2018 patient is n.p.o. for liver biopsy today. Currently has no pain or distress and states her bowels are moving more normal now, but still loose. FFP on hold, PLAN -N.p.o. but will be able to eat and drink after liver biopsy today -Monitor labs - Lactulose - Xifaxan - Monitor labs -Supportive care - Further recommendations after liver biopsy Patient has been seen and examined by myself and Dr. Manzo, note is written on his behalf (Symone Simmons) Physician Comments Patient seen and examined Agree with above Continue with current supportive care Monitor labs Apparently the patient refused a liver biopsy Workup has been negative so far LFTs appear to be stable Most likely diagnosis this point would be steatohepatitis versus other Not much to add from a GI perspective Patient to follow-up with GI post discharge We will sign off (Tacos Manzo MD) Symone Simmons Jan 06, 2018 15:14 Tacos Manzo MD Jan 06, 2018 17:33
[2018-01-06] MEDS: ACETAMINOPHEN/HYDROcodone 325 MG/7.5 MG TAB PO PRN ×2 (17:35→22:02)
--- NOTE | 2018-01-06 18:41 | HHI.PR ---
Subjective Remarks Patient seen this afternoon. She refused liver biopsy. She reports generalized pain is under control. Objective Vital Signs Date Time Temp Pulse Resp B/P (MAP) Pulse Ox O2 Delivery O2 Flow Rate FiO2 01/06/18 16:00 97.8 100 18 125/67 (86) 90 01/06/18 12:00 98.1 74 20 107/58 (74) 92 01/06/18 08:00 97.9 82 20 107/58 (74) 95 01/06/18 08:00 Nasal Cannula 2.00 30 01/06/18 04:00 97.9 83 18 121/74 (90) 92 01/06/18 00:00 98.1 88 19 110/56 (74) 94 01/05/18 20:00 Nasal Cannula 2.00 30 01/05/18 20:00 99.1 82 18 117/57 (77) 94 01/05/18 18:41 94 I/O 01/05/18 01/05/18 01/05/18 01/06/18 01/06/18 01/06/18 07:00 15:00 23:00 07:00 15:00 23:00 Intake Total 1190 ml 0 ml Output Total 800 ml 1500 ml 900 ml Balance -800 ml -310 ml -900 ml Intake Oral 940 ml 0 ml IV Total 250 ml Output Urine Total 800 ml 1500 ml 900 ml # Bowel Movements 3 Result Diagram: 01/06/18 0650 01/06/18 0650 Objective Remarks GENERAL: She is sitting up in bed. Alert and oriented 3.again,no change on exam SKIN: Warm and dry. HEAD: Normocephalic. EYES: No scleral icterus. No injection or drainage. NECK: Supple, trachea midline. No JVD. CARDIOVASCULAR: Regular rate and rhythm without murmurs, gallops, or rubs. RESPIRATORY: Breath sounds equal bilaterally. No accessory muscle use. GASTROINTESTINAL: Abdomen soft, non-tender, nondistended. MUSCULOSKELETAL: No cyanosis, or edema. BACK: Nontender without obvious deformity. No CVA tenderness. A/P Assessment and Plan ========01/06/18. ======= Patient refused liver biopsy.. Discontinue Heparin drip, restart on Xarelto. Plan for discharge to SNF tomorrow morning //Acute hypoxic hypercapnic respiratory failure: Extubated 12/27/17. Appreciate pulmonology recommendations. Continue bronchodilators, supplemental oxygen. Continues on 3L. //Chronic diastolic heart failure, small pericardial effusion without evidence of tamponade: 2D echocardiogram showed ejection fraction 55-60%. Right ventricle is moderately dilated. Right atrial size is severely dilated. Severe tricuspid regurgitation and trace mitral valve regurgitation noted. Inferior vena cava dilated. IV fluids discontinued. Appreciate cardiology recommendations. Diuresing well. //Chronic pain: On chronic Clare and Fentanyl patch at home. Fentanyl patch discontinued due to encephalopathy. Mental status improved and patient reporting significant pain. Fentanyl patch restarted. Continue Clare as needed. //Sickle cell disease with vaso-occlusive crisis: Appreciate hematology recommendations. Continue folic acid. Status post plasmapheresis. Monitor H&H , LDH, reticulocyte count. // Right lower extremity DVT: IVC filter placed, unknown date. Continue Xarelto. // UTI: Urine culture growing ESBL E. coli. Appreciate infectious disease recommendations. Continue ertapenem. // Acute kidney injury: Improved. Monitor BUN/creatinine closely while on diuretics. // Elevated total bilirubin: Imaging shows hepatomegaly, sludge in gallbladder, ascites. Appreciate GI recommendations. Patient refused MRCP. CT abdomen done. GI requesting liver biopsy. Patient will need to be off anticoagulation. May need to go back on heparin drip. = 01/04. Will need liver biopsy as per GI. Will hold Xarelto. Plan for heparin drip tomorrow morning for bridging. =01/05Plan for liver biopsy tomorrow. Patient is on heparin drip. Further management of adequate by GI. Appreciate assistance. = 01/06. Patient refused liver biopsy. Hemoglobin stable. Bilirubin stable. // GI prophylaxis: Prevacid. // Schizophrenia, depression: Continue home medications, citalopram and paliperidone. // Encephalopathy: Serum ammonia is trending down. Continue lactulose, rifaximin. Confusion has improved. Head CT negative. Discharge Planning discharge to SNF tomorrow. Will need follow-up with GI as outpatient. Onel Claire MD Jan 06, 2018 18:41
[2018-01-07] MEDS: INSULIN ASPART SUPPLEMENTAL SCALE SQ SCH ×4 (05:30→18:00)
[2018-01-07] MEDS: ARTIFICIAL TEARS OPTH SOLN 15 ML BTL EACH EYE SCH ×2 (05:31→12:25)
[2018-01-07] MEDS: ACETAMINOPHEN/HYDROcodone 325 MG/7.5 MG TAB PO PRN (05:34)
[2018-01-07 08:00] VITALS: BP 90/55; PULSE 86; RESP 20; TEMP 97.7; O2SAT 91
[2018-01-07 08:47] VITALS: PULSE 90
[2018-01-07] MEDS: POLYETHYLENE GLYCOL 17 GM PKG PO SCH (09:00)
[2018-01-07] MEDS: LACTULOSE SYRUP 20 GM/30 ML CUP PO SCH (09:00)
[2018-01-07] MEDS: DOCUSATE SODIUM 50 MG/SENNA 8.6 MG TAB PO SCH (09:00)
[2018-01-07] MEDS: TORSEMIDE 20 MG TAB PO SCH (09:51)
[2018-01-07] MEDS: BENZTROPINE MESYLATE 1 MG TAB PO SCH (09:51)
[2018-01-07] MEDS: LANSOPRAZOLE SOLUTAB 30 MG TAB NG SCH (09:51)
[2018-01-07] MEDS: CITALOPRAM HYDROBROMIDE 20 MG TAB PO SCH (09:52)
[2018-01-07] MEDS: RIVAROXABAN 20 MG TAB PO SCH (09:52)
[2018-01-07] MEDS: RIFAXIMIN 550 MG TAB PO SCH (09:52)
[2018-01-07] MEDS: POTASSIUM CHLORIDE 20 MEQ CONTROLLED RELEASE TAB PO SCH (09:52)
[2018-01-07] MEDS: PALIPERIDONE ER 3 MG TAB PO SCH (09:52)
[2018-01-07] MEDS: FOLIC ACID 1 MG TAB PO SCH (09:52)
[2018-01-07] MEDS: SODIUM CHLORIDE 0.9% FLUSH 10 ML FLUSH IV FLUSH SCH (09:53)
[2018-01-07] MEDS: HYDROXYUREA 500 MG CAP PO SCH (09:59)
[2018-01-07] MEDS ORDERED: TORS1TAB12 PO (10:01)
[2018-01-07] MEDS ORDERED: PREV30TA3 NG (10:01)
[2018-01-07] MEDS ORDERED: PERI PO (10:01)
[2018-01-07] MEDS ORDERED: POTA20TA5 PO (10:01)
[2018-01-07] MEDS ORDERED: Lactulose Liq PO (10:01)
[2018-01-07] MEDS ORDERED: NOVOLOGSS SQ (10:01)
[2018-01-07] MEDS ORDERED: POLY17S PO (10:01)
[2018-01-07] MEDS ORDERED: HYDR-3583 PO (10:01)
[2018-01-07] MEDS ORDERED: FENT50DI T-DERMAL (10:07)
[2018-01-07 11:46] VITALS: PULSE 78
[2018-01-07 12:00] VITALS: BP 107/78; PULSE 87; RESP 20; TEMP 98.2; O2SAT 91
[2018-01-07] MEDS: ERTAPENEM INJ 1,000 MG in SODIUM CHLORIDE 0.9% INJ 100 ML IV SCH (12:24)
--- NOTE | 2018-01-07 14:22 | PD.ONC.PN ---
Subjective Subjective Remarks Ms. Weiss is resting comfortably in bed in no distress. She is looking forward to hospital discharge. Objective Data Date Time Temp Pulse Resp B/P (MAP) Pulse Ox O2 Delivery O2 Flow Rate FiO2 01/07/18 12:00 98.2 87 20 107/78 (88) 91 01/07/18 08:00 97.7 86 20 90/55 (67) 91 01/06/18 23:00 98.5 82 16 105/51 (69) 95 01/06/18 20:00 Nasal Cannula 3.00 01/06/18 20:00 98.5 97 18 102/62 (75) 93 01/06/18 16:00 97.8 100 18 125/67 (86) 90 01/07/18 01/07/18 01/07/18 07:00 15:00 23:00 Output Total 350 ml Balance -350 ml Result Diagram: 01/06/18 0650 01/06/18 0650 Culture Results Microbiology Date/Time Source Procedure Growth Status 01/04/18 17:37 Stool Stool Stool Occult Blood (SANDRA) - Final HEMOCCULT NEGATIVE Complete Administered Medications Medications (Trade) Dose Ordered Sig/Earnest Route PRN Reason Start Time Stop Time Status Last Admin Dose Admin Sodium Chloride (NS Flush) 2 ml UNSCH PRN IV FLUSH FLUSH AFTER USING IV ACCESS 12/22/17 18:45 01/02/18 17:56 Sodium Chloride (NS Flush) 2 ml BID IV FLUSH 12/22/17 21:00 01/07/18 09:53 Senna/Docusate Sodium (Amber-Colace) 1 tab BID PO 12/22/17 21:00 01/06/18 08:36 Folic Acid (Folate) 1 mg DAILY PO 12/23/17 09:00 01/07/18 09:52 Artificial Tears (Tears Naturale Opth Soln) 1 drop Q8HR EACH EYE 12/23/17 22:00 01/07/18 05:31 Lansoprazole (Prevacid Odt) 30 mg DAILY NG 12/24/17 09:00 01/07/18 09:51 Albuterol Sulfate (Albuterol Neb) 2.5 mg Q2HR NEB PRN NEB dyspnea 12/23/17 15:30 12/30/17 09:57 Insulin Aspart (NovoLOG SUPPLEMENTAL SCALE) 1 Q6HR SQ 12/23/17 18:00 12/26/17 12:00 Polyethylene Glycol (Miralax) 17 gm BID PO 12/24/17 09:00 01/04/18 21:36 Ertapenem 1000 mg/ Sodium Chloride 100 ml @ 200 mls/hr Q24H IV 12/27/17 13:00 01/07/18 12:24 Acetaminophen/ Hydrocodone Bitart ([place] 7.5-325 Mg) 1 tab Q6H PRN PO PAIN SCALE 4 TO 10 12/27/17 18:00 01/07/18 05:34 Rifaximin (Xifaxan) 550 mg BID PO 12/30/17 21:00 01/07/18 09:52 Torsemide (Demadex) 20 mg DAILY PO 12/30/17 17:00 01/07/18 09:51 Potassium Chloride (KCl) 20 meq Q12HR PO 12/30/17 21:00 01/07/18 09:52 Benztropine Mesylate (Cogentin) 0.5 mg BID PO 01/01/18 15:00 01/07/18 09:51 Citalopram Hydrobromide (CeleXA) 20 mg DAILY PO 01/01/18 14:45 01/07/18 09:52 Hydroxyurea (Hydrea) 1,000 mg DAILY PO 01/01/18 14:45 01/07/18 09:59 Paliperidone Palmitate (Invega Er) 3 mg DAILY PO 01/01/18 14:45 01/07/18 09:52 Rivaroxaban (Xarelto) 20 mg DAILY PO 01/01/18 14:45 Future hold 01/07/18 09:52 Fentanyl (Duragesic 50 Mcg Patch.72 Hr) 1 patch Q72H T-DERMAL 01/02/18 16:00 01/05/18 16:01 Miscellaneous Information 1 Q3D T-DERMAL 01/05/18 16:00 01/05/18 16:00 Lactulose (Lactulose Liq) 30 ml BID PO 01/05/18 09:00 01/06/18 08:35 Objective Remarks GENERAL: Well-nourished, well-developed patient. SKIN: Warm and dry. HEAD: Normocephalic. EYES: No scleral icterus. No injection or drainage. CARDIOVASCULAR: Regular rate and rhythm without murmurs. RESPIRATORY: No accessory muscle use. GASTROINTESTINAL: Abdomen soft, non-tender, nondistended. EXTREMITIES: No edema. NEUROLOGICAL: No obvious focal deficit. Assessment/Plan Problem List: (1) Sickle cell disease ICD Codes: D57.1 - Sickle-cell disease without crisis Status: Acute Plan: --12/29: hgb with slight dip, LDH with slight rise. continue supportive care. Hx/Workup: Patient with history of hemoglobin SS sickle cell disease brought into the emergency room with acute shortness of breath. She has been on Xarelto for a right lower extremity DVT as well as history of CHF. She had a lung VQ scan that showed a low probability for pulmonary embolism. (2) Respiratory failure ICD Codes: J96.90 - Respiratory failure, unspecified, unspecified whether with hypoxia or hypercapnia (3) Sickle cell pain crisis ICD Codes: D57.00 - Hb-SS disease with crisis, unspecified (4) Dyspnea ICD Codes: R06.00 - Dyspnea, unspecified Status: Acute (5) Hypercapnia ICD Codes: R06.89 - Other abnormalities of breathing Status: Acute (6) Symptomatic anemia ICD Codes: D64.9 - Anemia, unspecified Status: Acute (7) DVT (deep venous thrombosis) ICD Codes: I82.409 - Acute embolism and thrombosis of unspecified deep veins of unspecified lower extremity Assessment 1. 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 Ricks. Hemoglobin is stable. She is on hydroxyurea and folic acid. She will need to have close follow up in clinic with her primary milk vendor. 2. History of VTE: on rivaroxaban. She will need to have close follow up with primary milk vendor in the outpatient setting. Problem Qualifiers (1) Sickle cell disease: Qualified Codes: D57.01 - Hb-SS disease with acute chest syndrome (2) Dyspnea: Qualified Codes: R06.00 - Dyspnea, unspecified (3) DVT (deep venous thrombosis): Ailin Chowdary MD Jan 07, 2018 14:22
[2018-01-07 14:36] VITALS: PULSE 135
[2018-01-07] MEDS ORDERED: XIFA550T4 PO (15:35)
--- NOTE | 2018-01-07 15:45 | HHI.PR ---
Subjective Remarks Patient seen this morning around 9 AM. Says she is feeling all right. Denies any chest pain shortness of breath. Denies any nausea or vomiting. Reports pain is controlled. Objective Vital Signs Date Time Temp Pulse Resp B/P (MAP) Pulse Ox O2 Delivery O2 Flow Rate FiO2 01/07/18 12:00 91 Nasal Cannula 3.00 01/07/18 12:00 98.2 87 20 107/78 (88) 91 01/07/18 08:47 90 01/07/18 08:00 91 Nasal Cannula 3.00 01/07/18 08:00 97.7 86 20 90/55 (67) 91 01/06/18 23:00 98.5 82 16 105/51 (69) 95 01/06/18 20:00 Nasal Cannula 3.00 01/06/18 20:00 98.5 97 18 102/62 (75) 93 01/06/18 16:00 97.8 100 18 125/67 (86) 90 I/O 01/06/18 01/06/18 01/06/18 01/07/18 01/07/18 01/07/18 07:00 15:00 23:00 07:00 15:00 23:00 Intake Total 0 ml 600 ml Output Total 900 ml 1000 ml 350 ml Balance -900 ml -400 ml -350 ml Intake Oral 0 ml 600 ml Output Urine Total 900 ml 1000 ml 350 ml # Bowel Movements 1 Result Diagram: 01/06/18 0650 01/06/18 0650 Objective Remarks GENERAL: She is sitting up in bed. Alert and oriented 3. no change on exam SKIN: Warm and dry. HEAD: Normocephalic. EYES: No scleral icterus. No injection or drainage. NECK: Supple, trachea midline. No JVD. CARDIOVASCULAR: Regular rate and rhythm without murmurs, gallops, or rubs. RESPIRATORY: Breath sounds equal bilaterally. No accessory muscle use. GASTROINTESTINAL: Abdomen soft, non-tender, nondistended. MUSCULOSKELETAL: No cyanosis, or edema. BACK: Nontender without obvious deformity. No CVA tenderness. A/P Assessment and Plan ========01/07/18. ======= Patient stable for discharge to SNF. Continue on Xarelto. Follow-up with consultants as outpatient. Status post 10 days of ertapenem. //Acute hypoxic hypercapnic respiratory failure: Extubated 12/27/17. Appreciate pulmonology recommendations. Continue bronchodilators, supplemental oxygen. Continues on 3L. //Chronic diastolic heart failure, small pericardial effusion without evidence of tamponade: 2D echocardiogram showed ejection fraction 55-60%. Right ventricle is moderately dilated. Right atrial size is severely dilated. Severe tricuspid regurgitation and trace mitral valve regurgitation noted. Inferior vena cava dilated. IV fluids discontinued. Appreciate cardiology recommendations. Diuresing well. //Chronic pain: On chronic Gibbs and Fentanyl patch at home. Fentanyl patch discontinued due to encephalopathy. Mental status improved and patient reporting significant pain. Fentanyl patch restarted. Continue Gibbs as needed. //Sickle cell disease with vaso-occlusive crisis: Appreciate hematology recommendations. Continue folic acid. Status post plasmapheresis. Monitor H&H , LDH, reticulocyte count. // Right lower extremity DVT: IVC filter placed, unknown date. Continue Xarelto. // UTI: Urine culture growing ESBL E. coli. Appreciate infectious disease recommendations. Continue ertapenem. // Acute kidney injury: Improved. Monitor BUN/creatinine closely while on diuretics. // Elevated total bilirubin: Imaging shows hepatomegaly, sludge in gallbladder, ascites. Appreciate GI recommendations. Patient refused MRCP. CT abdomen done. GI requesting liver biopsy. Patient will need to be off anticoagulation. May need to go back on heparin drip. = 01/04. Will need liver biopsy as per GI. Will hold Xarelto. Plan for heparin drip tomorrow morning for bridging. =01/05Plan for liver biopsy tomorrow. Patient is on heparin drip. Further management of adequate by GI. Appreciate assistance. = 01/06. Patient refused liver biopsy. Hemoglobin stable. Bilirubin stable. // GI prophylaxis: Prevacid. // Schizophrenia, depression: Continue home medications, citalopram and paliperidone. // Encephalopathy: Serum ammonia is trending down. Continue lactulose, rifaximin. Confusion has improved. Head CT negative. Discharge Planning discharge to SNF. Will need follow-up with GI as outpatient. Onel Claire MD Jan 07, 2018 15:45
--- NOTE | 2018-01-07 15:46 | HHI.DS ---
Discharge Summary Admission Date Dec 22, 2017 at 18:45 Discharge Date: Jan 07, 2018 Admitting Diagnosis (1) Sickle cell pain crisis ICD Code: D57.00 - Hb-SS disease with crisis, unspecified (2) DVT (deep venous thrombosis) ICD Code: I82.409 - Acute embolism and thrombosis of unspecified deep veins of unspecified lower extremity (3) Symptomatic anemia ICD Code: D64.9 - Anemia, unspecified Status: Acute (4) Hepatic encephalopathy ICD Code: K72.90 - Hepatic failure, unspecified without coma Procedures 12/25-plasmapheresis 12/26-plasmapheresis Brief History - From Admission 42-year-old unfortunate -[place] female presents for evaluation of shortness of breath. Per EMS report the patient had O2 sats of 81 on their arrival, required 15 L on nonrebreather to bring saturations into the 90s. Patient was initially alert, intermittently following commands. Patient was able to provide her name. Per review of medical record and ER documentation she has a history of sickle cell anemia, CHF, and recent history of right DVT on Xarelto. CBC/BMP: 01/06/18 0650 01/06/18 0650 Significant Findings Laboratory Tests Test 01/05/18 05:00 01/05/18 09:55 01/05/18 17:30 01/05/18 23:25 Red Blood Count 2.41 MIL/MM3 (4.00-5.30) Hemoglobin 7.4 GM/DL (11.6-15.3) Hematocrit 21.6 % (35.0-46.0) Red Cell Distribution Width 17.5 % (11.6-17.2) Ammonia 50 MCMOL/L (11-32) Prothrombin Time 15.7 SEC (9.8-11.6) Activated Partial Thromboplast Time 32.9 SEC (24.3-30.1) 277.5 SEC (24.3-30.1) 75.8 SEC (24.3-30.1) Test 01/06/18 06:50 01/06/18 10:45 Red Blood Count 2.44 MIL/MM3 (4.00-5.30) Hemoglobin 7.5 GM/DL (11.6-15.3) Hematocrit 21.9 % (35.0-46.0) Red Cell Distribution Width 17.5 % (11.6-17.2) Neutrophils (%) (Auto) 72.3 % (16.0-70.0) Basophils (%) (Auto) 2.3 % (0.0-2.0) Platelet Morphology Comment ENLARGED (NORMAL) Prothrombin Time 15.1 SEC (9.8-11.6) Blood Urea Nitrogen 20 MG/DL (7-18) Albumin 3.0 GM/DL (3.4-5.0) Alkaline Phosphatase 159 U/L (45-117) Aspartate Amino Transf (AST/SGOT) 61 U/L (15-37) Total Bilirubin 2.0 MG/DL (0.2-1.0) Carbon Dioxide Level 35.8 MEQ/L (21.0-32.0) Direct Bilirubin 1.2 MG/DL (0.0-0.2) Total Protein 8.3 GM/DL (6.4-8.2) Activated Partial Thromboplast Time 47.4 SEC (24.3-30.1) Imaging Last Impressions Abdomen X-Ray 01/05/18 0000 Signed Impressions: Service Date/Time: December 13:47 - CONCLUSION: Stable exam with questionable hepatomegaly. IVC filter. Severe osteoarthritis left hip. Orestes Avilez MD Head CT 12/31/17 0000 Signed Impressions: Service Date/Time: Sunday, December 31, 2017 16:38 - CONCLUSION: 1. Isolated chronic sinusitis in a posterior right ethmoid air cells. 2. Otherwise negative. Pj Laboy MD Abdomen/Pelvis CT 12/30/17 0000 Signed Impressions: Service Date/Time: Saturday, December 30, 2017 23:30 - CONCLUSION: 1. Anasarca with small volume ascites. No dilated loops of bowel observed. 2. Cardiomegaly with moderate pericardial effusion. 3. Small bilateral pleural effusions with associated passive atelectasis. Aakash Gonzalez Jr., MD Chest X-Ray 12/27/17 0600 Signed Impressions: Service Date/Time: Wednesday, December 27, 2017 04:32 - CONCLUSION: Bibasilar consolidation slightly worse. Lines and tubes unchanged. Jacinto Crouch MD Lower Extremity Ultrasound 12/24/17 0000 Signed Impressions: Service Date/Time: Sunday, December 24, 2017 08:58 - CONCLUSION: Deep venous thrombosis extending above the knee as described above. Tre King MD FACR Lung Scan-VQ Nuclear Medicine 12/23/17 0000 Signed Impressions: Service Date/Time: Saturday, December 23, 2017 13:14 - CONCLUSION: 1. A reverse mismatch posteriorly in the left base with increased activity on the perfusion images and no identifiable activity in the left base on the corresponding ventilatory sequence. Findings are probably due to a posterior layering effusion. There may be some fluid in the fissure on the left as well based on the linear perfusion defect posteriorly in the left base. 2. Central trapping possibly representing some degree of COPD. 3. No scintigraphic findings of pulmonary embolus. Pj Laboy MD Abdomen Ultrasound 12/23/17 0000 Signed Impressions: Service Date/Time: Saturday, December 23, 2017 08:44 - CONCLUSION: 1. Liver appears somewhat prominent but otherwise sonographically intact. There is some free fluid along the hepatic convexity. 2. Cholelithiasis with probable associated gallbladder sludge. 3. Due to the patient's current clinical condition and the fact they were restrained, limited examination of the additional abdominal viscera. Pancreas is obscured by overlying bowel gas. Left kidney, aorta and IVC are poorly visualized. Pj Laboy MD Chest CT 12/22/17 0000 Signed Impressions: Service Date/Time: December 19:57 - CONCLUSION: 1. Moderate cardiomegaly with moderate pericardial effusion. 2. Consolidation and airspace disease in the lower lobes left greater than right as well as more patchy airspace disease in the right lung. 3. Small pleural effusions. 4. Diffuse anasarca with ascites in the upper abdomen. 5. Hepatomegaly and abnormal apparent small high density spleen. Zay Barakat MD PE at Discharge General: No acute distress. Sitting up in a chair. Heart: Regular rate and rhythm. No murmur. Lungs: Diminished breath sounds bilaterally. No wheezes/rhonchi noted. Breathing is nonlabored. Abdomen: Soft, nontender, nondistended. Extremities: 2+ lower extremity edema, R>L. Psych: Alert, answers questions appropriately. Neuro: Speech is quiet. Hospital Course ========01/07/18. ======= Patient stable for discharge to SNF. Continue on Xarelto. Follow-up with consultants as outpatient. Status post 10 days of ertapenem. //Acute hypoxic hypercapnic respiratory failure: Extubated 12/27/17. Appreciate pulmonology recommendations. Continue bronchodilators, supplemental oxygen. Continues on 3L. //Chronic diastolic heart failure, small pericardial effusion without evidence of tamponade: 2D echocardiogram showed ejection fraction 55-60%. Right ventricle is moderately dilated. Right atrial size is severely dilated. Severe tricuspid regurgitation and trace mitral valve regurgitation noted. Inferior vena cava dilated. IV fluids discontinued. Appreciate cardiology recommendations. Diuresing well. //Chronic pain: On chronic [place] and Fentanyl patch at home. Fentanyl patch discontinued due to encephalopathy. Mental status improved and patient reporting significant pain. Fentanyl patch restarted. Continue [place] as needed. //Sickle cell disease with vaso-occlusive crisis: Appreciate hematology recommendations. Continue folic acid. Status post plasmapheresis. Monitor H&H , LDH, reticulocyte count. // Right lower extremity DVT: IVC filter placed, unknown date. Continue Xarelto. // UTI: Urine culture growing ESBL E. coli. Appreciate infectious disease recommendations. Continue ertapenem. // Acute kidney injury: Improved. Monitor BUN/creatinine closely while on diuretics. // Elevated total bilirubin: Imaging shows hepatomegaly, sludge in gallbladder, ascites. Appreciate GI recommendations. Patient refused MRCP. CT abdomen done. GI requesting liver biopsy. Patient will need to be off anticoagulation. May need to go back on heparin drip. = 01/04. Will need liver biopsy as per GI. Will hold Xarelto. Plan for heparin drip tomorrow morning for bridging. =01/05Plan for liver biopsy tomorrow. Patient is on heparin drip. Further management of adequate by GI. Appreciate assistance. = 01/06. Patient refused liver biopsy. Hemoglobin stable. Bilirubin stable. // GI prophylaxis: Prevacid. // Schizophrenia, depression: Continue home medications, citalopram and paliperidone. // Encephalopathy: Serum ammonia is trending down. Continue lactulose, rifaximin. Confusion has improved. Head CT negative. Discharge Planning discharge to SNF. Will need follow-up with GI as outpatient. Pt Condition on Discharge: Good Discharge Disposition: Discharge to SNF Discharge Time: > 30 minutes Discharge Instructions DIET: Follow Instructions for: Diabetic Diet Activities you can perform: Regular-No Restrictions Follow up Referrals: Cardiology - 1 Week with Manuel Shanks MD Gastroenterology - 1 Week with Jennifer Fuentes MD Oncology/Hematology - 1 Week with Abiodun Ricks MD Pulmonology - 1 Week with Toy Hayes MD New Medications: Insulin Aspart Inj (Novolog Inj) 100 Unit/Ml Inj 1 INJECTION SQ Q6HR for Blood Sugar Management for 30 Days, INJECTION Lansoprazole ODT (Prevacid Solutab ODT) 30 Mg Tab 30 MG NG DAILY for Reflux for 30 Days, #30 TAB Mix with 4 ml water before giving via tube. Polyethylene Glycol 3350 Powder (Polyethylene Glycol 3350 Powder) 17 Gram Pow 17 GM PO BID for Constipation for 30 Days, ML Potassium Chloride Microencaps (Potassium Chloride Microencaps) 20 Meq Tab 20 MEQ PO Q12HR for low potassium for 30 Days, TAB Rifaximin (Xifaxan) 550 Mg Tab 550 MG PO BID for hepatic encephalopathy for 30 Days, #60 TAB Sennosides-Docusate Sodium (Gnp Senna Plus 8.6-50 mg) 8.6 Mg-50 Mg Tab 1 TAB PO BID for Constipation for 30 Days, #60 TAB Torsemide (Demadex) 20 Mg Tab 20 MG PO DAILY for water pill for 30 Days, #30 TAB [Lactulose Liq] () 30 ML SYRP 30 ML PO BID for encephalopathy for 30 Days Continued Medications: Benztropine (Benztropine) 0.5 Mg Tab 0.5 MG PO BID, #30 TAB 0 Refills Citalopram (Citalopram) 20 Mg Tab 20 MG PO DAILY for Control Depression, #30 TAB 0 Refills Deferasirox (Jadenu) 360 Mg Tab 360 MG PO DAILY, TAB 0 Refills Fentanyl Patch 72 HR (Fentanyl Patch 72 HR) 50 Mcg/Hr Patch 50 MCG T-DERMAL Q72H for Pain Management, #3 PATCH 0 Refills (This prescription has been renewed) Remove old patch when new one placed. Folic Acid (Folic Acid) 0.4 Mg Tab 400 MCG PO DAILY for Nutritional Supplement, TAB 0 Refills Hydrocodone-Acetaminophen (Hydrocodone-Acetaminophen) 10-325 mg Tab 1 TAB PO Q4H PRN for PAIN 1 TO 10 AND/OR AGITATION, #20 TAB 0 Refills (This prescription has been renewed) Hydroxyurea (Hydrea) 500 Mg Cap 1000 MG PO DAILY, CAP 0 Refills Paliperidone ER (Paliperidone ER) 3 Mg Tab 3 MG PO DAILY for Schizophrenia, #30 TAB 0 Refills Rivaroxaban (Xarelto) 20 Mg Tab 20 MG PO DAILY for Blood Clot Prevention, TAB 0 Refills Discontinued Medications: Furosemide (Furosemide) 20 Mg Tab 20 MG PO BID, #60 TAB 0 Refills Onel Claire MD Jan 07, 2018 15:46
[2018-01-07 16:00] VITALS: BP 102/55; PULSE 80; RESP 20; TEMP 98.4; O2SAT 92
--- NOTE | 2018-01-07 18:09 | HHI.FF ---
Face to Face Verification Diagnosis: (1) DVT (deep venous thrombosis) (2) Right heart failure (3) Sickle cell pain crisis Physical Therapy Order: Evaluate and Treat Home Health Nursing Order: Medical education Oxygen administration education Nursing assessment with vital signs Instructions: Patient will need home health nurse for medication management. Consulting Services Project Manager Order: To Evaluate: Support services Order: To Provide: Long range planning I have seen patient Roz Weiss on 01/07/18. My clinical findings support the need for the requested home health care services because: Limited ability to care for self I certify that my clinical findings support that this patient is homebound because: Unsafe to leave home unassisted Onel Claire MD Jan 07, 2018 18:09
[2018-01-07] MEDS ORDERED: OXYGENDME NAS.CANULA (18:12)
== END 2018-01-07 18:45 | disposition home health service (06) | DRG 207 ==
LOC: NEPE 15:47 → EDBD 18:45 → NEDA 18:45 → HIME 20:55 → N07B 12-27 22:21
PROVIDERS: ADMIT Internal Medicine; ATTEND Internal Medicine
PROC: 5A1955Z Respiratory Ventilation, Greater than 96 Consecutive Hours (ICD-10-PCS; principal; 2017-12-22)
PROC: 30233N1 Transfusion of Nonautologous Red Blood Cells into Peripheral Vein, Percutaneous Approach (ICD-10-PCS; 2017-12-22)
PROC: 0BH17EZ Insertion of Endotracheal Airway into Trachea, Via Natural or Artificial Opening (ICD-10-PCS; 2017-12-22)
PROC: 02HV33Z Insertion of Infusion Device into Superior Vena Cava, Percutaneous Approach (ICD-10-PCS; 2017-12-24)
PROC: 5A1D70Z Performance of Urinary Filtration, Intermittent, Less than 6 Hours Per Day (ICD-10-PCS; 2017-12-24)
PROC: 6A551Z3 Pheresis of Plasma, Multiple (ICD-10-PCS; 2017-12-25)
DX: J96.01 Acute respiratory failure with hypoxia (principal); D57.01 Hb-SS disease with acute chest syndrome; J15.4 Pneumonia due to other streptococci; N17.9 Acute kidney failure, unspecified; E72.20 Disorder of urea cycle metabolism, unspecified; E87.2 Acidosis; K52.1 Toxic gastroenteritis and colitis; I31.3 Pericardial effusion (noninflammatory); Z68.41 Body mass index [BMI] 40.0-44.9, adult; I50.32 Chronic diastolic (congestive) heart failure; N39.0 Urinary tract infection, site not specified; R18.8 Other ascites; I82.411 Acute embolism and thrombosis of right femoral vein; I82.4Z1 Acute embolism and thrombosis of unspecified deep veins of right distal lower extremity; I08.1 Rheumatic disorders of both mitral and tricuspid valves; F20.9 Schizophrenia, unspecified; E66.9 Obesity, unspecified; J96.02 Acute respiratory failure with hypercapnia; B96.20 Unspecified Escherichia coli [E. coli] as the cause of diseases classified elsewhere; Z16.12 Extended spectrum beta lactamase (ESBL) resistance; F32.9 Major depressive disorder, single episode, unspecified; R16.2 Hepatomegaly with splenomegaly, not elsewhere classified; G47.30 Sleep apnea, unspecified; G89.29 Other chronic pain; H91.90 Unspecified hearing loss, unspecified ear; K72.90 Hepatic failure, unspecified without coma; K80.20 Calculus of gallbladder without cholecystitis without obstruction; T36.95XA Adverse effect of unspecified systemic antibiotic, initial encounter; Z79.01 Long term (current) use of anticoagulants; Z86.718 Personal history of other venous thrombosis and embolism
CPT/HCPCS: 31500; 36430; 36556; 36600; 51702; 70450; 71045; 71250; 74018; 74176; 76700; 76937; 78582; 80048; 80053; 80074; 80076; 80202; 81001; 81256; 82103; 82140; 82248; 82272; 82390; 82550; 82728; 82805; 82948; 83010; 83020; 83021; 83520; 83540; 83550; 83605; 83615; 83735; 83880; 84100; 84443; 84484; 84630; 85007; 85014; 85018; 85025; 85027; 85041; 85044; 85379; 85384; 85610; 85730; 86038; 86255; 86850; 86900; 86901; 86920; 87040; 87070; 87077; 87086; 87186; 87205; 87493; 87641; 93005; 93306; 93308; 93971; 94002; 94003; 94150; 94640; 94664; 96374; 96375; A9540; A9567; J0330; J0610; J0696; J1335; J1580; J1644; J1815; J1940; J2060; J2250; J2270; J3370; J3480; J7030; J7040; J7050; J7613; P9016; Q9963